=== PATIENT | female | born 1950 | race African-American/Black ===

== ENCOUNTER 2021-08-27 09:05 | Outpatient (REF) | payer MEDICARE, SELFPAY | END 2021-08-27 09:06 | disposition home or self-care (01) | LOC: HO.CT 09:05 | PROVIDERS: Visit Provider Psychiatry & Neurology Neurology | DX: Z13.89 Encounter for screening for other disorder (principal) ==

== ENCOUNTER 2024-12-20 09:58 | Outpatient (REF) | payer MEDICARE, SELFPAY ==
[2024-12-20 10:52] LABS: MANUAL DIFF FLAG NO
[2024-12-20 11:26] LABS: Hematocrit 33.1 % (37.0-47.0); Hemoglobin 10.2 g/dl (12.0-16.0); Imm Gran Abs Auto 0.01 X10*3/uL (0.00-0.03); Imm Gran Pct Auto 0.3 % (0.0-0.4); Lymphocytes Absolute Auto 0.8 X10*3/uL (1.2-4.9); Mean Corpuscular HGB Conc 30.8 g/dl (31.0-35.0); Mean Corpuscular Hemoglobin 29.1 pg (27.0-33.0); Mean Corpuscular Volume 94.6 fL (80.0-98.0); NRBC Abs Auto 0.000 X10*3/uL (0.0-0.012); NRBC Pct Auto 0.0 /100WBC (0.0-0.2); Platelet Count 153 X10*3/uL (160-400); Red Blood Count 3.50 X10*6/uL (4.20-5.50); White Blood Count 3.0 X10*3/uL (4.8-10.8)
[2024-12-20 12:07] LABS: Alanine Aminotransferase 27 U/L (0-31); Albumin Level 4.1 g/dL (3.5-5.0); Alkaline Phosphatase 103 U/L (39-117); Aspartate Amino Transferase 33 U/L (5-31); Total Protein 7.4 g/dL (6.5-8.0)
[2024-12-21 19:53] LABS: Antibody to SS-A Antigen <1.0 NEG AI (<1.0 NEG); Antibody to SS-B Antigen <1.0 NEG AI (<1.0 NEG)
[2024-12-25 20:59] LABS: Anti Nuclear Antibody Screen POSITIVE (NEGATIVE); Anti Nuclear Antibody Titer 1:40 titer
== END 2024-12-20 09:59 | disposition home or self-care (01) ==
LOC: HO.LAB 09:58
PROVIDERS: PCP Internal Medicine; Visit Provider Hospitalist
DX: Z01.84 Encounter for antibody response examination (principal); J90 Pleural effusion, not elsewhere classified; G47.33 Obstructive sleep apnea (adult) (pediatric); G47.34 Idiopathic sleep related nonobstructive alveolar hypoventilation; J98.4 Other disorders of lung; R06.00 Dyspnea, unspecified
CPT/HCPCS: 36415; 80076; 82164; 85025; 86038; 86039; 86235; 99212

== ENCOUNTER 2024-12-20 09:58 | Outpatient (AMB) | payer MEDICARE, SELFPAY ==
[2024-12-20 10:03] VITALS: BP 100/50; PULSE 64; O2SAT 98; BMI 28.8
--- NOTE | 2024-12-20 10:03 | A.OFFVIS_ITS ---
Vital Signs 12/20/24 10:03 Height 5 ft 8 in Weight 189 lb 9.561 oz BMI 28.8 BP 100/50 L Blood Pressure Location Lt brachial Position Sitting Pulse 64 Pulse Source Pulse Oximeter Pulse Oximetry (%) 98 Oxygen Delivery Method Room Air Intake Visit Reasons: Sleep apnea Photoengraving Photographer Required: No Allergies Codeine Allergy (Severe, Uncoded 08/10/24 13:07) Rash and Hives HPI Comments Details: The patient is a 74-year-old woman known COPD in addition to obstructive sleep apnea on CPAP. Apparently she was scheduled to undergo a total knee replacement at [facility] back in February 2019 which was found to have being age from fibrillation this was a new diagnosis for her. She was admitted to the hospital with AFib with rapid ventricular response with EKG changes. Her echo was done demonstrating an EF of 35-40%. She also underwent a diagnostic catheterization demonstrated some coronary artery disease. She was subsequently sent to [facility] for a intervention however, her her blockers was not significant enough for too small for stent so therefore they opted on medical therapy. At this point she does not require surgical intervention. She is recovering well she is on Eliquis now for blood thinners. She currently has a Holter monitor to further assess her arrhythmias. Her breathing still an issue. She is to having dyspnea on exertion. Moderate severity. She has been using Symbicort at times. The patient also has a history of sleep apnea. She has not been able to get back to using her machine after her recent hospitalization. She understands that we need to get her back on CPAP nor to treat her cardiac risk including her cardiac arrhythmia and coronary artery disease. Holter monitor was okay. There is still not sure how much of the cardiac issues contributing to her respiratory symptoms. She did have pulmonary function studies that with we personally reviewed no evidence of any obstruction although she has small airway disease more consistent with a diagnosis like asthma. She responds very well to the inhaler. However she also has a restrictive component. We have to further investigate this with imaging studies. Her CPAP she still getting used to her new mask. She has tried going to try her old mask. She understands she needs to do that because is going to treat her cardiovascular risk. She did undergo a CT scan of the chest that we personally reviewed. The patient did have some evidence of atelectasis at the bases. Partly due to enlarged heart question on the lungs. Does have significant cardiomegaly. She also has evidence of atherosclerosis and distended vessels. The patient also was taken for brief walking oximetry and she maintain a pulse ox of 96%. However the heart rate did increase above 100 and the patient quickly became very short of breath with that. She will be following up with the horse groomer soon. In the meantime she continues use her CPAP. The CPAP therapy continues to be effective beneficial. She uses the CPAP for more than 4 hours a night. 11/12/2022 the patient is here for a pulmonary follow-up visit. Since we last spoke the patient unfortunately had a bad fall fracturing her left like. She did have to be admitted to [facility] which she did undergo surgery. Now she is recovering at home. She still has a soft splint and she is going to be evaluated soon since the just happen. Since they have been she has been noticing increasing shortness of breath hard time taking a deep breath in. Denies any mucus production denies any fevers or chills and she denies any pleuritic discomfort which is reassuring for she has been using the Trelegy inhaler although is bothering her throat most likely the powder. Therefore will switch over to an HFA form with spacer to better provide the medication without irritating her vocal cords. In addition to that the patient does have some crackles on examination at the right base. Likely atelectasis postoperatively and she needs to start using the hand forearm her more. In the meantime if the patient worsens with increasing shortness of breath cough discomfort I did give her a course of doxycycline she can start but also to call me to let me know. We did talk about the importance of the incentive spirometer and she can use it 3 to 4 times a day to avoid developing a infectious process. Will follow-up in 2-3 months. If she has any new or worsening respiratory symptoms she is to call for further evaluation. 08/11/2023 the patient is here for pulmonary follow-up visit. currently having issues with the knee. 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 Now she is going to undergo surgery. For respiratory status she continues to use her respiratory medications with good effect. She does complaint of shortness of breath with activity. The patient does have good response to her respiratory medications. She does complaint of headaches in the morning. The patient does have underlying COPD so therefore I will request an overnight oximetry to see if she requires nocturnal oxygen. During the last visit we did switch over from Trelegy to breztri and she is tolerating it well. Her last chest x-ray was back from May 2023 demonstrating no acute disease. Will hold off on any additional imaging at this time. Will try to have an overnight oximetry done prior to her surgery. The patient will follow-up in 4-6 months. 02/11/2024 The patient is here for a pulmonary follow up visit. Has been Complaining of worsened daytime drowsiness. Her [place] score is elevated 05/01. She also complains of headaches. We did perform an overnight oximetry and she did desaturate significantly. She was placed on oxygen to use while sleeping. However, she did not tolerate the loud concentrator. Therefore she returned it. Although she is still symptomatic. She does carry a diagnosis of sleep apnea. Will go ahead and request an in-lab sleep study specially with nocturnal hypoxia. In the meantime she continues respiratory therapy with good effect. The patient follow-up after her in-lab sleep study. 06/15/2024 the patient is here for a pulmonary follow-up visit. Overall she is doing well. Still has some dyspnea on exertion [id number] severity. Also gets wheezing time specially she forgets to take her inhaler. She does take her inhalers regularly. She has not had any recent exacerbations. She is sleeping better. She is not using oxygen at nighttime. She did have a in-lab sleep s tudy which we did review. No evidence of any sleep apnea or hypoxia this time. Therefore is reassuring. She may have a component of periodic limb movement but does related to the fact that she has had some issues with her hips and knees. She is also having some issues with her eyes with her significantly red. She also has what appears to be some swelling around the eyes. They are we doing he r kitchen therefore may have other allergens in the area. Will go ahead and send her an allergy medication to see if this provides some relief. Overall she is doing well. The patient will continue with current respiratory therapy plan to follow-up sometime in the fall. If any issues arise she can always call for an earlier assessment. 12/20/2024 the patient is here for pulmonary follow-up visit. Overall she is doing well from a respiratory status. She continues use her inhalers as prescribed. The patient did have an event back in July where she had issues with vertigo and thought she was having a stroke. She was taken [facility] to [facility] but was too busy and then she went to [facility] then went back to [facility]. Was briefly admitted. There she had a chest x-ray without any acute disease that I did appreciate. After that hospitalization she started losing her hearing. She did follow-up with ENT. 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 She does have a hearing aid. She will continue to follow- up with ENT. In addition to that she was diagnosed with uveitis. She was sent to [place]. She has been getting some direct steroid injections to the eye. In addition. The patient did have a CT scan of the chest at [facility] at [facility]. Will try to get the report. She was told that she has a pleural effusion. She was placed on diuretics IV and her breathing did improve and she feels well. Her chest x-ray from [facility] did not demonstrate any effusions which is reassuring. Will go ahead and request a CAT scan to review. Question of sarcoidosis did come up in our discussion. Will have her get an Kuldeep level specially with the uveitis and hearing loss in case this was not a viral syndrome sarcoid could potentially explain the findings. Therefore she will have blood work including an Kuldeep level and we will review the CAT scan from [facility]. If additional imaging is warranted I will let her know. The patient be back in 3-4 months. [facility] Medical History (Updated 12/20/24 @ 10:28 by Mitchell Hernandez MD) Pleural effusion Ventricular tachycardia Nocturnal hypoxia ERIKA (obstructive sleep apnea) Chronic restrictive lung disease Dyspnea Cardiomyopathy ERIKA on CPAP COPD (chronic obstructive pulmonary disease) Social History Patient Tobacco Use Status: Former Tobacco user Tobacco use type: Cigarette Years Smoked: 16 years Review of Systems Const Reports daytime sleepiness, Reports difficulty sleeping, Reports headache(s), Reports poor appetite and Reports weight gain Eyes Reports as per HPI and Reports change in vision ENT Denies change in voice, Reports headache(s), Reports hearing loss, Denies lip swelling, Denies mouth pain, Reports nasal congestion, Reports nasal discharge and Denies tongue swelling Card Denies chest pain and Reports dyspnea on exertion Resp Reports cough and Reports dyspnea on exertion GI Denies abdominal pain Musc Reports as per HPI, Reports abnormal gait, Reports arthralgias and Reports joint swelling Neuro Denies Neuro-related abnormal movements, Reports abnormal gait and Reports headache(s) Psych Denies no additional complaints Ifeanyi/Lymph Denies easy bleeding and Denies lymphadenopathy Aller/Immun Denies lip swelling and Denies tongue swelling Physical Exam Vital Signs: Last Vital Signs Pulse 64 12/20/24 10:03 BP 100/50 L 12/20/24 10:03 Pulse Ox 98 12/20/24 10:03 Oxygen Delivery Method Room Air 12/20/24 10:03 BMI result Body Mass Index 28.8 Const General: alert Eyes Periorbital: periorbital findings abnormal bilateral periorbital swelling Neck Neck: Yes normal visual inspection, Yes full ROM and Yes no lymphadenopathy Chest Chest palpation & inspection: normal inspection of the chest Resp Auscultation: clear to auscultation bilaterally and no crackles Cardio Rate: regular rate Rhythm: regular rhythm Heart sounds: S1 normal heart sound present, S2 normal heart sound present and Murmur heart sound present GI Palpation (GI): Soft to palpation and nontender Auscultation: normal bowel sounds Skin General skin exam: rashes and/or lesions noted Assessment & Plan Assessment & Plan (1) Pleural effusion: Code(s): J90 - Pleural effusion, not elsewhere classified Category: Medical (2) ERIKA (obstructive sleep apnea): Code(s): G47.33 - Obstructive sleep apnea (adult) (pediatric) Category: Medical (3) Nocturnal hypoxia: Code(s): G47.34 - Idiopathic sleep related nonobstructive alveolar hypoventilation Category: Medical (4) Chronic restrictive lung disease: Code(s): J98.4 - Other disorders of lung Category: Medical (5) Dyspnea: Code(s): R06.00 - Dyspnea, unspecified Category: Medical Qualifiers: Dyspnea type: dyspnea on exertion Qualified Code(s): R06.09 - Other forms of dyspnea Plan continue Breztri with spacer short-acting beta agonist as needed claritin Bloodwork Need to review CT chest from [facility] F/U in 3-4 months Orders: Orders Angiotensin Converting Enzyme Today J90 - Pleural effusion, not elsewhere classified, J98.4 - Other disorders of lung Complete Blood Count Auto Diff Today J90 - Pleural effusion, not elsewhere classified, J98.4 - Other disorders of lung Sjogren's Antibodies Today J90 - Pleural effusion, not elsewhere classified, J98.4 - Other disorders of lung Liver Panel Today J90 - Pleural effusion, not elsewhere classified, J98.4 - Other disorders of lung ETHAN Reflex Titer and Pattern Today J90 - Pleural effusion, not elsewhere classified, J98.4 - Other disorders of lung Medications: Discontinued trazodone Discontinued Reason: Patient Completed Course 100 mg (2 x 50 mg) PO BEDTIME 30 days 60 tabs 6RF doxycycline hyclate Discontinued Reason: Patient Completed Course 100 mg PO BID 10 days 20 caps 0RF Coding Level of Care Code Est Pt Level 4 (28134) Complex EM visit Add On G2211 Diagnoses Pleural effusion J90 ERIKA (obstructive sleep apnea) G47.33 Nocturnal hypoxia G47.34 Chronic restrictive lung disease J98.4 Dyspnea on exertion R06.09 Dyspnea type: dyspnea on exertion Time Spent (min) 17
--- OUTSIDE RECORDS SUMMARY | 2024-12-20 10:49 | XMS_ITS | Patient Health Record ---
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 Name Role Phone Radha Henson Primary Care Provider Unavailabl e Black, Elsie Unavailable [phone] Allergies Allergen (clinical drug ingredient) Drug/Non Drug Allergy documented on EMR Reaction Allergy Type Onset Date Status general spinal (uncoded) Unknown Allergy Active codeine Codeine heart palpitations Drug Allergy Active corticosteroid and/or corticosteroid derivative (FN) Corticosteroids Unknown Drug Allergy Active Results Component Value Reference Range Notes X ray : Foot, right 2V Reviewed date:04/12/2024 11:55:29 AM Interpretation:See Examination above Performing Lab: Notes/Report: See Examination above X ray : Foot, left 3V Reviewed date:04/12/2024 11:55:45 AM Interpretation:See Examination above Performing Lab: Notes/Report: See Examination above Reason For Referral No Information Medications Medication SIG (Take, Route, Frequency, Duration) Notes Start Date End Date Status Pepcid 20 MG 1 tablet at bedtime as needed Orally Once a day Active Lexapro 20 MG 1 tablet Orally Once a day Active Pulmicort Not-Taking Melatonin 5 MG 1 tablet in the evening Orally Once a day Active Loteprednol Etabonate Active Pravastatin Sodium 80 MG Orally Not-Taking Keflex Active Ammonium Lactate 12 % 1 application Externally to affected areas of dry skin to feet except for between the toes Twice a day; Duration: 30 days Active Montelukast Sodium 10 MG 1 tablet Orally Once a day Active Fish Oil Not-Taking traZODone HCl 50 MG 1 tablet at bedtime as needed Orally Once a day Active Fosamax 70 MG Orally Not-Ta nona Folic Acid Active Atorvastatin Calcium 40 MG 1 tablet Oral ly Once a day Active ProAir HFA Not-Takin g Magnesium Oxide Acti ve Protonix 40 MG 1 tablet 1/2 to 1 ho ur before morning meal Orally Once a day Active Tramadol & Dietary Manage Prod Not-Taking Hfqxnzgtqewoz-LXPY-Bekihyw al Not-Taking Spironolactone - 1 tablet Orally daily 12.5 Active eliquis Active Vraylar 1.5 MG 1 capsule Orally Onc e a day Active Ferrous Sulfate Acti ve Entresto 24-26 MG 1 tablet Orally Twic e a day Active Gabapentin Active Aspirin Active Calcium + D3 Active Inhaler Decongestant Active Cephalexin 500 MG 1 capsule Orally twi ce a day; Duration: 10 days Active Metoprolol Succinate 25 MG 1 capsule Orally Once a day 12.5 Active Vitamin D3 Active Amlodipine & Diet Manage Prod Active Social History Tobacco Use: Social History Observation Description Date Details (start date - stop date) Never Smoker NA - NA Tobacco use other than smoking: Question Answer Notes Are you an other tobacco user? No Tobacco Control (Standard) Question Answer Notes Tobacco use: Nonsmoker Additional Findings: Tobacco non-user Current no nsmoker AUDIT-C (Standard) Question Answer Notes Did you have a drink containing alcohol in the p ast year? No Points 0 Interpretation Negative Problems Problem Type SNOMED Code ICD Code Onset Dates Problem Status W/U Status Risk Notes Problem Neuropathy (137777658) Neuropathy (G62.9) Active confirmed Problem Idiopathic peripheral neuropathy (20159280) Idiopathic peripheral neuropathy (G60.9) Active confirmed Problem Bilateral atherosclerosis of arteries of lower limbs (disorder) (62747159621641467 ) Atherosclerosis of [place] artery of both lower extremities, with unspecified presence of clinical manifestation (I70.203) Active confirmed Q7(A), Q8(2B), Q9(1B,2 C) Vital Signs Heart Rate 63 /min 08/30/2024 Blood pressure diastolic 76 mm Hg 11/09/2024 Height 5ft 8in in 11/09/2024 Blood pressure systolic 120 mm Hg 11/09/2024 Weight 189 lbs 11/09/2024 BMI 28.73 kg/m2 11/09/2024 Procedures Procedure Date Ordered Date Performed Result Body Sit e 60283-IJELFDX NAIL, 6 OR MORE 04/12/2024 N/A 16703- Debride <25 sq cm 04/19/2024 N/A 58845-Fyfkaody Plate 05/03/2024 N/A 93355-ENFJTXE NAIL, 6 OR MORE 08/30/2024 N/A 41083-HFBT SKIN LESIONS, OVER 4 08/30/2024 N/A 74776-ARBMOTJ NAIL, 6 OR MORE 11/09/2024 N/A 98358-EKAN SKIN LESIONS, OVER 4 11/09/2024 N/A Encounters Encounter Location Date Provider Diagnosis [address] [address] 04/12/2024 Elsie Black Pain in right toe(s) M79.674 ; Other hammer toe(s) (acquired), right foot M20.41 ; Arthritis of joint of lesser toe, right M19.071 ; Pain in left toe(s) M79.675 ; Other hammer toe(s) (acquired), left foot M20.42 ; Arthritis of joint of lesser toe, left M19.072 ; Subluxation of metatarsophalangeal joint of toe, initial encounter S93.149A ; Onychomycosis B35.1 ; Neuropathy G62.9 ; Idiopathic peripheral neuropathy G60.9 and Osteoporosis without current pathological fracture, unspecified osteoporosis type M81.[address] [address] 04/19/2024 Elsie Black Cellulitis of toe of left foot L03.032 ; Skin ulcer of toe of left foot, limited to breakdown of skin L97.521 ; Hammertoe of left foot M20.42 and Toe pain, left M79.[address] [address] 05/03/2024 Elsie Black Cellulitis of toe of left foot L03.032 ; Contusion of right foot, initial encounter S90.31XA ; Skin ulcer of toe of left foot, limited to breakdown of skin L97.521 ; Ingrown nail L60.0 and Pain in right foot M79.[address] [address] 05/25/2024 Elsie Black Pain in right toe(s) M79.674 ; Other hammer toe(s) (acquired), right foot M20.41 ; Flat foot [pes planus] (acquired), left foot M21.42 ; Flat foot [pes planus] (acquired), right foot M21.41 ; Pes planus of left foot M21.42 ; Other acquired deformities of right foot M21.6X1 and Other acquired deformities of left foot M21.6X2 [facility] [address] 08/30/2024 Elsie Black Pain in right toe(s) M79.674 ; Other hammer toe(s) (acquired), left foot M20.42 ; Pain in left toe(s) M79.675 ; Onychomycosis B35.1 ; Atherosclerosis of [place] artery of both lower extremities, with unspecified presence of clinical manifestation I70.203 ; Tinea unguium B35.1 and Xerosis of skin L85.[address] [facility] [address] 11/09/2024 Elsie Black Pain in right toe(s) M79.674 ; Atherosclerosis of [place] artery of both lower extremities, with unspecified presence of clinical manifestation I70.203 ; Pain in left toe(s) M79.675 and Tinea unguium B35.[address] [facility] [address] 12/22/2023 Elsie Black [facility] [address] [address] 01/08/2024 [facility] [address] [place] [address] 04/12/2024 [facility] [address] [place] [address] 04/19/2024 [facility] [address] [place] [address] 05/25/2024 [facility] [address] [place] [address] 06/28/2024 Elsie Black [facility] [place] [address] [place] [address] 06/28/2024 [facility] Lenny [facility] [address] [address] 07/26/2024 Elsiekranthi Galvez [facility] [address] [address] 08/24/2024 Elsie Galvez [facility] Encounter Date Diagnosis (ICD Code) Assessment Notes Treatment Notes Treatment Clinical Notes Section Notes 04/12/2024 Other hammer toe(s) (acquired), right foot (ICD-10 - M20.41) 04/12/2024 Pain in right toe(s) (ICD-10 - M79.674) 04/19/2024 Cellulitis of toe of left foot (ICD-10 - L03.032) 04/19/2024 Skin ulcer of toe of left foot, limited to breakdown of skin (ICD-10 - L97.521) 05/03/2024 Contusion of right foot, initial encounter (ICD-10 - S90.31XA) 05/03/2024 Cellulitis of toe of left foot (ICD-10 - L03.032) 05/25/2024 Pain in right toe(s) (ICD-10 - M79.674) 05/25/2024 Other hammer toe(s) (acquired), right foot (ICD-10 - M20.41) 08/30/2024 Other hammer toe(s) (acquired), left foot (ICD-10 - M20.42) 08/30/2024 Pain in right toe(s) (ICD-10 - M79.674) 11/09/2024 Pain in right toe(s) (ICD-10 - M79.674) 11/09/2024 Atherosclerosis of [place] artery of both lower extremities, with unspecified presence of clinical manifestation (ICD-10 - I70.203) Q7(A), Q8(2B), Q9(1B,2C) 08/30/2024 Pain in left toe(s) (ICD-10 - M79.675) 05/25/2024 Flat foot [pes planu s] (acquired), left foot (ICD-10 - M21.42) 11/09/2024 Pain in left toe(s) (ICD-10 - M79.675) 05/03/2024 Skin ulcer of toe of left foot, limited to breakdown of skin (ICD-10 - L97.521) 04/19/2024 Hammertoe of left fo ot (ICD-10 - M20.42) 04/12/2024 Arthritis of joint o f lesser toe, right (ICD-10 - M19.071) 04/19/2024 Toe pain, left (ICD- 10 - M79.675) 04/12/2024 Pain in left toe(s) (ICD-10 - M79.675) 05/25/2024 Flat foot [pes planu s] (acquired), right foot (ICD-10 - M21.41) 05/03/2024 Ingrown nail (ICD-10 - L60.0) 11/09/2024 Tinea unguium (ICD-1 0 - B35.1) 08/30/2024 Onychomycosis (ICD-1 0 - B35.1) 08/30/2024 Atherosclerosis of [place] artery of both lower extremities, with unspecified presence of clinical manifestation (ICD-10 - I70.203) Q7(A), Q8(2B), Q9(1B,2C) 05/25/2024 Pes planus of left f oot (ICD-10 - M21.42) 05/03/2024 Pain in right foot (ICD-10 - M79.671) 04/12/2024 Other hammer toe(s) (acquired), left foot (ICD-10 - M20.42) 05/25/2024 Other acquired deformities of right foot (ICD-10 - M21.6X1) 04/12/2024 Arthritis of joint o f lesser toe, left (ICD-10 - M19.072) 08/30/2024 Tinea unguium (ICD-1 0 - B35.1) 08/30/2024 Xerosis of skin (ICD -10 - L85.3) 05/25/2024 Other acquired deformities of left foot (ICD-10 - M21.6X2) 04/12/2024 Subluxation of metatarsophalangeal joint of toe, initial encounter (ICD-10 - S93.149A) 04/12/2024 Onychomycosis (ICD-1 0 - B35.1) 04/12/2024 Neuropathy (ICD-10 - G62.9) 04/12/2024 Idiopathic periphera l neuropathy (ICD-10 - G60.9) 04/12/2024 Osteoporosis without current pathological fracture, unspecified osteoporosis type (ICD-10 - M81.0) Plan Of Treatment Pending Test Test Name Order Date 73356-ETQPTVP NAIL, 6 OR MORE 04/12/2024 54199-JHYRWAA NAIL, 6 OR MORE 08/30/2024 60909-CWIFJVO NAIL, 6 OR MORE 11/09/2024 29647-Xrkb Destruction, 1-14 05/16/2014 48520-Dwvf Destruction, -14 06/27/2014 93302-Cjmd Destruction, 1-14 07/18/2014 05839-Zlbfskdk Plate 07/18/2014 56984-Blvpkqte Plate 05/03/2024 26717- Debride <25 sq cm 04/19/2024 43472-NASD SKIN LESIONS, OVER 4 08/31/19 76201-YJNJ SKIN LESIONS, OVER 4 11/10/19 Next Appt Details Provider Name:Elsie Galvez , 01/24/2025 11:15:00 AM, [address] [facility], [place], [address], Insurance Providers Payer Name Payer Address Payer Phone Subscriber Number Group Number Insured Name Patient Relationship to Insured Coverage Start Date Coverage End Date Medicare National [employer] [address] [facility] [place] [address] [id number] Miya Woodruff Self - patient is the insured [facility] [address] [place] [address] [phone] [id number] Miya Woodruff Self - patient is the insured Medical (General) History Medical History History ICD Code mumps measles chicken pox headaches/migraines broken bones back, hip, knee pain Arthritis Anxiety asthma Hyperlipidemia Depression Hypertension Osteoporosis Psoriasis/eczema Psychiatric disorder Sciatica Sinus conditions CAD (Cholesterol) Cataracts Heart disease High Blood Pressure Numbness Reflux ( GERD) Stomach ulcer Transfusions Bone implants/screws Neuritis of left foot G57.92 Other hammer toe(s) (acquired), right fo ot M20.41 Arthritis of joint of lesser toe, right M19.071 Arthritis of joint of lesser toe, left M 19.072 Hammertoe of left foot M20.42 Surgical History Surgery Date(Month/Year) appendectomy breast biopsy Hospitalization History Reason Date(Month/Year) iron infusion 11/07/24 eye disease trouble hearing, fluid in kristi ngs 08/02
--- OUTSIDE RECORDS SUMMARY | 2024-12-20 10:50 | XMS_ITS ---
Author Organization [facility] Name Relationship Address Phone Miya Woodruff Guarantor [address] [place], [place] [phone] Miya Woodruff Agent [address] [place], [place] [phone] Jerome Bella Next of Kin [address] [place], [place] [phone] Mental Status Section Date Assessment Total Score Description 10/18/2020 BIMS 15 cognitively int act CAM 0 No delirium ind icated 09/26/2020 BIMS 15 cognitively int act CAM 0 No delirium ind icated PHQ-9 17 moderately ramesh re depression Problems Problem # Description Date of onset Resolved Date Code CodeSystem Concern Status 1 ANXIETY DISORDER, UNSPECIFIED 10/02/[address] active 2 OTHER SPECIFIED DEPRESSIVE EPISODES 10/02/[address] active Reason for Referral No Reasons for Referral Entered Social History Social History Observation Description Start Date End Date Code Code System Current Smoking Status Tobacco smoking consumption unknown 648781141 SNOMED CT Sex Assigned At Female 1950 [address]-6 [facility] Gender Identity Vital Signs Code Code System Vitals Name Values and Units Timing Information 24770-9 LOINC Weight Jfsxl=385.0 Units=Lbs 03/2021
--- OUTSIDE RECORDS SUMMARY | 2024-12-20 10:50 | XMS_ITS ---
Author Organization [employer] Name Relationship Address Phone Miya Woodruff Guarantor [address] [place], [place] [phone] Miya Woodruff Agent [address] [place], [place] [phone] Jerome Bella Next of Kin [address] [place] [address] Mental Status Section Date Assessment Total Score Description 11/27/2020 BIMS 15 cognitively int act CAM 0 No delirium ind icated PHQ-9 0 11/02/2020 BIMS 15 cognitively int act CAM 0 No delirium ind icated PHQ-9 2 minimal depress ion Problems Problem # Description Date of onset Resolved Date Code CodeSystem Concern Status 1 AFTERCARE FOLLOWING JOINT REPLACEMENT SURGERY 10/27/[address] active 2 MECHANICAL LOOSENING OF OTHER INTERNAL PROSTHETIC JOINT, SUBSEQUENT ENCOUNTER 10/27/[address] active 3 ACUTE HEMATOGENOUS OSTEOMYELITIS, LEFT FEMUR 09/21/19945340468 SNOMED CT active 4 ACUTE HEMATOGENOUS OSTEOMYELITIS, LEFT TIBIA AND FIBULA 09/21/[address] active 5 CARDIOMYOPATHY, UNSPECIFIED 09/21/[address] active 6 CHRONIC OBSTRUCTIVE PULMONARY DISEASE, UNSPECIFIED 09/21/[address] active 7 CHRONIC SYSTOLIC (CONGESTIVE) HEART FAILURE 09/21/[address] active 8 DIFFICULTY IN WALKING, NOT ELSEWHERE CLASSIFIED 09/21/[address] active 9 DYSPHAGIA, UNSPECIFIED 09/21/[address] active 10 ENCOUNTER FOR ADJUSTMENT AND MANAGEMENT OF VASCULAR ACCESS DEVICE 09/21/[address] active 11 GASTRO-ESOPHAGEAL REFLUX DISEASE WITHOUT ESOPHAGITIS 09/21/[address] active 12 HEART FAILURE, UNSPECIFIED 09/21/[address] active 13 INFECTION AND INFLAMMATORY REACTION DUE TO OTHER INTERNAL JOINT PROSTHESIS, SUBSEQUENT ENCOUNTER 09/21/[address] active 14 INFECTION AND INFLAMMATORY REACTION DUE TO UNSPECIFIED INTERNAL JOINT PROSTHESIS, SUBSEQUENT ENCOUNTER 09/21/[address] active 15 IRON DEFICIENCY ANEMIA SECONDARY TO BLOOD LOSS (CHRONIC) 09/21/[address] active 16 LIMITATION OF ACTIVITIES DUE TO DISABILITY 09/21/[address] active 17 FPC (CURRENT) USE OF ANTIBIOTICS 09/21/[address] active 18 MUSCLE WEAKNESS (GENERALIZED) 09/21/[address] active 19 NEED FOR ASSISTANCE WITH PERSONAL CARE 09/21/[address] active 20 OBSTRUCTIVE SLEEP APNEA (ADULT) (PEDIATRIC) 09/21/[address] active 21 OTHER THROMBOPHILIA 09/21/[address] active 22 PAIN IN LEFT LEG 09/21/[address] active 23 PAROXYSMAL ATRIAL FIBRILLATION 09/21/[address] active 24 PRESENCE OF CARDIAC PACEMAKER 09/21/[address] active Reason for Referral No Reasons for Referral Entered Social History Social History Observation Description Start Date End Date Code Code System Current Smoking Status Tobacco smoking consumption unknown 442728358 SNOMED CT Sex Assigned At Female 1950 [address]-1 [facility] Gender Identity Vital Signs Code Code System Vitals Name Values and Units Timing Information 9279-1 [facility] Respiratory Rate Value=18.0 Units=/m in 11/21/2020 8462-4 [facility] Blood Pressure-Diastolic Value=78 Un its=mmHg 11/21/2020 8480-6 [facility] Blood Pressure-Systolic Eqhgs=619 Un its=mmHg 11/21/2020 8310-5 [facility] Body Temperature Value=98.3 Units= F 11/21/2020 8867-4 [facility] Heart rate Value=66.0 Units=/min 99767-8 [facility] Weight Ndrds=205.0 Units=Lbs 08/2020
--- OUTSIDE RECORDS SUMMARY | 2024-12-20 10:50 | XMS_ITS | Encounter Summary ---
Author Organization [employer] Address [address] [facility] 7 [place] [address] Care Team Providers Care Orthotic/Prosthetic Practitioner Name Role Phone Unavailable Primary Care Provider Unavailabl e Encounter Details Date Type Department Care Team (Latest Contact Info) Description 04/12/2021 Abstract [facility] CONVERSIONS Dental, Provider, DDS Social History Tobacco Use Types Packs/Day Years Used Date Smoking Tobacco: Never Assessed Comments Unknown Sex and Gender Information Value Date Recorded Sex Assigned at Female 04/07/2022 10:34 AM EDT Legal Sex Female 10:34 AM EDT Gender Identity Female 04/07/2022 10:34 AM EDT Sexual Orientation Straight 04/07/2022 10 :34 AM EDT documented as of this encounter Plan of Treatment Upcoming Encounters Date Type Department Care Team (Late st Contact Info) Description 04/18/2025 10:00 AM EST Office Visit [facility] [address] [place] [address] Farhat Stoner documented as of this encounter Visit Diagnoses Not on filedocumented in this encounter
--- OUTSIDE RECORDS SUMMARY | 2024-12-20 10:50 | XMS_ITS | Clinical Summary ---
Author Organization [facility] Address [address] [place] [address] Care Team Providers Care Associate Embalmer/Funeral Director Name Role Phone Radha Henson MD Primary Care Provider [phone] Allergies Active Allergy Reactions Criticality Noted Date Comments Codeine Shortness Of Breath High 05/22/2017 1974, Palpatations Other reaction(s): PALPITATIONS Medications Medication Sig Dispensed Refills Start Date End Date Status escitalopram (LEXAPRO) 20 MG tablet Take 1 tablet (20 mg total) by mouth every morning after breakfast. 0 01/03/2020 Active Melatonin 5 MG TABS Take 5 mg by mouth every night at bedtime as needed. 0 04/16/2020 Active Multiple Vitamin (MULTI-VITAMIN DAILY PO) Take by mouth every morning. 0 Active ferrous sulfate 325 (65 FE) MG tablet Take 1 tablet (325 mg total) by mouth every morning with breakfast. 0 Active pantoprazole (PROTONIX) 40 MG tablet Take 1 tablet (40 mg total) by mouth 2 (two) times a day. 30 tablet 0 09/19/2020 Active B-Complex, Folic Acid, TABS TAKE ONE TABLET BY MOUTH EVERY DAY 0 06/12/2021 Active thiamine (VITAMIN B-1) 100 MG tablet Take 1 tablet (100 mg total) by mouth. 0 04/03/2021 Active Budeson-Glycopyrrol -Formoterol (BREZTRI AEROSPHERE IN) INHALE TWO PUFFS BY MOUTH TWICE DAILY 0 Active Calcium Carb-Cholecalcifero l (CALCIUM CARBONATE-VITAMIN D3 PO) Take 1 tablet by mouth every morning. 0 Active acetaminophen (TYLENOL EXTRA STRENGTH) 500 MG tablet Three Times A Day 0 03/22/2018 Active ascorbic acid (VITAMIN C) 250 MG tablet Take 1 tablet (250 mg total) by mouth every morning. 0 Active aspirin EC 81 MG tablet Take 1 tablet (81 mg total) by mouth every morning. 0 06/05/2023 Active atorvastatin (LIPITOR) tablet 40 mg Take 1 tablet (40 mg total) by mouth every night at bedtime. 0 Active Cholecalciferol 25 MCG (1000 UT) tablet Take 1 tablet (1,000 Units total) by mouth daily. 0 Active famotidine (PEPCID) 20 MG tablet TAKE ONE TABLET IN THE MORNING AND EVENING NEEDED 0 Active gabapentin (NEURONTIN) 400 MG capsule Take 2 capsules (800 mg total) by mouth daily. Take with 100mg for a total of 900mg daily 0 07/23/2023 Active levalbuterol (Xopenex HFA) 45 MCG/ACT inhaler INHALE TWO PUFFS EVERY 6 HOURS NEEDED SHORTNESS OF BREATH OR FOR WHEEZING 0 05/26/2022 Active montelukast (SINGULAIR) 10 MG tablet Take 1 tablet (10 mg total) by mouth every night at bedtime. 0 Active traZODone (DESYREL) 50 MG tablet Take 1-2 tablets (50-100 mg total) by mouth every night at bedtime as needed. 0 10/29/2022 Active zinc sulfate (ZINCATE) 220 (50 Zn) MG capsule Take 1 capsule (220 mg total) by mouth daily. 0 05/21/2021 Active folic acid (FOLVITE) tablet 1 mg Take 1 tablet (1,000 mcg total) by mouth every morning. 0 Active metoprolol succinate (TOPROL-XL) 24 hr tablet 25 mg Take 1 tablet (25 mg total) by mouth every morning. 0 06/05/2023 Active Entresto 24-26 MG per tablet TAKE ONE TABLET TWICE DAILY IN THE MORNING AND AT BEDTIME 0 07/23/2023 Active Cyanocobalamin (VITAMIN B 12 PO) Take 1 tablet by mouth daily. 0 Active cariprazine HCl (Vraylar) 1.5 MG capsule Take 1 capsule (1.5 mg total) by mouth daily. 0 Active amiodarone (PACERONE) 200 MG tablet Take 1 tablet (200 mg total) by mouth daily. 30 tablet 0 08/27/2023 Active apixaban (Eliquis) 2.5 MG TABS tablet Take 2 tablets (5 mg total) by mouth every 12 (twelve) hours. 60 tablet 0 08/27/2023 Active spironolactone (ALDACTONE) tablet 25 mg Take 0.5 tablets (12.5 mg total) by mouth daily. 30 tablet 0 08/27/2023 Active Fluticasone-Umeclid in-Vilant (Trelegy Ellipta) 100-62.5-25 MCG/ACT AEPB Inhale 1 puff into the lungs daily. 1 each 0 08/27/2023 Active cephalexin (KEFLEX) 500 MG capsule TAKE ONE CAPSULE TWICE DAILY IN THE MORNING AND AT BEDTIME 60 capsule 6 12/15/2023 Active Active Problems Problem Noted Date Diagnosed Date Periprosthetic fracture arou nd internal prosthetic left knee joint, initial encounter 08/21/2023 Anemia due to stage 3 chronic kidney disease 07/2020 Anemia 12/28/2020 Thrombocytopenia 12/28/2020 S/P joint replacement 10/21/2020 Secondary hypercoagulable state 09/13/2020 Morbid obesity with alveolar hypoventilation 01/2021 Prosthetic joint infection, subsequent encounter 09/05/2020 LBBB (left bundle branch block) 08/27/2020 Non-ischemic cardiomyopathy 06/27/2020 Overview: Overview: LBBB Cath 03/2019 revealing 30% LM which was not hemodynamically significant and therefore managed medically Further drop in LVEF to 25-30% Biotronik BiV AICD 12/2019 Echo 03/2020 low normal LVEF 50-55% with resolution of her MR VT/VF in Jul and August 2020 in the setting of marked hypokalemia and hypomagnesemia from diuretics and Diarrhea from abx Last Assessment & Plan: The patient currently has no congestive symptoms on her current medication regimen. She was started on a diuretic by a rehab facility since her last office visit and that likely has contributed to her hypokalemia and hypomagnesemia as well. Given the fact that she is euvolemic and her thoracic impedance is stable on her device interrogation in office today but she continues with below goal potassium and magnesium levels, suggest that her Lasix is changed back to as needed for weight gain and or symptoms of shortness of breath. I have written a this to her rehab facility. She should continue with potassium replacement until her potassium is greater than 4.5, and continue with magnesium replacement until her magnesium is greater than 2. She needs close following of her electrolytes especially as she goes into surgery. She will otherwise continue her current treatment plan with max dose Entresto, and beta-alee. Paroxysmal A-fib 06/27/2020 Overview: Overview: Anticoagulated with apixaban Last Assessment & Plan: In NSR on BB alone. Follow burden through device. Acute adjustment disorder wi th mixed anxiety and depressed mood 10/13/2018 Chronic pain of right knee 03/09/2018 Primary osteoarthritis of left knee 03/09/2018 Primary osteoarthritis of right knee 03/09/2018 Asthma-COPD overlap syndrome 01/02/2017 Obstructive sleep apnea syndrome 01/02/2017 Overview: Overview: CPAP Essential hypertension 01/15/2016 Overview: Last Assessment & Plan: Blood pressure a little on the low side but asymptomatic. This should improve with cessation of her diuretic Resolved Problems Problem Noted Date Diagnosed Date Resolved Date Polymorphic ventricular tachycardia 09/13/2020 02/05/2021 ICD (implantable cardioverte r-defibrillator) discharge 09/13/2020 02/05/2021 Hypomagnesemia 09/13/2020 02/05/2021 Contusion of right upper extremity 09/13/2020 02/05/2021 Infection 07/10/2020 02/05/2021 Postoperative wound abscess 05/14/2018 06/29/2018 Postop check 04/02/2018 02/05/2021 Hypercholesterolemia 01/15/2016 021 Overview: Last Assessment & Plan: Well-controlled lipid profile without known coronary artery disease continue statin Immunizations Name Administration Dates Next Due Covid-19 (Pfizer) Dilution Required 11/16/2020,0 10/26/2020 Pneumococcal Polysaccharide PPSV23 11/28/2009 Tdap 08/21/2023 Family History Medical History Relation Name Comments Heart attack Brother Heart disease Father mi COPD Mother Heart disease Mother CHF Hypertension Mother Heart attack Sister Relation Name Status Comments Brother Father (Age 50) [place] Mother (Age 86) Kidney Ron lure Sister Social History Tobacco Use Types Packs/Day Years Used Date Smoking Tobacco: Former Cigarettes 1 24 Q uit: 1989 Smokeless Tobacco: Never Alcohol Use Standard Drinks/Week Comments No 0 (1 standard drink = 0.6 oz pur e alcohol) Sex and Gender Information Value Date Recorded Sex Assigned at Female 06/07/2020 4:18 PM EST Gender Identity Female 07/04/2020 3:24 PM EST Sexual Orientation Straight 07/10/2020 8: 48 AM EST Job Start Date Occupation Industry Not on file Not on file Not on file Last Filed Vital Signs Vital Sign Reading Time Taken Comments Blood Pressure 123/71 09/08/2023 11:16 AM EDT Pulse 97 09/08/2023 11:16 AM EDT Temperature 37 C (98.6 F) 09/08/2023 11:16 AM EDT Respiratory Rate 19 08/27/2023 7:26 AM EDT Oxygen Saturation 98% 09/08/2023 11:16 AM EDT Inhaled Oxygen Concentration - - Weight 92.5 kg (204 lb) 09/08/2023 11:16 AM EDT Height 172.7 cm (5' 8 ) 08/24/2023 11:24 AM EDT Body Mass Index 31.02 08/24/2023 11:24 AM EDT Plan of Treatment Health Maintenance Due Date Last Done Comments Hepatitis C Screening 1949 Depression Screening 1961 BMI Counseling 1967 Diabetes: Eye Exam (No Retinopathy) 1967 Diabetes: Foot Exam 1967 Diabetes: Microalbumin Test 1967 Hemoglobin A1C Due 1967 Preventative Health Evaluation 1967 Colon Cancer Screening (Colonoscopy) 1994 Fall Risk Assessment 2014 Osteoporosis Screening (DEXA Scan) 2014 COVID-19 Vaccine (3 - 2023-2 5 season) 2024 11/16/2020, 10/26/2020 RSV Adult > 60+ Yrs or (1 - 1-dose 75+ series) 2024 Influenza Vaccine (#1) 2025 , 03/08/2020 DTap / Tdap / Td (3 - Td or Tdap) 08/20/2033 08/21/2023, 03/19/2016 Pneumococcal Vaccine Completed 10/31/2021, 11/28/2009 Shingrix-Zoster Vaccine Completed 11/01/19, 08/29/2021 Hepatitis B Vaccines Aged Out No long er eligible based on patient's age to complete this topic RSV Ped < 20 months Aged Out No longe r eligible based on patient's age to complete this topic Medical Devices Implanted Type Area Transportation Maintenance Operator Device Identifier Shelf Expiration Date Model / Serial / Lot Oss Diaphyseal Segment With Screws 17cm Implanted:Qty: 1 on 08/24/2023 by Tremayne Adams MD at [facility] Total Joint Left: Knee [id number] 07/07/2024 / / [id number] Oss Segmental Femoral Component Left 8.5cm Rs Implanted:Qty: 1 on 08/24/2023 by Tremayne Adams MD at [facility] Total Joint Left: Knee [id number] 12/15/2032 / / [id number] Rs Axle Implanted:Qty: 1 on 08/24/2023 by Tremayne Adams MD at [facility] Total Joint Left: Knee [id number] 12/30/2032 / / [id number] Rs Femoral [place] Set Implanted:Qty: 1 on 08/24/2023 by Tremayne Adams MD at [facility] Total Joint Left: Knee [id number] 01/13/2028 / / [id number] Ls Tibial Bearing 12mm Implanted:Qty: 1 on 08/24/2023 by Tremayne Adams MD at [facility] Total Joint Left: Knee [id number] 01/22/2028 / / [id number] Device Angio-Seal Vip .035in 70cm 6fr Valuelink Guidewire - 081312 - [id number] Implanted:2020 at [facility] and [facility] (Quantity not on file) [employer] [id number] / / Cement Simplex P Radiopaque Full Dose Bone 10 Pack - 623969 - [id number] Implanted:Qty: 1 on 10/18/2020 by Tremayne Adams MD at [facility] Left: Knee [facility] 03/07/2022 6191-06-08 0 / / [id number] Cement Simplex P Radiopaque Full Dose Bone 10 Pack - 027446 - [id number] Implanted:Qty: 1 on 10/18/2020 by Tremayne Adams MD at [facility] Left: Knee [facility] 03/07/2022 6191 0 / / [id number] Plug Artisan Medium 25mm Plug Bone Cement - 182862 - [id number] Implanted:Qty: 1 on 10/18/2020 by Tremayne Adams MD at [facility] and Med Left: Knee [facility] [id number] 08/17/2025 6215-5-01 1 / / [id number] Augment Triathlon B Cone Symmetric Tritanium Tibial Latex - 273802 - [id number] Implanted:Qty: 1 on 10/18/2020 by Tremayne Adams MD at [facility] and Med Left: Knee [facility] [id number] 03/29/2025 5549-A-12 0 / / [id number] Block Oss [id number] Augmentation Tibia Left Medial Right - 952973 - [id number] Implanted:Qty: 1 on 10/18/2020 by Tremayne Adams MD at [facility] and Med Left: Knee [employer] 04/07/2030 105502 / / [id number] Block 20mm Augmentation Tibial Knee - 277009 - [id number] Implanted:Qty: 1 on 10/18/2020 by Tremayne Adams MD at [facility] and Med Left: Knee [employer] 04/12/2030 737600 / / [id number] Component Oss Long 63mm Nonmodular Tibial Plate Knee - 643760 - [id number] Implanted:Qty: 1 on 10/18/2020 by Tremayne Adams MD at [facility] and Med Left: Knee [employer] 07/20/2030 411406 / / [id number] Cement Bone Surg Simplex Radiopq Stry-How 0175-8-431-82204 2 - [id number] Implanted:Qty: 1 on 08/24/2023 by Tremayne Adams MD at [facility] and Med Left: Knee [facility] [id number] 10/05/2025 6190-06-08 0 / / [id number] Cement Bone Surg Simplex Radiopq Stry-How 4758-9-732-01616 2 - [id number] Implanted:Qty: 1 on 08/24/2023 by Tremayne Adams MD at [facility] and Med Left: Knee [facility] [id number] 10/05/2025 6190-06-08 0 / / [id number] Plug Bone Med Stry-How 7475-7-875-80583 2 - [id number] Implanted:Qty: 1 on 08/24/2023 by Tremayne Adams MD at [facility] and Med Left: Knee [facility] [id number] 04/27/2028 6215 1 / / [id number] Knee Stem Oss Nathan [place] 12.0x150 Zimm-Biom 276288-153085 - [id number] Implanted:Qty: 1 on 08/24/2023 by Tremayne Adams MD at [facility] and Med Left: Knee JENNIFER [employer] [id number] 08/14/2032 742913 / / [id number] Knee Oss Reinf Yoke [employer] 880410-667823 - [id number] Implanted:Qty: 1 on 08/24/2023 by Tremayne Adams MD at [facility] and Med Left: Knee [employer] [id number] 02/04/2033 726550 / / [id number] Knee Tib Pin Lock Oss Poly [employer] 013813-428895 - [id number] Implanted:Qty: 1 on 08/24/2023 by Tremayne Adams MD at [facility] and Med Left: Knee [employer]ENN[employer]ER [employer] [id number] 09/26/2027 626719 / / [id number] Knee Tib Bushing Comp Oss [employer] 905933-013849 - [id number] Implanted:Qty: 1 on 08/24/2023 by Tremayne Adams MD at [facility] and Med Left: Knee [employer]ENN[employer]ER [employer] [id number] 04/10/2027 300233 / / [id number] Explanted Type Area Transportation Maintenance Operator Device Identifier Shelf Expiration Date Model / Serial / Lot Femoral And Tibial Component, Articular Insert, And Patella Explanted:Qty: 1 on 07/10/2020 at [facility] and Med Left: Knee Cecilio Rods Implanted:Qty: 1 on 07/10/2020 by Tremayne Adams MD at [facility] and Med Explanted:Qty: 1 on 09/05/2020 at [facility] and Med Left: Knee Description:2 cecilio rods rem kareem Cement Simplex P Full Dose Radiopaque Tobramycin Bone - 058209 - [id number] Implanted:Qty: 1 on 07/10/2020 by Tremayne Adams MD at [facility] and Med Explanted:Qty: 1 on 09/05/2020 at [facility] and Med Left: Knee [facility] 10/05/2021 6197-9-01 0 / / [id number] Cement Simplex P Full Dose Radiopaque Tobramycin Bone - 324211 - [id number] Implanted:Qty: 1 on 07/10/2020 by Tremayne Adams MD at [facility] and Med Explanted:Qty: 1 on 09/05/2020 at [facility] and Med Left: Knee [facility] 10/05/2021 6197-9-01 0 / / [id number] Cement Simplex P Full Dose Radiopaque Tobramycin Bone - 788011 - [id number] Implanted:Qty: 1 on 07/10/2020 by Tremayne Adams MD at [facility] and Med Explanted:Qty: 1 on 09/05/2020 at [facility] and Med Left: Knee [facility] 10/05/2021 6197-9- 0 / / [id number] Cement Simplex P Full Dose Radiopaque Tobramycin Bone - 055570 - [id number] Implanted:Qty: 1 on 07/10/2020 by Tremayne Adams MD at [facility] and Med Explanted:Qty: 1 on 09/05/2020 at [facility] and Med Left: Knee [facility] 10/05/2021 6197-9- 0 / / [id number] Cement Simplex P Radiopaque Full Dose Bone 10 Pack - 190579 - [id number] Implanted:Qty: 1 on 09/05/2020 by Tremayne Adams MD at [facility] and Med Explanted:Qty: 1 on 10/18/2020 by Tremayne Adams MD at [facility] and Med Left: Knee [facility] [id number] 11/05/2021 6191- 0 / / [id number] Cement Simplex P Radiopaque Full Dose Bone 10 Pack - 450374 - [id number] Implanted:Qty: 1 on 09/05/2020 by Tremayne Adams MD at [facility] and Med Explanted:Qty: 1 on 10/18/2020 by Tremayne Adams MD at [facility] and Med Left: Knee [facility] [id number] 11/05/2021 6191- 0 / / [id number] Cement Simplex P Radiopaque Full Dose Bone 10 Pack - 505468 - [id number] Implanted:Qty: 1 on 09/05/2020 by Tremayne Adams MD at [facility] and Med Explanted:Qty: 1 on 10/18/2020 by Tremayne Adams MD at [facility] and Med Left: Knee [facility] [id number] 11/05/2021 6191-06-08 0 / / [id number] Cecilio Talib Implanted:Qty: 1 on 09/05/2020 by Tremayne Adams MD at [facility] and Med Explanted:Qty: 1 on 10/18/2020 at [facility] and Med Left: Knee Description:1 CECILIO TALIB IN P ATIENT(CUT IN HALF, 1 HALF IN TIBIA, 1 HALF IN FEMUR) Cement Simplex P Radiopaque Full Dose Bone 10 Pack - 863937 - [id number] Implanted:Qty: 1 on 09/05/2020 by Tremayne Adams MD at [facility] and Med Explanted:Qty: 1 on 10/18/2020 by Tremayne Adams MD at [facility] and Med Left: Knee [facility] [id number] 11/05/2021 6190-06-08 0 / / [id number] Cement Simplex P Radiopaque Full Dose Bone 10 Pack - 529678 - [id number] Implanted:Qty: 1 on 09/05/2020 by Tremayne Adams MD at [facility] Med Explanted:Qty: 1 on 10/18/2020 by Tremayne Adams MD at [facility] and Med Left: Knee [facility] [id number] 11/05/2021 6191 0 / / [id number] Cement Simplex P Radiopaque Full Dose Bone 10 Pack - 402336 - [id number] Implanted:Qty: 1 on 10/18/2020 by Tremayne Adams MD at [facility] Med Explanted:Qty: 1 on 08/24/2023 by Tremayne Adams MD at [facility] Med Left: Knee [facility] 03/07/2022 6191 0 / / [id number] Cement Simplex P Radiopaque Full Dose Bone 10 Pack - 660077 - [id number] Implanted:Qty: 1 on 10/18/2020 by Tremayne Adams MD at [facility] Med Explanted:Qty: 1 on 08/24/2023 by Tremayne Adams MD at [facility] Med Left: Knee [facility] 03/07/2022 6191-1-01 0 / / [id number] Plug Artisan Medium 25mm Plug Bone Cement - 412869 - [id number] Implanted:Qty: 1 on 10/18/2020 by Tremayne Adams MD at [facility] Explanted:Qty: 1 on 08/24/2023 by Tremayne Adams MD at [facility] Med Left: Knee [facility] [id number] 08/17/2025 6215-5-01 1 / / [id number] Stem Oss [place] 150mm 13mm Cemented Femoral Knee Intramedullary - 786197 - [id number] Implanted:Qty: 1 on 10/18/2020 by Tremayne Adams MD at [facility] Explanted:Qty: 1 on 08/24/2023 by Tremayne Adams MD at [facility] and Med Left: Knee [employer] [id number] 04/12/2030 806410 / / [id number] Pin Lock Oss Poly - 466614 - [id number] Implanted:Qty: 1 on 10/18/2020 by Tremayne Adams MD at [facility] Explanted:Qty: 1 on 08/24/2023 by Tremayne Adams MD at [facility] Med Left: Knee [employer] [id number] 07/04/2025 503877 / / [id number] Bushing Tibial Oss Poly - 280209 - [id number] Implanted:Qty: 1 on 10/18/2020 by Tremayne Adams MD at [facility] Explanted:Qty: 1 on 08/24/2023 by Tremayne Adams MD at [facility] Med Left: Knee [employer] [id number] 09/24/2025 993778 / / [id number] Axle Oss Femoral Knee - 524715 - [id number] Implanted:Qty: 1 on 10/18/2020 by Tremayne Adams MD at [facility] Med Explanted:Qty: 1 on 08/24/2023 by Tremayne Adams MD at [facility] Med Left: Knee [employer] [id number] 05/25/2030 562400 / / [id number] Bushing Oss Reduced Poly Femoral Hip - 593119 - [id number] Implanted:Qty: 1 on 10/18/2020 by Tremayne Adams MD at [facility] Med Explanted:Qty: 1 on 08/24/2023 by Tremayne Adams MD at [facility] and Med Left: Knee [employer] [id number] 07/11/2025 629642 / / [id number] Yoke Oss Reinforced - 567018 - [id number] Implanted:Qty: 1 on 10/18/2020 by Tremayne Adams MD at [facility] Med Explanted:Qty: 1 on 08/24/2023 by Tremayne Adams MD at [facility] Med Left: Knee [employer] [id number] 09/04/2030 844075 / / [id number] Bushing Oss Reduced Poly Femoral Hip - 625515 - [id number] Implanted:Qty: 1 on 10/18/2020 by Tremayne Adams MD at [facility] Med Explanted:Qty: 1 on 08/24/2023 by Tremayne Adams MD at [facility] and Med Left: Knee [employer] [id number] 06/20/2025 025283 / / [id number] Bearing Oss 16mm Reduced Lateral Stabilized Tibial - 876036 - [id number] Implanted:Qty: 1 on 10/18/2020 by Tremayne Adams MD at [facility] and Med Explanted:Qty: 1 on 08/24/2023 by Tremayne Adams MD at [facility] and Med Left: Knee [employer] 09/14/2023 097256 / / [id number] Component Oss Ellipse 7cm Segmental Reduce Femoral Knee - 843979 - [id number] Implanted:Qty: 1 on 10/18/2020 by Tremayne Adams MD at [facility] and Med Explanted:Qty: 1 on 08/24/2023 by Tremayne Adams MD at [facility] Med Left: Knee [employer] 07/24/2030 075377 / / [id number] Advance Directives For more information, please contact: [phone] Documents on File Type Date Recorded Patient Concrete Polisher Expl anation Advance Directive and Living Will 08/30/2023 11:56 AM Power of Electrode Cleaner 08/19/2023 HEALTH CAR E PROXY Latest Code Status on File Code Status Date Activated Date Inactivated Comments Full Code 08/21/2023 4:00 PM 08/28/2023 5:26 AM This code status was ascertained in the following way: discussion with patient . Code Status History Code Status Date Activated Date Inactivated Comments Full Code 10/18/2020 5:03 PM 10/26/2020 11:57 PM This code status was ascertained in the following way: discussion with patient . Full Code 10/18/2020 5:56 AM 10/18/2020 5:03 PM This code status was ascertained in the following way: discussion with patient . Full Code 09/14/2020 12:22 PM 09/20/2020 6:06 PM This code status was ascertained in the following way: discussion with patient . Full Code 09/14/2020 10:43 AM 09/14/2020 12:22 PM This code status was ascertained in the following way: discussion with patient . Care Teams Associate Embalmer/Funeral Director Relationship Specialty Start Date End Date Radha Henson MD [address] [address] PCP - General Internal Medicine 07/05/21
--- OUTSIDE RECORDS SUMMARY | 2024-12-20 10:50 | XMS_ITS | Data Portability ---
Author Organization [place] [facility] [place] [place] Address [address] [place] [address] Care Team Providers Care Jewelry Polisher Name Role Phone VON MIRANDA Referring Provider VON MIRANDA Primary Care Provider [phone] Assessment Encounter Date Assessment Date Assessment LastModified by Organization Details LastModified Time 06/03/2023 06/03/2023 Eveline has a cellulitis with likely deep infection in the left knee. She will be sent for an ESR and CRP. No fluid was obtained during attempted joint aspiration. Patient will proceed with antibiotics as prescribed by her primary care provider and follow-up next week with Dr. White. If she has any increased swelling fevers or chills, she will go to the ER. [email or web address] Not available 06/13/2023 09:27:55 06/12/2023 06/12/2023 HPI : Thank you for the pleasure of requesting a consultation on this patient. Patient comes in complaining of left knee pain. Patient has a complex history regarding her left knee. She underwent left total knee replacement with Dr. Fam in 2019. This was complicated by infection. She underwent revision total knee replacement with distal femur replacement [place] [address] Tremayne Adams. She has been on suppressive antibiotic therapy with Keflex 500 mg BID. she was seen in our office last week by Arie Cancino. She was noted to have an area of redness on the lateral aspect of her knee. She was having some pain associated with this. Arie Cancino attempted to aspirate the knee, but there was no fluid obtained. He did get her ESR and CRP, these were elevated she came for follow-up visit with me today. She notes improvements in her symptoms. She states the pain is improving. She states the area of redness is improving as well. Review of systems is negative for rapidly progressive neurological disorder, chest pain, shortness of breath, fevers, chills, or any signs of active or persistent local or systemic infection. Physical Exam : Patient is well nourished, well-developed, in no acute distress, with appropriate mood and affect. The patient is oriented to time, place, and person. Respirations are even and unlabored. Gait evaluation does reveal a limp. There is no inguinal adenopathy. Examination of the contralateral knee shows normal range of motion, strength, no tenderness, and intact skin. The affected limb is well-perfused, shows a grossly normal motor and sensor exam. There is an area of erythema in the anterior lateral aspect of the knee. There is some hardness associated with this. It is approximately 3 cm in diameter. No significant knee effusion noted. Left knee motion is is not significantly reduced and does not cause significant pain. The knee moves from 20-110 degrees. The knee is stable within that [id number] to AP and ML stress. The alignment of the knee is neutral. Muscle strength is normal. Pedal pulses are palpable. Hip examination, including flexion and internal rotation, was negative in that groin pain was not produced. Imaging : Radiographs of the left knee from May 2023 demonstrates a left distal femoral replacement with long-stem cemented components. No patella visible. No signs of hardware related complications. 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 She had an area of the erythema and pain that developed over the last couple weeks. She notes that it is now improving. She has minimal pain. She notes the erythema is improving. I have still concern for the possibility of recurrent infection. I once again tried to reaspirate the knee today. I was not able to obtain any fluid. Given her symptomatic improvement and no significant effusion, I think it is reasonable for us to watch her symptomatically closely. She will keep us updated if she has increasing pain, swelling, drainage or any other infectious symptoms. His preference is to follow-up with Dr. Ralph Adams. He should be starting his new practice within the next mo we will try to get her set up with Dr. Adams. If not she can follow-up with me in 1 month. [email or web address] Not available 06/12/2023 10:08:52 Plan of Treatment Reminders Order Date Submit Date Provider Last Modified By Organization Details Last Modified Time Details Appointments None recorded. Lab ESR (erythrocyt e sedimentati on rate), blood - Joint pain status post arthroplast y, evaluate for joint infection 2022 023 [email or web address] Not available 4 11:53:03 C-reactive protein, quantitativ e, serum or plasma - Joint pain status post arthroplast y, evaluate for joint infection 2022 023 KAE Not available 05:22:50 Referral None recorded. Procedures None recorded. Surgeries None recorded. Imaging XR, knee, 3 view 2022 023 [email or web address] [facility], [address], [place], [address], 3 10:42:17 Medication Orders None recorded. Patient TargetsNo targets recorded. Patient Instructions Encounter Date Encounter Id Patient Instructions Last Modified By Organization Details Last Modified Time 06/03/2023 [id number] Radiographs: AP, lateral, patellar views of the Left knee were obtained in the [place] which demonstrate a left distal femoral replacement with long-stem cemented components. No patella visible. No signs of hardware related complications. X-ray interpretation by: LETY [email or web address] Not available 06/13/2023 09:27:45 Reason for Referral None Reported. Results Created Date Observation Date Name Description Value Unit Range Abnormal Flag Note LastModifiedBy Organization Detail LastModifiedTime Result Notes None recorded. 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, [address] , [place] [facility], 4 10:02:08 Cellulitis of left lower limb 2242813856889 9109 Active 2023 NAIN CANCINO PA-C [address], [place], [address], [place] [facility], P 09:28:37 Problem Notes None recorded. Procedures Surgical History Date Name Laterality Status Provider Name and Address Organization Details Recorded Time 3 TONI Knee Inj/Asp completed NAIN CANCINO PA-C [address], [place], [address], [place] [facility], P 06/13/2023 09:24:46 tonsilectomy/ad enoids completed [facility], P 06/03/2023 10:09:43 breast procedure completed [facility], P 06/03/2023 10:09:56 total knee replacement completed [facility], P 06/03/2023 10:10:40 Imaging Results None recorded. Procedure Notes None recorded. Medical Equipment None Reported. Allergies No known drug allergies Medications Name Sig Start Date Stop Date Status Note LastModified by Organization Details LastModified Time cap-2 k-10 pain formulation versatile Apply 1-3 grams to the affected area 3-4 times daily (FEET) active Not Available Not Available No t Available medbox status USE DIRECTED active Not Available Not Available No t Available atorvastatin 40 mg tablet TAKE ONE TABLET BY MOUTH AT BEDTIME active Not Available Not Available No t Available doxycycline hyclate 100 mg capsule TAKE ONE CAPSULE BY MOUTH TWICE DAILY UNTIL FINISHED active Not Available Not Available No t Available trazodone 50 mg tablet TAKE TWO TABLETS EVERY DAY AT BEDTIME active Not Available Not Available N ot Available amiodarone 200 mg tablet TAKE ONE TABLET EVERY MORNING active Not Available Not Available No t Available sucralfate 1 gram tablet TAKE ONE TABLET EVERY NIGHT AT BEDTIME active Not Available Not Available N ot Available gabapentin 400 mg capsule TAKE TWO CAPSULES EVERY DAY AT BEDTIME active Not Available Not Available N ot Available thiamine HCl (vitamin B1) 100 mg tablet TAKE ONE TABLET EVERY MORNING active Not Available Not Available No t Available aspirin 81 mg tablet,delay ed release TAKE ONE TABLET EVERY MORNING active Not Available Not Available No t Available spironolacto ne 25 mg tablet TAKE ONE-HALF TABLET EVERY MORNING active Not Available Not Available No t Available calcium 600 mg (as calcium carbonate 1,500 mg) tablet TAKE ONE TABLET EVERY MORNING active Not Available Not Available No t Available alprazolam 0.25 mg tablet TAKE ONE TABLET THREE TIMES DAILY NEEDED active Not Available Not Available No t Available famotidine 20 mg tablet TAKE ONE TABLET IN THE MORNING AND EVENING NEEDED active Not Available Not Available No t Available magnesium oxide 400 mg (241.3 mg magnesium) tablet TAKE TWO TABLETS TWICE DAILY IN THE MORNING AND AT BEDTIME active Not Available Not Available N ot Available ascorbic acid (vitamin C) 250 mg tablet TAKE ONE TABLET EVERY MORNING active Not Available Not Available No t Available cephalexin 500 mg capsule TAKE ONE CAPSULE TWICE DAILY IN THE MORNING AND AT BEDTIME active Not Available Not Available N ot Available pantoprazole 40 mg tablet,delay ed release TAKE ONE TABLET TWICE DAILY IN THE MORNING AND AT BEDTIME NEEDED active Not Available Not Available No t Available ferrous sulfate 325 mg (65 mg iron) tablet TAKE ONE TABLET TWICE DAILY IN THE MORNING AND AT BEDTIME active Not Available Not Available N ot Available folic acid 1 mg tablet TAKE ONE TABLET EVERY MORNING active Not Available Not Available No t Available montelukast 10 mg tablet TAKE ONE TABLET EVERY NIGHT AT BEDTIME active Not Available Not Available N ot Available gabapentin 100 mg capsule TAKE 1 TO 2 CAPSULES BY MOUTH AT BEDTIME active Not Available Not Available No t Available metoprolol succinate ER 25 mg tablet,exten ded release 24 hr TAKE ONE TABLET EVERY MORNING active Not Available Not Available No t Available loteprednol etabonate 0.5 % eye drops,suspen mervin PLACE ONE DROP IN EACH EYE TWICE DAILY active Not Available Not Available Not Available estradiol 0.01% (0.1 mg/gram) vaginal cream APPLY ONE GRAM VAGINALLY EVERY NIGHTLY FOR 2 WEEKS AND THEN USE 1-2 NIGHTS PER WEEK THEREAFTER active Not Available Not Available N ot Available fluticasone propionate 50 mcg/actuatio n nasal spray,suspen mervin USE TWO SPRAYS IN EACH NOSTRIL ONCE DAILY active Not Available Not Available N ot Available oxycodone 5 mg tablet TAKE ONE TABLET BY MOUTH EVERY TWELVE HOURS NEEDED active Not Available Not Available No t Available neomycin 3.5 mg/g-polymyx in B 10,000 unit/g-dexam eth 0.1 % eye oint APPLY IN THE AFFECTED EYE(S) AT BEDTIME DIRECTED active Not Available Not Available No t Available escitalopram 10 mg tablet TAKE ONE TABLET BY MOUTH EVERY MORNING active Not Available Not Available No t Available escitalopram 20 mg tablet TAKE ONE TABLET EVERY MORNING active Not Available Not Available No t Available escitalopram 5 mg tablet TAKE ONE TABLET EVERY MORNING active Not Available Not Available No t Available vitamin B complex-foli c acid 0.4 mg tablet TAKE ONE TABLET EVERY MORNING active Not Available Not Available No t Available Xopenex HFA 45 mcg/actuatio n aerosol inhaler INHALE TWO PUFFS EVERY 6 HOURS NEEDED SHORTNESS OF BREATH OR FOR WHEEZING active Not Available Not Available No t Available cholecalcife rol (vitamin D3) 25 mcg (1,000 unit) tablet TAKE 1 TABLET BY MOUTH DAILY active Not Available Not Available Not Available Minerin Creme topical APPLY TO THE AFFECTED AREA(S) NEEDED DRY SKIN active Not Available Not Available No t Available Vitamin D3 50 mcg (2,000 unit) tablet TAKE ONE TABLET EVERY MORNING active Not Available Not Available No t Available Cerovite Senior 0.4 mg-300 mcg-250 mcg tablet TAKE ONE TABLET EVERY MORNING active Not Available Not Available No t Available Eliquis 2.5 mg tablet TAKE ONE TABLET TWICE DAILY IN THE MORNING AND AT BEDTIME active Not Available Not Available N ot Available Stimulant Laxative Plus 8.6 mg-50 mg tablet TAKE 2 TABLETS BY MOUTH DAILY AT BEDTIME FOR 14 DAYS NEEDED FOR CONSTIPATIO N active Not Available Not Available No t Available Entresto 24 mg-26 mg tablet TAKE ONE TABLET TWICE DAILY IN THE MORNING AND AT BEDTIME active Not Available Not Available N ot Available Xiidra 5 % eye drops in a dropperette PLACE ONE DROP IN EACH EYE TWICE DAILY active Not Available Not Available Not Available Trelegy Ellipta 100 mcg-62.5 mcg-25 mcg powder for inhalation INHALE 1 PUFF ONCE DAILY active Not Available Not Available No t Available Breztri Aerosphere 160 mcg-9mcg-4.8 mcg/actuatio n HFA aerosol inhaler INHALE TWO PUFFS BY MOUTH TWICE DAILY active Not Available Not Available No t Available Vitals Date Recorded Body height Body mass index (BMI) Body weight Provider Name and Address Organization Details Last Updated DateTime 06/03/2023 173.99 cm 30 kg/m2 [address]13.[address] [place] [facility], 06/03/2023 10:08:08 Social History None recorded. Functional Status Question Answer Note LastModified by Organizat ion Details LastModified Time Do you use any illicit or recreational drugs? No [email or web address] Information not available 06/03/2023 Do you or have you ever used any other forms of tobacco or nicotine? No Information not available 06/03/2023 What is your level of alcohol consumption? None Information not available 06/03/2023 Mental Status None recorded. Family History Relationship Description Onset Age of this Age Resolved Age Notes LastModified by Organization Details LastModified Time Mother Heart disease Not available 2022 10:09:22 Mother Hypercholest erolemia Not available 2022 10:09:34 Father Heart disease Not available 2022 10:09:22 Father Hypercholest erolemia Not available 2022 10:09:34 Sister Heart disease Not available 2022 10:09:22 Sister Hypercholest erolemia Not available 2022 10:09:34 Brother Heart disease Not available 2022 10:09:22 Brother Hypercholest erolemia Not available 2022 10:09:34 Medical History Condition Response Blood Transfusion Y COPD Y Asthma Y Heart Disease Y Osteopenia Y Hypertension Y Gynecological HistoryNo gynecological history recorded. 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 [id number] 6233061 T84.54XS Health Concerns Section Related Observation LastModified by Organization Detai ls LastModified Time None Recorded Concern Status LastModified by Organization Details LastModified Time None Recorded Advance Directives Directive None Recorded Payers Insurance Date Sequence Insurance Name Policy Number Policy Galdamez Covered Member ID Galdamez Member ID Guarantor Name 06/15/2023 2 [place] [id number] [id number] 06/03/2023 1 MEDICARE [place]: NGS [facility] [id number] [facility] Notes Date Note Type Note Provider Name and Address Organization Details Recorded Time 06/03/2023 text/html Patient is a 73-year-old female who presents with left knee pain and redness. Patient has a complex history regarding her left knee. She underwent left total knee replacement with Dr. Fam in 2019. This was complicated by infection. She underwent revision total knee replacement with distal femur [place] [address] Tremayne Adams. She has been on suppressive antibiotic therapy with Keflex 500 mg BID. She denies fever or chills. NAIN CANCINO PA-C [address], [place], [address], [place] [facility], [facility] 06/13/2023 09:29:23 OBGyn Episode No OBEpisode recorded.
--- OUTSIDE RECORDS SUMMARY | 2024-12-20 10:50 | XMS_ITS | Clinical Summary ---
Author Organization [address] [place] [address] Address [address] [place] [address] Phone Care Team Providers Care Teller Coordinator Name Role Phone Radha Henson MD Primary Care Provider [phone] Allergies Active Allergy Reactions Criticality Noted Date Comments Codeine Shortness of breath High 10/14/2016 1974, Palpatations Other reaction(s): PALPITATIONS Corticosteroids (Glucocorticoids) Unknown 09/14/2024 Other Unknown 10/19/2024 Medications acetaminophen (TYLENOL) 500 mg tablet Take 1 tablet (500 mg total) by mouth. 03/22/20 18 Active ascorbic acid (VITAMIN C) 250 mg tablet Take 1 tablet (250 mg total) by mouth 1 (one) time each day. 04/03/20 21 Active aspirin 81 mg EC tablet Take 1 tablet (81 mg total) by mouth 1 (one) time each day. 06/05/20 23 Active atorvastatin (LIPITOR) 40 mg tablet Take 1 tablet (40 mg total) by mouth at bedtime. 01/09/20 20 Active calcium carbonate 1,500 mg (600 mg elemental calcium) tablet Take 600 mg by mouth 1 (one) time each day. Active cholecalciferol (VITAMIN D-3) 50 mcg (2,000 unit) tablet Take 1 tablet (2,000 Units total) by mouth 1 (one) time each day. 03/28/20 21 Active escitalopram (LEXAPRO) 20 mg tablet Take 1 tablet (20 mg total) by mouth 1 (one) time each day. 01/03/20 20 Active ferrous sulfate 325 mg (65 mg elemental iron) tablet Take 1 tablet (325 mg total) by mouth 1 (one) time each day. 02/26/20 23 Active fluticasone propionate (FLONASE) 50 mcg/actuation nasal spray Administer 2 sprays into each nostril 1 (one) time each day. 04/16/20 20 Active folic acid (FOLVITE) 1 mg tablet Take 1 tablet (1,000 mcg total) by mouth 1 (one) time each day. 02/13/20 21 Active gabapentin (NEURONTIN) 400 mg capsule Take 2 capsules (800 mg total) by mouth 1 (one) time each day. 07/23/19 24 Active levalbuterol (XOPENEX HFA) 45 mcg/actuation inhaler Inhale 2 puffs by mouth every 6 (six) hours if needed for wheezing or shortness of breath. 05/26/20 22 Active montelukast (SINGULAIR) 10 mg tablet Take 1 tablet (10 mg total) by mouth at bedtime. 02/01/20 19 Active pantoprazole (PROTONIX) 40 mg EC tablet Take 1 tablet (40 mg total) by mouth 1 (one) time each day before breakfast. 09/20/19 21 Active traZODone (DESYREL) 50 mg tablet Take 1-2 tablets (50-100 mg total) by mouth at bedtime as needed for sleep. 10/30/19 23 Active zinc sulfate (ZINCATE) 220 mg (50 mg elemental zinc) capsule Take 1 capsule (220 mg total) by mouth 1 (one) time each day. 05/21/20 21 Active vitamin B complex (B-COMPLEX ORAL) TAKE ONE TABLET BY MOUTH EVERY DAY 06/12/19 22 Active budesonide/glycopyr/ formoterol (BREZTRI AEROSPHERE INHL) INHALE TWO PUFFS BY MOUTH TWICE DAILY Active CYANOCOBALAMIN, VITAMIN B-12, ORAL Take 1 tablet by mouth daily. Active multivitamin (MULTIPLE VITAMINS ORAL) Take by mouth every morning. Active thiamine 100 mg tablet Take 1 tablet (100 mg total) by mouth. 04/03/20 21 Active amiodarone (PACERONE) 200 mg tablet 08/27/19 24 Active calcium carbonate/vitamin D3 (CALCIUM + D ORAL) Sig: None Entered Class: Historic 05/07/20 07 Active magnesium oxide (MAG-OX) 400 mg (241.3 elemental magnesium) tablet Take 1 tablet by mouth 4 times daily. 04/29/20 21 Active sacubitriL-valsartan (Entresto) 24-26 mg per tablet Take 1 tablet by mouth 2 (two) times a day. 180 tablet 2 07/07/19 25 Active tobramycin-dexAMETHa sone (TOBRADEX) ophthalmic suspension instill one drop in each eye four times daily 06/28/19 25 Active estradioL (ESTRACE) 0.01 % (0.1 mg/gram) vaginal cream Insert 2 g into the vagina at bedtime. 34 g 3 07/15/19 25 026 Active neomycin (MYCIFRADIN) 500 mg tablet Take 2 tablets (1,000 mg total) by mouth every 6 (six) hours. Active furosemide (LASIX) 20 mg tablet Take 1 tablet (20 mg total) by mouth 1 (one) time each day if needed (if you notice leg edema or gain 2-3lb in 2 days). 30 each 07/29/19 25 Active cephalexin (KEFLEX) 500 mg capsule Take 1 capsule (500 mg total) by mouth 2 (two) times a day. 60 capsule 11 08/18/19 25 Active metoprolol succinate (TOPROL-XL) 25 mg 24 hr tablet Take 0.5 tablets (12.5 mg total) by mouth 1 (one) time each day. Do not crush or chew. 45 tablet 3 08/25/19 25 Active spironolactone (ALDACTONE) 25 mg tabletIndications:Ot her cardiomyopathies (CMS/HCC V24, CMS/HCC V28) TAKE ONE-HALF TABLET EVERY MORNING 45 tablet 3 09/03/19 25 Active Eliquis 5 mg tablet TAKE ONE TABLET TWICE DAILY IN THE MORNING AND AT BEDTIME 180 tablet 3 10/08/19 25 Active B Complex 1, with folic acid, 0.4 mg tablet Take 1 tablet by mouth 1 (one) time each day in the morning. 08/19/19 25 Active white petrolatum 42 % ointment Apply topically. 09/16/19 25 Active melatonin 3 mg tablet Take 1 tablet (3 mg total) by mouth at bedtime. 09/15/19 25 Active LORazepam (ATIVAN) 0.5 mg tablet TAKE ONE-HALF TABLET BY MOUTH ONE HOUR prior TO PROCEDURE NEEDED 09/15/19 25 Active flurbiprofen (ANSAID) 100 mg tablet Take 1 tablet (100 mg total) by mouth 2 (two) times a day. Active Active Problems Problem Noted Date Diagnosed Date Acute on chronic diastolic C HF (congestive heart failure) ([facility] V24, [facility] V28) 07/28/2024 Assessment & Plan (08/22/2024 2:35 PM EDT): Patient with a history of heart failure with recovered EF, recently requiring IV diuretics during hospitalization. Currently she is euvolemic on exam, she utilizes 20 mg of Lasix as needed. She continues on Entresto 24-26 twice daily, spironolactone 12.5 mg daily metoprolol which was decreased today to 12.5 mg daily due to soft blood pressure. Will update echocardiogram to reassess EF. I've asked the patient to call if they develop worsening symptoms of heart failure such as increased shortness of breath, new or worsening cough, increased swelling in the legs or ankles, or weight gain of more than 2 pounds in one day or 4 pounds in one week. Orders: Transthoracic echocardiogram (TTE) complete with PRN contrast, bubble, strain, and 3D order panel; Future perflutren lipid microsphere (DEFINITY) 1.3 mL in sodium chloride 0.9% 8.7 mL injection Periprosthetic fracture arou nd internal prosthetic left knee joint 08/21/2023 VT (ventricular tachycardia) ([facility] V24, [facility] V28) 01/15/2022 Assessment & Plan (11/20/2024 5:41 PM EDT): No recent alerts on device monitoring. Continues on amiodarone. Will continue with remote device monitoring. Of note, patient reports discomfort with her device as she is lost weight since it was placed. Will arrange for her to follow-up with JUAN ANTONIO SINGH, notified Dr. Colin as well as he placed device and typically follows with the patient. Assessment & Plan (08/22/2024 2:35 PM EDT): No recent alerts on device monitoring. Continues on amiodarone. Will continue with remote device monitoring. Angina, class II ([facility] V24) 07/04/2021 Overview (01/21/2024): Angina, class II Coronary artery disease invo lving gila river coronary artery of [place] heart without angina pectoris 05/08/2021 Assessment & Plan (11/20/2024 5:41 PM EDT): With history of nonobstructive CAD, continues on aspirin, metoprolol and atorvastatin. She denies chest discomfort. Recent negative nuclear stress test. Patient advised to seek emergency medical attention by calling 911 if they were to develop severe dyspnea, chest pain that did not resolve with rest or nitroglycerin, or if they were to faint. Assessment & Plan (08/22/2024 2:35 PM EDT): With history of nonobstructive CAD, continues on aspirin, metoprolol and atorvastatin. She denies chest discomfort but reports some dyspnea on exertion. Will complete nuclear stress test. VF (ventricular fibrillation) ([facility] V24, [facility] V28) 04/07/2021 Overview (01/21/2024): Last Assessment & Plan: She has not had any recurrent VT or VF through device interrogation. There is imperative to keep her potassium greater than 4 and magnesium greater than 2. Being off of her diuretic on a regular basis should also help this. Anemia due to stage 3 chroni c kidney disease ([facility] V24, [facility] V28) 02/07/2021 Anemia 12/28/2020 Thrombocytopenia ([facility] V24) 12/28/2020 S/P joint replacement 10/21/2020 Morbid obesity with alveolar hypoventilation ([facility] V24, [facility] V28) 09/13/2020 Secondary hypercoagulable state ([facility] V24) Prosthetic joint infection, subsequent encounter 09/05/2020 LBBB (left bundle branch block) 08/27/2020 Non-ischemic cardiomyopathy ([facility] V24, [facility] V28) 06/27/2020 Overview (01/21/2024): LBBB Cath 03/2019 revealing 30% LM which was not hemodynamically significant and therefore managed medically Further drop in LVEF to 25-30% Biotronik BiV AICD 12/2019 Echo 03/2020 low normal LVEF 50-55% with resolution of her MR VT/VF in Jul and August 2020 in the setting of marked hypokalemia and hypomagnesemia from diuretics and Diarrhea from abx Repeat cath September 2020 after recurrent VF without obstructive coronary disease Drop in LVEF again to 25-30% Recovery of her LVEF to 55-60% April 2021 Last Assessment & Plan: She is overall doing well from a cardiovascular standpoint. Her thoracic impedance has been unremarkable arguing against significant fluid restriction. She has been able to cut her Lasix back to just as needed and utilizes elevation to manage her lower extremity edema. She is back on her Entresto which has helped improve her breathing. Continue otherwise myopathy therapy with her current dose beta- alee. She does tell me that she has some general fatigue. We will check with her PCP for some blood work that she had done last week which unfortunately is not available to me at this time. Following her electrolytes is paramount given her prior arrhythmias due to hypokalemia and hypomagnesemia Paroxysmal A-fib ([facility] V24, [facility] V28) 06/09 Overview (01/21/2024): Paroxysmal atrial fibrillation Anticoagulated with apixaban Last Assessment & Plan: In NSR on BB alone. Follow burden through device. Assessment & Plan (11/20/2024 5:41 PM EDT): Patient with history of paroxysmal atrial fibrillation. She continues on Eliquis 5 mg twice daily for stroke risk reduction, she is tolerating this well with no abnormal bleeding. She continues on amiodarone as well as metoprolol. Assessment & Plan (08/22/2024 2:35 PM EDT): Patient with history of paroxysmal atrial fibrillation. She continues on Eliquis 5 mg twice daily for stroke risk reduction, she is tolerating this well with no abnormal bleeding. She continues on amiodarone as well as metoprolol. Acute adjustment disorder wi th mixed anxiety and depressed mood 10/13/2018 Chronic pain of right knee 03/09/2018 Primary osteoarthritis of left knee 03/09/2018 Primary osteoarthritis of right knee 03/09/2018 Asthma-COPD overlap syndrome (CMS/HCC V24, CMS/H CC V28) 01/02/2017 Obstructive sleep apnea syndrome 01/02/2017 Overview (01/21/2024): CPAP Essential hypertension 01/15/2016 Overview (01/21/2024): Last Assessment & Plan: Blood pressure a little on the low side but asymptomatic. This should improve with cessation of her diuretic Assessment & Plan (08/22/2024 2:35 PM EDT): Blood pressure today initially 90s over 40s, on recheck was 108/50. Will reduce metoprolol succinate to 12.5 mg daily. Patient to continue monitoring her blood pressure at home on her own machine as well as through the visiting nurses. She will notify the office if systolic less than 100. Hypercholesterolemia 01/15/2016 Overview (01/21/2024): Last Assessment & Plan: I do not have a recent lipid profile I wonder if 1 was possibly checked with her most recent labs from her PCPs office. We will look for these labs. For now though, continue her moderate intensity statin Assessment & Plan (11/20/2024 5:41 PM EDT): Continue on atorvastatin 40 mg daily I have reviewed with the patient the importance of a heart healthy lifestyle which includes eating a low-fat low-salt diet, getting regular exercise, maintaining a healthy weight, not smoking, and following up with routine medical care. Orders: Lipid panel; Future Assessment & Plan (08/22/2024 2:35 PM EDT): Continue on atorvastatin 40 mg daily I have reviewed with the patient the importance of a heart healthy lifestyle which includes eating a low-fat low-salt diet, getting regular exercise, maintaining a healthy weight, not smoking, and following up with routine medical care. Encounters Date Type Department Care Team Description 12/05/2024 8:25 AM EDT Ancillary Procedure [facility] [address] [place] [address] 11/18/2024 1:40 PM EDT Office Visit [facility] [address] [place] [address] Fatou Aquino NP HFrEF (heart failure with reduced ejection fraction) (CMS/HCC V24, CMS/HCC V28) (Primary Dx); Coronary artery disease involving gila river coronary artery of gila river heart without angina pectoris; VT (ventricular tachycardia) (CMS/HCC V24, CMS/HCC V28); Hypercholesterolemia ; Paroxysmal A-fib (CMS/HCC V24, CMS/HCC V28); manager terminal current use of 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 11/01/2024 Telephone [facility] [address] [place] [address] Fatou Aquino NP 10/21/2024 4:25 PM EDT Ancillary Procedure [facility] - [address] [place] [address] 10/19/2024 11:20 AM EDT Office Visit Gastroenterology - [address] [place] [address] Fareed Hatch PA Retained food in stomach (Primary Dx); Halitosis; Gastroesophageal reflux disease without esophagitis 09/28/2024 9:30 AM EDT Ancillary Procedure [facility] - [address] [place] [address] Dyspnea on exertion 09/20/2024 2:30 PM EDT Ancillary Procedure [facility] - [address] [place] [address] from Last 3 Months Immunizations Name Administration Dates Next Due Pfizer SARS-CoV-2 COVID-19, mRNA, LNP-S, preservative free 11/16/2020,10/26/2020 Pneumococcal polysaccharide 23 valent (Pneumovax 23) 2yo and older 11/28/2009 Tdap Tetanus diptheria acell ular pertussis (Boostrix; Adacel) 7yo and older 08/21/2023 Surgical History Surgery Date Site/Laterality Comments ADENOIDECTOMY PROCEDURE:ADENOIDECTOMY JOINT REPLACEMENT 2017 Right PROCEDURE:JOINT REPLACEMENT TOTAL KNEE ARTHROPLASTY 03/2020 Left PROCEDURE:TOTAL KNEE ARTHROPLASTY BREAST SURGERY 1984 Left PROCEDURE:BREAST SURGERY;COMMENT:Lump removed COLONOSCOPY PROCEDURE:COLONOSCOPY UPPER GASTROINTESTINAL ENDOSCOPY PROCEDURE:UPPER GASTROINTESTINAL ENDOSCOPY CARDIAC SURGERY 12/23/2019 Left PROCEDURE:CARDIAC SURGERY;COMMENT:Pacemaker/Def ib OTHER SURGICAL HISTORY PROCEDURE:Antibiotics prior to Dental Work ABDOMINAL ADHESION SURGERY 1974 PROCEDURE:ABDOMINAL ADHESION SURGERY;COMMENT:Scar Tissue removed CARDIAC PACEMAKER PLACEMENT 2019 PROCEDURE:CARDIAC PACEMAKER PLACEMENT TONSILLECTOMY PROCEDURE:TONSILLECTOMY REMOVAL PROSTHESIS TOTAL KNE E W/ OR W/O INSERTION SPACER 07/10/2020 Left PROCEDURE:REMOVAL PROSTHESIS TOTAL KNEE W/ OR W/O INSERTION SPACER;COMMENT:Procedure: REMOVE TOTAL KNEE PROSTHESIS, INSERT ANTIBIOTIC SPACERS; Surgeon: Tremayne Adams MD; Location: [facility] ([facility]); Service: Orthopedic Trauma; Laterality: Left; KNEE ARTHROPLASTY 09/05/2020 Left PROCEDURE:REVISION TOTAL KNEE ARTHROPLASTY;COMMENT:Procedur e: REVISION TOTAL KNEE - REIMPLANTATION; Surgeon: Tremayne Adams MD; Location: [facility] ([facility]); Service: Orthopedics; Laterality: Left; HARDWARE REMOVAL 09/05/2020 Left PROCEDURE:HARDWARE REMOVAL;COMMENT:Procedure: REMOVE HARDWARE LOWER EXTREMITY - ANTIBIOTIC SPACERS; Surgeon: Tremayne Adams MD; Location: [facility] ([facility]); Service: Orthopedics; Laterality: Left; CARDIAC CATHETERIZATION 09/14/2020 Right PROCEDURE:CARDIAC CATHETERIZATION;COMMENT:Proce dure: LEFT HEART CATHETERIZATION; Surgeon: David Salgado MD; Location: [facility]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; Service: Cardiology; Laterality: Right; KNEE ARTHROPLASTY 10/18/2020 Left PROCEDURE:REVISION TOTAL KNEE ARTHROPLASTY;COMMENT:Procedur e: REVISION TOTAL KNEE; Surgeon: Tremayne Adams MD; Location: [facility] [place] ([facility]); Service: Orthopedics; Laterality: Left; MUSCLE FLAP 10/18/2020 Left PROCEDURE:MUSCLE FLAP;COMMENT:Procedure: MUSCLE FLAP LOWER EXTREMITY; Surgeon: Tremayne Adams MD; Location: [facility]); Service: Orthopedics; Laterality: Left; TOTAL KNEE ARTHROPLASTY 2017 Right PROCEDURE:TOTAL KNEE ARTHROPLASTY KNEE ARTHROPLASTY 08/24/2023 Left PROCEDURE:REVISION TOTAL KNEE ARTHROPLASTY;COMMENT:Procedur e: REVISION TOTAL KNEE; Surgeon: Tremayne Adams MD; Location: [facility] [place] ([facility]); Service: Orthopedics; Laterality: Left; PATELLA FRACTURE SURGERY 08/24/2023 Left PROCEDURE:PATELLA FRACTURE SURGERY;COMMENT:Procedure: ORIF PATELLA FRACTURE; Surgeon: Tremayne Adams MD; Location: [facility]); Service: Orthopedics; Laterality: Left; APPENDECTOMY 2009 PROCEDURE: HISTORICAL APPENDECTOMY TONSILLECTOMY PROCEDURE: HISTORICAL TONSILLECTOMY BREAST LUMPECTOMY 1984 Left PROCEDURE: ---- BREAST LUMP BIOPSY ----; COMMENT: benign BREAST SURGERY PROCEDURE: PA UNLISTED PROCEDURE BREAST; COMMENT: 1986 removed a lump left breast benign TOTAL KNEE ARTHROPLASTY Bilateral PROCEDURE: PA ARTHRP KNE CONDYLE&PLATU MEDIAL&LAT COMPARTMENTS; COMMENT: Right 2017, Left 2019 OTHER SURGICAL HISTORY PROCEDURE: HISTORICAL ICD Medical History Medical History Date Comments Hypertension DX:Hypertension Heart disease DX:Heart disease Arthritis DX:Arthritis Presence of combination inte rnal cardiac defibrillator (ICD) and pacemaker 12/23/2019 DX:Presence of combi nation internal cardiac defibrillator (ICD) and pacemaker;COMMENT:BioTronik, Left chest Hyperlipidemia DX:Hyperlipidemi a Anxiety DX:Anxiety Depression DX:Depression Eczema DX:Eczema;COMMEN T:Head & Legs Urinary urgency DX:Urinary urgen cy Urinary incontinence DX:Urinary incontinence Migraines DX:Migraines;COM MENT:Migraine Hx/ Stress H/ A-fib ([facility] V24, [facility] V28) DX:A-fib ([facility]) Heart murmur DX:Heart murmur Shortness of breath DX:Shortness of breath;COMMENT:Laying Flat Chest pressure DX:Chest pressur e Asthma DX:Asthma COPD (chronic obstructive pu lmonary disease) ([facility] V24, [facility] V28) DX:COPD (chronic o bstructive pulmonary disease) ([facility]) At high risk for falls DX:At hig h risk for falls;COMMENT:Fall April 2020 Fistula of wrist, right DX:Fistu la of wrist, right;COMMENT:No Arterial Lines Diverticulitis of colon DX:Diver ticulitis of colon Cardiomyopathy ([facility] V24, [facility] V28) DX:Cardiomyopathy ([facility]);COMMENT:PER Cardi note - EF 50-55% by Echo 03/2020 CHF (congestive heart failur e) ([facility] V24, [facility] V28) DX:CHF (congestive heart ra lure) ([facility]);COMMENT:TAKES ENTRESTO Leukopenia DX:Leukopenia;CO MMENT:PER PCP NOTE Thrombocytopenia ([facility] V24) D X:Thrombocytopenia ([facility]);COMMENT:PER PCP NOTE Osteoporosis DX:Osteoporosis; COMMENT:NO MEDS Coronary artery disease DX:Coron bonny artery disease Renal cysts and diabetes syn drome ([facility] V24, [facility] V28) DX:Renal cysts and diabetes syndrome ([facility]) History of transfusion DX:Histor y of transfusion;COMMENT:Hx Arrhythmia DX:Arrhythmia;CO MMENT:LBBB - Hx PAF - Hx VT/VF-08/2019-hypokalemia GI (gastrointestinal bleed) DX:G I (gastrointestinal bleed);COMMENT:Ulcer x 2 [id number] Peripheral neuropathy DX:Periphe ral neuropathy Vertigo DX:Vertigo Leg wound, left 2019 DX:Leg wound, le ft;COMMENT:s/p surgery Anemia DX:Anemia Anxiety and depression DX:Anxiet y and depression Hypercholesterolemia 01/15/2016 DX:Hypercho lesterolemia Obstructive sleep apnea syndrome 01/02/2017 DX:Obstructive sleep apnea syndrome Asthma-COPD overlap syndrome ([facility] V24, [facility] V28) 01/02/2017 DX:Asthma-COPD overlap syndr ome ([facility]) Hx of cardiac cath DX:Hx of card iac cath; COMMENT: showed 30% lesion but no other coronary disease Osteoarthritis DX:Osteoarthriti s; COMMENT: status post left total knee replacement with infection Non-ischemic cardiomyopathy ([facility] V24, [facility] V28) 06/27/2020 DX:Non-ischemic cardiomyopat hy ([facility]); COMMENT: LBBB Cath 03/2019 revealing 30% LM which was not hemodynamically significant and therefore managed medically Further drop in LVEF to 25-30% Biotronik BiV AICD 12/2019 Echo 03/2020 low normal LVEF 50-55% with resolution of her MR VT/VF in Jul and August 2020 in the setting of marked hypokalemia and hypomagnesemia from diuretics and Diarrhea from* Essential hypertension 01/15/2016 DX:Essent ial hypertension Coronary artery disease invo lving [place] coronary artery of [place] heart without angina pectoris 05/08/2021 DX:Coronary artery disease involving [place] coronary artery of [place] heart without angina pectoris Anemia due to stage 3 chroni c kidney disease (CMS/HCC V24, CMS/HCC V28) DX:Anemia due to st age 2 chronic kidney disease (HCC) GERD (gastroesophageal reflux disease) DX:GERD (gastroesophageal reflux disease) Neuropathy DX:Neuropathy Family History Medical History Relation Name Comments Heart attack Brother Coronary artery disease Father Heart disease Father mi COPD Mother Coronary artery disease Mother Heart disease Mother CHF Heart failure Mother Hypertension Mother Heart attack Sister 1 Diabetes Sister 2 Other: Heart Disease Sister 2 Relation Name Status Comments Brother Father Mother Sister 1 Sister 2 Social History Tobacco Use Types Packs/Day Years Used Date Smoking Tobacco: Former Cigarettes Q uit: 06/08/1989 Smokeless Tobacco: Never Alcohol Use Standard Drinks/Week Comments No 0 (1 standard drink = 0.6 oz pur e alcohol) Interpersonal Safety Answer Date Record ed Physical Abuse 07/29/2024 Verbal Abuse 07/29/2024 Comments No Sex and Gender Information Value Date Recorded Sex Assigned at Female 04/25/2024 3:17 PM EST Legal Sex Female 2:18 AM EST Gender Identity Female 04/25/2024 3:17 PM EST Sexual Orientation Straight 04/25/2024 3: 17 PM EST Obstetrics History Para Term AB IAB SAB Ectopic Multiple Livin g Live Births 4 4 Date Outcome GA Total Labor Labor/2nd/3rd Weight Sex Type Anes PTL Mery A1 A5 Name Clin Last Filed Vital Signs Vital Sign Reading Time Taken Comments Blood Pressure 104/56 11/18/2024 1:16 PM EDT Pulse 57 11/18/2024 1:16 PM EDT Temperature 37.1 C (98.8 F) 07/29/2024 2:56 PM EST Respiratory Rate 18 07/29/2024 2:56 PM EST Oxygen Saturation 98% 11/18/2024 1:16 PM EDT Inhaled Oxygen Concentration - - Weight 84.8 kg (187 lb) 11/18/2024 1:16 PM EDT Height 167.6 cm (5' 6 ) 11/18/2024 1:16 PM EDT Body Mass Index 30.18 11/18/2024 1:16 PM EDT Plan of Treatment Upcoming Encounters Date Type Department Care Team (Late st Contact Info) Description 12/26/2024 8:00 AM EDT Ancillary Procedure [facility] Cardiology [facility] - [address] [place] [address] 02/22/2025 9:30 AM EDT Telemedicine Infectious Disease - [place] [address] [place] [address] Johana Freire MD [address] [place] [address] 04/17/2025 11:00 AM EST Ancillary Procedure [facility] Cardiology [facility] - [address] [place] [address] 04/18/2025 10:35 AM EST Office Visit [facility] Cardiology [facility] - [address] [place] [address] Jimi Montenegro MD [address] [place] [address] Health Maintenance Due Date Last Done Comments Cholesterol Screening (Lipid Panel) 05/14/2022 Colorectal Cancer Screening: Colonoscopy 05/14/2022 Depression Screening 05/14/2022 Hepatitis C Screening 05/14/2022 Osteoporosis Screening (Bone Density Screening) 05/14/2022 Social Influencers of Health Screening 05/14/2022 Medicare Annual Wellness Visit 10/15/2023 10/14/2022 COVID-19 Vaccine ( season) 2024 06/11/2023, 03/19/2022, 05/24/2021, Additional history exists RSV Immunization Adult Patients (1 - 1-dose 75+ series) 2024 Influenza Vaccine (#1) 2025 , 03/18/2023, 03/21/2022, Additional history exists Falls Risk Assessment 07/29/2025 07/29/2024 Hypertension/CHF/CAD Annual BMP Blood Test 07/29/2025 07/29/2024, 07/28/2024, 06/02/2024, Additional history exists DTaP,Tdap,and Td Vaccines (3 - Td or Tdap) 08/20/2033 08/21/2023, 03/19/2016 Pneumococcal Vaccine: 50+ Years Completed 10/31/2021, 11/28/2009 Zoster Vaccines Completed 10/31/2021, 08/29/2021 Breast Cancer Screening Discontinued 05/19/20, 10/30/2021, 01/30/2020, Additional history exists HIB Vaccines Aged Out No longer eligi ble based on patient's age to complete this topic HPV Vaccines Aged Out No longer eligi ble based on patient's age to complete this topic Hepatitis A Vaccines Aged Out No long er eligible based on patient's age to complete this topic Hepatitis B Vaccines Aged Out No long er eligible based on patient's age to complete this topic IPV Vaccines Aged Out No longer eligi ble based on patient's age to complete this topic MMR Vaccines Aged Out No longer eligi ble based on patient's age to complete this topic Meningococcal ACWY Vaccine Aged Out N o longer eligible based on patient's age to complete this topic Meningococcal B Vaccine Aged Out No l onger eligible based on patient's age to complete this topic RSV Immunization Patients Under 20 months Aged Out No longer eligible based on patient's age to complete this topic Varicella Vaccines Aged Out No longer eligible based on patient's age to complete this topic Medical Devices Implanted Type Area Blower And Compressor Assembler Device Identifier Shelf Expiration Date Model / Serial / Lot Cardiac Piggery Worker-D Icd-12/23/2019 Implanted:12/22 by Sidney Colin MD (Quantity not on file) Cardiac METAL REED TUNER-D ICD Left: Chest [employer] ACTICOR 7 HF-T QP / [id number] / Oss Diaphyseal Segment With Screws 17cm Implanted:Qty: 1 on 08/24/2023 by Tremayne Adams MD Joints Left: Knee [id number] 07/07/2024 / / [id number] Oss Segmental Femoral Component Left 8.5cm Rs Implanted:Qty: 1 on 08/24/2023 by Tremayne Adams MD Joints Left: Knee [id number] 12/15/2032 / / [id number] Rs Axle Implanted:Qty: 1 on 08/24/2023 by Tremayne Adams MD Joints Left: Knee [id number] 12/30/2032 / / [id number] Rs Femoral [place] Set Implanted:Qty: 1 on 08/24/2023 by Tremayne Adams MD Joints Left: Knee [id number] 01/13/2028 / / [id number] Ls Tibial Bearing 12mm Implanted:Qty: 1 on 08/24/2023 by Tremayne Adams MD Joints Left: Knee [id number] 01/22/2028 / / [id number] Device Angio-Seal Vip .035in 70cm 6fr Valuelink Guidewire - [id number] Implanted:09/14 (Quantity not on file) [facility] [id number] / / Cement Simplex P Radiopaque Full Dose Bone 10 Pack - [id number] Implanted:Qty: 1 on 10/18/2020 by Tremayne Adams MD Left: Knee [employer] 03/07/2022 6191 0 / / [id number] Cement Simplex P Radiopaque Full Dose Bone 10 Pack - [id number] Implanted:Qty: 1 on 10/18/2020 by Tremayne Adams MD Left: Knee [employer] 03/07/2022 6191 0 / / [id number] Plug Artisan Medium 25mm Plug Bone Cement - [id number] Implanted:Qty: 1 on 10/18/2020 by Tremayne Adams MD Left: Knee [employer] [id number] 08/17/2025 6215 1 / / [id number] Augment Triathlon B Cone Symmetric Tritanium Tibial Latex - [id number] Implanted:Qty: 1 on 10/18/2020 by Tremayne Adams MD Left: Knee [employer] [id number] 03/29/2025 5549-A-12 0 / / [id number] Block Oss 63\49umd93wk Augmentation Tibia Left Medial Right - [id number] Implanted:Qty: 1 on 10/18/2020 by Tremayne Adams MD Left: Knee BIOMET++DNU+CHO OSE DIVISION 04/07/2030 928247 / / [id number] Block 20mm Augmentation Tibial Knee - [id number] Implanted:Qty: 1 on 10/18/2020 by Tremayne Adams MD Left: Knee BIOMET++DNU+CHO OSE DIVISION 04/12/2030 [id number] / / [id number] Component Oss Long 63mm Nonmodular Tibial Plate Knee - [id number] Implanted:Qty: 1 on 10/18/2020 by Tremayne Adams MD Left: Knee BIOMET++DNU+CHO OSE DIVISION 07/20/2030 982132 / / [id number] Cement Bone Surg Simplex Radiopq [facility]-How [id number] Implanted:Qty: 1 on 08/24/2023 by Tremayne Adams MD Left: Knee [employer] [id number] 10/05/2025 6191-1-01 0 / / [id number] Plug Bone Med [facility] [id number] 72 Implanted:Qty: 1 on 08/24/2023 by Tremayne Adams MD Left: Knee [employer] [id number] 04/27/2028 6215- 1 / / [id number] H Knee Stem Oss [place] 12.0x150 [employer] [id number] Implanted:Qty: 1 on 08/24/2023 by Tremayne Adams MD Left: Knee JENNIFER BI[employer] [id number] 08/14/2032 176789 / / [id number] Knee Oss Reinf Yoke [employer] [id number] Implanted:Qty: 1 on 08/24/2023 by Tremayne Adams MD Left: Knee JENNIFER BIOMET [id number] 02/04/2033 207902 / / [id number] Knee Tib Pin Lock Oss Poly [employer] [id number] Implanted:Qty: 1 on 08/24/2023 by Tremayne Adams MD Left: Knee JENNIFER [employer] [id number] 09/26/2027 713600 / / [id number] Knee Tib Bushing Comp Oss [employer] [id number] Implanted:Qty: 1 on 08/24/2023 by Tremayne Adams MD Left: Knee JENNIFER [employer] [id number] 04/10/2027 637870 / / [id number] Cement Bone Surg Simplex Radiopq [facility] [id number] Implanted:Qty: 1 on 08/24/2023 by Tremayne Adams MD Left: Knee [employer] [id number] 10/05/2025 6191-1-01 0 / / [id number] Procedures Procedure Name Priority Date/Time Associated Diagnosis Comments CARDIAC DEVICE CHECK- REMOTE- MURJ Routine 12/05/2024 8:20 AM EDT CARDIAC DEVICE CHECK- REMOTE- MURJ Routine 10/21/2024 4:23 PM EDT NM LEXISCAN STRESS TEST W/ MYOCARDIAL PERFUSION Routine 09/28/2024 11:44 AM EDT Dyspnea on exertion CARDIAC DEVICE CHECK- REMOTE- MURJ Routine 09/20/2024 2:25 PM EDT BASIC METABOLIC PANEL Routine 07/29/2024 4:50 AM EST MG MAMMO DIGITAL SCREENING W RICKEY BILAT Routine 05/19/2024 11:26 AM EST Encounter for screening mammogram for breast cancer from Last 3 Months or Most Recently Relevant to Health Maintenance Results * Cardiac device check - Remote- MURJ (12/05/2024 8:20 AM EDT) Only the most recent of3 resultswithin the time period is included. Date Time Interrogation Session [id number] CV DEVICE CHECK Type Interrogation Session RemoteScheduled CV DEVICE CHECK Implantable Pulse Generator Blower And Compressor Assembler BIO CV DEVICE CHECK Implantable Pulse Generator Type METAL REED TUNER-D CV DEVICE CHECK Implantable Pulse Generator Model Acticor 7 HF-T QP CV DEVICE CHECK Implantable Pulse Generator Serial Number [id number] CV DEVICE CHECK Implantable Pulse Generator Implant Date 20191223 CV DEVICE CHECK Battery Remaining Percentage 57.00 CV DEVICE CHECK Battery Voltage 3.100 CV D EVICE CHECK Battery CERTIFIED HEARING INSTRUMENT DISPENSER Trigger 2.850 CV DEVICE CHECK Battery Status Middle of Service CV DEVICE CHECK Capacitor Charge Time 9.400 CV DEVICE CHECK Gaurav Statistic RA Percent Paced 0.00 CV DEVICE CHECK Gaurav Statistic RV Percent Paced 100.00 CV DEVICE CHECK METAL REED TUNER Statistic LV Percent Paced 0.00 CV DEVICE CHECK METAL REED TUNER Statistic METAL REED TUNER Percent Paced 100.00 CV DEVICE CHECK Atrial Tachy Statistic AT/AF [place] Percent 0.00 CV DEVICE CHECK Lead Channel Sensing Intrinsic Amplitude 1.000 CV DEVICE CHECK Lead Channel Setting Sensing Sensitivity 0.20 CV DEVICE CHECK Lead Channel Impedance Value 403 CV DEVICE CHECK Lead Channel RA Pacing Threshold Date 2024-11-20 CV DEVICE CHECK Lead Channel Setting Pacing Amplitude 2.500 CV DEVICE CHECK Lead Channel Setting Pacing Pulse Width 0.4 CV DEVICE CHECK Lead Channel Sensing Intrinsic Amplitude 4.300 CV DEVICE CHECK Lead Channel Setting Sensing Sensitivity 0.60 CV DEVICE CHECK Lead Channel Impedance Value 364 CV DEVICE CHECK Lead Channel Pacing Threshold Amplitude 0.800 CV DEVICE CHECK Lead Channel Pacing Threshold Pulse Width 0.4 CV DEVICE CHECK Lead Channel RV Pacing Threshold Date 2024-11-20 CV DEVICE CHECK Lead Channel Setting Pacing Amplitude 1.800 CV DEVICE CHECK Lead Channel Setting Pacing Pulse Width 0.4 CV DEVICE CHECK Lead Channel Sensing Intrinsic Amplitude 7.900 CV DEVICE CHECK Lead Channel Impedance Value 442 CV DEVICE CHECK Lead Channel Pacing Threshold Amplitude 1.300 CV DEVICE CHECK Lead Channel Pacing Threshold Pulse Width 0.4 CV DEVICE CHECK Lead Channel Pacing Threshold Date 2024-11-20 CV DEVICE CHECK Lead Channel Setting Pacing Amplitude 2.300 CV DEVICE CHECK Lead Channel Setting Pacing Pulse Width 0.4 CV DEVICE CHECK Gaurav Setting Mode (NBG Code) DDD CV DEVICE CHECK Ventricular chambers paced during METAL REED TUNER pacing. BiV CV DEVICE CHECK Gaurav Setting Lower Rate Limit 50 CV DEVICE CHECK Gaurav Setting AT Mode Switch Rate 160 CV DEVICE CHECK Gaurav Setting Maximum Tracking Rate 130 CV DEVICE CHECK Gaurav Setting Maximum Sensor Rate 110 CV DEVICE CHECK Gaurav Setting PAV Delay 110 CV DEVICE CHECK Gaurav Setting JASMEET Delay 110 CV DEVICE CHECK METAL REED TUNER LV-RV Delay 20 CV D EVICE CHECK Therapy Statistic Recent Shocks Delivered 0 CV DEVICE CHECK Therapy Statistic Recent Shocks Aborted 0 CV DEVICE CHECK Therapy Statistic Recent ATP Delivered 0 CV DEVICE CHECK Shock Measured Impedance 33 CV DEVICE CHECK Zone Setting Type Category Zone_ATAF CV DEVICE CHECK Rate 200 CV DEVICE CHECK Zone Setting Status Monitor CV DEVICE CHECK Zone ID 9 CV DEVICE CHECK Zone Setting Type Category VF CV DEVICE CHECK Rate 200 CV DEVICE CHECK Therapies Burst,30.0J,40.0J, 40.0J x 6 CV DEVICE CHECK Zone Setting Status On CV DEVICE CHECK Zone ID 10 CV DEVICE CHECK Zone Setting Type Category VT CV DEVICE CHECK Rate 120 CV DEVICE CHECK Therapies 3 x Burst CV DEVICE CHECK Zone Setting Status On CV DEVICE CHECK Zone ID 11 CV DEVICE CHECK Zone Setting Type Category VT CV DEVICE CHECK Rate 162 CV DEVICE CHECK Therapies 3 x Burst,40.0J,40.0J, 40.0J x 6 CV DEVICE CHECK Zone Setting Status On CV DEVICE CHECK Zone ID 12 CV DEVICE CHECK Date of Service 2024-11-24 CV DEVICE CHECK Anatomical Region Laterality Modality Device Interroga tion 11/20/2024 2:05 AM EDT Impressions 12/05/2024 7:37 AM EDT Normal Remote: No Events * Normal Device Function * Alerts or events: None * Battery: Battery is at 57%, * Sensing, impedance and thresholds reviewed * Programmed parameters reviewed * Presenting rhythm reviewed * Heart Rate Histograms reviewed * No significant changes noted Heart Failure Diagnostic: Stable * Heart failure diagnostics assessed through the device * Status: Stable * No overt HF present Narrative Procedure Note Sidney Colin MD - 12/05/2024 IMPRESSION: Normal Remote: No Events * Normal Device Function * Alerts or events: None * Battery: Battery is at 57%, * Sensing, impedance and thresholds reviewed * Programmed parameters reviewed * Presenting rhythm reviewed * Heart Rate Histograms reviewed * No significant changes noted Heart Failure Diagnostic: Stable * Heart failure diagnostics assessed through the device * Status: Stable * No overt HF present us Sidney Cloin MD CV IMPLANTABLE CARDIAC DEVICE PROCEDURES Final Result * NM LEXISCAN STRESS TEST W/ MYOCARDIAL PERFUSION (09/28/2024 11:44 AM EDT) Exercise/injec tion duration (min) 0 CV PACS STRESS Exercise/injec tion duration (sec) 49 CV PACS STRESS Peak SBP 106 mmHg CV PACS STRESS Peak DBP 60 mmHg CV PACS STRESS Peak HR 90 bpm CV PACS STRESS Baseline HR 60 bpm CV PACS STRESS Baseline SBP 96 mmHg CV PACS STRESS Baseline DBP 44 mmHg CV PACS STRESS Estimated workload 1.0 METS CV PACS STRESS Percent HR 62 % CV PACS STRESS Rate Pressure Product 9,540.0 mmHg*bpm CV PACS STRESS Target HR 123 bpm CV PACS STRESS TID 1.13 CV PACS STRESS Nuc Stress EF 70 % CV PACS STRESS Nuc Rest EF 67 % CV PACS STRESS BSA 2.01 m2 CV PACS STRESS Anatomical Region Laterality Modality Nuclear Medicine 09/28/2024 10:2 3 AM EDT 09/28/2024 11:10 AM EDT Impressions 10/04/2024 11:25 AM EDT Normal Regadenoson stress test with nuclear imaging. No chest pain or EKG changes consistent with ischemia. Nuclear imaging revealed no significant perfusion defects after attenuation correction was applied. There is a normal TID ratio. Gated SPECT imaging was performed and revealed an LVEF of 67 %. Narrative 10/04/2024 11:25 AM EDT Nuclear imaging of the left ventricle shows a normal LV cavity size. Myocardial perfusion imaging of the left ventricle reveals no significant perfusion defects after CT attenuation correction was applied to the study. Gated SPECT imaging was performed which demonstrated normal left ventricular systolic function. The calculated LVEF is 67 %. TID ratio is normal. Stress Findings A pharmacological stress test was performed using regadenoson, 0.4 mg IV over 10-15 seconds, followed by radiopharmacological injection 10 seconds post infusion. Total stress time was 0 min and 49 sec. The patient reached the end of the protocol. Blood pressure demonstrated a normal response. Heart rate demonstrated a normal response. The patient reported no symptoms during the stress test. ECG 74 year old female with reports of dyspnea on exertion and fatigue. PMH includes HTN, HLD, HFrEF, fomer smoking and family history of CAD. The ECG shows a ventricular paced rhythm. Non-specific ST abnormalities noted at baseline. There were no arrhythmias during stress. There is no significant ST abnormalities during stress in the setting of baseline abnormal ECG. There were no arrhythmias during recovery. Nuclear Study Quality Study technique: MPI, SPECT, multi, rest and stress, 1 day. Overall image quality is good. CT attenuation correction was utilized. No radiopharmaceutical dose was extravasated. The time from injection to rest imaging is 40 mins. The time from injection to stress imaging is 35 mins. Stress Function Comments Stress ejection fraction is 70%. Rest Function Comments Resting ejection fraction was 67%. us Fatou Aquino NP CV STRESS PROCEDURES Final Res ult * (ABNORMAL) Basic metabolic panel (07/29/2024 4:50 AM EST) Sodium 140 133 - 145 mmol/L LAB CHEMISTRY METHOD 07/29/2024 5:58 AM [facility] Potassium 4.0 3.5 - 5.5 mmol/L LAB CHEMISTRY METHOD 07/29/2024 5:58 AM [facility] Chloride 105 96 - 110 mmol/L LAB CHEMISTRY METHOD 07/29/2024 5:58 AM [facility] CO2 24 21 - 32 mmol/L LAB CHEMISTRY METHOD 07/29/2024 5:58 AM [facility] Anion Gap 11 3 - 11 LAB CHEMISTRY METHOD 07/29/2024 5:58 AM [facility] Glucose 121(H) 70 - 100 mg/dL LAB CHEMISTRY METHOD 07/29/2024 5:58 AM [facility] BUN 22 5 - 25 mg/dL LAB CHEMISTRY METHOD 07/29/2024 5:58 AM EST [facility] Creatinine 1.43(H) 0.50 - 1.10 mg/dL LAB CHEMISTRY METHOD 07/29/2024 5:58 AM EST [facility] eGFR 38(L) >=60 mL/min/1. 73m2 LAB CHEMISTRY METHOD 07/29/2024 5:58 AM EST [facility] Comment:Calculation based on the Chronic Kidney Disease Epidemiology Collaboration (CKD-EPI) equation refit without adjustment for race. BUN/Creatinine Ratio 15.4 LAB CHEMISTRY METHOD 07/29/2024 5:58 AM EST [facility] Calcium 9.4 8.5 - 10.5 mg/dL LAB CHEMISTRY METHOD 07/29/2024 5:58 AM EST [facility] Blood Venous blood specimen / Unknown Venipuncture / Unknown 07/29/2024 4:50 AM EST 07/29/2024 5:12 AM EST us Inder Mishra MD LAB BLOOD ORDERABLES Final Re sult [facility] [address] [place] [address], * MG Mammo Digital Screening w Rickey bilat (05/19/2024 11:26 AM EST) Anatomical Region Laterality Modality Breast Bilateral Mammography 05/19/2024 4:08 PM EST Impressions 05/19/2024 4:13 PM EST No mammographic evidence of malignancy. No suspicious interval change. A negative mammogram in the presence of a clinically suspicious palpable abnormality does not preclude the possibility of malignancy or alter the indications for biopsy. ASSESSMENT: BI-RADS 1: NEGATIVE RECOMMENDATION(S): 1: Routine screening mammogram BILATERAL in 1 year. -------- FINAL REPORT -------- Dictated By: Blake Hankins Dictated Date: 05/19/2024 16:08 ET Assigned Physician: Blake Hankins Reviewed and Electronically Signed By: Blake Hankins Signed Date: 05/19/2024 16:13 ET Workstation ID: [id number] Transcribed By: Self Edit Transcribed Date: 05/19/2024 16:08 ET Narrative 05/19/2024 4:13 PM EST EXAM: SCREENING MAMMOGRAPHY, BILATERAL HISTORY: SCREENING. History of left breast surgery for reportedly benign process. Recent injury left breast COMPARISON: 10/30/2021, 01/30/2020 TECHNIQUE: Synthesized CC and MLO projections of each breast. Tomosynthesis of each breast in the CC and MLO projections. ADDITIONAL IMAGING: None Computer-aided detection was employed with the [employer] AI 3-D. TISSUE DENSITY: There are scattered areas of fibroglandular density. (BI-RADS category B) FINDINGS: RIGHT BREAST: No suspicious mass. No suspicious calcification. No distortion. No additional suspicious right breast findings LEFT BREAST: No suspicious mass. No suspicious calcification. No distortion. No additional suspicious left breast findings A metallic power generator obscures some of the anatomy Procedure Note Blake Hankins MD - 05/19/2024 EXAM: SCREENING MAMMOGRAPHY, BILATERAL HISTORY: SCREENING. History of left breast surgery for reportedly benignprocess. Recent injury left breast COMPARISON: 10/30/2021, 01/30/2020 TECHNIQUE: Synthesized CC and MLO projections of each breast.Tomosynthesis of each breast in the CC and MLO projections. ADDITIONAL IMAGING: None Computer-aided detection was employed with the [employer] profound AI 3-D. TISSUE DENSITY: There are scattered areas of fibroglandular density.(BI-RADS category B) FINDINGS: RIGHT BREAST: No suspicious mass. No suspicious calcification. No distortion. Noadditional suspicious right breast findings LEFT BREAST: No suspicious mass. No suspicious calcification. No distortion. Noadditional suspicious left breast findings A metallic power generator obscures some of the anatomy IMPRESSION: No mammographic evidence of malignancy. No suspicious interval change. A negative mammogram in the presence of a clinically suspicious palpableabnormality does not preclude the possibility of malignancy or alter theindications for biopsy. ASSESSMENT: BI-RADS 1: NEGATIVE RECOMMENDATION(S): 1: Routine screening mammogram BILATERAL in 1 year. -------- FINAL REPORT -------- Dictated By: Blake Hankins Dictated Date: 05/19/2024 16:08 ET Assigned Physician: Blake Hankins Reviewed and Electronically Signed By: Blake Hankins Signed Date: 05/19/2024 16:13 ET Workstation ID: [id number] Transcribed By: Self Edit Transcribed Date: 05/19/2024 16:08 ET us Self Referral Sppl IMG BI PROCEDURES Final Resul t from Last 3 Months or Most Recently Relevant to Health Maintenance Insurance MEDICARE [facility] Advance Directives Documents on File Type Date Recorded Patient [place] Expl anation Health Care Decision (hx) 08/30/2023 AD BLANCHARD DIRECTIVE Health Care Decision (hx) 08/19/2023 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 Health Care Decision (hx) 08/16/2020 AD BLANCHARD DIRECTIVE Health Care Decision (hx) 08/16/2020 AD BLANCHARD DIRECTIVE Health Care Decision (hx) 08/16/2020 AD BLANCHARD DIRECTIVE Health Care Decision (hx) 08/16/2020 AD BLANCHARD DIRECTIVE Health Care Decision (hx) 08/16/2020 AD BLANCHARD DIRECTIVE Health Care Decision (hx) 08/16/2020 AD BLANCHARD DIRECTIVE Health Care Decision (hx) 08/16/2020 AD BLANCHARD DIRECTIVE Health Care Decision (hx) 08/16/2020 AD BLANCHARD DIRECTIVE Health Care Decision (hx) 08/16/2020 AD BLANCHARD DIRECTIVE Health Care Decision (hx) 08/16/2020 AD BLANCHARD DIRECTIVE Health Care Decision (hx) 08/16/2020 AD BLANCHARD DIRECTIVE Health Care Decision (hx) 08/16/2020 AD BLANCHARD DIRECTIVE Health Care Decision (hx) 08/16/2020 AD BLANCHARD DIRECTIVE Health Care Decision (hx) 08/16/2020 AD BLANCHARD DIRECTIVE Health Care Decision (hx) 08/16/2020 AD BLANCHARD DIRECTIVE Health Care Decision (hx) 08/16/2020 AD BLANCHARD DIRECTIVE Health Care Decision (hx) 08/16/2020 AD BLANCHARD DIRECTIVE Health Care Decision (hx) 08/16/2020 AD BLANCHARD DIRECTIVE Health Care Decision (hx) 08/16/2020 AD BLANCHARD DIRECTIVE Health Care Decision (hx) 08/16/2020 AD BLANCHARD DIRECTIVE Health Care Decision (hx) 08/16/2020 AD BLANCHARD DIRECTIVE Health Care Decision (hx) 08/16/2020 AD BLANCHARD DIRECTIVE Health Care Decision (hx) 08/16/2020 AD BLANCHARD DIRECTIVE Health Care Decision (hx) 08/16/2020 AD BLANCHARD DIRECTIVE Health Care Decision (hx) 08/16/2020 AD BLANCHARD DIRECTIVE Health Care Decision (hx) 08/16/2020 AD BLANCHARD DIRECTIVE Health Care Decision (hx) 08/16/2020 AD BLANCHARD DIRECTIVE Health Care Decision (hx) 08/16/2020 AD BLANCHARD DIRECTIVE Health Care Decision (hx) 08/16/2020 AD BLANCHARD DIRECTIVE Health Care Decision (hx) 08/16/2020 AD BLANCHARD DIRECTIVE Health Care Decision (hx) 08/16/2020 AD BLANCHARD DIRECTIVE Health Care Decision (hx) 03/24/2018 AD BLANCHARD DIRECTIVE Health Care Decision (hx) 03/24/2018 AD BLANCHARD DIRECTIVE Health Care Decision (hx) 03/24/2018 AD BLANCHARD DIRECTIVE Health Care Decision (hx) 03/24/2018 AD BLANCHARD DIRECTIVE Health Care Decision (hx) 03/24/2018 AD BLANCHARD DIRECTIVE Health Care Decision (hx) 03/24/2018 AD BLANCHARD DIRECTIVE Health Care Decision (hx) 03/24/2018 AD BLANCHARD DIRECTIVE Health Care Decision (hx) 03/24/2018 AD BLANCHARD DIRECTIVE Health Care Decision (hx) 03/24/2018 AD BLANCHARD DIRECTIVE Health Care Decision (hx) 03/24/2018 AD BLANCHARD DIRECTIVE Health Care Decision (hx) 03/24/2018 AD BLANCHARD DIRECTIVE Health Care Decision (hx) 03/24/2018 AD BLANCHARD DIRECTIVE Health Care Decision (hx) 03/24/2018 AD BLANCHARD DIRECTIVE Health Care Decision (hx) 03/24/2018 AD BLANCHARD DIRECTIVE Health Care Decision (hx) 03/24/2018 AD BLANCHARD DIRECTIVE Health Care Decision (hx) 03/24/2018 AD BLANCHARD DIRECTIVE Health Care Decision (hx) 03/24/2018 AD BLANCHARD DIRECTIVE Health Care Decision (hx) 03/24/2018 AD BLANCHARD DIRECTIVE Health Care Decision (hx) 03/24/2018 AD BLANCHARD DIRECTIVE Health Care Decision (hx) 03/24/2018 AD BLANCHARD DIRECTIVE Health Care Decision (hx) 03/24/2018 AD BLANCHARD DIRECTIVE Health Care Decision (hx) 03/24/2018 AD BLANCHARD DIRECTIVE Health Care Decision (hx) 03/24/2018 AD BLANCHARD DIRECTIVE Health Care Decision (hx) 03/24/2018 AD BLANCHARD DIRECTIVE Health Care Decision (hx) 03/24/2018 AD BLANCHARD DIRECTIVE Health Care Decision (hx) 03/24/2018 AD BLANCHARD DIRECTIVE Health Care Decision (hx) 03/24/2018 AD BLANCHARD DIRECTIVE Health Care Decision (hx) 03/24/2018 AD BLANCHARD DIRECTIVE Health Care Decision (hx) 03/24/2018 AD BLANCHARD DIRECTIVE Health Care Decision (hx) 03/24/2018 AD BLANCHARD DIRECTIVE Health Care Decision (hx) 03/24/2018 AD BLANCHARD DIRECTIVE Health Care Decision (hx) 03/24/2018 AD BLANCHARD DIRECTIVE Health Care Decision (hx) 03/24/2018 AD BLANCHARD DIRECTIVE Health Care Decision (hx) 03/24/2018 AD BLANCHARD DIRECTIVE Health Care Decision (hx) 03/24/2018 AD BLANCHARD DIRECTIVE Health Care Decision (hx) 03/24/2018 AD BLANCHARD DIRECTIVE Health Care Decision (hx) 03/24/2018 AD BLANCHARD DIRECTIVE Health Care Decision (hx) 03/24/2018 AD BLANCHARD DIRECTIVE Health Care Decision (hx) 03/24/2018 AD BLANCHARD DIRECTIVE Health Care Decision (hx) 03/24/2018 AD BLANCHARD DIRECTIVE Health Care Decision (hx) 03/24/2018 AD BLANCHARD DIRECTIVE Health Care Decision (hx) 03/24/2018 AD BLANCHARD DIRECTIVE Health Care Decision (hx) 03/24/2018 AD BLANCHARD DIRECTIVE Health Care Decision (hx) 03/24/2018 AD BLANCHARD DIRECTIVE Health Care Decision (hx) 03/24/2018 AD BLANCHARD DIRECTIVE Health Care Decision (hx) 03/24/2018 AD BLANCHARD DIRECTIVE Health Care Decision (hx) 03/23/2018 AD BLANCHARD DIRECTIVE Health Care Decision (hx) 03/23/2018 AD BLANCHARD DIRECTIVE Health Care Decision (hx) 03/23/2018 AD BLANCHARD DIRECTIVE Health Care Decision (hx) 03/23/2018 AD BLANCHARD DIRECTIVE Health Care Decision (hx) 03/23/2018 AD BLANCHARD DIRECTIVE Health Care Decision (hx) 03/23/2018 AD BLANCHARD DIRECTIVE Health Care Decision (hx) 03/23/2018 AD BLANCHARD DIRECTIVE Health Care Decision (hx) 03/23/2018 AD BLANCHARD DIRECTIVE Health Care Decision (hx) 03/23/2018 AD BLANCHARD DIRECTIVE Health Care Decision (hx) 03/23/2018 AD BLANCHARD DIRECTIVE Health Care Decision (hx) 03/23/2018 AD BLANCHARD DIRECTIVE Health Care Decision (hx) 03/23/2018 AD BLANCHARD DIRECTIVE Health Care Decision (hx) 03/23/2018 AD BLANCHARD DIRECTIVE Health Care Decision (hx) 03/23/2018 AD BLANCHARD DIRECTIVE Health Care Decision (hx) 03/23/2018 AD BLANCHARD DIRECTIVE Health Care Decision (hx) 03/23/2018 AD BLANCHARD DIRECTIVE Health Care Decision (hx) 03/23/2018 AD BLANCHARD DIRECTIVE Health Care Decision (hx) 03/23/2018 AD BLANCHARD DIRECTIVE Health Care Decision (hx) 03/23/2018 AD BLANCHARD DIRECTIVE Health Care Decision (hx) 03/23/2018 AD BLANCHARD DIRECTIVE Health Care Decision (hx) 03/23/2018 AD BLANCHARD DIRECTIVE Health Care Decision (hx) 03/23/2018 AD BLANCHARD DIRECTIVE Health Care Decision (hx) 03/23/2018 AD BLANCHARD DIRECTIVE Health Care Decision (hx) 03/23/2018 AD BLANCHARD DIRECTIVE Health Care Decision (hx) 03/23/2018 AD BLANCHARD DIRECTIVE Health Care Decision (hx) 03/23/2018 AD BLANCHARD DIRECTIVE Health Care Decision (hx) 03/23/2018 AD BLANCHARD DIRECTIVE Health Care Decision (hx) 03/23/2018 AD BLANCHARD DIRECTIVE Health Care Decision (hx) 03/23/2018 AD BLANCHARD DIRECTIVE Health Care Decision (hx) 03/23/2018 AD BLANCHARD DIRECTIVE Health Care Decision (hx) 03/23/2018 AD BLANCHARD DIRECTIVE Health Care Decision (hx) 03/23/2018 AD BLANCHARD DIRECTIVE Health Care Decision (hx) 03/23/2018 AD BLANCHARD DIRECTIVE Health Care Decision (hx) 03/23/2018 AD BLANCHARD DIRECTIVE Health Care Decision (hx) 03/23/2018 AD BLANCHARD DIRECTIVE Health Care Decision (hx) 03/23/2018 AD BLANCHARD DIRECTIVE Health Care Decision (hx) 03/23/2018 AD BLANCHARD DIRECTIVE Health Care Decision (hx) 03/23/2018 AD BLANCHARD DIRECTIVE Health Care Decision (hx) 03/23/2018 AD BLANCHARD DIRECTIVE Health Care Decision (hx) 03/23/2018 AD BLANCHARD DIRECTIVE Health Care Decision (hx) 03/23/2018 AD BLANCHARD DIRECTIVE Health Care Decision (hx) 03/23/2018 AD BLANCHARD DIRECTIVE Health Care Decision (hx) 03/23/2018 AD BLANCHARD DIRECTIVE Health Care Decision (hx) 03/23/2018 AD BLANCHARD DIRECTIVE Health Care Decision (hx) 03/23/2018 AD BLANCHARD DIRECTIVE Health Care Decision (hx) 03/23/2018 AD BLANCHARD DIRECTIVE * Full Code - Confirmed (Latest Code Status on File) Date Activated Date Inactivated Comments 07/28/2024 4:08 PM 07/29/2024 6:[address] atus was ascertained in the following way: Code status discussion: discussion with patient To update the patient's code status, place a code status order. Do not modify or discontinue any currently active code status orders. * Full Code - Default Date Activated Date Inactivated Comments 07/28/2024 2:03 PM 07/28/2024 4:08 PM This is orde r is used when code status has not been discussed with the patient, or code status is otherwise unknown/unconfirmed To update the patient's code status, place a code status order. Do not modify or discontinue any currently active code status orders. Care Teams Teller Coordinator Relationship Specialty Start Date End Date Radha Henson MD [address] [facility] [address] PCP - General Internal Medicine 07/01/21
--- OUTSIDE RECORDS SUMMARY | 2024-12-20 10:50 | XMS_ITS | Encounter Summary ---
Author Organization Formerly [facility] Address [address] [place] [address] Care Team Providers Care Lead Mechanic Name Role Phone Concepcion Jones DNP Unavailable [phone] Stephanie Cortez MD Unavailable [phone] Sidney Colin MD Unavailable [phone] Radha Henson MD Primary Care Provider Unail Fatou Murray NP Unavailable [phone] Encounter Details Date Type Department Care Team Description 01/03/2021 Telephone Cardio PVC [address] [facility] [address] [place] [address] Concepcion Jones, RUI [address] [place] [address] Social History Tobacco Use Types Packs/Day Years Used Date Smoking Tobacco: Former Smokeless Tobacco: Never Alcohol Use Standard Drinks/Week Comments No 0 (1 standard drink = 0.6 oz pur e alcohol) Physical Activity Answer Date Recorded On average, how many days pe r week do you engage in moderate to strenuous exercise (like walking fast, running, jogging, dancing, swimming, biking, or other activities that cause a light or heavy sweat)? 0 days 06/27/2020 On average, how many minutes do you engage in exercise at this level? 0 min 08/29/2020 Sex Assigned at Date Recorded Not on file Job Start Date Occupation Industry Not on file Not on file Not on file documented as of this encounter Miscellaneous Notes * Telephone Encounter - Mara Rousseau M.A. - 01/03/2021 9:09 AM EDT Spoke with pt she is aware * Telephone Encounter - Concepcion Jones DNP, FNP - 01/03/2021 7:54 AM EDT Can you pls ask the pt to reduce her amiodarone to 200mg just once a day. This will hopefully help with her appetite. We will follow her VT through her device. Her potassium is lower than Dr. Colin would like. I would like to start potassium supplements again, 20mEq once a day. I have sent a script to her pharmacy for both the potassium and the reduced dose of amiodarone. documented in this encounter Plan of Treatment Not on file documented as of this encounter Visit Diagnoses Not on filedocumented in this encounter Care Teams Lead Mechanic Relationship Specialty Start Date End Date Radha Henson MD PCP - General Internal Medicine 07/01/21 Concepcion Jones DNP Specialist Cardiology 08/14/20 07/21/22 Stephanie Cortez MD Specialist Cardiology 03/27/21 Sidney Colin MD Specialist Cardiology 04/25/21 Fatou Aquino NP [address] [place] [address] [place] [address] Cardiology 03/23/24 documented as of this encounter
--- OUTSIDE RECORDS SUMMARY | 2024-12-20 10:50 | XMS_ITS | Encounter Summary ---
Author Organization [facility] Address [address] [place] [address] Care Team Providers Care Tint Layer Name Role Phone Unavailable Primary Care Provider Unavailabl e Encounter Details Date Type Department Care Team (Late st Contact Info) Description 07/28/2023 Lab Requisition [facility] [address] [place] [address] Tremayne Adams MD [address] [place] [address] Social History Tobacco Use Types Packs/Day Years Used Date Smoking Tobacco: Never Assessed Comments Unknown Sex and Gender Information Value Date Recorded Sex Assigned at Not on file Legal Sex Female 1:33 PM EST Gender Identity Not on file Sexual Orientation Not on file documented as of this encounter Plan of Treatment Not on file documented as of this encounter Procedures Procedure Name Priority Date/Time Associated Diagnosis Comments BODY FLUID CULTURE, WITH GRAM STAIN Routine 07/28/2023 1:40 PM EST SYNOVIAL FLUID, ANALYSIS Routine 07/28/2023 1:40 PM EST BODY FLUID DIFFERENTIAL Routine 07/28/2023 1:40 PM EST BODY FLUID CELL COUNT WITH DIFFERENTIAL Routine 07/28/2023 1:40 PM EST documented in this encounter Results * Body fluid differential (07/28/2023 1:40 PM EST) Granulocytes Fluid 11 % LAB HEMATOLOGY METHOD 07/28/2023 2:34 PM EST LAB[facility] Lymphocytes Fluid 27 % LAB HEMATOLOGY METHOD 07/28/2023 2:34 PM EST [facility] Monocyte/Macroph age Fluid 62 % LAB HEMATOLOGY METHOD 07/28/2023 2:34 PM EST LAB[facility] Synovial Fluid Structure of left knee region / Unknown 07/28/2023 1:40 PM EST 07/28/2023 1:40 PM EST Tremayne Adams MD LAB BODY FLUIDS AND STOOLS ORDERABLES Final Result Performing Organization Address City/[facility]/ZIP Co de Phone Number LABORATORY SERVICES [id number] [place] [id number], [place] * Body Fluid Culture, With Gram Stain (07/28/2023 1:40 PM EST) Body Fluid Culture No Growth 14 days ( Aerobic and Anaerobic) 08/11/2023 10:43 AM EST LAB[facility] Gram Stain No organisms observed 08/11/2023 10:43 AM EST LAB[facility] Synovial Fluid Structure of left knee region / Unknown 07/28/2023 1:40 PM EST 07/28/2023 1:49 PM EST Tremayne Adams MD LAB MICROBIOLOGY - GENERAL ORDERABLES Final Result Performing Organization Address City/[facility] Co de Phone Number LABORATORY SERVICES [id number] [place] [id number], [place] * Body fluid cell count w/reflex differential (07/28/2023 1:40 PM EST) Fluid Type Synovial Fluid LAB HEMATOLOGY METHOD 07/28/2023 2:34 PM EST [facility] Color Body Fluid Tatum LAB HEMATOLOGY METHOD 07/28/2023 2:34 PM EST LAB[facility] Fluid Appearance Hazy LAB HEMATOLOGY METHOD 07/28/2023 2:34 PM EST LAB[facility] RBC Fluid 0.014 cells X 10*6/uL LAB HEMATOLOGY METHOD 07/28/2023 2:34 PM EST LAB[facility] Total NC Fluid 0.458 cells X 10*3/uL LAB HEMATOLOGY METHOD 07/28/2023 2:34 PM EST LAB[facility] Comment: Please Note: Total Nucleated Cell Count includes WBC's, macrophages, lining cells, and all other non-hematopoietic nucleated cells. Normal Range for Synovial Fluid Cell Count Normal WBC 0.000-0.150 x10 3/uL Grans <25% GRP I WBC <3.000 x10 3/uL (Non-Inflammatory) Grans <30% GRP II WBC 3.000-75.000 x10 3/uL (Inflammatory) Grans >50% GRP III WBC 50.000-200.000 x10 3/uL (Septic) Grans >90% GRP IV WBC 0.500-200.000 x10 3/uL (Crystal Induced) Grans <90% GRP V WBC 0.050-10.000 x10 3/uL (Hemorrhagic) Grans <50% Synovial Fluid Structure of left knee region / Unknown 07/28/2023 1:40 PM EST 07/28/2023 1:40 PM EST Tremayne Adams MD LAB BODY FLUIDS AND STOOLS ORDERABLES Final Result Performing Organization Address [facility] Co de Phone Number LABORATORY SERVICES [id number] [address] [place] [address], * Synovial fluid, Analysis (07/28/2023 1:40 PM EST) Color Body Fluid Tatum LAB HEMATOLOGY METHOD 07/28/2023 2:33 PM EST LAB[facility] Fluid Appearance Hazy LAB HEMATOLOGY METHOD 07/28/2023 2:33 PM EST LAB[facility] Crystals None Seen LAB HEMATOLOGY METHOD 07/28/2023 2:33 PM EST LAB[facility] Synovial Fluid Structure of left knee region / Unknown 07/28/2023 1:40 PM EST 07/28/2023 1:40 PM EST Tremayne Adams MD LAB BODY FLUIDS AND STOOLS ORDERABLES Final Result Performing Organization Address City/[facility] Co de Phone Number LABORATORY SERVICES [id number] [address] [place] [address], documented in this encounter Visit Diagnoses Not on filedocumented in this encounter
== END 2024-12-20 10:37 | disposition home or self-care (01) ==
LOC: HO.HPS 09:58
PROVIDERS: PCP Internal Medicine; Visit Provider Hospitalist
DX: J90 Pleural effusion, not elsewhere classified (principal); G47.33 Obstructive sleep apnea (adult) (pediatric); G47.34 Idiopathic sleep related nonobstructive alveolar hypoventilation; J98.4 Other disorders of lung; R06.09 Other forms of dyspnea
CPT/HCPCS: 99214; G2211

== ENCOUNTER 2025-04-12 14:35 | Outpatient (AMB) | payer MEDICARE, SELFPAY ==
--- OUTSIDE RECORDS SUMMARY | 2024-06-28 05:15 | XMS_ITS ---
[facility] Address [address] [place] [address] Care Team Providers Care Electromyographic Technician Name Role Phone Radha Henson Primary Care Provider Elsie Barnes [phone] Encounters Encounter Location Date Provider Diagnosis [address] [address] 06/28/2024 Elsie Galvez Plan Of Treatment Next Appt Details Provider Name:Elsie Galvez , 04/19/2025 09:00:00 AM, [address] [place] [address], [phone], Progress Notes * Miya WOODRUFF MDOB:[birth year] (74 yo F)Acc No.[id number]:06/28/2024 Progress Note Patient: Miya SIDDIQUI Provider: Florinda Galvez DPM :1950 A ge:74 Y S ex:Female Date:06/28/2024 Address:[address] [place], [place] [id number] Pcp:Radha Henson Subjective: * Chief Complaints: * * Medical History: Objective: * Vitals: Assessment: Plan: * Treatment: * Images: * The named appointment provid er may or may not be the originator of this progress note, and it is not deemed complete until electronically signed by the appointment provider. Sign off status: Pending * Provider: Florinda Galvez DPM Date: 0 06/28/2024 Generated for Iggy juan/Chema/May on: 1 06/12/2024 05:44 PM EST
--- OUTSIDE RECORDS SUMMARY | 2024-07-26 06:00 | XMS_ITS ---
Author Organization [facility] Address [address] [place] [address] Care Team Providers Care Marketing Project Lead Name Role Phone Radha Henson Primary Care Provider Elsie Barnes [phone] Encounters Encounter Location Date Provider Diagnosis [address] [address] 07/26/2024 Elsie Galvez Plan Of Treatment Next Appt Details Provider Name:Elsie Galvez , 04/19/2025 09:00:00 AM, [address] [place] [address], [phone], Progress Notes * Miya WOODRUFF MDOB:[birth year] (74 yo F)Acc No.[id number]:07/26/2024 Progress Note Patient: Miya SIDDIQUI Provider: Florinda Galvez DPM :1950 A ge:74 Y S ex:Female Date:07/26/2024 Address:[address] [place], [place] [phone] Pcp:Radha Henson Subjective: * Chief Complaints: * * Medical History: Objective: * Vitals: Assessment: Plan: * Treatment: * Images: * The named appointment provid er may or may not be the originator of this progress note, and it is not deemed complete until electronically signed by the appointment provider. Sign off status: Pending * Provider: Florinda Galvez DPM Date: 0 07/26/2024 Generated for Iggy juan/Chema/May on: 1 06/12/2024 05:45 PM EST
--- OUTSIDE RECORDS SUMMARY | 2025-04-12 05:15 | XMS_ITS ---
Author Organization [facility] Address [address] [place] [address] Care Team Providers Care Machine Former Name Role Phone Radha Henson Primary Care Provider Unavailabl e Black, Elsie Unavailable [phone] Allergies Allergen (clinical drug ingredient) Drug/Non Drug [...] Active ProAir HFA Not-Takin g Pulmicort Not-Taking Nowczoksryhzl-XCNX-Pqviiob al Not-Taking Methotrexate Sodium 2.5 MG Oral; [...] Problem Acquired hammer toe of right foot ([id number] 105) Hammer toe of right foot (M20.41) Active confirmed Vital Signs Height 5ft 8in in 04/12/2025 Weight 190 lbs 04/12/2025 BMI 28.89 kg/m2 04/12/2025 Blood pressure systolic 120 mm Hg 04/12/20 25 Blood pressure diastolic 75 mm Hg 025 Procedures Procedure Date Ordered Date Performed Result Body Sit e - Tenotomy, open flexor 04/12/2025 N/A Encounters Encounter Location Date Provider Diagnosis [facility] [address] [address] 04/12/2025 Elsie Black Hammer toe of right [...] Vences Lenny , 04/19/2025 09:00:00 AM, [address] [facility], [place], [address], Procedure Notes * Category Sub-Category Detail Notes Podiatry Procedure Tenotomy - Flexor (83714) LOC ATION : T6 INDICATIONS : a [...] * Miya WOODRUFF MDOB:[birth year] (74 yo F)Acc No.[id number]:04/12/2025 Patient: Miya SIDDIQUI Provider: Florinda Galvez DPM :1950 A ge:74 Y S ex:Female Date:04/12/2025 Address:[address] [place], [place] [id number] Pcp:Radha Henson Subjective: * Chief Complaints: * [...] dmits. C ardiovascular: Pacemaker d enies. M ACCOUNTING PRACTICE MANAGER d enies. W PW d enies. [...] 70 MG Tablet Orally Fish Oil Pulmicort Vrqbddcztsewz-YIHM-Urjfrlxju Tramadol & Dietary Manage Prod ProAir HFA [...] Orally Not-Taking/PRN Fish Oil Not-Taking/PRN Pulmicort Not-Taking/PRN Memtweqnwwktv-EHMN-Znavhvugz Not-Taking/PRN Tramadol & Dietary Manage Prod Not-Taking/PRN [...] Procedures: P odiatry Procedure: Tenotomy - Flexor (57492) L OCATION : T6 INDICATIONS : a [...] Date: 06/12/2024 Generated for Iggy juan/Chema/May on: 06/12/2024 05:44 PM EST History and Physical Notes * Examination Category Sub-Category Detail Notes Category Not es Orthopedic DIGITAL DEFORMITIES: , Digital c ontracture, PIPJ,2nd right, incompl-reducible with WB, or to push-up test, no over, nor underlapping
--- NOTE | 2025-04-12 14:48 | A.OFFVIS_ITS ---
Intake Visit Reasons: follow up Allergies Codeine Allergy (Severe, Uncoded 08/10/24 13:07) Rash and Hives Medication List - Last Reconciled 04/12/25 by Shivam Castle MD amiodarone 200 mg PO DAILY apixaban (Eliquis) 5 mg PO BID ascorbic acid (vitamin C) 250 mg PO DAILY aspirin 81 mg PO DAILY atorvastatin 40 mg PO BEDTIME jancoynirf-tzmwjhni-vgmlpqbfhr 160-9-4.8 mcg/actuation (Breztri Aerosphere) 2 inhalations inhalation BID 30 days calcium carbonate (Calcium 600) 600 mg PO DAILY cholecalciferol (vitamin D3) 25 mcg PO DAILY escitalopram oxalate 20 mg PO QAM estradiol (Yuvafem) 10 mcg vaginal 2XW ferrous sulfate (FeroSul) 325 mg PO fluticasone propionate 50 mcg/actuation 2 sprays intranasal DAILY 30 days folic acid 1 mg PO DAILY furosemide 20 mg PO DAILY gabapentin 800 mg (2 x 400 mg) PO BEDTIME 30 days loratadine (Claritin) 10 mg PO DAILY 30 days magnesium oxide 400 mg PO DAILY methotrexate sodium 12.5 mg PO QWEEK metoprolol tartrate 25 mg PO DAILY montelukast 10 mg PO DAILY qsijxviz-sjt-TW-lycopen-lutein 0.4 mg-300 mcg- 250 mcg (CertaVite Senior) 1 tab PO QAM pantoprazole 40 mg PO QAM polyvinyl alcohol 1.4% 1 drp ophthalmic (eye) QID sacubitril-valsartan 24-26 mg (Entresto) 1 tab PO spironolactone 12.5 mg PO DAILY thiamine HCl (vitamin B1) 100 mg PO DAILY vitamin B complex 1 tab PO DAILY 30 days Xopenex HFA 45 mcg/actuation (levalbuterol tartrate) 2 puffs PO Q6H PRN 30 days NS HPI Comments Details: Did not reduce dose of gabapentin, but is still interested in trying to reduce dose if possible. Legs are very numb and tingly, but no pain. Also has some numbness in finger tips. Lost balance while doing hair and fell backward a few days ago. Off balance a lot of time and is very bothered by it. Using cane. Has been working with PT following LLE surgery. Planning to start exercise program at [facility]. Memory stable, forgetful at times. Has some trouble maintaining sleep. ?Fell in 08/2023 a few days before scheduled L knee surgery and fx L femur. Had knee surgery and surgical repair of femur fx. Had follow up neuropsych testing 06/2023. Fx 3 bones in L ankle 10/2022 and had surgical repair. Has afib and had defibrillator implanted. Has numbness in both hands and from mid-legs down with tingling, previously had some pain in her feet. Was told in 2008 she had vascular dementia, but went on to get bachelor's degree from [employer] in 2014. Gives very detailed hx with no signs of dementia. Had first neurotesting in [address] Llanes. Tests were inconclusive but she was evaluated for MCI. Subsequent study in 2011 and in 2013 showed improvement without any medications. He suggested anticholinesterase drugs, but they were never used. 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 Depressed and anxious at times. Has ERIKA but does not use CPAP more than about 3 hours 3x/week. For 30+ years, she has had problems with an explosive pressure in her head if she laughs out loud, strains, or cries. [facility] Medical History (Updated 04/12/25 @ 15:01 by Shivam Castle MD) Atrial fibrillation Meningioma Peripheral neuropathy Pleural effusion Ventricular tachycardia Nocturnal hypoxia ERIKA (obstructive sleep apnea) Chronic restrictive lung disease Dyspnea Cardiomyopathy ERIKA on CPAP COPD (chronic obstructive pulmonary disease) Social History Patient Tobacco Use Status: Former Tobacco user Tobacco use type: Cigarette Years Smoked: 16 years Review of Systems Const Details: leep:? Difficulty getting to sleep?denies.? Difficulty maintaining sleep?admits .? Urge to move legs?denies.? Teeth grinding?denies.? Shouting or Kicking during sleep?denies.? Abnormal behavior during sleep?denies.? Excessive sleep?denies.? Snoring?denies.? Daytime sleepiness?denies.? ?? General/Constitutional:? Change in appetite?denies.? Chills?denies.? Fatigue?admits.? Fever?denies .? Weight gain?denies.? Weight loss?denies.? ?? Respiratory:? Shortness of breath?admits.? Chest pain?denies.? Cough?denies.? ?? Cardiovascular:? Chest pain at rest?denies.? Chest pain with exertion?denies.? Claudication?denies.? Dizziness?denies.? Fluid accumulation in the legs?denies.? Irregular heartbeat?denies.? Palpitations?denies.? ?? Gastrointestinal:? Abdominal pain?denies.? Constipation?denies.? Diarrhea?denies.? Difficulty swallowing?denies.? Heartburn?denies.? Nausea?denies.? Rectal bleeding?denies.? ?? Genitourinary:? Frequent urination?denies.? Urgency?denies.? Incontinence?denies.? Erectile Dysfunction?denies.? ?? Musculoskeletal:? Neck pain?denies.? Back pain?admits.? Muscle aches?admits.? Painful joints?denies.? Sciatica?denies.? Weakness?denies.? ?? Neurologic:? Difficulty swallowing?denies.? Balance difficulty?admits.? Coordination? normal.? Difficulty speaking?denies.? Dizziness?admits.? Fainting?denies.? Gait abnormality?denies.? Headache?admits.? Loss of strength?denies.? Loss of use of extremity?denies.? Low back pain?denies.? Memory loss?admits.? Seizures?denies.? Tics?denies.? Tingling/Numbness?Both hands and feet.? Transient loss of vision? denies.? Tremor?denies.? ?? Psychiatric:? Anxiety?admits.? Auditory/visual hallucinations?denies.? Delusions?denies .? Depressed mood?admits.? Stressors?admits.? Substance abuse?denies.? Suicidal thoughts?denies.? ?? Physical Exam Neuro Other: Neurological: ? Abnormal neurological findings:?absent ankle reflexes. Weakness in left foot dorsiflexor 4+/5. Walking with cane.? Mental Status:?alert and oriented X 3,?Normal attention, orientation, memory and affect.? Cranial Nerves:?Pupils are equal, round and reactive to light. Fundoscopy shows normal disc bilaterally. External occular muscles are intact. Visual navarro are full, no ptosis. Face is symmetrical, no facial weakness or droop. Facial sensations are normal. Tongue protrudes in midline. Palate elevates symmetrically. Shoulder shrugging is normal..? Motor Examination:?As above, otherwise normal muscle tone, bulk and strength,?No atrophy or fasciculations,?No drift of the extended upper extremities,?Deep tendon reflexes are 2+?.? Straight Leg Raising:?90 degrees.? Sensory Exam:?Distal sensory loss in feet. Normal light touch, temperature, pinprick, vibration and joint-position sensations?,?Rhomberg sign is absent.? Coordination:?no ataxia,?no titubation,?wafcuq-pm-qgrh, anfv-ooug-xdfe test and rapid alternating movements were normal.? Gait Exam:?Walks with a cane.? Cerebellar Signs:?Lavded-mu-medf and qkfl-mn-xznt is normal,?no dysdiadochokinesia?.? Extrapyramidal System:?No tremor, rigidity with normal facial expressions,?No bradykinesia, no bradyphrenia. Normal arm swing and posture. No propulsion or retropulsion.? Speech:?Normal,?no dysphasia or dysarthria..? Mini Mental Status Exam: ? Level of Consciousness:?Alert.? Orientation:?Knows correct year, month, date, day and season,?Knows correct city, county and state. Knows correct location and floor.? Registration:?Able to register 3 objects.? Attention:?Serial 7's performed accurately.? Recall:?Able to recall 3 out of 3 objects.? Language:?Normal spontaneous speech, fluency, repetition,naming, comprehension, reading and writing.? Total Score:?30/30.? General Examination: ? GENERAL APPEARANCE:??normal,?in no acute distress.? HEART:??S1, S2 normal,?no murmurs.? LUNGS:??clear anteriorly and posteriorly.? MUSCULOSKELETAL:??normal.? EXTREMITIES:??no edema.? PSYCH:??alert, oriented,?cognitive function intact,?cooperative with exam.? Assessment & Plan Assessment & Plan (1) Peripheral neuropathy: Comment: 05/01/21 NCV/EMG: Predominately sensory axonal neuropathy in the upper extremities. Normal EMG in the right C5-T1 innervated muscles. Severe axonal sensory and motor peripheral neuropathy in the lower extremities. EMG of the right L4-S1 innervated muscles is consistent with chronic neuropathic changes. Code(s): G62.9 - Polyneuropathy, unspecified Category: Medical (2) Meningioma: Code(s): D32.9 - Benign neoplasm of meninges, unspecified Category: Medical Plan Reduce Gabapentin 400mg hs Coding Level of Care Code Est Pt Level 4 (66517) Diagnoses Peripheral neuropathy G62.9 Meningioma D32.9
--- OUTSIDE RECORDS SUMMARY | 2025-04-12 17:44 | XMS_ITS | Encounter Summary ---
Author Organization [employer] Address [address] [facility] 7 [place] [address] Care Team Providers Care Insulation Cupola Operator Name Role Phone Unavailable Primary Care Provider Unavailabl e Encounter Details Date Type Department Care Team (Latest Contact Info) Description 04/12/2021 Abstract [facility] CONVERSIONS Dental, Provider, DDS Social History Tobacco [...] Team (Late st Contact Info) Description 04/18/2025 10:15 AM EST Office Visit [facility] [address] [place] [address] Farhat Stoner documented as of this encounter Visit Diagnoses Not on filedocumented in this encounter
--- OUTSIDE RECORDS SUMMARY | 2025-04-12 17:44 | XMS_ITS | Patient Health Record ---
[facility] Address [address] [facility] [place] [address] Care Team Providers Care Street Light Repairer Name Role Phone Radha Henson Primary Care Provider Unavailabl e Black, Elsie Unavailable [phone] Allergies Allergen (clinical drug ingredient) Drug/Non Drug [...] See Examination above X ray : Foot, right 3V Reviewed date:01/24/2025 04:55:14 PM Interpretation:See Examination above Performing Lab: Notes/Report: See Examination above X ray : Foot, right 3V Reviewed date:02/08/2025 07:52:05 PM Interpretation:See Examination above Performing Lab: Notes/Report: See Examination above X ray : Foot, right 3V Reviewed date:02/17/2025 01:59:16 PM Interpretation:See Examination above Performing Lab: Notes/Report: See Examination above X ray : Foot, right 3V Reviewed date:03/10/2025 10:13:56 AM Interpretation:See Examination above Performing Lab: Notes/Report: See Examination above Reason For Referral No Information Medications Medication SIG (Take, Route, Frequency, Duration) Notes Start Date End Date Status Lexapro 20 MG 1 tablet Orally Once a day Active Pepcid 20 MG 1 tablet at bedtime as needed Orally Once a day Active Keflex Active Methotrexate Sodium 2.5 MG Oral; Duratio n: 42 Days Active Loteprednol Etabonate Not-Taking Vraylar 1.5 MG 1 capsule Orally Onc e a day Not-Taking traZODone HCl 50 MG 1 tablet at bedtime as needed Orally Once a day Not-Taking Pravastatin Sodium 80 MG Orally Not-Taking Montelukast Sodium 10 MG 1 tablet Orally Once a day Active Fosamax 70 MG Orally Not-Ta nona Aspirin Active Leucovorin Calcium 5 MG 1 tablet Orally Active Vitamin D3 Active Metoprolol Succinate 25 MG 1 capsule Orally Once a day 12.5 Active Cephalexin 500 MG 1 capsule Orally twi ce a day; Duration: 10 days Not-Taking Inhaler Decongestant Active Ammonium Lactate 12 % 1 application Externally to affected areas of dry skin to feet except for between the toes Twice a day; Duration: 30 days Active Amlodipine & Diet Manage Prod Active Calcium + D3 Active Spironolactone - 1 tablet Orally daily 12.5 Active Ferrous Sulfate Acti ve Gabapentin Active Entresto 24-26 MG 1 tablet Orally Twic e a day Active eliquis Active Atorvastatin Calcium 40 MG 1 tablet Oral ly Once a day Active Tramadol & Dietary Manage Prod Not-Taking Folic Acid Active ProAir HFA Not-Takin g Protonix 40 MG 1 tablet 1/2 to 1 ho ur before morning meal Orally Once a day Active Magnesium Oxide Acti ve Fish Oil Not-Taking Pulmicort Not-Taking Melatonin 5 MG 1 tablet in the evening Orally Once a day Active Hgyngyntvazgz-QVAB-Ekkqxxg al Not-Taking Immunizations Vaccine Route Administration Date Status Comme nts Influenza Unknown 04/07/2024 Administered Social History Tobacco Use: Social History Observation [...] Problem Acquired hammer toe of right foot ([id number]) Hammer toe of right foot (M20.41) Active confirmed Vital Signs Heart Rate 63 /min 08/30/2024 Blood pressure diastolic 75 mm Hg 04/12/2025 Height 5ft 8in in 04/12/2025 Blood pressure systolic 120 mm Hg 04/12/2025 Weight 190 lbs 04/12/2025 BMI 28.89 kg/m2 04/12/2025 Procedures Procedure Date Ordered Date Performed Result Body Sit e 07449-EVLREFM NAIL, 6 OR MORE 04/12/2024 N/A 46067- Debride <25 sq cm 04/19/2024 N/A 64502-Smvqcnfb Plate 05/03/2024 N/A 13194-HLNSIAO NAIL, 6 OR MORE 08/30/2024 N/A 72250-OEYX SKIN LESIONS, OVER 4 08/30/2024 N/A 63893-IQUSKZV NAIL, 6 OR MORE 11/09/2024 N/A 39895-BDTZ SKIN LESIONS, OVER 4 11/09/2024 N/A 93467-YQQJOIL NAIL, 6 OR MORE 01/24/2025 N/A 57193-YGCL SKIN LESIONS, OVER 4 01/24/2025 N/A 77085-Vbosvawp Plate 03/10/2025 N/A 22950 - Tenotomy, open flexor 04/12/2025 N/A Encounters Encounter Location Date Provider Diagnosis [facility] [address] [address] 04/12/2024 Elsie Black Pain in right toe(s) [...] current pathological fracture, unspecified osteoporosis type M81.[address] [address] 04/19/2024 Elsie Black Cellulitis of toe of left foot L03.032 ; Skin ulcer of toe of left foot, limited to breakdown of skin L97.521 ; Hammertoe of left foot M20.42 and Toe pain, left M79.[address] [address] 05/03/2024 Elsie Black Cellulitis of toe of left foot L03.032 ; Contusion of right foot, initial encounter S90.31XA ; Skin ulcer of toe of left foot, limited to breakdown of skin L97.521 ; Ingrown nail L60.0 and Pain in right foot M79.[address] [address] 05/25/2024 Elsie Black Pain in right toe(s) M79.674 ; Other hammer toe(s) (acquired), right foot M20.41 ; Flat foot [pes planus] (acquired), left foot M21.42 ; Flat foot [pes planus] (acquired), right foot M21.41 ; Pes planus of left foot M21.42 ; Other acquired deformities of right foot M21.6X1 and Other acquired deformities of left foot M21.6X2 [address] [address] 08/30/2024 Elsie Black Pain in right toe(s) M79.674 ; Other hammer toe(s) (acquired), left foot M20.42 ; Pain in left toe(s) M79.675 ; Onychomycosis B35.1 ; Atherosclerosis of [place] artery of both lower extremities, with unspecified presence of clinical manifestation I70.203 ; Tinea unguium B35.1 and Xerosis of skin L85.[address] [address] 11/09/2024 Elsie Black Pain in right toe(s) M79.674 ; Atherosclerosis of [place] artery of both lower extremities, with unspecified presence of clinical manifestation I70.203 ; Pain in left toe(s) M79.675 and Tinea unguium B35.1 [facility] [address] [facility] [place] [address] 01/24/2025 Elsie Black Atherosclerosis of n ative artery of both lower extremities, with unspecified presence of clinical manifestation I70.203 ; Contusion of right foot, initial encounter S90.31XA ; Pain in right toe(s) M79.674 ; Pain in left toe(s) M79.675 ; Tinea unguium B35.1 and Pain in right foot M79.[address] [place] [address] 02/08/2025 Elsie Black Closed nondisplaced fracture of fourth metatarsal bone of right foot, initial encounter S92.344A ; Contusion of right foot, subsequent encounter S90.31XD ; Pain in right foot M79.671 ; Pain in joint involving right ankle and foot M25.571 and Localized edema R60.[address] [address] 02/17/2025 Elsie Black Contusion of right f oot, subsequent encounter S90.31XD ; Closed nondisplaced fracture of fourth metatarsal bone of right foot, sequela S92.344S ; Pain in right foot M79.671 ; Pain in joint involving right ankle and foot M25.571 and Localized edema R60.0 [facility] [address] [place] [address] 03/10/2025 Elsie Black Closed nondisplaced fracture of fourth metatarsal bone of right foot, sequela S92.344S ; Pain in right foot M79.671 ; Pain in joint involving right ankle and foot M25.571 ; Localized edema R60.0 and Ingrown nail L60.0 [facility] [address] [place] [address] 04/12/2025 Elsie Black Hammer toe of right foot M20.41 [facility] [address] [place] [address] 04/12/2024 Elsie Black [facility] [address] [facility] [place] [address] 04/19/2024 Elsie Black [facility] [address] [facility] [place] [address] 05/25/2024 Elsie Black [facility] [address] [facility] [place] [address] 06/28/2024 Elsie Black [facility] [address] [address] 06/28/2024 Elsie Black [facility] [address] [address] 07/26/2024 Elsie Black [facility] [address] [address] 08/24/2024 Elsie Black [facility] [address] [place] [address] 01/17/2025 Elsie Black [facility] [address] [place] [address] 02/02/2025 Elsie Black [facility] [address] [facility] [place] [address] 02/08/2025 Elsie Black [facility] [address] [place] [address] 02/08/2025 Elsie Black [facility] [address] [address] 02/15/2025 Elsie Black [facility] [address] [address] 04/11/2025 Elsie Black Assessments Encounter Date Diagnosis (ICD Code) Assessment [...] toe(s) (ICD-10 - M79.674) 11/09/2024 Atherosclerosis of cher[place] artery of both lower extremities, with unspecified presence of clinical manifestation (ICD-10 - I70.203) Q7(A), Q8(2B), Q9(1B,2C) 01/24/2025 Contusion of right foot, initial encounter (ICD-10 - S90.31XA) 01/24/2025 Atherosclerosis of cher[place] artery of both lower extremities, with unspecified presence of clinical manifestation (ICD-10 - I70.203) Q7(A), Q8(2B), Q9(1B,2C) 02/08/2025 Contusion of right foot, subsequent encounter (ICD-10 - S90.31XD) 02/08/2025 Closed nondisplaced fracture of fourth metatarsal bone of right foot, initial encounter (ICD-10 - S92.344A) 02/17/2025 Contusion of right foot, subsequent encounter (ICD-10 - S90.31XD) 02/17/2025 Closed nondisplaced fracture of fourth metatarsal bone of right foot, sequela (ICD-10 - S92.344S) 03/10/2025 Pain in right foot (ICD-10 - M79.671) 03/10/2025 Closed nondisplaced fracture of fourth metatarsal bone of right foot, sequela (ICD-10 - S92.344S) 04/12/2025 Hammer toe of right foot (ICD-10 - M20.41) 03/10/2025 Pain in joint involv ing right ankle and foot (ICD-10 - M25.571) 02/17/2025 Pain in right foot (ICD-10 - M79.671) 02/08/2025 Pain in right foot (ICD-10 - M79.671) 11/09/2024 Pain in left toe(s) (ICD-10 - M79.675) 01/24/2025 Pain in right toe(s) (ICD-10 - M79.674) 08/30/2024 Pain in left toe(s) (ICD-10 - M79.675) 05/25/2024 Flat foot [pes planu s] (acquired), left foot (ICD-10 - M21.42) 05/03/2024 Skin ulcer of toe of left [...] B35.1) 08/30/2024 Onychomycosis (ICD-1 0 - B35.1) 01/24/2025 Pain in left toe(s) (ICD-10 - M79.675) 02/08/2025 Pain in joint involv ing right ankle and foot (ICD-10 - M25.571) 02/17/2025 Pain in joint involv ing right ankle and foot (ICD-10 - M25.571) 03/10/2025 Localized edema (ICD -10 - R60.0) 03/10/2025 Ingrown nail (ICD-10 - L60.0) 02/17/2025 Localized edema (ICD -10 - R60.0) 02/08/2025 Localized edema (ICD -10 - R60.0) 08/30/2024 Atherosclerosis of [place] artery of both lower extremities, with unspecified presence of clinical manifestation (ICD-10 - I70.203) Q7(A), Q8(2B), Q9(1B,2C) 01/24/2025 Tinea unguium (ICD-1 0 - B35.1) 05/25/2024 Pes planus of left f oot (ICD-10 - M21.42) 05/03/2024 Pain in right foot (ICD-10 - M79.671) 04/12/2024 Other hammer toe(s) (acquired), left foot (ICD-10 - M20.42) 05/25/2024 Other acquired deformities of right foot (ICD-10 - M21.6X1) 04/12/2024 Arthritis of joint o f lesser toe, left (ICD-10 - M19.072) 08/30/2024 Tinea unguium (ICD-1 0 - B35.1) 01/24/2025 Pain in right foot (ICD-10 - M79.671) 08/30/2024 Xerosis of skin (ICD -10 - [...] Treatment Pending Test Test Name Order Date 61908-VMXBAKH NAIL, 6 OR MORE 04/12/2024 37001-JICTMXG NAIL, 6 OR MORE 08/30/2024 83237-MVXTXAZ NAIL, 6 OR MORE 11/09/2024 31659-POPEJTF NAIL, 6 OR MORE 01/24/2025 01145-Nkrx Destruction, 1-14 05/16/2014 07176-Nrjz Destruction, 1-14 06/27/2014 22808-Cmpx Destruction, 1-14 07/18/2014 24470-Ypkekugr Plate 07/18/2014 22940-Mjflzvzy Plate 05/03/2024 93321-Efnooslm Plate 03/10/2025 97537- Debride <25 sq cm 04/19/2024 89237-XAHJ SKIN LESIONS, OVER 4 08/31/19 09299-MFOL SKIN LESIONS, OVER 4 01/25/20 69815-MTXQ SKIN LESIONS, OVER 4 11/10/19 44465 - Tenotomy, open flexor 04/12/2025 Next Appt Details Provider Name:Elsie Galvez , 04/19/2025 09:00:00 AM, [address] [facility], [place], [address], Insurance Providers Payer Name Payer Address Payer Phone Subscriber Number Group Number Insured Name Patient Relationship to Insured Coverage Start Date Coverage End Date Medicare National [employer] [address] [place] [address] [id number] [facility] Self - patient is the insured [employer] [address] [place] [address] [id number] [facility] Self - patient is the insured Medical [...] M 19.072 Hammertoe of left foot M20.42 Neuropathy G62.9 Idiopathic peripheral neuropathy G60.9 Atherosclerosis of [place] ar jennifer of both lower extremities, with unspecified presence of clinical manifestation I70.203 Hammer toe of left foot M20.42 Surgical History Surgery Date(Month/Year) appendectomy breast biopsy Hospitalization History Reason Date(Month/Year) iron infusion 11/07/24 eye disease trouble hearing, fluid in kristi ngs 08/02
--- OUTSIDE RECORDS SUMMARY | 2025-04-12 17:44 | XMS_ITS | Data Portability ---
Author Organization [place] - [facility], Allergy Address [address] [place] [address] Care Team Providers Care Video Game Developer Name Role Phone VON MIRANDA Primary Care Provider [phone] Assessment Encounter Date Assessment Date Assessment LastModified by Organization Details LastModified Time 11/10/2024 11/10/2024 Hearing better but not alaways clear. Increased to #3 adaptation for best clarity. Added retention wires. F/U 2 weeks. [email or web address] Not available 11/10/2024 13:32:56 11/24/2024 11/24/2024 Not hearing - wax guards plugged - reviewed changing at least once month. Doing better notices a big difference. 6mo appt made prior to my nursing home [email or web address] Not available 11/24/2024 15:04:37 02/02/2025 02/02/2025 still having issues with migrating out - discussed custom molds - impressions made - $200 due appt mar 02 - call sooner if ealier appt possible. [email or web address] Not available 02/02/2025 15:49:17 03/02/2025 03/02/2025 PU earmolds, reveiwed proper insertion, F/U PRN [email or web address] Not available 03/06/2025 10:07:25 03/02/2025 03/02/2025 PU new molds - reviewed insertion/castillo ging wax guards. F/u appt in May before my nursing home. [email or web address] Not available 03/02/2025 12:07:03 Plan of Treatment Reminders Order Date Submit Date Provider Last Modified By Organization Details Last Modified Time Details Appointments Dizzy Follow Up 10 2024 10:40A M CELINE MCDONALD MD Not available Not available Not available Hearing Test 2024 11:00A M Hearing Test Not available Not available Not available THAKKAR Fitting Follow Up (60) 2024 02:00P M MAEGAN CAMPBELL Not available Not available Not available THAKKAR Fitting Follow Up (30) 2024 11:30A M MAEGAN CAMPBELL Not available Not available Not available Establish ed 10 2025 09:50A M CELINE MCDONALD MD Not available Not available Not available Lab None recorded. Referral None recorded. Procedures None recorded. Surgeries None recorded. Imaging None recorded. Medication Orders None recorded. Patient TargetsNo targets recorded. Patient InstructionsNo instructions recorded. Reason for Referral None Reported. Problems Name Problem SNOMED Code Status Onset Date Resolution Date Notes Provider Name and Address Organization Details Recorded Time Dizziness and giddiness 875230483 Active 2015 Dizziness and giddiness ; Note: Date Diagnosed : 07/09/2015 11:57 AM (R42) Vertigo NOS; Note: Date Diagnosed : 07/09/2015 12:22 PM (R42) Not Available [facility] 4 02:51:42 Bleeding from nose 627789611 Active 2019 Epistaxis ; Note: Date Diagnosed : 05/14/2020 3:01 PM (R04.0) Not Available [facility] 4 02:51:44 Dysphagia 47069685 Active 2020 Dysphagia , unspecifi ed; Note: Date Diagnosed : 01/10/2021 2:06 PM (R13.10) Not Available [facility] 4 02:51:43 Disorder of nasal sinus 1547639 Active 2020 Perforati on of nasal septum NOS; Note: Date Diagnosed : 02/07/2021 3:08 PM (J34.89) Not Available [facility] 4 02:51:45 Disorder of the nose 38867508 Active 2020 Perforati on of nasal septum NOS; Note: Date Diagnosed : 02/07/2021 3:08 PM (J34.89) Not Available [facility] 4 02:51:45 Impacted cerumen of bilateral ears [id number] 53953 Active 2024 CELINE MCDONALD MD [address] [facility] [address],[place] [address], [place], [address] , [facility] - [facility] 5 15:32:13 Sensorine ural hearing loss of bilateral ears 924090758 Active 2024 ERMIAS ROBLES, AUD [address] [facility],[place] [address], [place], [address] , [facility] - [facility] 5 16:02:24 Sudden idiopathi c hearing loss 572486143 Active 2024 CELINE MCDONALD MD [address] [facility],[place] [address], [place], [address] , [facility] - [facility] 5 16:41:31 Intracran ial meningiom a 119202216 Active 2024 CELINE MCDONALD MD [address] [facility],[place] [address], [place], [address] , [facility] - [facility] 5 09:17:51 Sensorine ural hearing loss of bilateral ears 679857767 Active 2024 DREA REHMAN, AUD [address] [facility] [place] [address], [place], [address] , [facility] - [facility] 5 15:26:24 Problem Notes None recorded. Procedures Surgical History Date Name Laterality Status Provider Name and Address Organization Details Recorded Time 09/30/19 25 Air & SRT/SAT Audio with Tymps - 84609, 21868 & 33808 completed DAVID BRAGA MA, CCC-A [address] [facility],[place] [address], [place], [address], [facility] - [facility] 09/29/2024 08:47:22 08/26/19 25 Intratympanic injection subsequent completed CELINE MCDONALD MD [address] [facility],[place] [address], [place], [address], [facility] - [facility] 08/24/2024 20:05:07 08/20/19 25 Intratympanic injection subsequent completed LUIS ALBERTO POOL MD [address] [facility],[address], [address], [facility] - [facility] 08/19/2024 14:48:41 08/12/19 25 Cerumen removal with microscope bilateral completed CELINE MCDONALD MD [address] [facility],[address], [address], [place] - [facility] 08/11/2024 15:33:17 08/12/19 25 Intratympanic injection initial completed CELINE MCDONALD MD [address] [facility],[address], [address], [place] - [facility] 08/11/2024 16:51:22 08/12/19 25 Comp Audio with Tymps - 01018 & 75114 completed MAEGAN LEONE [address] [facility],[address], [address], [facility] - [facility] 08/11/2024 16:02:20 Appendectomy completed Radha Otoole [place] - [facility] 08/11/2024 15:01:50 Tonsillectomy completed Radha Otoole [facility] 08/11/2024 15:02:51 Imaging Results None recorded. Procedure Notes None recorded. Medical Equipment None Reported. Allergies Allergen ID Allergen Name Allergen Category Reaction Reaction Severity Criticality Documentation Date Start Date Code Code System Note Provider Name and Address Organization Details Recorded Time 11423 codeine sulfate medicatio n other Not available Not available 10/20/2023 36335 RxNorm React ion: unkno wn, unspe cifie d;; Not Available [facility] 01:00:02 Medications Name Sig Start Date Stop Date Status Note LastModified by Organization Details LastModified Time compound drug 08/11 completed Not Available Not Available Not Available medbox status USE DIRECTED 09/29 completed Not Available Not Available Not Available atorvasta tin 40 mg tablet TAKE 1 TABLET EVERY NIGHT AT BEDTIME active Not Available Not Available No t Available bupropion HCl SR 150 mg tablet,12 hr sustained -release 05/14 completed Medicati on ID: [id number] D uration Value: 30 Brand Name: bupropio n HCl Send Method: E-Prescr ibed Sub s Allowed: subs OK Medic ationGen ericName : bupropio n HCl Not Available Not Available Not Available naproxen 375 mg tablet TAKE ONE TABLET 1 TO 2 TIMES DAILY WITH FOOD NEEDED FOR PAIN active Not Available Not Available No t Available albuterol sulfate 2.5 mg/3 mL (0.083 %) solution for nebulizat ion INHALE ONE AMPULE USING A NEBULIZE R EVERY 8 HOURS NEEDED active Not Available Not Available No t Available trazodone 50 mg tablet TAKE ONE TABLET EVERY NIGHT AT BEDTIME active Not Available Not Available No t Available tizanidin e 4 mg tablet 08/11 completed Medicati on ID: [id number] B rand Name: tizanidi ne Send Method: E-Prescr ibed Sub s Allowed: subs OK Speci al Instruct ion: TAKE 1/2 TABLET BY MOUTH EVERY 8 HOURS NEEDED SPASM Me dication GenericN jane: tizanidi ne Not Available Not Available Not Available amiodaron e 200 mg tablet TAKE ONE TABLET EVERY MORNING active Not Available Not Available No t Available sucralfat e 1 gram tablet 08/11 completed Medicati on ID: [id number] B rand Name: sucralfa te Send Method: E-Prescr ibed Sub s Allowed: subs OK Speci al Instruct ion: TAKE ONE TABLET BY MOUTH THREE TIMES DAILY. M edicatio nGeneric Name: sucralfa te Not Available Not Available Not Available clonazepa m 0.5 mg tablet 08/11 completed Medicati on ID: [id number] B rand Name: clonazep am Send Method: E-Prescr ibed Sub s Allowed: subs OK Speci al Instruct ion: TAKE ONE-HALF TO ONE TABLET TWICE DAILY NEEDED FOR ANXIETY OR insomnia Medicat ionGener icName: clonazep am Not Available Not Available Not Available gabapenti n 400 mg capsule TAKE TWO CAPSULES EVERY DAY AT BEDTIME active Not Available Not Available No t Available thiamine HCl (vitamin B1) 100 mg tablet TAKE 1 TABLET EVERY MORNING active Not Available Not Available No t Available meclizine 12.5 mg tablet TAKE ONE TABLET DAILY 08/11 completed Not Available Not Available Not Available melatonin 3 mg tablet TAKE ONE TABLET EVERY NIGHT AT BEDTIME 09/28 completed Not Available Not Available Not Available amlodipin e 5 mg tablet 05/14 completed Medicati on ID: [id number] D uration Value: 90 Brand Name: amlodipi ne Send Method: E-Prescr ibed Sub s Allowed: subs OK Medic ationGen ericName : amlodipi ne Not Available Not Available Not Available omeprazol e 40 mg capsule,d elayed release 08/11 completed Medicati on ID: [id number] B rand Name: omeprazo le Send Method: E-Prescr ibed Sub s Allowed: subs OK Speci al Instruct ion: TAKE ONE CAPSULE BY MOUTH EVERY DAY Medi cationGe nericNam e: omeprazo le Not Available Not Available Not Available aspirin 81 mg tablet,de layed release TAKE ONE TABLET EVERY MORNING active Not Available Not Available No t Available tramadol 50 mg tablet 08/11 completed Medicati on ID: [id number] B rand Name: tramadol Send Method: E-Prescr ibed Sub s Allowed: subs OK Medic ationGen ericName : tramadol Not Available Not Available Not Available spironola ctone 25 mg tablet TAKE ONE-HALF TABLET EVERY MORNING active Not Available Not Available No t Available calcium 600 mg (as calcium carbonate 1,500 mg) tablet TAKE ONE TABLET EVERY MORNING active Not Available Not Available No t Available pravastat in 80 mg tablet 05/14 completed Medicati on ID: [id number] D uration Value: 90 Brand Name: pravasta tin Send Method: E-Prescr ibed Sub s Allowed: subs OK Medic ationGen ericName : pravasta tin Not Available Not Available Not Available prednisol one acetate 1 % eye drops,armani pension PLACE ONE DROP IN THE LEFT EYE FOUR TIMES DAILY AND TAPER BY ONE DROP EVERY WEEK active Not Available Not Available No t Available magnesium oxide 400 mg (241.3 mg magnesium ) tablet TAKE TWO TABLETS TWICE DAILY IN THE MORNING AND AT BEDTIME active Not Available Not Available No t Available lorazepam 0.5 mg tablet TAKE ONE-HALF TABLET BY MOUTH ONE HOUR prior TO PROCEDUR E NEEDED active Not Available Not Available No t Available methotrex ate sodium 2.5 mg tablet TAKE 4 TABLETS BY MOUTH ONCE EVERY WEEK active Not Available Not Available No t Available meclizine 25 mg tablet TAKE 1 TABLET BY MOUTH THREE TIMES DAILY FOR 14 DAYS. MAY STOP THIS MEDICATI ON ONCE VERTIGO SYMPTOMS RESOLVED 08/11 completed Not Available Not Available Not Available ascorbic acid (vitamin C) 250 mg tablet TAKE ONE TABLET EVERY MORNING active Not Available Not Available No t Available cephalexi n 500 mg capsule TAKE ONE CAPSULE TWICE DAILY IN THE MORNING AND AT BEDTIME active Not Available Not Available No t Available pantopraz ole 40 mg tablet,de layed release TAKE ONE TABLET TWICE DAILY IN THE MORNING AND AT BEDTIME NEEDED active Not Available Not Available No t Available ferrous sulfate 325 mg (65 mg iron) tablet TAKE ONE TABLET TWICE DAILY IN THE MORNING AND AT BEDTIME active Not Available Not Available No t Available brimonidi ne 0.2 % eye drops INSTILL 1 DROP IN BOTH EYES THREE TIMES DAILY active Not Available Not Available No t Available bupropion HCl 75 mg tablet 05/14 completed Medicati on ID: [id number] D uration Value: 30 Brand Name: bupropio n HCl Send Method: E-Prescr ibed Sub s Allowed: subs OK Medic ationGen ericName : bupropio n HCl Not Available Not Available Not Available metoprolo l tartrate 50 mg tablet Take 12.5 mg every day by oral route. 09/29 completed Not Available Not Available Not Available leucovori n calcium 5 mg tablet TAKE 1 TABLET BY MOUTH ONCE A WEEK 12 HOURS AFTER TAKING METHOTRE XATE active Not Available Not Available No t Available flurbipro fen 100 mg tablet TAKE ONE TABLET TWICE DAILY active Not Available Not Available No t Available folic acid 1 mg tablet TAKE ONE TABLET EVERY MORNING active Not Available Not Available No t Available monteluka st 10 mg tablet TAKE ONE TABLET EVERY NIGHT AT BEDTIME active Not Available Not Available No t Available ammonium lactate 12 % topical cream APPLY TO DRY SKIN ON FEET TWICE DAILY. DO NOT USE between TOES active Not Available Not Available No t Available furosemid e 20 mg tablet TAKE ONE TABLET ONCE DAILY NEEDED for leg edema or weight gain of 2-3 lbs in 2 days active Not Available Not Available No t Available gabapenti n 100 mg capsule TAKE 1 TO 2 CAPSULES BY MOUTH AT BEDTIME 09/28 completed Not Available Not Available Not Available metoprolo l succinate ER 25 mg tablet,ex tended release 24 hr 12.5 mg every day by oral route. 2024 active Not Available Not Available Not Avai lable lotepredn ol etabonate 0.5 % eye drops,armani pension PLACE ONE DROP IN EACH EYE FOUR TIMES DAILY 09/29 completed Not Available Not Available Not Available estradiol 0.01% (0.1 mg/gram) vaginal cream INSERT TWO GRM'S VAGINALL Y AT BEDTIME active Not Available Not Available No t Available loratadin e 10 mg tablet TAKE ONE TABLET EVERY MORNING active Not Available Not Available No t Available ceftriaxo ne 2 gram solution for injection 08/11 completed Not Available Not Available Not Available tobramyci n 0.3 %-dexamet hasone 0.1 % eye drops,armani pension PLACE ONE DROP IN EACH EYE FOUR TIMES DAILY 08/11 completed Not Available Not Available Not Available neomycin 3.5 mg/g-poly myxin B 10,000 unit/g-de xameth 0.1 % eye oint APPLY TO BOTH eyelids AT BEDTIME active Not Available Not Available No t Available Calcium-5 00 500 mg (as calcium carbonate 1,250 mg) tablet 05/14 completed Medicati on ID: [id number] B rand Name: Calcium 500 Send Method: E-Prescr ibed Sub s Allowed: subs OK Medic ationGen ericName : Calcium 500 Not Available Not Available Not Available escitalop radha 20 mg tablet TAKE ONE TABLET EVERY MORNING active Not Available Not Available No t Available Vitamin D3 25 mcg (1,000 unit) capsule 05/14 completed Medicati on ID: [id number] B rand Name: Vitamin D3 Send Method: E-Prescr ibed Sub s Allowed: subs OK Medic ationGen ericName : Vitamin D3 Not Available Not Available Not Available Fish Oil 120 mg-180 mg capsule 05/14 completed Medicati on ID: [id number] B rand Name: Fish Oil Send Method: E-Prescr ibed Sub s Allowed: subs OK Medic ationGen ericName : Fish Oil Not Available Not Available Not Available Lexapro 5 mg tablet 05/14 completed Medicati on ID: [id number] B rand Name: Lexapro Send Method: E-Prescr ibed Sub s Allowed: subs OK Medic ationGen ericName : Lexapro Not Available Not Available Not Available chlorhexi dine gluconate 0.12 % mouthwash SWISH WITH 15 ML'S IN THE MORNING AND EVENING FOR 1 MINUTE, SPIT OUT DO NOT SWALLOW. DO NOT EAT OR DRINK FOR 30 MINUTES AFTER active Not Available Not Available No t Available ProAir HFA 90 mcg/actua tion aerosol inhaler 08/11 completed Medicati on ID: [id number] B rand Name: ProAir HFA Send Method: E-Prescr ibed Sub s Allowed: subs OK Speci al Instruct ion: INHALE ONE PUFF EVERY 4 HOURS NEEDED FOR WHEEZING Medicat ionGener icName: ProAir HFA Not Available Not Available Not Available Xopenex HFA 45 mcg/actua tion aerosol inhaler INHALE TWO PUFFS EVERY 6 HOURS NEEDED FOR WHEEZING active Not Available Not Available No t Available melatonin 5 mg tablet TAKE ONE TABLET EVERY NIGHT AT BEDTIME NEEDED active Not Available Not Available No t Available cholecalc iferol (vitamin D3) 50 mcg (2,000 unit) tablet TAKE ONE TABLET EVERY MORNING active Not Available Not Available No t Available Cerovite Senior 0.4 mg-300 mcg-250 mcg tablet TAKE ONE TABLET EVERY MORNING active Not Available Not Available No t Available Eliquis 5 mg tablet TAKE ONE TABLET TWICE DAILY IN THE MORNING AND AT BEDTIME active Not Available Not Available No t Available Eliquis 2.5 mg tablet TAKE ONE TABLET TWICE DAILY IN THE MORNING AND AT BEDTIME 08/11 completed Not Available Not Available Not Available Breo Ellipta 100 mcg-25 mcg/dose powder for inhalatio n 09/29 completed Medicati on ID: [id number] B rand Name: Breo Ellipta Send Method: E-Prescr ibed Sub s Allowed: subs OK Speci al Instruct ion: USE ONE INHALATI ON EVERY DAY Medi cationGe nericNam e: Breo Ellipta Not Available Not Available Not Available white petrolatu m 42 % topical ointment APPLY TO THE AFFECTED AREA(S) ONCE DAILY active Not Available Not Available No t Available Incruse Ellipta 62.5 mcg/actua tion powder for inhalatio n 08/11 completed Medicati on ID: [id number] B rand Name: Incruse Ellipta Send Method: E-Prescr ibed Sub s Allowed: subs OK Speci al Instruct ion: USE ONE INHALATI ON EVERY DAY Medi cationGe nericNam e: Incruse Ellipta Not Available Not Available Not Available Entresto 97 mg-103 mg tablet 08/11 completed Medicati on ID: [id number] B rand Name: Entresto Send Method: E-Prescr ibed Sub s Allowed: subs OK Speci al Instruct ion: TAKE ONE TABLET BY MOUTH TWICE DAILY Me dication GenericN jane: Entresto Not Available Not Available Not Available Entresto 24 mg-26 mg tablet TAKE ONE TABLET TWICE DAILY IN THE MORNING AND AT BEDTIME active Not Available Not Available No t Available Vraylar 1.5 mg capsule TAKE ONE CAPSULE EVERY MORNING 08/11 completed Not Available Not Available Not Available Xiidra 5 % eye drops in a dropperet te instill one drop onto both eyes twice a day 08/11 completed Not Available Not Available Not Available B Complex 1 (with folic acid) 0.4 mg tablet TAKE ONE TABLET EVERY MORNING active Not Available Not Available No t Available Breztri Aerospher e 160 mcg-9mcg- 4.8mcg/ac tuation HFA aerosol inhaler INHALE TWO PUFFS TWICE DAILY, RINSE MOUTH AFTER USE active Not Available Not Available No t Available aspirin 81 mg capsule 05/14 completed Medicati on ID: [id number] B [place] Name: Aspir-81 Send Method: E-Prescr ibed Sub s Allowed: subs OK Medic ationGen ericName : Not Available Not Available Not Available Vitals None Recorded Social History None recorded. Functional Status None recorded. Mental Status None recorded. Family History Relationship Description Onset Age of this Age Resolved Age Notes LastModified by Organization Details LastModified Time Sister Allergy 61 61 [email or web address] Not availa ble 09/29/2024 09:00:29 Medical History Condition Response Allergies/Hayfever Y Heart Problems Y Anxiety Y Tonsil Infections N Emphysema N Migraines Y Thyroid Problems N Glaucoma N Depression Y COPD Y Developmental Delay N Nasal or Sinus Problems N Anemia Y Immune System Disorder N Anesthesia Complications N Heart Attack (NC) N Other Skin Condition Y Diabetes N Rhinitis N Bleeding Disorder N Food Allergy N Arthritis Y Hearing Loss Y Hyperlipidemia N Cancer N Stroke N Dementia N Nasal polyps N Asthma Y High Cholesterol Y Sleep Disorder N GERD/Reflux Y Liver Disease N Headaches N Fibromyalgia N Hypertension Y Speech Delay N Kidney Disease N Gynecological HistoryNo gynecological history recorded. Obstetrics History GPAL:G 0 P 0 0 0 0 Past Encounters Encounter ID Performer Location Encounter Start Date Encounter Closed Date Diagnosis/Indication Diagnosis SNOMED-CT Code Diagnosis ICD10 Code Diagnosis IMO Codes Diagnosis Note [id number] CELINE MCDONALD MD [facility] [address] [address] 08/11/2024 14:15:16 08/11/2024 17:20:44 Impacted cerumen of bilateral ears [id number] 809073 H61.23 Excess cerumen disimpacte d bilaterall y. The external auditory canals, tympanic membranes and middle ear spaces otherwise appear normal. Sudden idi opathic hearing loss 459544739 H91.22 Sensorineu ral hearing loss of bilateral ears 996195141 H90.3 Patient does have baseline sensorineu ral hearing loss in the right ear as well. Patient would be a good candidate to consider amplificat ion which we can revisit following treatment for the sudden hearing loss. [id number] MAEGAN LEONE [facility] [address] [address] 08/11/2024 14:15:16 08/11/2024 17:20:44 Sensorineural hearing loss of bilateral ears 836671189 H90.3 Audiologic al evaluation results: Right ear: Borderline normal sloping to severe sensorineu ral hearing loss with very good word recognitio n. Left ear: Severe sloping to profound sensorineu ral hearing loss with no measurable word recognitio n. Tympanomet ry: Right Ear:Type A Left Ear:Type A [id number] LUIS ALBERTO POOL MD [facility] [address] [address] 08/19/2024 14:26:15 08/19/2024 15:12:50 Sudden idiopathic hearing loss 473731829 H91.22 Patient has tolerated second of 3 planned left intratympa oh injections today. Patient will maintain dry ear precaution s. Patient will follow-up in 1 week for third and final planned injection. We will review MRI results as they come available. [id number] CELINE MCDONALD MD [facility] [address] [address] 08/25/2024 07:57:04 08/25/2024 08:55:48 Sudden idiopathic hearing loss 495758783 H91.22 Sensorineu ral hearing loss of bilateral ears 029612319 H90.3 [id number] CELINE MCDONALD MD [facility] [address] [address] 09/29/2024 08:12:28 09/29/2024 09:16:29 Sudden idiopathic hearing loss 264509737 H91.22 Sensorineu ral hearing loss of bilateral ears 964349418 H90.3 Intracrani al meningioma 793774387 D32.0 1 cm cranial vertex meningioma noted without mass effect. Patient reports that she already knew about this, and it does not appear to be causing her any problems. [id number] MAEGNA CAMPBELL [facility] [place] [address] [place] [address] 09/29/2024 08:14:23 09/30/2024 09:02:54 Sensorineural hearing loss of bilateral ears 078874641 H90.3 [id number] DAVID BRAGA MA, CCC-A [facility] [address] [address] 09/29/2024 08:45:44 09/30/2024 08:24:38 Sensorineural hearing loss of bilateral ears 941167836 H90.3 Audiologic al evaluation results: Left ear: Profound SNHL Tympanomet ry: Left Ear:Type A [id number] MAEGAN CAMPBELL [place] [address] [place] [address],[address] [address] 10/20/2024 15:32:42 10/21/2024 09:53:37 Sensorineural hearing loss of bilateral ears 566550099 H90.3 [id number] MAEGAN CAMPBELL [place] [place] [address] [place] [address] 11/10/2024 12:46:25 11/10/2024 14:39:02 Sensorineural hearing loss of bilateral ears 933642546 H90.3 [id number] DREA REHMAN, AUD [place] [facility] [address] [place] [address] 11/24/2024 14:22:22 11/25/2024 08:58:13 Sensorineural hearing loss of bilateral ears 920324909 H90.3 [id number] DREA REHMAN, AUD [place] [address] [facility],[address] [place] [address] 02/02/2025 15:05:14 02/03/2025 14:50:54 Sensorineural hearing loss of bilateral ears 910073779 H90.3 [id number] DREA REHMAN, AUD [place] [address] [facility],[address] [place] [address] 03/02/2025 11:07:51 03/06/2025 10:07:41 Sensorineural hearing loss of bilateral ears 380456767 H90.3 [id number] DREA REHMAN, AUD [place] [address] [facility],[address] [place] [address] 03/02/2025 11:34:50 03/03/2025 14:36:06 Sensorineural hearing loss of bilateral ears 296190794 H90.3 [id number] Health Concerns Section Related Observation LastModified by Organization Detai ls LastModified Time None Recorded Concern Status LastModified by Organization Details LastModified Time None Recorded Advance Directives Directive None Recorded Payers Insurance Date Sequence Insurance Name Policy Number Policy Galdamez Covered Member ID Galdamez Member ID Guarantor Name 09/29/2024 3 [place] Miya Neida [facility] [id number] Miya Neida [facility] 09/29/2024 1 [facility] Miya M [facility] [id number] Miya M [facility] 02/27/2025 2 [place] [id number] Miya Carrasquillo [facility] [id number] Miya Woodruff 02/28/2025 1 MEDIC[place] B[place]: [facility] Miya Woodruff [id number] Miya Woodruff Notes Date Note Type Note Provider Name and Address Organization Details Recorded Time 11/10/2024 text/html Patient has a history of sudden hearing loss >>AD. She is a BiCros candidate. She was recently cleared for amplification by Dr Mcdonald. She has a [employer] benefit through her BCBS. We are not in network for [employer]. She prefers coming to us for services.Discussed various types, models and levels of technology. Patient is interested in a rechargeable option. Recommended Oticon Real 1 miniRITE R in titanium carson color #3 R/L receivers - open mayo #6 domes. Patient paid in full by check #104. Excellent fit to NAL2 real ear target. Reset to #2 adaptation for comfort. Reviewed daily care and maintenance. Unsure about using emily - has dexterity issues so using emily may be easier than using controls. F/u 2 weeks. 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 She is a BiCros candidate. She was recently cleared for amplification by Dr Mcdonald. She has a [employer] benefit through her BCBS. We are not in network for [employer]. She prefers coming to us for services.Discussed various types, models and levels of technology. Patient is interested in a rechargeable option. Recommended Oticon Real 1 miniRITE R in titanium carson color #3 R/L receivers - open mayo #6 domes. Patient paid in full by check #104. Excellent fit to NAL2 real ear target. Reviewed daily care and maintenance. Unsure about using emily - has dexterity issues so using emily may be easier than using controls. Hearing better but not always clear. Increased to #3 adaptation for best clarity. Added retention wires. F/U 2 weeks. 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 She is a BiCros candidate. She was recently cleared for amplification by Dr Mcdonald. She has a [employer] benefit through her BCBS. We are not in network for [employer]. She prefers coming to us for services.Discussed various types, models and levels of technology. Patient is interested in a rechargeable option. Recommended Oticon Real 1 miniRITE R in titanium carson color #3 R/L receivers - open mayo #6 domes. Patient paid in full by check #104. Excellent fit to NAL2 real ear target. Reviewed daily care and maintenance. Unsure about using emily - has dexterity issues so using emily may be easier than using controls.Hearing better but not always clear. Increased to #3 adaptation for best clarity. Added retention wires. F/U 2 weeks.Not hearing - wax guards plugged - reviewed changing at least once month. Doing better notices a big difference. 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 She is a BiCros candidate. She was recently cleared for amplification by Dr Mcdonald. She has a [employer] benefit through her BCBS. We are not in network for [employer]. She prefers coming to us for services.Discussed various types, models and levels of technology. Patient is interested in a rechargeable option. Recommended Oticon Real 1 miniRITE R in titanium carson color #3 R/L receivers - open mayo #6 domes. Patient paid in full by check #104.Excellent fit to NAL2 real ear target. Reviewed daily care and maintenance. Unsure about using emily - has dexterity issues so using emily may be easier than using controls.Hearing better but not always clear. Increased to #3 adaptation for best clarity. Added retention wires. F/U 2 weeks.Not hearing - wax guards plugged - reviewed changing at least once month. Doing better notices a big difference. 6mo appt made prior to my nursing home still having issues with migrating out - discussed custom molds - impressions made - $200 due appt mar 02 - call sooner if earlier appt possible. 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 She is a BiCros candidate. She was recently cleared for amplification by Dr Mcdonald. She has a [employer] benefit through her BCBS. We are not in network for [employer]. She prefers coming to us for services.Discussed various types, models and levels of technology. Patient is interested in a rechargeable option. Recommended Oticon Real 1 miniRITE R in titanium carson color #3 R/L receivers - open mayo #6 domes. Patient paid in full by check #104. Excellent fit to NAL2 real ear target. Reviewed daily care and maintenance. Unsure about using emily - has dexterity issues so using emily may be easier than using controls.Increased to #3 adaptation for best clarity. Added retention wires.Doing better notices a big difference. 6mo appt made prior to my nursing home still having issues with migrating out - discussed custom molds - impressions made - $200 due appt mar 02 - call sooner if earlier appt possible. DREA REHMAN, AUD 100 [facility],[place] [address], [place], [address], [facility] - [facility] 03/02/2025 12:08:35 OBGyn Episode No OBEpisode recorded.
--- OUTSIDE RECORDS SUMMARY | 2025-04-12 17:44 | XMS_ITS | Clinical Summary ---
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 1 Active Eliquis 2.5 MG tablet TAKE ONE TABLET TWICE DAILY IN THE MORNING AND AT BEDTIME 3 Active acetaminophen (Tylenol) 500 MG tablet Take 500 mg by mouth. 8 Active albuterol 108 (90 Base) MCG/ACT inhaler Inhale 2 Puffs into the lungs every 4 hours as needed for Cough or Wheezing for up to 30 days. 9 Active ALPRAZolam (Xanax) 0.25 MG tablet TAKE ONE TABLET THREE TIMES DAILY NEEDED Active ascorbic acid (Vitamin C) 250 MG tablet Take 1 tablet by mouth in the morning. Active aspirin 81 MG EC tablet Take 81 mg by mouth Once per day. 3 Active atorvastatin (Lipitor) 40 MG tablet Take 40 mg by mouth at bedtime. 0 Active B Erlkehj-B-Kdozu Acid (B-Complex-C, w/Folic Acid,) tablet Take 1 tablet by mouth Once per day. 2 Active calcium carbonate 1500 (600 Ca) MG tablet Take 600 mg by mouth Once per day. Active cephalexin (Keflex) 500 MG capsule TAKE ONE CAPSULE TWICE DAILY IN THE MORNING AND AT BEDTIME Active cholecalciferol (Vitamin D-[address]) 25 MCG (1000 UT) tablet Take 1,000 Units by mouth Once per day. 3 Active escitalopram (Lexapro) 20 MG tablet Take 20 mg by mouth Once per day. 0 Active ferrous sulfate 325 (65 Fe) MG tablet Take 325 mg by mouth Once per day. 1 Active fluticasone (Flonase) 50 MCG/ACT nasal spray 2 sprays Once per day. 0 Active Fluticasone-Umeclid in-Vilant (Trelegy Ellipta) 100-62.5-25 MCG/ACT aerosol powder Inhale 1 puff Once per day. 4 Active folic acid (Folvite) 1 MG tablet Take 1,000 mcg by mouth Once per day. 1 Active furosemide (Lasix) 20 MG tablet Take 1 tablet as needed for swelling 2 Active gabapentin (Neurontin) 400 MG capsule TAKE TWO CAPSULES EVERY DAY AT BEDTIME Active levalbuterol (Xopenex) 45 MCG/ACT inhaler INHALE TWO PUFFS EVERY 6 HOURS NEEDED SHORTNESS OF BREATH OR FOR WHEEZING 2 Active loteprednol (Lotemax) 0.5 % ophthalmic suspension PLACE ONE DROP IN EACH EYE TWICE DAILY 4 Active magnesium oxide (Mag-Ox) 400 MG tablet Take 400 mg by mouth 3 times daily. 1 Active meclizine (Antivert) 12.5 MG tablet Take 1 tablet by mouth Once per day. 4 Active melatonin 3 MG tablet TAKE ONE TABLET EVERY NIGHT AT BEDTIME Active metoprolol succinate XL (Toprol-XL) 25 MG 24 hr tablet Take 25 mg by mouth in the morning. 1 Active montelukast (Singulair) 10 MG tablet TAKE ONE TABLET EVERY NIGHT AT BEDTIME Active Multiple Vitamins-Minerals (Cerovite Senior) tablet Take 1 tablet by mouth in the morning. 4 Active pantoprazole (ProtoNix) 40 MG EC tablet Take 40 mg by mouth before breakfast. 1 Active iron polysaccharides (Nu-Iron,Niferex) 150 MG capsule Take 1 capsule by mouth 2 times daily. 1 Active Entresto 24-26 MG tablet TAKE ONE TABLET TWICE DAILY IN THE MORNING AND AT BEDTIME Active spironolactone (Aldactone) 25 MG tablet Take 12.5 mg by mouth Once per day. 1 Active thiamine (Vitamin B-1) 100 MG tablet Take 1 tablet (100 mg total) by mouth. 1 Active traZODone (Desyrel) 50 MG tablet Take 50-100 mg by mouth if needed at bedtime. 3 Active Vitamins-Lipotropic s (B Complex Formula 1, Lipotrop,) tablet Take 1 tablet by mouth in the morning. 4 Active zinc sulfate (Zincate) 220 (50 Zn) MG capsule Take 220 mg by mouth Once per day. 1 Active famotidine (Pepcid) 20 MG tablet TAKE ONE TABLET IN THE MORNING AND EVENING NEEDED Active chlorhexidine (Peridex) 0.12 % solution Swish 15 mL morning and night for 1 minute. Spit, do not swallow. Do not eat or drink for 30 minutes following use. 473 mL 5 Active Active Problems Problem Noted Date Diagnosed Date Unspecified atherosclerosis of [place] arteries of extremities, bilateral legs 09/14/2024 Class 1 obesity 09/14/2024 Obesity 09/14/2024 Overview (09/14/2024): Initial Weight 02/01/16 - 238.2 lbs. Acquired hammer toe of left foot 09/14/2024 Acute on chronic diastolic CHF (congestive heart failure) 07/28/2024 Pain of left lower extremity 04/07/2024 History of artificial joint 09/08/2023 Periprosthetic fracture arou nd internal prosthetic left knee joint 08/21/2023 Arthralgia 08/20/2023 Heart disease 07/28/2023 Scoliosis 07/28/2023 Osteoporosis 07/28/2023 Hearing loss 07/28/2023 Fracture of ankle 07/28/2023 Fracture of bone 07/28/2023 Gastroesophageal reflux disease 07/28/2023 Chronic low back pain 07/28/2023 Arthritis 07/28/2023 Asthma 07/28/2023 Chronic obstructive pulmonary disease 07/28/2023 Cellulitis of left lower limb 06/13/2023 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 There is imperative to keep her potassium greater than 4 and magnesium greater than 2. Being off of her diuretic on a regular basis should also help this. 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 Follow burden through device. Non-ischemic cardiomyopathy (CMS/HCC) 06/27/2020 Overview (09/14/2024): LBBB Cath 03/2019 revealing 30% LM which [...] prior arrhythmias due to hypokalemia and hypomagnesemia Acute adjustment disorder wi th mixed anxiety and depressed mood 10/13/2018 Primary osteoarthritis of right knee 03/09/2018 Primary osteoarthritis of left knee 03/09/2018 Chronic pain of right knee 03/09/2018 Obstructive sleep apnea syndrome 01/02/2017 Overview (09/14/2024): CPAP Asthma-COPD overlap syndrome (CMS/HCC) 7 Hypercholesterolemia 01/15/2016 Overview (09/14/2024): Last Assessment & Plan: I do not have a recent lipid profile I wonder if 1 was possibly checked with her most recent labs from her PCPs office. We will look for these labs. For now though, continue her moderate intensity statin Essential hypertension 01/15/2016 Overview (09/14/2024): Last Assessment & Plan: Blood pressure a little on the low side but asymptomatic. This should improve with cessation of her diuretic Encounters Date Type Department Care Team Description 03/27/2025 Telephone [facility] [address] [place] [address] Charlie Echevarria DDS 03/17/2025 2:00 PM EDT Office Visit [facility] [address] [place] [address] Charile Echevarria DDS 03/07/2025 8:30 AM EDT Office Visit [facility] [address] [place] [address] Charlie Echevarria, DDS 03/02/2025 Orders Only [facility] [address] [place] [address] Tano Teague, DMD 02/28/2025 Travel from Last 3 Months Immunizations Immunization Administration Dates Next Due INFLUENZA VACCINE QUADRIVALE NT RECOMBINANT PRESERVATIVE FREE RIV4 03/08/2020 Influenza High-dose Quadrivalent Preservative Fr ee 03/18/2023 Influenza, High Dose Seasonal, Preservative Free 02/29/2024 Pneumococcal Conjugate PCV 20 10/31/2021 Pneumococcal Polysaccharide PPSV23 11/28/2009 Tdap 03/19/2016 Zoster, Recombinant 10/31/2021,08/29/2021 Social History Tobacco Use Types Packs/Day Years Used Date Smoking Tobacco: Never Passive Smoke Exposure: Never Smokeless Tobacco: Never Tobacco Cessation:Counseling Given: Not Answered Comments Unknown Sex and Gender Information Value Date Recorded Sex Assigned at Female 04/07/2022 10:34 AM EDT Legal Sex Female 10:34 AM EDT Gender Identity Female 04/07/2022 10:34 AM EDT Sexual Orientation Straight 04/07/2022 10 :34 AM EDT Last Filed Vital Signs Vital Sign Reading Time Taken Comments Blood Pressure 126/66 10/11/2024 10:47 AM EDT Pulse 65 10/11/2024 10:47 AM EDT Temperature - - Respiratory Rate - - Oxygen Saturation - - Inhaled Oxygen Concentration - - Weight - - Height - - Body Mass Index - - Plan of Treatment Upcoming Encounters Date Type Department Care Team (Late st Contact Info) Description 04/18/2025 10:15 AM EST Office Visit [facility] [address] [place] [address] Farhat Stoner Health Maintenance Due Date Last Done Comments CT Colonography 1949 Colonoscopy 1949 Colorectal Cancer Screening 1949 Dental X-Ray: Bitewings 1949 Depression Screening 1949 FIT DNA/Cologuard 1949 FIT 1949 FOBT 1949 Lipid Panel 1949 SDOH Screening 1949 Sigmoidoscopy 1949 Alcohol/Substance Use Screening 1961 Hepatitis C Screening 1967 Hepatitis A Vaccines (1 of 2 - Risk 2-dose series) 1968 Hepatitis B Vaccines (1 of 3 - Risk 3-dose series) 2009 Dental X-Ray: Full Mouth 01/20/2021 01/19/2018 COVID-19 Vaccine ( season) 2025 06/11/2023, 03/19/2022, 05/24/2021, Additional history exists Dental Oral Exam 04/14/2025 10/11/2024, 10/2020, 01/19/2018 Dental Prophylaxis 04/14/2025 10/11/2024, 1 , 12/16/2021 Tobacco Screening 03/07/2026 03/07/2025 DTaP/Tdap/Td Vaccines (3 - Td or Tdap) 08/20/2033 08/21/2023, 03/19/2016 Pneumococcal Vaccine: 50+ Years Completed 10/31/2021, 11/28/2009 Zoster Vaccines Completed 10/31/2021, 08/29/2021 Influenza Vaccine Completed 02/09/2025, , 02/29/2024, Additional history exists RSV Patients and Patients Aged 60 years or older Completed 02/09/2025 HIB Vaccines Aged Out No longer eligi [...] patient's age to complete this topic Meningococcal Vaccine Aged Out No alonzo maged eligible based on patient's age to complete this topic RSV under 20 months Aged Out No longe r eligible based on patient's age to complete this topic Rotavirus Vaccines Aged Out No longer eligible based on patient's age to complete this topic Procedures Procedure Name Priority Date/Time Associated Diagnosis Comments DENTURE IMPRESSION Routine 03/17/2025 2: 00 PM EDT DENTURE IMPRESSION Routine 03/07/2025 8: 30 AM EDT Full PROPHYLAXIS - ADULT Routine 025 11:00 AM EDT PERIODIC ORAL EVALUATION - ESTABLISHED PATIENT Routine 10/11/2024 11:00 AM EDT PANORAMIC RADIOGRAPHIC IMAGE Routine 01/19/2018 12:00 AM EDT from Last 3 Months or Most Recently Relevant to Health Maintenance Insurance DENTAL - [facility] PARTIAL (MEDICAID)
--- OUTSIDE RECORDS SUMMARY | 2025-04-12 17:44 | XMS_ITS | Encounter Summary ---
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
--- OUTSIDE RECORDS SUMMARY | 2025-04-12 17:44 | XMS_ITS | Data Portability ---
Author Organization [place] [facility] [place] [facility] [place] Address [address] [place] [address] Care Team Providers Care Financial Planning Consultant Name Role Phone VON MIRANDA Referring Provider [phone] VON MIRANDA Primary Care Provider Assessment Encounter Date Assessment Date Assessment LastModified [...] chills, she will go to the ER. [email or web address] Not available 06/13/2023 09:27:55 06/12/2023 06/12/2023 HPI : T cheryl you for the pleasure of requesting a [...] degrees. The knee is stable within that [id number] to AP and ML stress. The alignment [...] y, evaluate for joint infection 2022 023 [email or web address] Not available 4 11:53:03 C-reactive protein, quantitativ e, serum or plasma - Joint pain status post arthroplast y, evaluate for joint infection 2022 023 [email or web address] Not available 3 05:22:50 Referral None recorded. Procedures None recorded. Surgeries None recorded. Imaging XR, knee, 3 view 2022 023 [email or web address] [facility], [address], [place], [address], 3 10:42:17 Medication Orders None recorded. Patient TargetsNo targets recorded. Patient Instructions Encounter Date Encounter Id Patient Instructions Last Modified By Organization Details Last Modified Time 06/03/2023 [id number] Radiographs: AP, lateral, patellar views of the Left knee were obtained in the [place] which demonstrate a left distal femoral replacement with long-stem cemented components. No patella visible. No signs of hardware related complications. X-ray interpretation by: LETY [email or web address] Not available 06/13/2023 09:27:45 Reason for Referral None Reported. Results Created Date Observation Date Name Description Value Unit Range Abnormal Flag Note LastModifiedBy Organization Detail LastModifiedTime Result Notes None recorded. Problems Name Problem SNOMED Code Status Onset Date Resolution Date Notes Provider Name and Address Organization Details Recorded Time Essential hypertens ion 54441745 Active 2015 Essential hypertens ion - Overview: Formattin g of this note might be different from the original. Last Assessmen t & Plan: Formattin g of this note might be different from the original. Blood pressure a little on the low side but asymptoma tic. This should improve with cessation of her diuretic Not Available [facility] 5 00:05:18 Obstructi ve sleep apnea syndrome 53653013 Active 2016 Obstructi ve sleep apnea syndrome - Overview: Formattin g of this note might be different from the original. Overview: Formattin g of this note might be different from the original. 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 60929173497 854152 Active 2016 Asthma-CO PD overlap syndrome Not Available [facility] 5 00:05:18 Osteoarth ritis of left knee joint 02723981372 9109 Active 2017 Primary osteoarth ritis of left knee Not Available [facility] 5 00:05:16 Osteoarth ritis of right knee joint 69838023350 9100 Active 2017 Primary osteoarth ritis of right knee Not Available [facility] 5 00:05:17 Pain of knee region 9717642720 Active 2017 Chronic pain of right knee Not Available [facility] 5 00:05:18 Adjustmen t disorder with mixed anxiety and depressed mood 061675811 Active 2018 Acute adjustmen t disorder with mixed anxiety and depressed mood Not Available [facility] 5 00:05:17 Paroxysma l atrial fibrillat ion 726771715 Active 2020 Paroxysma l A-fib - Overview: Formattin g of this note might be different from the original. Overview: Formattin g of this note might be different from the original. Anticoagu lated with apixaban Last Assessmen t & Plan: Formattin g of this note might be different from the original. In NSR on BB alone. Follow burden through device. Not Available [facility] 5 00:05:17 Cardiomyo buck 23059074 Active 2020 Non-ische katherine cardiomyo buck - Overview: Formattin g of this note might be different from the original. Overview: Formattin g of this note might be different from the original. LBBB Cath 03/2019 revealing 30% LM which was not hemodynam ically significa nt and therefore managed medically Further drop in LVEF to 25-30% Biotronik BiV AICD 12/2019 Echo 03/2020 low normal LVEF 50-55% with resolutio n of her MR VT/VF in Jul and August 2020 in the setting of marked hypokalem ia and hypomagne semia from diuretics and Diarrhea from abx Last Assessmen t & Plan: Formattin g of this note might be different from the original. The patient currently has no congestiv e symptoms on her current medicatio n regimen. She was started on a diuretic by a rehab facility since her last office visit and that likely has contribut ed to her hypokalem ia and hypomagne semia as well. Given the fact that she is euvolemic and her thoracic impedance is stable on her device interroga tion in office today but she continues with below goal potassium and magnesium levels, suggest that her Lasix is changed back to as needed for weight gain and or symptoms of shortness of breath. I have written a this to her rehab facility. She should continue with potassium replaceme nt until her potassium is greater than 4.5, and continue with magnesium replaceme nt until her magnesium is greater than 2. She needs close following of her electroly aj especiall y as she goes into surgery. She will otherwise continue her current treatment plan with max dose Entresto, and beta-bloc ker. Not Available [facility] 5 00:05:17 Left bundle branch block 17437584 Active 2020 LBBB (left bundle branch block) Not Available [facility] 5 00:05:18 Prostheti c joint infection 035240349 Active 2020 Prostheti c joint infection , subsequen t encounter Not Available [facility] 5 00:05:17 Hypercoag ulability state 41061909 Active 2020 Secondary hypercoag ulable state Not Available [facility] 5 00:05:16 Morbid obesity 674439670 Active 2020 Morbid obesity with alveolar hypoventi lation Not Available [facility] 5 00:05:17 History of artificia l joint 228191401 Active 2020 S/P joint replaceme nt Not Available [facility] 5 00:05:16 Anemia 378349021 Active 07/23/ 2021 Anemia Not Available [facility] 5 00:05:16 Thrombocy topenic disorder 271436466 Active 2020 Thrombocy topenia Not Available [facility] 5 00:05:18 Anemia co-occurr ent and due to chronic kidney disease stage 3 29396648895 9108 Active 2020 Anemia due to stage 3 chronic kidney disease Not Available [facility] 5 00:05:19 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 18575611720 859222 Active 2023 Wilber White MD [address] [facility],[address], [place], [address] , [place] [facility] 4 10:02:08 Celluliti s of left lower limb 06695259326 270271 Active 2023 NAIN CANCINO PA-C [address], [place], [address] , [place] [facility] 4 09:28:37 Fracture of bone adjacent to left knee joint prosthesi s Active 2023 Periprost hetic fracture around internal prostheti c left knee joint, initial encounter Not Available [facility] 5 00:05:18 Problem Notes None recorded. Procedures Surgical History Date Name Laterality Status Provider Name and Address Organization Details Recorded Time 3 TONI Knee Inj/Asp completed NAIN CANCINO PA-C [address], [place], [address], [place] [facility] 06/13/2023 09:24:46 tonsilectomy/ad enoids completed [facility] [place] [facility] 06/03/2023 10:09:43 breast procedure completed [facility] 06/03/2023 10:09:56 total knee replacement completed [facility] 06/03/2023 10:10:40 Imaging Results None recorded. Procedure Notes None recorded. Medical Equipment None Reported. Allergies Allergen ID Allergen Name Allergen Category Reaction Reaction Severity Criticality Documentation Date Start Date Code Code System Note Provider Name and Address Organization Details Recorded Time 987717 codeine medicatio n Not available Not available Not available 02/28/20252016 2670 RxNorm React ion: Short ness Of chaparro You ity: Unkno wn;19 73, Palpa tatio nsOth er react ion(s ): PALPI TATIO NS Not Available [facility] 5 01:31:55 Medications Name Sig Start Date Stop Date Status Note LastModified by Organization Details LastModified Time cap-2 k-10 pain formulation versatile Apply 1-3 grams to the affected area 3-4 times daily (FEET) active Not Available Not Available No t Available medbox status USE DIRECTED active Not Available Not Available No t Available celecoxib 200 mg capsule Take 1 capsule (200 mg total) by mouth daily. 07/04 completed Not Available Not Available Not Available Santyl 250 unit/gram topical ointment 07/04 completed Not Available Not Available Not Available atorvastati n 40 mg tablet Take 1 tablet (40 mg total) by mouth every night at bedtime. active Not Available Not Available No t Available sennosides 8.6 mg tablet Take 2 tablets by mouth every night at bedtime. 07/14 completed Not Available Not Available Not Available doxycycline hyclate 100 mg capsule TAKE ONE CAPSULE BY MOUTH TWICE DAILY UNTIL FINISHED active Not Available Not Available No t Available trazodone 50 mg tablet TAKE TWO TABLETS EVERY DAY AT BEDTIME active Not Available Not Available No t Available amiodarone 200 mg tablet Take 1 tablet (200 mg total) by mouth daily. 2023 active Not Available Not Available Not Avai lable benzonatate 200 mg capsule TK ONE C PO TID FOR 10 DAYS 07/04 completed Not Available Not Available Not Available riboflavin (vitamin B2) 100 mg tablet Take by mouth. 07/04 completed Not Available Not Available Not Available sucralfate 1 gram tablet TAKE ONE TABLET EVERY NIGHT AT BEDTIME active Not Available Not Available No t Available gabapentin 400 mg capsule Take 2 capsules (800 mg total) by mouth daily. Take with 100mg for a total of 900mg daily 2023 active Not Available Not Available Not Avai lable thiamine HCl (vitamin B1) 100 mg tablet TAKE ONE TABLET EVERY MORNING active Not Available Not Available No t Available amlodipine 5 mg tablet 07/04 completed Not Available Not Available Not Available sulfamethox azole 800 mg-trimetho prim 160 mg tablet Take 1 tablet (160 mg of trimethop rim total) by mouth 2 (two) times a day for 10 days. 05/26 completed Not Available Not Available Not Available omeprazole 40 mg capsule,del ayed release Take 40 mg by mouth every morning after breakfast . 09/20 completed Not Available Not Available Not Available aspirin 81 mg tablet,renae yed release Take 1 tablet (81 mg total) by mouth every morning. 2022 active Not Available Not Available Not Avai lable tramadol 50 mg tablet TAKE ONE TABLET BY MOUTH EVERY 4 HOURS NEEDED FOR PAIN 07/14 completed Not Available Not Available Not Available acetaminoph en 500 mg tablet Three Times A Day 2017 active Not Available Not Available Not Avai lable spironolact one 25 mg tablet Take 0.5 tablets (12.5 mg total) by mouth daily. 2023 active Not Available Not Available Not Avai lable amoxicillin 500 mg tablet Take 4 tabs 1 hour prior to dental appointme nt 05/29 completed Not Available Not Available Not Available calcium 600 mg (as calcium carbonate 1,500 mg) tablet TAKE ONE TABLET EVERY MORNING active Not Available Not Available No t Available alprazolam 0.25 mg tablet TAKE ONE TABLET THREE TIMES DAILY NEEDED active Not Available Not Available No t Available famotidine 20 mg tablet TAKE ONE TABLET IN THE MORNING AND EVENING NEEDED active Not Available Not Available No t Available pravastatin 80 mg tablet 07/04 completed Not Available Not Available Not Available magnesium oxide 400 mg (241.3 mg magnesium) tablet TAKE TWO TABLETS TWICE DAILY IN THE MORNING AND AT BEDTIME active Not Available Not Available No t Available lorazepam 0.5 mg tablet 1 po qd prn anxiety or insomnia 07/04 completed Not Available Not Available Not Available ascorbic acid (vitamin C) 250 mg tablet Take 1 tablet (250 mg total) by mouth every morning. active Not Available Not Available No t Available cephalexin 500 mg capsule TAKE ONE CAPSULE TWICE DAILY IN THE MORNING AND AT BEDTIME 2023 active Not Available Not Available Not Avai lable pantoprazol e 40 mg tablet,renae yed release TAKE ONE TABLET TWICE DAILY IN THE MORNING AND AT BEDTIME NEEDED active Not Available Not Available No t Available methylpredn isolone acetate 40 mg/mL suspension for injection 07/13 completed Not Available Not Available Not Available ferrous sulfate 325 mg (65 mg iron) tablet Take 1 tablet (325 mg total) by mouth every morning with breakfast . active Not Available Not Available No t Available metoprolol tartrate 50 mg tablet Take 75 mg by mouth 2 (two) times a day. 09/20 completed Not Available Not Available Not Available gabapentin 300 mg capsule TAKE ONE CAPSULE BY MOUTH AT BEDTIME 07/04 completed Not Available Not Available Not Available folic acid 1 mg tablet Take 1 tablet (1,000 mcg total) by mouth every morning. active Not Available Not Available No t Available montelukast 10 mg tablet Take 1 tablet (10 mg total) by mouth every night at bedtime. active Not Available Not Available No t Available aspirin 81 mg tablet Take 81 mg by mouth every morning after breakfast . 08/17 completed Not Available Not Available Not Available gabapentin 100 mg capsule TAKE 1 TO 2 CAPSULES BY MOUTH AT BEDTIME active Not Available Not Available No t Available metoprolol succinate ER 25 mg tablet,exte nded release 24 hr Take 1 tablet (25 mg total) by mouth every morning. 2022 active Not Available Not Available Not Avai lable loteprednol etabonate 0.5 % eye drops,suspe nsion PLACE ONE DROP IN EACH EYE TWICE DAILY active Not Available Not Available No t Available levofloxaci n 500 mg tablet Take 1 tab daily for 14 days 07/04 completed Not Available Not Available Not Available estradiol 0.01% (0.1 mg/gram) vaginal cream APPLY ONE GRAM VAGINALLY EVERY NIGHTLY FOR 2 WEEKS AND THEN USE 1-2 NIGHTS PER WEEK THEREAFTE R active Not Available Not Available No t Available fluticasone propionate 50 mcg/actuati on nasal spray,suspe nsion PLACE TWO SPRAYS IN EACH NOSTRIL AT BEDTIME. 08/17 completed Not Available Not Available Not Available oxycodone 5 mg tablet TAKE ONE TABLET BY MOUTH EVERY TWELVE HOURS NEEDED active Not Available Not Available No t Available neomycin 3.5 mg/g-polymy justin B 10,000 unit/g-dexa meth 0.1 % eye oint APPLY IN THE AFFECTED EYE(S) AT BEDTIME DIRECTED active Not Available Not Available No t Available escitalopra m 10 mg tablet TAKE ONE TABLET BY MOUTH EVERY MORNING active Not Available Not Available No t Available escitalopra m 20 mg tablet TAKE ONE TABLET EVERY MORNING active Not Available Not Available No t Available escitalopra m 5 mg tablet TAKE ONE TABLET EVERY MORNING active Not Available Not Available No t Available vitamin B complex-fol ic acid 0.4 mg tablet TAKE ONE TABLET EVERY MORNING active Not Available Not Available No t Available lidocaine (PF) 10 mg/mL (1 %) injection solution 07/13 completed Not Available Not Available Not Available ProAir HFA 90 mcg/actuati on aerosol inhaler INL 2 PFS ITL Q 4 H PRF COUGH OR WHZ 08/17 completed Not Available Not Available Not Available Xopenex HFA 45 mcg/actuati on aerosol inhaler INHALE TWO PUFFS EVERY 6 HOURS NEEDED SHORTNESS OF BREATH OR FOR WHEEZING active Not Available Not Available No t Available zinc sulfate 50 mg zinc (220 mg) capsule Take 1 capsule (220 mg total) by mouth daily. 2020 active Not Available Not Available Not Avai lable cholecalcif tremayne (vitamin D3) 25 mcg (1,000 unit) tablet Take 1 tablet (1,000 Units total) by mouth daily. active Not Available Not Available No t Available diclofenac 1 % topical gel Apply small amount (size of fingertip ) to painful area twice daily as needed for pain 07/04 completed Not Available Not Available Not Available melatonin 5 mg tablet Take 5 mg by mouth every night at bedtime as needed. 2019 active Not Available Not Available Not Avai lable Minerin Creme topical APPLY TO THE AFFECTED AREA(S) NEEDED DRY SKIN active Not Available Not Available No t Available Vitamin D3 50 mcg (2,000 unit) tablet TAKE ONE TABLET EVERY MORNING active Not Available Not Available No t Available estradiol [address] 1 tablet vaginally . 07/04 completed Not Available Not Available Not Available Cerovite Senior 0.4 mg-300 mcg-250 mcg tablet TAKE ONE TABLET EVERY MORNING active Not Available Not Available No t Available apixaban 2.5 mg tablet Take 2 tablets (5 mg total) by mouth every 12 (twelve) hours. 2023 active Not Available Not Available Not Avai lable Eliquis 5 mg tablet TAKE ONE TABLET BY MOUTH TWICE DAILY 08/17 completed Not Available Not Available Not Available Stimulant Laxative Plus 8.6 mg-50 mg tablet TAKE 2 TABLETS BY MOUTH DAILY AT BEDTIME FOR 14 DAYS NEEDED FOR CONSTIPAT ION active Not Available Not Available No t Available Entresto 49 mg-51 mg tablet Take 1 tablet by mouth 2 (two) times a day. 10/25 completed Not Available Not Available Not Available Entresto 24 mg-26 mg tablet TAKE ONE TABLET TWICE DAILY IN THE MORNING AND AT BEDTIME 2023 active Not Available Not Available Not Avai lable cariprazine 1.5 mg capsule Take 1 capsule (1.5 mg total) by mouth daily. active Not Available Not Available No t Available Xiidra 5 % eye drops in a dropperette PLACE ONE DROP IN EACH EYE TWICE DAILY active Not Available Not Available No t Available Trelegy Ellipta 100 mcg-62.5 mcg-25 mcg powder for inhalation INHALE 1 PUFF ONCE DAILY active Not Available Not Available No t Available Breztri Aerosphere 160 mcg-9mcg-4. 8mcg/actuat ion HFA aerosol inhaler INHALE TWO PUFFS BY MOUTH TWICE DAILY active Not Available Not Available No t Available Vitals Date Recorded Body height Provider Name an d Address Organization Details Last Updated DateTime 08/24/2023 172.7 cm Not Available [facility] 5 23:31:07 Date Recorded Respiratory rate Provider Name a nd Address Organization Details Last Updated DateTime 08/27/2023 19 /min Not Available [facility] 5 23:31:07 Date Recorded Body weight Heart rate Body mass index (BMI) Oxygen saturation Oxygen saturation in Arterial blood by Pulse oximetry Body temperature Systolic And Diastolic Provider Name and Address Organization Details Last Updated DateTime 4 05395 g 97 /min 31.02 kg/m2 98 % 98 % 98.6 [degF] 123/71 mm[Hg] Not Available [facility] 23:31:08 Date Recorded Body height Body mass index (BMI) Body weight Provider Name and Address Organization Details Last Updated DateTime 06/03/2023 173.99 cm 30 kg/m2 30651.[address] [facility], 06/03/2023 10:08:08 Social History None recorded. Functional Status Question Answer Note LastModified by Organizat ion Details LastModified Time Do you use any illicit or recreational drugs? No Information not available 06/03/2023 Do you or [...] available 2022 10:09:34 Medical History Condition Response Heart Disease Y Osteopenia Y Hypertension Y COPD Y Asthma Y Blood Transfusion Y Gynecological HistoryNo gynecological history recorded. Obstetrics History GPAL:G 0 P 0 0 0 0 Immunizations Vaccine Type Date Status Note Provider Nam e and Address Organization Details Recorded Time pneumococcal polysaccharide PPV23 0 completed Not Available [facility] 02/28/2025 06:16:58 COVID-19, mRNA, LNP-S, PF, 30 mcg/0.3 mL dose 1 completed Not Available [facility] 02/28/2025 06:16:58 Tdap 4 completed Not Available [facility] 02/28/2025 06:16:58 COVID-19, mRNA, LNP-S, PF, 30 mcg/0.3 mL dose 1 completed Not Available [facility] 02/28/2025 06:16:58 Past Encounters Encounter ID Performer Location Encounter Start Date Encounter Closed Date Diagnosis/Indication Diagnosis SNOMED-CT Code Diagnosis ICD10 Code Diagnosis IMO Codes Diagnosis Note [id number] NAIN CANCINO PA-C [facility] [address] [place] [address] 06/03/2023 09:00:39 06/03/2023 10:25:25 History of left total knee replacement 7567666220 511926 Z96.652 Cellulitis of left lower limb 4086654482 0075545 L03.116 [id number] [facility] [address] [place] [address] 06/12/2023 08:59:03 06/12/2023 09:27:36 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 6956733556 2620302 T84.54XS Health Concerns Section Related Observation LastModified by Organization Detai ls LastModified Time None Recorded Concern Status LastModified by Organization Details LastModified Time None Recorded Advance Directives Directive None Recorded Payers Insurance Date Sequence Insurance Name Policy Number Policy Galdamez Covered Member ID Galdamez Member ID Guarantor Name 06/15/2023 2 [place] [id number] [facility] [id number] [facility] 06/03/2023 1 [place] [facility] [id number] [facility] Notes Date Note Type Note Provider Name and Address Organization Details Recorded Time 06/03/2023 text/html ROS as noted in the HPI Patient is a 73-year-old female who presents [...] NAIN CANCINO PA-C [address], [place], [address], [place] [facility] 06/13/2023 09:29:23 OBGyn Episode No OBEpisode recorded.
--- OUTSIDE RECORDS SUMMARY | 2025-04-12 17:45 | XMS_ITS | Data Portability ---
Author Organization [facility], [facility] Address [address] [place] [address] Care Team Providers Care Ob Gyn Name Role Phone VON MIRANDA Referring Provider Assessment Encounter Date Assessment Date Assessment LastModified by Organization Details LastModified Time 03/02/2024 03/02/2024 A: improved independence and strength with sit to stand unassisted. improved endurance with all ther ex today. P: Cont POC (decrease to 1x/wk per MD orders x8 weeks) [email or web address] Not available 03/02/2024 13:55:18 03/09/2024 03/09/2024 A: Pt cont with inability to actively complete SAQ, SLR without assist due to weakness. Challenged by end of session by fatigue. Ambulated with st cane and slight antalgic gait P: Cont to progress strength and mobility per POC [email or web address] Not available 03/09/2024 14:43:43 03/16/2024 03/16/2024 A: Pt with decreased energy levels this visit, two instances of LOB due to poor clearance of LLE during ambulation. Challenged with proprioception/ NMR activities. unable to complete AROM SLR or SAQ due to weakness preventing independent terminal ext P: Cont to progress strength and mobility per POC [email or web address] Not available 03/16/2024 13:35:28 03/30/2024 03/30/2024 A: pt able to complete all ther ex with improved tolerance and endurance. Pt would benefit from transition to gym program. P: Cont to progress strength and mobility per POC [email or web address] Not available 03/30/2024 13:21:24 06/30/2024 06/30/2024 STG 4 weeks: 1. independence with HEP 2. increase L LE strength to >=4/5 t/o 3. increase L knee ROM to >=0-120 LTG 8 weeks: 1. increase L LE strength to >=4+/5 t/o 2. pt to have improved endurance with amb with straight cane in the community. 3. pt will have improved balance, and steadiness with amb in the community. P: cont 2x/wk x 8wks [email or web address] Not available 07/06/2024 13:39:37 Plan of Treatment Reminders Order Date Submit Date Provider Last Modified By Organization Details Last Modified Time Details Appointments None record ed. Lab None record ed. Referral None record ed. Procedures None record ed. Surgeries None record ed. Imaging None record ed. Medication Orders None record ed. Patient TargetsNo targets recorded. Patient InstructionsNo instructions recorded. Reason for Referral None Reported. Procedures Surgical History Date Name Laterality Status Provider Name and Address Organization Details Recorded Time 5 86310 Therapeutic Exercise (1:1) completed Samira Farr, PT [address], [place], [address], [facility] 07/06/2024 12:51:32 5 91917: Low complexity PT Eval completed Samira Farr, PT [address], [place], [address], [facility] 07/06/2024 12:51:32 5 G8417 BMI Above Upper Parameters, F/U Documented completed Samira Farr, PT [address], [place], [address], [facility] 07/06/2024 12:51:32 5 G8427 Current Medication Documented completed Samira Farr, PT [address], [place], [address], [facility] 07/06/2024 12:51:32 4 59905 Therapeutic Exercise (1:1) completed Samira Farr, PT [address], [place], [address], [facility] 03/30/2024 11:14:20 [id number] Therapeutic Exercise (1:1) completed Phuong Galdino, MACH[employer]ED [employer]S QUALITY INSPECTOR [address], [place], [address], [facility] 03/16/2024 12:26:15 [id number] Therapeutic Exercise (1:1) completed Phuong Galdino, MACHINED [employer]S QUALITY INSPECTOR [address], [place], [address], [facility] 03/09/2024 14:40:19 [id number] Therapeutic Exercise (1:1) completed Samira Farr, PT [address], [place], [address], [facility] 03/02/2024 12:57:49 [id number] Therapeutic Exercise (1:1) completed Phuong Galdino, MACHINED PARTS QUALITY INSPECTOR [address], [place], [address], [facility] 02/24/2024 14:41:09 [id number] Therapeutic Exercise (1:1) completed Phuong Galdino, MACH[employer]ED [employer]S QUALITY INSPECTOR [address], [place], [address], [facility] 02/17/2024 10:47:57 41082 Therapeutic Exercise (1:1) completed Phuong Galdino, MACHINED [employer]S QUALITY INSPECTOR [address], [place], [address], [facility] 02/10/2024 14:31:34 53414 Therapeutic Exercise (1:1) completed Samira Farr, PT [address], [place], [address], [facility] 02/03/2024 12:02:44 [id number] Therapeutic Exercise (1:1) completed Phuong Galdino, MACHINED [employer]S QUALITY INSPECTOR [address], [place], [address], [facility] 01/20/2024 14:31:11 4 73549 Therapeutic Exercise (1:1) completed Samira Farr, PT [address], [place], [address], [facility] 01/12/2024 11:29:29 4 07069 Therapeutic Exercise (1:1) completed Phuong Ahmadi, MACH[employer]ED [employer]S QUALITY INSPECTOR [address], [place], [address], [facility] 01/06/2024 14:29:14 4 55903 Therapeutic Exercise (1:1) completed Phuong Ahmadi, MACHINED [employer]S QUALITY INSPECTOR [address], [place], [address], [facility] 12/30/2023 14:41:13 4 78728 Therapeutic Exercise (1:1) completed Samira Farr, PT [address], [place], [address], [facility] 12/22/2023 11:01:38 4 91512 Therapeutic Exercise (1:1) completed Phuong Ahmadi, MACH[employer]ED [employer]S QUALITY INSPECTOR [address], [place], [address], [facility] 12/18/2023 13:29:28 23557 Therapeutic Exercise (1:1) completed Samira Farr, PT [address], [place], [address], [facility] 12/15/2023 10:26:35 56610 Therapeutic Exercise (1:1) completed Samira Farr, PT [address], [place], [address], [facility] 12/08/2023 11:56:37 [id number] Therapeutic Exercise (1:1) completed Phuong Ahmadi, MACH[employer]ED [employer]S QUALITY INSPECTOR [address], [place], [address], [facility] 12/03/2023 12:21:42 4 27913 Therapeutic Exercise (1:1) completed Phuong Ahmadi, MACH[employer]ED [employer]S QUALITY INSPECTOR [address], [place], [address], [facility] 12/01/2023 13:04:49 4 99736 Therapeutic Exercise (1:1) completed Samira Farr, PT [address], [place], [address], [facility] 11/24/2023 12:11:36 4 86568 Therapeutic Exercise (1:1) completed Phuong Ahmadi, MACHINED PARTS QUALITY INSPECTOR [address], [place], [address], [facility] 11/19/2023 10:32:26 4 68538 Therapeutic Exercise (1:1) completed Samira Farr, PT [address], [place], [address], [facility] 11/17/2023 12:25:21 4 09109 Therapeutic Exercise (1:1) completed Samira Farr, PT [address], [place], [address], [facility] 11/12/2023 12:01:25 4 77553 Therapeutic Exercise (1:1) completed Samira Farr, PT [address], [place], [address], [facility] 11/10/2023 13:33:37 4 79725 Therapeutic Exercise (1:1) completed Phuong Ahmadi, MACH[employer]ED [employer]S QUALITY INSPECTOR [address], [place], [address], [facility] 11/06/2023 14:19:50 4 65225 Therapeutic Exercise (1:1) completed Samira Farr, PT [address], [place], [address], [facility] 11/03/2023 12:04:44 4 45105 Therapeutic Exercise (1:1) completed Samira Farr, PT [address], [place], [address], [facility] 10/29/2023 10:34:09 4 79723 Therapeutic Exercise (1:1) completed Phuong Amaralius, MACH[employer]ED [employer]S QUALITY INSPECTOR [address], [place], [address], [facility] 10/26/2023 15:49:32 4 57285 Therapeutic Exercise (1:1) completed Phuong Ahmadi, MACH[employer]ED [employer]S QUALITY INSPECTOR [address], [place], [address], [facility] 10/21/2023 08:40:49 4 30917 Therapeutic Exercise (1:1) completed Samira Farr, PT [address], [place], [address], [facility] 10/16/2023 13:35:28 4 75979 Therapeutic Exercise (1:1) completed Samira Farr, PT [address], [place], [address], [facility] 10/14/2023 11:59:19 4 63541 Therapeutic Exercise (1:1) completed Samira Farr, PT [address], [place], [address], [facility] 10/09/2023 15:39:05 4 51754 Therapeutic Exercise (1:1) completed Samira Farr, PT [address], [place], [address], [facility] 10/08/2023 14:28:49 4 24768: Low complexity PT Eval completed Samira Farr, PT [address], [place], [address], [facility] 10/08/2023 14:28:53 4 G8417 BMI Above Upper Parameters, F/U Documented completed Samira Westfallzurdo, PT [address], [place], [address], [facility] 10/08/2023 14:33:15 4 G8427 Current Medication Documented completed Samira Westfallzurdo, PT [address], [place], [address], [facility] 10/08/2023 14:33:13 Imaging Results None recorded. Procedure Notes None recorded. Medical Equipment None Reported. Allergies Allergen ID Allergen Name Allergen Category Reaction Reaction Severity Criticality Documentation Date Start Date Code Code System Note Provider Name and Address Organization Details Recorded Time 390920 codeine medicatio n Not available Not available Not available 08/10/20232022 2670 RxNorm Not Available [facility] 4 15:37:49 Medications Name Sig Start Date Stop Date Status Note LastModified by Organization Details LastModified Time medbox status USE DIRECTED active Not Available Not Available No t Available compound drug active Not Available Not Available Not Available atorvastatin 40 mg tablet TAKE 1 TABLET EVERY NIGHT AT BEDTIME active Not Available Not Available N ot Available doxycycline hyclate 100 mg capsule TAKE [...] 12.5 mg tablet TAKE ONE TABLET DAILY active Not Available Not Available No t Available melatonin 3 mg tablet TAKE ONE TABLET EVERY NIGHT AT BEDTIME active Not Available Not Available N ot Available aspirin 81 mg tablet,delay ed release [...] Not Available Not Available N ot Available furosemide 20 mg tablet TAKE 1 TABLET BY MOUTH EVERY DAY active Not Available Not Available No t Available gabapentin 100 mg capsule TAKE 1 TO 2 CAPSULES BY MOUTH AT BEDTIME active Not Available Not Available No t Available metoprolol succinate ER 25 mg tablet,exten ded release 24 hr TAKE ONE TABLET EVERY MORNING active Not Available Not Available No t Available loteprednol etabonate 0.5 % eye drops,suspen mervin PLACE ONE DROP IN EACH EYE FOUR TIMES DAILY active Not Available Not Available No t Available estradiol 0.01% (0.1 mg/gram) vaginal cream APPLY ONE GRAM VAGINALLY EVERY NIGHTLY FOR 2 WEEKS AND THEN USE 1-2 NIGHTS PER WEEK THEREAFTER active Not Available Not Available N ot Available fluticasone propionate 50 mcg/actuatio n nasal spray,suspen mervin USE TWO SPRAYS IN EACH NOSTRIL ONCE DAILY active Not Available Not Available N ot Available loratadine 10 mg tablet TAKE ONE TABLET EVERY MORNING active Not Available Not Available No t Available ceftriaxone 2 gram solution for injection active Not Available Not Available No t Available tobramycin 0.3 %-dexamethas one 0.1 % eye drops,suspen mervin active Not Available Not Available Not Available oxycodone 5 mg tablet TAKE ONE TABLET BY MOUTH EVERY TWELVE HOURS NEEDED active Not Available Not Available No t Available neomycin 3.5 mg/g-polymyx in B 10,000 unit/g-dexam eth 0.1 % eye oint APPLY TO bouth eyelids AT BEDTIME active Not Available Not [...] active Not Available Not Available Not Available melatonin 5 mg tablet TAKE ONE TABLET EVERY NIGHT AT BEDTIME NEEDED active Not Available Not Available No t Available Minerin Creme topical APPLY TO THE AFFECTED AREA(S) NEEDED DRY SKIN active Not Available Not Available No t Available cholecalcife rol (vitamin D3) 50 mcg (2,000 unit) tablet TAKE ONE TABLET EVERY MORNING active Not Available Not Available No t Available Cerovite Senior 0.4 mg-300 mcg-250 mcg tablet TAKE ONE TABLET EVERY MORNING active Not Available Not Available No t Available Eliquis 5 mg tablet TAKE ONE TABLET TWICE DAILY IN THE MORNING AND AT BEDTIME active Not Available Not Available N ot Available Eliquis 2.5 mg tablet TAKE ONE TABLET TWICE DAILY IN THE MORNING AND AT BEDTIME active Not Available Not Available N ot Available Stimulant Laxative Plus 8.6 mg-50 mg tablet TAKE 2 TABLETS BY MOUTH DAILY AT BEDTIME FOR 14 DAYS NEEDED FOR CONSTIPATIO N active Not Available Not Available No t Available Hydrophor 42 % topical ointment APPLY TO THE AFFECTED AREA(S) ONCE DAILY NEEDED active Not Available Not Available No t Available Entresto 24 mg-26 mg tablet TAKE ONE TABLET TWICE DAILY IN THE MORNING AND AT BEDTIME active Not Available Not Available N ot Available Entresto Entresto 24-26MG Tablet 2023 active Statu s: 'Curr ent'; Not Available Not Available Not Available Vraylar 1.5 mg capsule TAKE ONE CAPSULE EVERY MORNING active Not Available Not Available No t Available Xiidra 5 % eye drops in a dropperette instill one drop onto both eyes twice a day active Not Available Not Available Not Available Trelegy Ellipta 100 mcg-62.5 mcg-25 mcg powder for inhalation INHALE 1 PUFF ONCE DAILY active Not Available Not Available No t Available B Complex 1 (with folic acid) 0.4 mg tablet TAKE ONE TABLET EVERY MORNING active Not Available Not Available No t Available Mando Aerosphere 160 mcg-9mcg-4.8 mcg/actuatio n HFA aerosol inhaler INHALE TWO PUFFS TWICE DAILY, RINSE MOUTH AFTER USE active Not Available Not Available No t Available Vitals None Recorded Social History None recorded. Functional Status None recorded. Mental Status None recorded. Family History Nothing Reported. Medical History No medical history recorded. Gynecological HistoryNo gynecological history recorded. Obstetrics History GPAL:G 0 P 0 0 0 0 Past Encounters Encounter ID Performer Location Encounter Start Date Encounter Closed Date Diagnosis/Indication Diagnosis SNOMED-CT Code Diagnosis ICD10 Code Diagnosis IMO Codes Diagnosis Note [id number] Samira Farr, PT [facility] [place] [address] 10/07/2023 10:17:09 10/07/2023 11:27:55 Follow-up orthopedic assessment 770541919 Z47.1 History of left total knee replacement 0684293398 444170 Z96.370 [id number] Samira Farr, PT [facility] [address] [place] [address] 10/09/2023 13:25:01 10/09/2023 14:56:39 Follow-up orthopedic assessment [id number] Z47.1 History of left total knee replacement [id number] 621755 Z96.388 [id number] Samira Farr PT [facility] [address] [place] [address] 10/14/2023 11:54:55 10/14/2023 12:48:11 Follow-up orthopedic assessment 073395822 Z47.1 History of left total knee replacement 3371283260 263017 Z96.499 [id number] Samira Farr, PT [facility] [address] [place] [address] 10/16/2023 13:01:14 10/16/2023 13:54:19 Follow-up orthopedic assessment 336516629 Z47.1 History of left total knee replacement 9083641784 839345 Z96.901 [id number] Phuong Galdino, MACH[employer]ED [employer]S QUALITY INSPECTOR [facility] [address] [place], [place] [address] 10/21/2023 12:47:23 10/21/2023 14:10:18 Follow-up orthopedic assessment 478571392 Z47.1 History of left total knee replacement 1279245151 966595 Z96.352 [id number] Phuong Hsuetrius, MACH[employer]S QUALITY INSPECTOR [facility] [address] [place], [place] [address] 10/27/2023 11:41:38 10/27/2023 13:29:07 Follow-up orthopedic assessment 234282887 Z47.1 History of left total knee replacement 3610015557 978148 Z96.731 [id number] Samira Farr, PT [facility] [address] [place], [place] [address] 10/29/2023 10:16:37 10/29/2023 11:32:26 Follow-up orthopedic assessment 965750635 Z47.1 History of left total knee replacement 7119813117 209852 Z96.448 [id number] Samira Farr, PT [facility] [address] [place] [address] 11/03/2023 11:50:17 11/03/2023 13:38:15 Follow-up orthopedic assessment 152586234 Z47.1 History of left total knee replacement 4260169801 911043 Z96.139 [id number] Phuong Hsuetrius, MACH[employer]ED [employer]S QUALITY INSPECTOR [facility] [address] [place], [place] [address] 11/06/2023 15:04:45 11/06/2023 21:35:38 Follow-up orthopedic assessment 720730082 Z47.1 History of left total knee replacement 1016790261 001453 Z96.721 [id number] Samira Farr, PT [facility] [address] [place], [place] [address] 11/10/2023 13:22:07 11/10/2023 15:02:47 Follow-up orthopedic assessment 026984761 Z47.1 History of left total knee replacement 4488699688 541805 Z96.114 [id number] Samira Farr, PT [facility] [address] [place] [address] 11/12/2023 11:54:38 11/12/2023 13:25:22 Follow-up orthopedic assessment 575051421 Z47.1 History of left total knee replacement 0471645168 988210 Z96.189 [id number] Samira Farr PT [facility] [address] [place] [address] 11/17/2023 11:56:57 11/17/2023 13:30:25 Follow-up orthopedic assessment 238711830 Z47.1 History of left total knee replacement 9513792525 584413 Z96.587 [id number] Phuong Galdino, MACHINED [employer]S QUALITY INSPECTOR [facility] [address] [place] [address] 11/19/2023 10:21:23 11/19/2023 12:01:32 Follow-up orthopedic assessment 268091094 Z47.1 History of left total knee replacement 6662463524 921227 Z96.775 [id number] Samira Farr PT [facility] [address] [place] [address] 11/24/2023 11:48:48 11/24/2023 12:51:33 Follow-up orthopedic assessment 403799506 Z47.1 History of left total knee replacement 4079273844 075371 Z96.480 [id number] Phuong Galdino, MACH[employer]ED [employer]S QUALITY INSPECTOR [facility] [address] [place] [address] 12/01/2023 12:51:06 12/01/2023 15:37:54 Follow-up orthopedic assessment 490911435 Z47.1 History of left total knee replacement 2184786406 720696 Z96.570 [id number] Phuong Galdino, MACHINED [employer]S QUALITY INSPECTOR [facility] [address] [place] [address] 12/03/2023 12:13:48 12/03/2023 13:28:37 Follow-up orthopedic assessment 975000728 Z47.1 History of left total knee replacement 8989264696 482505 Z96.769 [id number] Samira Farr, PT [facility] [address] [place] [address] 12/08/2023 11:55:17 12/08/2023 12:55:49 Follow-up orthopedic assessment 886376775 Z47.1 History of left total knee replacement 3133250233 964435 Z96.819 [id number] Samira Farr, PT [facility] [address] [place] [address] 12/15/2023 10:23:41 12/15/2023 11:29:51 Follow-up orthopedic assessment 773551745 Z47.1 History of left total knee replacement 7576905202 468323 Z96.789 [id number] Phuong Galdino, MACH[employer]ED [employer]S QUALITY INSPECTOR [facility] [address] [place] [address] 12/18/2023 13:26:24 12/18/2023 14:37:19 Follow-up orthopedic assessment 473393148 Z47.1 History of left total knee replacement 3138046485 359623 Z96.264 [id number] Samira Farr, PT [facility] [address] [place], [place] [address] 12/22/2023 10:50:11 12/22/2023 12:50:03 Follow-up orthopedic assessment 602697697 Z47.1 History of left total knee replacement 9616105411 173761 Z96.797 [id number] Phuong Galdino, MACH[employer]ED [employer]S QUALITY INSPECTOR [facility] [address] [place], [place] [address] 12/30/2023 14:27:06 12/30/2023 15:30:51 Follow-up orthopedic assessment 602482188 Z47.1 History of left total knee replacement 2374565241 950796 Z96.159 [id number] Phuong Galdino, MACHINED [employer]S QUALITY INSPECTOR [facility] [address] [place], [place] [address] 01/06/2024 14:20:53 01/06/2024 15:14:37 Follow-up orthopedic assessment 352872585 Z47.1 History of left total knee replacement 1026002122 639361 Z96.509 [id number] Samira Farr, PT [facility] [address] [place], [place] [address] 01/12/2024 11:21:09 01/12/2024 12:37:58 Follow-up orthopedic assessment 663952504 Z47.1 History of left total knee replacement 3925587008 806784 Z96.727 [id number] Phuong Galdino, MACH[employer]ED [employer]S QUALITY INSPECTOR [facility] [address] [place], [place] [address] 01/20/2024 14:28:32 01/20/2024 20:18:21 Follow-up orthopedic assessment 929392302 Z47.1 History of left total knee replacement 3242721631 241777 Z96.982 [id number] Samira Farr, PT [facility] [address] [place] [address] 02/03/2024 11:55:58 02/03/2024 12:46:00 Follow-up orthopedic assessment 789768031 Z47.1 History of left total knee replacement 0215007232 373903 Z96.060 [id number] Phuong Galdino, MACH[employer]ED [employer]S QUALITY INSPECTOR [facility] [address] [place], [place] [address] 02/10/2024 14:16:42 02/10/2024 15:34:53 Follow-up orthopedic assessment 110400011 Z47.1 History of left total knee replacement 1709028140 667688 Z96.442 [id number] Phuong Galdino, MACH[employer]ED [employer]S QUALITY INSPECTOR [facility] [address] [place] [address] 02/17/2024 10:20:08 02/17/2024 11:24:22 Follow-up orthopedic assessment 597753144 Z47.1 History of left total knee replacement 5338508425 106255 Z96.710 [id number] Phuong Galdino, MACHINED [employer]S QUALITY INSPECTOR [facility] [address] [place], [place] [address] 02/24/2024 14:19:44 02/24/2024 15:17:55 Follow-up orthopedic assessment 306274319 Z47.1 History of left total knee replacement 6601198589 525077 Z96.022 [id number] Samira Farr, PT [facility] [address] [place], [place] [address] 03/02/2024 12:38:56 03/02/2024 14:19:21 Follow-up orthopedic assessment 351355604 Z47.1 History of left total knee replacement 1763620089 723571 Z96.196 [id number] Phuong Galdino, MACH[employer]ED [employer]S QUALITY INSPECTOR [facility] [address] [place], [place] [address] 03/09/2024 14:22:52 03/09/2024 15:26:36 Follow-up orthopedic assessment 825525127 Z47.1 History of left total knee replacement 8995930938 572199 Z96.882 [id number] Phuong Galdino, MACH[employer]ED [employer]S QUALITY INSPECTOR [facility] [address] [place] [address] 03/16/2024 12:22:49 03/16/2024 14:15:09 Follow-up orthopedic assessment 531200196 Z47.1 History of left total knee replacement 4829055681 519562 Z96.529 [id number] Samira Farr, PT [facility] [address] [place] [address] 03/30/2024 11:01:52 03/30/2024 13:27:58 Follow-up orthopedic assessment [id number] Z47.1 History of left total knee replacement 1879237624 176590 Z96.182 [id number] Samira Farr, PT [facility] [address] [place] [address] 06/30/2024 12:26:46 06/30/2024 13:30:01 Follow-up orthopedic assessment 114300493 Z47.1 History of left total knee replacement 1086618484 689853 Z96.652 Health Concerns Section Related Observation LastModified by Organization Detai ls LastModified Time None Recorded Concern Status LastModified by Organization Details LastModified Time None Recorded Advance Directives Directive None Recorded Payers Insurance Date Sequence Insurance Name Policy Number Policy Galdamez Covered Member ID Galdamez Member ID Guarantor Name 07/10/2024 1 [place] [employer] [facility] [id number] [facility] 01/05/2024 2 [id number] [facility] [id number] [facility] 07/17/2024 2 [place] [id number] [facility] [id number] [facility] Notes Date Note Type Note Provider Name and Address Organization Details Recorded Time 03/02/2024 text/html Pt reports calling MD for concerns about crunching/clicking noises in the knee, He said as long as there's no px I shouldn't be concerned no px c/o's at this time Samira Farr, PT [address], [place], [address], [facility] 03/02/2024 13:55:36 03/09/2024 text/html Pt reports feeling a little bit stronger but still bothered by clicking of the knee when flexing/extending. no px c/o's Phuong Ahmadi, MACHINED PARTS QUALITY INSPECTOR [address], [place], [address], [facility] 03/09/2024 15:31:09 03/16/2024 text/html Pt reports having poor balance; I fell this morning trying to bend over to put my hair up in a ponytail, but I didn't hurt anything Phuong Ahmadi, MACHINED PARTS QUALITY INSPECTOR [address], [place], [address], [facility] 03/16/2024 13:36:31 03/30/2024 text/html looking for comprehensive HEP. also considering going to the gym for stationary bike, machines, and pool, or even fitness at the senior center. Samira Farr, PT [address], [place], [address], [facility] 03/30/2024 13:21:55 06/30/2024 text/html 73 y/o female s/p L TKA revision on 08/24/2023 - outside referral CT. Pt is now 10 months post op, and presents with cont'd c/o's of weakness, and notes several falls at home. Pt cont's with moderate L quad weakness, and unsteadiness on feet.PMH: defibrillator Samira Farr, PT [address], [place], [address], [facility] 07/06/2024 13:40:55 OBGyn Episode No OBEpisode recorded.
--- OUTSIDE RECORDS SUMMARY | 2025-04-12 17:45 | XMS_ITS | Encounter Summary ---
Author Organization [facility] Address [address] [place] [address] Care Team Providers Care Keller Machine Operator Name Role Phone Unavailable Primary Care Provider Unavailabl e Encounter Details Date Type Department Care Team (Late st Contact Info) Description 07/28/2023 Lab Requisition [facility] [address] [place] [address] Tremayne Adams MD [address] [place] [address] Social History Tobacco Use Types Packs/Day Years [...] STOOLS ORDERABLES Final Result Performing Organization Address City/[facility]/ZIP Co de Phone Number LABORATORY SERVICES [id number] [place] [address], [place] * Body Fluid Culture, With Gram [...] GENERAL ORDERABLES Final Result Performing Organization Address City/[facility] Co de Phone Number LABORATORY SERVICES [id number] [place] [address], [place] * Body fluid cell count w/reflex [...] STOOLS ORDERABLES Final Result Performing Organization Address [facility] Co de Phone Number LABORATORY SERVICES [id number] [address] [place] [address], * Synovial fluid, Analysis (07/28/2023 1:40 PM [...] STOOLS ORDERABLES Final Result Performing Organization Address City/[facility] Co de Phone Number LABORATORY SERVICES [id number] [address] [place] [address], documented in this encounter Visit Diagnoses Not on filedocumented in this encounter
--- OUTSIDE RECORDS SUMMARY | 2025-04-12 17:45 | XMS_ITS | Clinical Summary ---
Author Organization [facility] Address [address] [place] [address] Care Team Providers Care Cycle Specialist Name Role Phone Radha Henson MD Primary Care Provider [phone] Allergies Active Allergy Reactions Criticality Noted Date [...] Name Status Comments Brother Father (Age 50) [place] Mother (Age 86) Kidney Ron lure Sister [...] Assessment 2014 Osteoporosis Screening (DEXA Scan) 2014 RSV Adult > 60+ Yrs or (1 - 1-dose 75+ series) 2024 COVID-19 Vaccine (3 - 2024-2 6 season) 2025 11/16/2020, 10/26/2020 Influenza Vaccine (#1) 2025 , 03/08/2020 DTap [...] this topic Medical Devices Implanted Type Area [employer] Driver Device Identifier Shelf Expiration Date Model / Serial / Lot Oss Diaphyseal Segment With Screws 17cm Implanted:Qty: 1 on 08/24/2023 by Tremayne Adams MD at [facility] Total Joint Left: Knee [id number] 07/07/2024 / / [id number] Oss Segmental Femoral Component Left 8.5cm Rs Implanted:Qty: 1 on 08/24/2023 by Tremayne Adams MD at [facility] Total Joint Left: Knee [id number] 12/15/2032 / / [id number] Rs Axle Implanted:Qty: 1 on 08/24/2023 by Tremayne Adams MD at [facility] Total Joint Left: Knee [id number] 12/30/2032 / / [id number] Rs Femoral [place] Set Implanted:Qty: 1 on 08/24/2023 by Tremayne Adams MD at [facility] Total Joint Left: Knee [id number] 01/13/2028 / / [id number] Ls Tibial Bearing 12mm Implanted:Qty: 1 on 08/24/2023 by Tremayne Adams MD at [facility] Total Joint Left: Knee [id number] 01/22/2028 / / [id number] Device Angio-Seal Vip .035in 70cm 6fr Valuelink Guidewire - 832400 - [id number] Implanted:2020 at [facility] (Quantity not on file) [facility] [employer],[employer] [id number] / / Cement Simplex P Radiopaque Full Dose Bone 10 Pack - 455692 - [id number] Implanted:Qty: 1 on 10/18/2020 by Tremayne Adams MD at [facility] Left: Knee [facility] 03/07/2022 6191-06-08 0 / / [id number] Cement Simplex P Radiopaque Full Dose Bone 10 Pack - 319599 - [id number] Implanted:Qty: 1 on 10/18/2020 by Tremayne Adams MD at [facility] Left: Knee [facility] 03/07/2022 6191 0 / / [id number] Plug Artisan Medium 25mm Plug Bone Cement - 076875 - [id number] Implanted:Qty: 1 on 10/18/2020 by Tremayne Adams MD at [facility] Left: Knee [facility] [id number] 08/17/2025 6215-5-01 1 / / [id number] Augment Triathlon B Cone Symmetric Tritanium Tibial Latex - 635405 - [id number] Implanted:Qty: 1 on 10/18/2020 by Tremayne Adams MD at [facility] Left: Knee [facility] [id number] 03/29/2025 5549-A-12 0 / / [id number] Block Oss 63\[id number] Augmentation Tibia Left Medial Right - 061513 - [id number] Implanted:Qty: 1 on 10/18/2020 by Tremayne Adams MD at [facility] Left: Knee [employer] 04/07/2030 740802 / / [id number] Block 20mm Augmentation Tibial Knee - 198682 - [id number] Implanted:Qty: 1 on 10/18/2020 by Tremayne Adams MD at [facility] Left: Knee [employer] 04/12/2030 420769 / / [id number] Component Oss Long 63mm Nonmodular Tibial Plate Knee - 050183 - [id number] Implanted:Qty: 1 on 10/18/2020 by Tremayne Adams MD at [facility] Left: Knee [employer] 07/20/2030 911024 / / [id number] Cement Bone Surg Simplex Radiopq Stry-How 6457-9-322-55009 2 - [id number] Implanted:Qty: 1 on 08/24/2023 by Tremayne Adams MD at [facility] Left: Knee [facility] [id number] 10/05/2025 6190-06-08 0 / / [id number] Cement Bone Surg Simplex Radiopq Stry-How 3816-3-923-42422 2 - [id number] Implanted:Qty: 1 on 08/24/2023 by Tremayne Adams MD at [facility] Left: Knee [facility] [id number] 10/05/2025 6190-06-08 0 / / [id number] Plug Bone Med Stry-How 4374-1-761-70295 2 - [id number] Implanted:Qty: 1 on 08/24/2023 by Tremayne Adams MD at [facility] Left: Knee [facility] [id number] 04/27/2028 6215 1 / / [id number] Knee Stem Oss [place] 12.0x150 Zimm-Biom 215909-083043 - [id number] Implanted:Qty: 1 on 08/24/2023 by Tremayne Adams MD at [facility] Left: Knee JENNIFER BIOMET [id number] 08/14/2032 749151 / / [id number] Knee Oss Reinf Yoke [employer]om 844243-425477 - [id number] Implanted:Qty: 1 on 08/24/2023 by Tremayne Adams MD at [facility] Left: Knee JENNIFER [employer] [id number] 02/04/2033 703255 / / [id number] Knee Tib Pin Lock Oss Poly [employer] 837484-414174 - [id number] Implanted:Qty: 1 on 08/24/2023 by Tremayne Adams MD at [facility] Left: Knee JENNIFER [employer] [id number] 09/26/2027 223496 / / [id number] Knee Tib Bushing Comp Oss [employer] 098997-686723 - [id number] Implanted:Qty: 1 on 08/24/2023 by Tremayne Adams MD at [facility] Left: Knee JENNIFER [employer] [id number] 04/10/2027 613431 / / [id number] Explanted Type Area [employer] Driver Device Identifier Shelf Expiration Date Model / Serial / Lot Femoral And Tibial Component, Articular Insert, And Patella Explanted:Qty: 1 on 07/10/2020 at [facility] Left: Knee Cecilio Rods Implanted:Qty: 1 on 07/10/2020 by Tremayne Adams MD at [facility] Explanted:Qty: 1 on 09/05/2020 at [facility] Left: Knee Description:2 cecilio rods rem kareem Cement Simplex P Full Dose Radiopaque Tobramycin Bone - 001778 - [id number] Implanted:Qty: 1 on 07/10/2020 by Tremayne Adams MD at [facility] Explanted:Qty: 1 on 09/05/2020 at [facility] Left: Knee [facility] 10/05/2021 6197-9-01 0 / / [id number] Cement Simplex P Full Dose Radiopaque Tobramycin Bone - 430016 - [id number] Implanted:Qty: 1 on 07/10/2020 by Tremayne dAams MD at [facility] Explanted:Qty: 1 on 09/05/2020 at [facility] Left: Knee [facility] 10/05/2021 6197-9-01 0 / / [id number] Cement Simplex P Full Dose Radiopaque Tobramycin Bone - 257850 - [id number] Implanted:Qty: 1 on 07/10/2020 by Tremayne Adams MD at [facility] Explanted:Qty: 1 on 09/05/2020 at [facility] Left: Knee [facility] 10/05/2021 6197-9- 0 / / [id number] Cement Simplex P Full Dose Radiopaque Tobramycin Bone - 115805 - [id number] Implanted:Qty: 1 on 07/10/2020 by Tremayne Adams MD at [facility] Explanted:Qty: 1 on 09/05/2020 at [facility] Left: Knee [facility] 10/05/2021 6197-9- 0 / / [id number] Cement Simplex P Radiopaque Full Dose Bone 10 Pack - 260900 - [id number] Implanted:Qty: 1 on 09/05/2020 by Tremayne Adams MD at [facility] Explanted:Qty: 1 on 10/18/2020 by Tremayne Adams MD at [facility] Left: Knee [facility] [id number] 11/05/2021 6191- 0 / / [id number] Cement Simplex P Radiopaque Full Dose Bone 10 Pack - 515619 - [id number] Implanted:Qty: 1 on 09/05/2020 by Tremayne Adams MD at [facility] Explanted:Qty: 1 on 10/18/2020 by Tremayne Adams MD at [facility] Left: Knee [facility] [id number] 11/05/2021 6191- 0 / / [id number] Cement Simplex P Radiopaque Full Dose Bone 10 Pack - 126383 - [id number] Implanted:Qty: 1 on 09/05/2020 by Tremayne Adams MD at [facility] Explanted:Qty: 1 on 10/18/2020 by Tremayne Adams MD at [facility] Left: Knee [facility] [id number] 11/05/2021 6191-06-08 0 / / [id number] Cecilio Talib Implanted:Qty: 1 on 09/05/2020 by Tremayne Adams MD at [facility] Explanted:Qty: 1 on 10/18/2020 at [facility] Left: Knee Description:1 CECILIO TALIB IN P ATIENT(CUT IN HALF, 1 HALF IN TIBIA, 1 HALF IN FEMUR) Cement Simplex P Radiopaque Full Dose Bone 10 Pack - 385947 - [id number] Implanted:Qty: 1 on 09/05/2020 by Tremayne Adams MD at [facility] Explanted:Qty: 1 on 10/18/2020 by Tremayne Adams MD at [facility] Left: Knee [facility] [id number] 11/05/2021 6190-06-08 0 / / [id number] Cement Simplex P Radiopaque Full Dose Bone 10 Pack - 438776 - [id number] Implanted:Qty: 1 on 09/05/2020 by Tremayne Adams MD at [facility] Explanted:Qty: 1 on 10/18/2020 by Tremayne Adams MD at [facility] Left: Knee [facility] [id number] 11/05/2021 6191 0 / / [id number] Cement Simplex P Radiopaque Full Dose Bone 10 Pack - 859202 - [id number] Implanted:Qty: 1 on 10/18/2020 by Tremayne Adams MD at [facility] Explanted:Qty: 1 on 08/24/2023 by Tremayne Adams MD at [facility] Left: Knee [facility] 03/07/2022 6191 0 / / [id number] Cement Simplex P Radiopaque Full Dose Bone 10 Pack - 367957 - [id number] Implanted:Qty: 1 on 10/18/2020 by Tremayne Adams MD at [facility] Explanted:Qty: 1 on 08/24/2023 by Tremayne Adams MD at [facility] Left: Knee [facility] 03/07/2022 6191-1-01 0 / / [id number] Plug Artisan Medium 25mm Plug Bone Cement - 379226 - [id number] Implanted:Qty: 1 on 10/18/2020 by Tremayne Adams MD at [facility] Explanted:Qty: 1 on 08/24/2023 by Tremayne Adams MD at [facility] Left: Knee [facility] [id number] 08/17/2025 6215-5-01 1 / / [id number] Stem Oss [place] 150mm 13mm Cemented Femoral Knee Intramedullary - 259236 - [id number] Implanted:Qty: 1 on 10/18/2020 by Tremayne Adams MD at [facility] Explanted:Qty: 1 on 08/24/2023 by Tremayne Adams MD at [facility] Left: Knee [employer] [id number] 04/12/2030 620926 / / [id number] Pin Lock Oss Poly - 916160 - [id number] Implanted:Qty: 1 on 10/18/2020 by Tremayne Adams MD at [facility] Explanted:Qty: 1 on 08/24/2023 by Tremayne Adams MD at [facility] Left: Knee [employer] [id number] 07/04/2025 767830 / / [id number] Bushing Tibial Oss Poly - 776747 - [id number] Implanted:Qty: 1 on 10/18/2020 by Tremayne Adams MD at [facility] Explanted:Qty: 1 on 08/24/2023 by Tremayne Adams MD at [facility] Left: Knee [employer] [id number] 09/24/2025 017850 / / [id number] Axle Oss Femoral Knee - 633219 - [id number] Implanted:Qty: 1 on 10/18/2020 by Tremayne Adams MD at [facility] Explanted:Qty: 1 on 08/24/2023 by Tremayne Adams MD at [facility] Left: Knee [employer] [id number] 05/25/2030 658128 / / [id number] Bushing Oss Reduced Poly Femoral Hip - 534569 - [id number] Implanted:Qty: 1 on 10/18/2020 by Tremayne Adams MD at [facility] Explanted:Qty: 1 on 08/24/2023 by Tremayne Adams MD at [facility] Left: Knee [employer] [id number] 07/11/2025 869377 / / [id number] Yoke Oss Reinforced - 278348 - [id number] Implanted:Qty: 1 on 10/18/2020 by Tremayne Adams MD at [facility] Explanted:Qty: 1 on 08/24/2023 by Tremayne Adams MD at [facility] Left: Knee [employer] [id number] 09/04/2030 787587 / / [id number] Bushing Oss Reduced Poly Femoral Hip - 243510 - [id number] Implanted:Qty: 1 on 10/18/2020 by Tremayne Adams MD at [facility] Explanted:Qty: 1 on 08/24/2023 by Tremayne Adams MD at [facility] Left: Knee [employer] [id number] 06/20/2025 524898 / / [id number] Bearing Oss 16mm Reduced Lateral Stabilized Tibial - 836415 - [id number] Implanted:Qty: 1 on 10/18/2020 by Tremayne Adams MD at [facility] Explanted:Qty: 1 on 08/24/2023 by Tremayne Adams MD at [facility] Left: Knee [employer] 09/14/2023 420016 / / [id number] Component Oss Ellipse 7cm Segmental Reduce Femoral Knee - 076061 - [id number] Implanted:Qty: 1 on 10/18/2020 by Tremayne Adams MD at [facility] Explanted:Qty: 1 on 08/24/2023 by Tremayne Adams MD at [facility] Left: Knee [employer] 07/24/2030 753275 / / [id number] Advance Directives For more information, please contact: [phone] Documents on File Type Date Recorded 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 Care Teams Cycle Specialist Relationship Specialty Start Date End Date Radha Henson MD [address] [address] PCP - General Internal Medicine 07/05/21
--- OUTSIDE RECORDS SUMMARY | 2025-04-12 17:45 | XMS_ITS | Encounter Summary ---
Author Organization [employer] Address [address] [facility] 7 [place] [address] Care Team Providers Care Machine Sorter Name Role Phone Unavailable Primary Care Provider Unavailabl e Reason for Visit * Reason Onset Date Comments rs same day cx appt 12/20/2024 Encounter Details Date Type Department Care Team (Late Contact Info) Description 12/20/2024 Telephone [facility] [address] [place] [address] Sofiya Hunt same day cx appt Social History Tobacco Use Types Packs/Day Years Used Date Smoking Tobacco: Never Passive Smoke Exposure: Never Smokeless Tobacco: Never Comments Unknown Sex and Gender Information Value Date Recorded Sex Assigned at Female 04/07/2022 10:34 AM EDT Legal Sex Female 10:34 AM EDT Gender Identity Female 04/07/2022 10:34 AM EDT Sexual Orientation Straight 04/07/2022 10 :34 AM EDT documented as of this encounter Miscellaneous Notes * Telephone Encounter - Latoya Trinidad - 12/20/2024 3:54 PM EDT Patient seeking to same day cx appt. Patient informed there is waiting period prior to rs same day cx appt. Patieent informed office will reach out to rs DR documented in this encounter Plan of Treatment Upcoming Encounters Date Type Department Care Team ([facility] Contact Info) Description 04/18/2025 10:15 AM EST Office Visit [facility] [address] [place] [address] Farhat Stoner documented as of this encounter Visit Diagnoses Not on filedocumented in this encounter
--- OUTSIDE RECORDS SUMMARY | 2025-04-12 17:45 | XMS_ITS ---
Author Name [facility] Organization Unknown Results Test Name/Text Value Interpretation Date Range Source POTASSIUM SERPL SCNC 3.9 mmol/L Normal 08/27/2023 3.5 - 5.1 [facility] Glomerular filtration rate/1.73 sq M. predicted 59.0 Below low normal 08/27/2023 60 - [facility] CALCIUM SERPL MCNC 9.1 mg/dL Normal 08/27/2023 8.4 - 10.2 [facility] HCO3 SER SCNC 23.0 mmol/L Below low normal 08/27/2023 24 - 3 2 [facility] BUN SERPL MCNC 18.0 mg/dL Above high normal 08/27/2023 7 - 1 7 [facility] SODIUM SERPL SCNC 137.0 mmol/L Normal 08/27/2023 135 - 14 5 [facility] CREAT SERPL MCNC 1.0 mg/dL Normal 08/27/2023 0.5 - 1 [facility] GLUCOSE SERPL MCNC 82.0 mg/dL Normal 08/27/2023 70 - 199 [facility] ANION GAP SERPL SCNC 10.0 mmol/L Normal 08/27/2023 5 - 14 [facility] CHLORIDE SERPL SCNC 104.0 mmol/L Normal 08/27/2023 98 - 1 07 [facility] HGB BLD MCNC 11.3 g/dL Below low normal 08/27/2023 12.5 - 16 [facility] HCT VFR BLD AUTO 32.3 % Below low normal 08/27/2023 37 - 47 [facility] MCV RBC AUTO 94.2 fL Normal 08/27/2023 78 - 100 [facility] MCH RBC QN AUTO 33.0 pg Normal 08/27/2023 25 - 33 [facility] RDW RBC AUTO RTO 15.4 % Normal 08/27/2023 12.1 - 16.2 [facility] MCHC RBC AUTO MCNC 35.0 g/dL Normal 08/27/2023 32 - 36 [facility] RBC NO. BLD AUTO 3.43 M/uL Below low normal 08/27/2023 4.2 - 5.4 [facility] WBC NO. BLD AUTO 7.6 K/uL Normal 08/27/2023 4 - 10.5 [facility] PLATELET NO. BLD AUTO 153.0 K/uL Normal 08/27/2023 150 - 450 [facility] PMV BLD AUTO 9.5 fL Normal 08/27/2023 7.4 - 11.4 [facility] WBC NO. BLD AUTO 7.3 K/uL Normal 08/26/2023 4 - 10.5 [facility] MCH RBC QN AUTO 31.7 pg Normal 08/26/2023 25 - 33 [facility] RDW RBC AUTO RTO 15.4 % Normal 08/26/2023 12.1 - 16.2 [facility] PLATELET NO. BLD AUTO 115.0 K/uL Below low normal 08/26/2023 150 - 450 [facility] HCT VFR BLD AUTO 31.2 % Below low normal 08/26/2023 37 - 47 [facility] MCHC RBC AUTO MCNC 33.9 g/dL Normal 08/26/2023 32 - 36 [facility] PMV BLD AUTO 8.8 fL Normal 08/26/2023 7.4 - 11.4 [facility] HGB BLD MCNC 10.6 g/dL Below low normal 08/26/2023 12.5 - 16 [facility] RBC NO. BLD AUTO 3.33 M/uL Below low normal 08/26/2023 4.2 - 5.4 [facility] MCV RBC AUTO 93.7 fL Normal 08/26/2023 78 - 100 [facility] CHLORIDE SERPL SCNC 105.0 mmol/L Normal 08/26/2023 98 - 1 07 [facility] POTASSIUM SERPL SCNC 4.1 mmol/L Normal 08/26/2023 3.5 - 5.1 [facility] SODIUM SERPL SCNC 137.0 mmol/L Normal 08/26/2023 135 - 14 5 [facility] HCO3 SER SCNC 24.0 mmol/L Normal 08/26/2023 24 - 32 [facility] CALCIUM SERPL MCNC 8.4 mg/dL Normal 08/26/2023 8.4 - 10.2 [facility] CREAT SERPL MCNC 1.3 mg/dL Above high normal 08/26/2023 0.5 - 1 [facility] GLUCOSE SERPL MCNC 95.0 mg/dL Normal 08/26/2023 70 - 199 [facility] ANION GAP SERPL SCNC 8.0 mmol/L Normal 08/26/2023 5 - 14 [facility] BUN SERPL MCNC 28.0 mg/dL Above high normal 08/26/2023 7 - 1 7 [facility] Glomerular filtration rate/1.73 sq M. predicted 43.0 Below low normal 08/26/2023 60 - [facility] POTASSIUM SERPL SCNC 4.4 mmol/L Normal 08/25/2023 3.5 - 5.1 [facility] BUN SERPL MCNC 25.0 mg/dL Above high normal 08/25/2023 7 - 1 7 [facility] SODIUM SERPL SCNC 138.0 mmol/L Normal 08/25/2023 135 - 14 5 [facility] CREAT SERPL MCNC 1.1 mg/dL Above high normal 08/25/2023 0.5 - 1 [facility] ANION GAP SERPL SCNC 6.0 mmol/L Normal 08/25/2023 5 - 14 [facility] CHLORIDE SERPL SCNC 107.0 mmol/L Normal 08/25/2023 98 - 1 07 [facility] Glomerular filtration rate/1.73 sq M. predicted 53.0 Below low normal 08/25/2023 60 - [facility] HCO3 SER SCNC 25.0 mmol/L Normal 08/25/2023 24 - 32 [facility] CALCIUM SERPL MCNC 8.7 mg/dL Normal 08/25/2023 8.4 - 10.2 [facility] GLUCOSE SERPL MCNC 124.0 mg/dL Normal 08/25/2023 70 - 199 [facility] WBC NO. BLD AUTO 9.8 K/uL Normal 08/25/2023 4 - 10.5 [facility] MCHC RBC AUTO MCNC 34.0 g/dL Normal 08/25/2023 32 - 36 [facility] MCV RBC AUTO 93.5 fL Normal 08/25/2023 78 - 100 [facility] RDW RBC AUTO RTO 15.5 % Normal 08/25/2023 12.1 - 16.2 [facility] RBC NO. BLD AUTO 3.45 M/uL Below low normal 08/25/2023 4.2 - 5.4 [facility] PLATELET NO. BLD AUTO 118.0 K/uL Below low normal 08/25/2023 150 - 450 [facility] HGB BLD MCNC 11.0 g/dL Below low normal 08/25/2023 12.5 - 16 [facility] HCT VFR BLD AUTO 32.3 % Below low normal 08/25/2023 37 - 47 [facility] MCH RBC QN AUTO 31.8 pg Normal 08/25/2023 25 - 33 [facility] PMV BLD AUTO 8.9 fL Normal 08/25/2023 7.4 - 11.4 [facility] CORRECTED TEMP 96.8 F Normal 08/24/2023 [facility] HGB BLDC MCNC 8.2 g/dL Below low normal 08/24/2023 12.5 - 1 6 [facility] CA I BLDC SCNC 1.21 mmol/L Normal 08/24/2023 1.19 - 1.35 [facility] BLOOD GAS SITE Capillary Normal 08/24/2023 [facility] POTASSIUM BLDC SCNC 3.6 mmol/L Normal 08/24/2023 3.5 - 5. 1 [facility] Service Cmmt XXX-Imp ISTAT Normal 08/24/2023 [facility] pCO2 temp adj Bld 30.8 mmHg Below low normal 08/24/2023 35 - 45 [facility] GLUCOSE BLDC GLUCOMTR MCNC 100.0 mg/dL Normal 08/24/2023 70 - 199 [facility] SODIUM BLDC SCNC 138.0 mmol/L Normal 08/24/2023 135 - 145 [facility] SAO2% BLDA 100.0 % Above high normal 08/24/2023 95 - 98 [facility] HCO3 BLDA SCNC 22.3 mmol/L Normal 08/24/2023 22 - 26 [facility] BASE DEFICIT BLDA SCNC 2.0 mmol/L Normal 08/24/2023 0 - 2 [facility] pO2 temp adj Bld 274.0 mmHg Above high normal 08/24/2023 80 - 105 [facility] PH TEMP ADJ BLDA 7.463 Above high normal 08/24/2023 7.35 - 7.45 [facility] O2/INSPIRED GAS SETTING VFR VENT 60.0 % Normal 08/24/2023 [facility] HCT VFR BLDC 24.0 % Below low normal 08/24/2023 37 - 47 [facility] BUN SERPL MCNC 25.0 mg/dL Above high normal 08/24/2023 7 - 1 7 [facility] CREAT SERPL MCNC 1.3 mg/dL Above high normal 08/24/2023 0.5 - 1 [facility] Glomerular filtration rate/1.73 sq M. predicted 43.0 Below low normal 08/24/2023 60 - [facility] CALCIUM SERPL MCNC 9.1 mg/dL Normal 08/24/2023 8.4 - 10.2 [facility] HCO3 SER SCNC 25.0 mmol/L Normal 08/24/2023 24 - 32 [facility] SODIUM SERPL SCNC 138.0 mmol/L Normal 08/24/2023 135 - 14 5 [facility] CHLORIDE SERPL SCNC 106.0 mmol/L Normal 08/24/2023 98 - 1 07 [facility] ANION GAP SERPL SCNC 7.0 mmol/L Normal 08/24/2023 5 - 14 [facility] POTASSIUM SERPL SCNC 4.0 mmol/L Normal 08/24/2023 3.5 - 5.1 [facility] GLUCOSE SERPL MCNC 97.0 mg/dL Normal 08/24/2023 70 - 199 [facility] PHOSPHATE SERPL MCNC 3.1 mg/dL Normal 08/24/2023 2.5 - 4.5 [facility] MCH RBC QN AUTO 32.6 pg Normal 08/24/2023 25 - 33 [facility] RBC NO. BLD AUTO 3.17 M/uL Below low normal 08/24/2023 4.2 - 5.4 [facility] HGB BLD MCNC 10.3 g/dL Below low normal 08/24/2023 12.5 - 16 [facility] MCHC RBC AUTO MCNC 34.3 g/dL Normal 08/24/2023 32 - 36 [facility] RDW RBC AUTO RTO 14.9 % Normal 08/24/2023 12.1 - 16.2 [facility] WBC NO. BLD AUTO 5.2 K/uL Normal 08/24/2023 4 - 10.5 [facility] PLATELET NO. BLD AUTO 119.0 K/uL Below low normal 08/24/2023 150 - 450 [facility] MCV RBC AUTO 95.1 fL Normal 08/24/2023 78 - 100 [facility] PMV BLD AUTO 8.8 fL Normal 08/24/2023 7.4 - 11.4 [facility] HCT VFR BLD AUTO 30.1 % Below low normal 08/24/2023 37 - 47 [facility] MAGNESIUM SERPL MCNC 2.1 mg/dL Normal 08/24/2023 1.7 - 2.8 [facility] HCO3 SER SCNC 25.0 mmol/L Normal 08/23/2023 24 - 32 [facility] BUN SERPL MCNC 20.0 mg/dL Above high normal 08/23/2023 7 - 1 7 [facility] ANION GAP SERPL SCNC 8.0 mmol/L Normal 08/23/2023 5 - 14 [facility] SODIUM SERPL SCNC 139.0 mmol/L Normal 08/23/2023 135 - 14 5 [facility] CHLORIDE SERPL SCNC 106.0 mmol/L Normal 08/23/2023 98 - 1 07 [facility] CALCIUM SERPL MCNC 9.5 mg/dL Normal 08/23/2023 8.4 - 10.2 [facility] Glomerular filtration rate/1.73 sq M. predicted 48.0 Below low normal 08/23/2023 60 - [facility] CREAT SERPL MCNC 1.2 mg/dL Above high normal 08/23/2023 0.5 - 1 [facility] POTASSIUM SERPL SCNC 3.6 mmol/L Normal 08/23/2023 3.5 - 5.1 [facility] GLUCOSE SERPL MCNC 102.0 mg/dL Normal 08/23/2023 70 - 199 [facility] MCHC RBC AUTO MCNC 33.3 g/dL Normal 08/23/2023 32 - 36 [facility] MCV RBC AUTO 97.0 fL Normal 08/23/2023 78 - 100 [facility] WBC NO. BLD AUTO 5.5 K/uL Normal 08/23/2023 4 - 10.5 [facility] RBC NO. BLD AUTO 3.27 M/uL Below low normal 08/23/2023 4.2 - 5.4 [facility] HCT VFR BLD AUTO 31.7 % Below low normal 08/23/2023 37 - 47 [facility] RDW RBC AUTO RTO 14.8 % Normal 08/23/2023 12.1 - 16.2 [facility] PLATELET NO. BLD AUTO 125.0 K/uL Below low normal 08/23/2023 150 - 450 [facility] HGB BLD MCNC 10.6 g/dL Below low normal 08/23/2023 12.5 - 16 [facility] PMV BLD AUTO 9.3 fL Normal 08/23/2023 7.4 - 11.4 [facility] MCH RBC QN AUTO 32.3 pg Normal 08/23/2023 25 - 33 [facility] ABO+RH GP BLD O POSITIVE Normal 08/23/2023 [facility] BLD GP AB SCN SERPL QL NEGATIVE Normal 08/23/2023 [facility] BLOOD BANK CMNT PATIENT-IMP Testing performed at [facility], [address] [place] [address] [id number], Angie Burt MD Manager Decision Support, [facility] [id number] Normal 08/23/2023 [facility] PT TIME PPP 14.2 sec Above high normal 08/23/2023 10.5 - 13 .3 [facility] INR PPP 1.2 Above high normal 08/23/2023 0.8 - 1.1 C [facility] TRANS NUM UNITS PACKED RBC Refer to TYPE AND SCREEN Order, for Red Cell Product Data / Detail Normal 08/23/2023 [facility] MCHC RBC AUTO MCNC 34.1 g/dL Normal 08/23/2023 32 - 36 [facility] HCT VFR BLD AUTO 28.7 % Below low normal 08/23/2023 37 - 47 [facility] WBC NO. BLD AUTO 7.4 K/uL Normal 08/23/2023 4 - 10.5 [facility] RBC NO. BLD AUTO 3.0 M/uL Below low normal 08/23/2023 4.2 - 5.4 [facility] RDW RBC AUTO RTO 14.7 % Normal 08/23/2023 12.1 - 16.2 [facility] MCV RBC AUTO 95.5 fL Normal 08/23/2023 78 - 100 [facility] HGB BLD MCNC 9.8 g/dL Below low normal 08/23/2023 12.5 - 16 [facility] PLATELET NO. BLD AUTO 114.0 K/uL Below low normal 08/23/2023 150 - 450 [facility] MCH RBC QN AUTO 32.5 pg Normal 08/23/2023 25 - 33 [facility] PMV BLD AUTO 9.1 fL Normal 08/23/2023 7.4 - 11.4 [facility] MAGNESIUM SERPL MCNC 1.8 mg/dL Normal 08/22/2023 1.7 - 2.8 [facility] PHOSPHATE SERPL MCNC 2.9 mg/dL Normal 08/22/2023 2.5 - 4.5 [facility] SODIUM SERPL SCNC 139.0 mmol/L Normal 08/22/2023 135 - 14 5 [facility] CHLORIDE SERPL SCNC 107.0 mmol/L Normal 08/22/2023 98 - 1 07 [facility] CREAT SERPL MCNC 1.0 mg/dL Normal 08/22/2023 0.5 - 1 [facility] GLUCOSE SERPL MCNC 112.0 mg/dL Normal 08/22/2023 70 - 199 [facility] ANION GAP SERPL SCNC 8.0 mmol/L Normal 08/22/2023 5 - 14 [facility] HCO3 SER SCNC 24.0 mmol/L Normal 08/22/2023 24 - 32 [facility] BUN SERPL MCNC 15.0 mg/dL Normal 08/22/2023 7 - 17 [facility] CALCIUM SERPL MCNC 9.3 mg/dL Normal 08/22/2023 8.4 - 10.2 [facility] POTASSIUM SERPL SCNC 3.9 mmol/L Normal 08/22/2023 3.5 - 5.1 [facility] Glomerular filtration rate/1.73 sq M. predicted 59.0 Below low normal 08/22/2023 60 - [facility] MCH RBC QN AUTO 32.6 pg Normal 08/22/2023 25 - 33 [facility] MONOCYTES NFR BLD AUTO 16.9 % Above high normal 08/22/2023 2 - 12 [facility] NEUTROPHILS NO. BLD AUTO 3.9 K/uL Normal 08/22/2023 1.8 - 7.8 [facility] RBC NO. BLD AUTO 3.05 M/uL Below low normal 08/22/2023 4.2 - 5.4 [facility] PLATELET NO. BLD AUTO 107.0 K/uL Below low normal 08/22/2023 150 - 450 [facility] BASOPHILS NFR BLD AUTO 0.5 % Normal 08/22/2023 0 - 2 [facility] MCV RBC AUTO 95.6 fL Normal 08/22/2023 78 - 100 [facility] HGB BLD MCNC 10.0 g/dL Below low normal 08/22/2023 12.5 - 16 [facility] EOSINOPHIL NFR BLD AUTO 0.5 % Normal 08/22/2023 0 - 6 [facility] LYMPHOCYTES NFR BLD AUTO 10.6 % Below low normal 08/22/2023 20 - 48 [facility] PMV BLD AUTO 8.8 fL Normal 08/22/2023 7.4 - 11.4 [facility] MCHC RBC AUTO MCNC 34.1 g/dL Normal 08/22/2023 32 - 36 [facility] RDW RBC AUTO RTO 14.5 % Normal 08/22/2023 12.1 - 16.2 [facility] DIFFERENTIAL TYPE AUTOMATED Normal 08/22/2023 C [facility] NEUTROPHILS NFR BLD AUTO 71.5 % Normal 08/22/2023 44 - 74 [facility] EOSINOPHIL NO. BLD AUTO 0.0 K/uL Normal 08/22/2023 0 - 0.5 [facility] WBC NO. BLD AUTO 5.5 K/uL Normal 08/22/2023 4 - 10.5 [facility] BASOPHILS IN BLOOD BY AUTOMATED COUNT 0.0 K/uL Normal 08/22/2023 0 - 0.2 [facility] LYMPHOCYTES NO. BLD AUTO 0.6 K/uL Below low normal 08/22/2023 1 - 3.2 [facility] MONOCYTES NO. BLD AUTO 0.9 K/uL Above high normal 08/22/2023 0 - 0.8 [facility] HCT VFR BLD AUTO 29.2 % Below low normal 08/22/2023 37 - 47 [facility] Troponin I SerPl HS-mCnc 8.0 ng/L Normal 08/21/2023 0 - 14 [facility] PCO2 BLDA 42.5 mmHg Normal 08/21/2023 35 - 45 [facility] BASE EXCESS BLDA SCNC 2.0 mmol/L Normal 08/21/2023 0 - 2 [facility] HCO3 BLDA SCNC 26.8 mmol/L Above high normal 08/21/2023 22 - 26 [facility] SAO2% BLDA 31.0 % Below low normal 08/21/2023 95 - 98 C [facility] BLOOD GAS SITE VENOUS Normal 08/21/2023 [facility] PH BLDA 7.407 Normal 08/21/2023 7.35 - 7.45 [facility] PO2 BLDA 20.0 mmHg Below low normal 08/21/2023 80 - 105 [facility] PT TIME PPP 13.2 sec Normal 08/21/2023 10.5 - 13.3 [facility] INR PPP 1.1 Normal 08/21/2023 0.8 - 1.1 [facility] MCH RBC QN AUTO 32.7 pg Normal 08/21/2023 25 - 33 [facility] WBC NO. BLD AUTO 4.3 K/uL Normal 08/21/2023 4 - 10.5 [facility] MCHC RBC AUTO MCNC 33.6 g/dL Normal 08/21/2023 32 - 36 [facility] PMV BLD AUTO 9.3 fL Normal 08/21/2023 7.4 - 11.4 [facility] RBC NO. BLD AUTO 3.38 M/uL Below low normal 08/21/2023 4.2 - 5.4 [facility] HCT VFR BLD AUTO 33.0 % Below low normal 08/21/2023 37 - 47 [facility] PLATELET NO. BLD AUTO 126.0 K/uL Below low normal 08/21/2023 150 - 450 [facility] HGB BLD MCNC 11.1 g/dL Below low normal 08/21/2023 12.5 - 16 [facility] RDW RBC AUTO RTO 14.5 % Normal 08/21/2023 12.1 - 16.2 [facility] MCV RBC AUTO 97.4 fL Normal 08/21/2023 78 - 100 [facility] BUN SERPL MCNC 20.0 mg/dL Above high normal 08/21/2023 7 - 1 7 [facility] CREAT SERPL MCNC 1.0 mg/dL Normal 08/21/2023 0.5 - 1 [facility] POTASSIUM SERPL SCNC 4.2 mmol/L Normal 08/21/2023 3.5 - 5.1 [facility] HCO3 SER SCNC 27.0 mmol/L Normal 08/21/2023 24 - 32 [facility] Glomerular filtration rate/1.73 sq M. predicted 59.0 Below low normal 08/21/2023 60 - [facility] GLUCOSE SERPL MCNC 95.0 mg/dL Normal 08/21/2023 70 - 199 [facility] SODIUM SERPL SCNC 141.0 mmol/L Normal 08/21/2023 135 - 14 5 [facility] ANION GAP SERPL SCNC 7.0 mmol/L Normal 08/21/2023 5 - 14 [facility] CALCIUM SERPL MCNC 9.6 mg/dL Normal 08/21/2023 8.4 - 10.2 [facility] CHLORIDE SERPL SCNC 107.0 mmol/L Normal 08/21/2023 98 - 1 [facility]IMP Testing performed at [facility], [address] [place] [id number], Angie Burt MD Manager Decision Support, [facility] [id number] Normal 08/21/2023 [facility] BLD GP AB SCN SERPL QL NEGATIVE Normal 08/21/2023 [facility] ABO+RH GP BLD O POSITIVE Normal 08/21/2023 [facility] APTT TIME PPP 33.0 sec Normal 08/21/2023 25 - 37 [facility] GLUCOSE BLDC GLUCOMTR MCNC 95.0 mg/dL Normal 08/21/2023 70 - 199 [facility] ABO+RH GP BLD O POSITIVE Normal 08/19/2023 [facility] BLOOD BANK CMNT PATIENT-IMP Testing performed at [facility], [address] [place] [id number], Angie Burt MD Manager Decision Support, [facility] [id number] Normal 08/19/2023 [facility] BLD GP AB SCN SERPL QL NEGATIVE Normal 08/19/2023 [facility] PREALB SERPL NEPH MCNC 26.4 mg/dL Normal 08/19/2023 17 - 34 [facility] PT TIME PPP 13.7 sec Above high normal 08/19/2023 10.5 - 13 .3 [facility] INR PPP 1.1 Normal 08/19/2023 0.8 - 1.1 [facility] APTT TIME PPP 41.0 sec Above high normal 08/19/2023 25 - 37 [facility] GLUCOSE P FAST SERPL MCNC 78.0 mg/dL Normal 08/19/2023 70 - 99 [facility] PROT SERPL MCNC 7.2 g/dL Normal 08/19/2023 6.4 - 8.5 [facility] CHLORIDE SERPL SCNC 106.0 mmol/L Normal 08/19/2023 98 - 1 07 [facility] AST SERPL CCNC 29.0 U/L Normal 08/19/2023 5 - 40 [facility] HCO3 SER SCNC 28.0 mmol/L Normal 08/19/2023 24 - 32 [facility] BILIRUB SERPL MCNC 0.5 mg/dL Normal 08/19/2023 0.3 - 1 [facility] POTASSIUM SERPL SCNC 4.2 mmol/L Normal 08/19/2023 3.5 - 5.1 [facility] BUN SERPL MCNC 22.0 mg/dL Above high normal 08/19/2023 7 - 1 7 [facility] CALCIUM SERPL MCNC 9.8 mg/dL Normal 08/19/2023 8.4 - 10.2 [facility] ANION GAP SERPL SCNC 7.0 mmol/L Normal 08/19/2023 5 - 14 [facility] CREAT SERPL MCNC 1.2 mg/dL Above high normal 08/19/2023 0.5 - 1 [facility] ALBUMIN SERPL BCG MCNC 4.1 g/dL Normal 08/19/2023 3.5 - 5 [facility] SODIUM SERPL SCNC 141.0 mmol/L Normal 08/19/2023 135 - 14 5 [facility] ALT SERPL CCNC 20.0 U/L Normal 08/19/2023 7 - 52 [facility] Glomerular filtration rate/1.73 sq M. predicted 48.0 Below low normal 08/19/2023 60 - [facility] ALP SERPL-CCNC 76.0 U/L Normal 08/19/2023 34 - 104 [facility] DIFFERENTIAL TYPE AUTOMATED Normal 08/19/2023 [facility] MONOCYTES NFR BLD AUTO 17.8 % Above high normal 08/19/2023 2 - 12 [facility] PLATELET NO. BLD AUTO 114.0 K/uL Below low normal 08/19/2023 150 - 450 [facility] MCH RBC QN AUTO 32.4 pg Normal 08/19/2023 25 - 33 [facility] HGB BLD MCNC 10.9 g/dL Below low normal 08/19/2023 12.5 - 16 [facility] LYMPHOCYTES NO. BLD AUTO 0.9 K/uL Below low normal 08/19/2023 1 - 3.2 [facility] BASOPHILS IN BLOOD BY AUTOMATED COUNT 0.0 K/uL Normal 08/19/2023 0 - 0.2 [facility] BASOPHILS NFR BLD AUTO 0.8 % Normal 08/19/2023 0 - 2 [facility] NEUTROPHILS NFR BLD AUTO 44.6 % Normal 08/19/2023 44 - 74 [facility] MCV RBC AUTO 96.8 fL Normal 08/19/2023 78 - 100 [facility] MG EOSINOPHIL NO. BLD AUTO 0.0 K/uL Normal 08/19/2023 0 - 0.5 [facility] LYMPHOCYTES NFR BLD AUTO 34.8 % Normal 08/19/2023 20 - 48 [facility] EOSINOPHIL NFR BLD AUTO 2.0 % Normal 08/19/2023 0 - 6 [facility] PMV BLD AUTO 8.9 fL Normal 08/19/2023 7.4 - 11.4 [facility] EMG NEUTROPHILS NO. BLD AUTO 1.1 K/uL Below low normal 08/19/2023 1.8 - 7.8 [facility] HCT VFR BLD AUTO 32.5 % Below low normal 08/19/2023 37 - 47 [facility] MCHC RBC AUTO MCNC 33.4 g/dL Normal 08/19/2023 32 - 36 [facility] MONOCYTES NO. BLD AUTO 0.4 K/uL Normal 08/19/2023 0 - 0.8 [facility] WBC NO. BLD AUTO 2.5 K/uL Below low normal 08/19/2023 4 - 1 0.5 [facility] RDW RBC AUTO RTO 14.8 % Normal 08/19/2023 12.1 - 16.2 [facility] RBC NO. BLD AUTO 3.35 M/uL Below low normal 08/19/2023 4.2 - 5.4 [facility] History of Medication Use Medication Directions Dispensed Refills Start Date End Date Status Eliquis 5 mg tablet TAKE ONE TABLET TWICE DAILY IN THE MORNING AND AT BEDTIME 5 active white petrolatum 42 % ointment Apply topically. 5 active LORazepam (ATIVAN) 0.5 mg tablet TAKE ONE-HALF TABLET BY MOUTH ONE HOUR prior TO PROCEDURE NEEDED 5 active melatonin 3 mg tablet Take 1 tablet (3 mg total) by mouth at bedtime. 5 active spironolactone (ALDACTONE) 25 mg tablet TAKE ONE-HALF TABLET EVERY MORNING 5 active metoprolol succinate (TOPROL-XL) 25 mg 24 hr tablet Take 0.5 tablets (12.5 mg total) by mouth 1 (one) time each day. Do not crush or chew. 5 active furosemide (LASIX) 20 mg tablet Take 1 tablet (20 mg total) by mouth 1 (one) time each day if needed (if you notice leg edema or gain 2-3lb in 2 days). 5 active estradioL (ESTRACE) 0.01 % (0.1 mg/gram) vaginal cream Insert 2 g into the vagina at bedtime. 5 active sacubitriL-valsartan (Entresto) 24-26 mg per tablet Take 1 tablet by mouth 2 (two) times a day. 5 active tobramycin-dexAMETHa sone (TOBRADEX) ophthalmic suspension instill one drop in each eye four times daily 5 active cephalexin (KEFLEX) 500 MG capsule Take 1 capsule (500 mg total) by mouth 2 (two) times a day. 4 active sodium chloride 0.9 % SOLN 250 mL with vancomycin 1 g SOLR 1,250 mg Inject 1,250 mg into the vein daily for 11 days. 4 09/08/19 24 active amiodarone (PACERONE) 200 mg tablet Take 1 tablet (200 mg total) by mouth daily. 4 active apixaban (ELIQUIS) 2.5 mg tablet Take 2 tablets (5 mg total) by mouth 2 (two) times a day. 4 active apixaban (Eliquis) 2.5 MG TABS tablet Take 2 tablets (5 mg total) by mouth every 12 (twelve) hours. 4 active apixaban (Eliquis) 2.5 MG TABS tablet Take 2 tablets (5 mg total) by mouth every 12 (twelve) hours. 4 active apixaban (ELIQUIS) tablet 5 mg 5 mg, Oral, Every 12 hours scheduled (2 times per day), First dose (after last modification) on Thu08/26/23 at 2100 4 active Fluticasone-Umeclidi n-Vilant (Trelegy Ellipta) 100-62.5-25 MCG/ACT AEPB Inhale 1 puff into the lungs daily. 4 active Fluticasone-Umeclidi n-Vilant (Trelegy Ellipta) 100-62.5-25 MCG/ACT AEPB Inhale 1 puff into the lungs daily. 4 active fluticasone-umeclidi nium-vilanterol (Trelegy Ellipta) 100-62.5-25 mcg inhaler Inhale 1 puff into the lungs daily. 4 active spironolactone (ALDACTONE) tablet 25 mg Take 0.5 tablets (12.5 mg total) by mouth daily. 4 active lidocaine HCl (PF) (XYLOCAINE-MPF) 1 % injection floor stock 5 mL 5 mL, Infiltration, Once as needed, For PICC Line insertion, Starting on Thu08/25/23 at 2123, For 1 dose 4 08/27/19 completed apixaban (ELIQUIS) tablet 2.5 mg 2.5 mg, Oral, Every 12 hours scheduled (2 times per day), First dose on Thu08/26/23 at 0900 4 08/26/19 aborted lactated ringers bolus 250 mL 250 mL, Intravenous, Administer over 1 Hours, Once, On Thu08/25/23 at 2345, For 1 dose 4 08/26/19 completed cefTRIAXone (ROCEPHIN) 2 g injection Inject 2 g (2,000 mg total) into the vein daily for 11 days. 4 09/08/19 active lactated ringers infusion 100 mL/hr, Intravenous, Continuous, Starting on Thu08/24/23 at 0000 4 08/25/19 aborted tranexamic Acid 1,000 mg in sodium chloride 0.9% (NS) 100 mL IVPB-MBP 1,000 mg, Intravenous, Administer over 20 Minutes, Once, On Thu08/24/23 at 1615, For 1 dose, PACU/Phase 1Administer within 30 minutes arrival to PACU for OR 4 08/24/19 completed ceFAZolin (ANCEF) injection 2,000 mg 2,000 mg, Intravenous, 30 min pre-op, Starting on Thu08/24/23 at 0726Do not administer on nursing floor or pre-op area. Have ready for use in OR. For Adults, if ordered IV then reconstitute each 1GM vial with 10mL sterile water or normal saline and administer IV Push over 3-5 minutes. 4 active vancomycin (VANCOCIN) 1,250 mg in sodium chloride (NS) 0.9 % 250 mL IVPB 1,250 mg, Intravenous, at 166.7 mL/hr, Every 24 hours, First dose on 08/24/23 at 1900 4 active furosemide (LASIX) injection 20 mg 20 mg, Intravenous, Once, On Thu08/23/23 at 0000, For 1 dose 4 08/23/19 completed enoxaparin (LOVENOX) syringe 30 mg 30 mg, Subcutaneous, Every 12 hours scheduled (2 times per day), First dose on 08/22/23 at 2100, For 3 dosesAdminister in abdomen (at least 2 inches from navel) 4 08/24/19 completed magnesium sulfate 2 g/50ml IVPB Premix 2 g, Intravenous, at 50 mL/hr, Once, On 08/22/23 at 0845, For 1 dose 4 08/22/19 completed perflutren lipid microsphere (DEFINITY) IV contrast 0.5-10 mL, Intravenous, Once, On 08/22/23 at 1500, For 1 dose 4 08/22/19 completed simethicone (MYLICON) chewable tablet 80 mg 80 mg, Oral, Once, On 08/22/23 at 1200, For 1 dose 4 08/22/19 completed budesonide (PULMICORT) nebulizer solution 0.5 mg 0.5 mg, Nebulization, Every 12 hours scheduled (2 times per day), First dose on Thu08/21/23 at 2100 4 active cariprazine HCl (VRAYLAR) capsule 1.5 mg 1.5 mg, Oral, Daily, First dose on 08/22/23 at 0900Drug Name: Cariprazine HCLForm: CapLength of Therapy: IndefiniteHow soon needed? (normally 72 hrs needed to procure): 0-24 hrsReason for Non-Formulary: Medication is in stock per pharmacy 4 active famotidine (PEPCID) tablet 20 mg 20 mg, Oral, Daily, First dose on 08/22/23 at 0900Please select an indication: GERDIs this a home medication or a new start? Home Medication 4 active ferrous sulfate tablet 325 mg 325 mg, Oral, Every Morning with breakfast, First dose on Thu08/22/23 at [id number] mg elemental FE 4 active folic acid (FOLVITE) tablet 1,000 mcg 1,000 mcg, Oral, Daily, First dose on Thu08/22/23 at 0900 4 active formoterol (PERFOROMIST) nebulizer solution 20 mcg 20 mcg, Nebulization, Every 12 hours scheduled (2 times per day), First dose on Thu08/21/23 at 2100 4 active revefenacin (YUPELRI) nebulization solution 175 mcg 175 mcg, Nebulization, Daily, First dose on Thu08/22/23 at 0900Administer via mebulizer. Do not mix with other medications in nebulizer. 4 active sacubitril-valsartan (ENTRESTO) 24-26 MG per tablet 1 tablet 1 tablet, Oral, Every 12 hours scheduled (2 times per day), First dose on Thu08/21/23 at 2100 4 active spironolactone (ALDACTONE) tablet 25 mg Take 0.5 tablets (12.5 mg total) by mouth daily. 4 active HYDROmorphone (DILAUDID) injection 0.5 mg 0.5 mg, Intravenous, Every 15 min PRN, severe pain (7-10), Starting on Thu08/24/23 at 1528, PACU/Phase 1FOR PACU USE ONLY. If unable to take by mouth. Do not exceed 2 mg. Administer IV push over 2-3 minutes. 4 08/24/19 aborted lactated ringers infusion 75 mL/hr, Intravenous, Continuous, Starting on Thu08/21/23 at 1330 4 08/23/19 aborted metoprolol tartrate (LOPRESSOR) injection 2.5 mg 2.5 mg, Intravenous, Every 6 hours scheduled (4 times per day), First dose on Thu08/21/23 at 1800 4 08/23/19 aborted iopamidol (ISOVUE-370) 76 % injection 85 mL 85 mL, Intravenous, IMG once as needed, contrast, Starting on Thu08/21/23 at 1346, For 1 dose, Radiology ContrastLot #: [id number] Date: 03/22/2026 4 08/21/19 completed iopamidol (ISOVUE-370) 76 % injection 95 mL 95 mL, Intravenous, IMG once as needed, contrast, Starting on Thu08/21/23 at 1747, For 1 dose, Radiology ContrastLot #: [id number] Date: 03/22/2026 4 08/21/19 24 completed acetaminophen (TYLENOL) tablet 650 mg 650 mg, Oral, Every 6 hours PRN, mild pain (1-3), Starting on Thu08/21/23 at 1556 4 08/18/19 active albuterol inhaler 2 puff 2 puff, Inhalation, Every 6 hours PRN, shortness of breath, Starting on Thu08/21/23 at 1603Is this patient positive for the Covid-19 virus or a Person Under Investigation (PUI)? Other (explain in comments) 4 active ondansetron (ZOFRAN) injection 4 mg 4 mg, Intravenous, Every 6 hours PRN, nausea, vomiting, Starting on Thu08/21/23 at 1558IV push over 2 to 5 minutes. 4 active traZODone (DESYREL) tablet 50 mg 50 mg, Oral, Every Night at Bedtime PRN, sleep, Starting on Thu08/21/23 at 1606 4 active meclizine (ANTIVERT) 12.5 MG tablet daily. 4 08/27/19 24 aborted meclizine (ANTIVERT) 12.5 MG tablet daily. 4 suspended gabapentin (NEURONTIN) 100 MG capsule Take 1 capsule (100 mg total) by mouth daily. Take with 800mg for a total of 900mg tablet daily 4 08/27/19 suspended gabapentin (NEURONTIN) capsule 800 mg 800 mg, Oral, Every Night at Bedtime, First dose (after last modification) on Thu08/25/23 at 2200 4 08/25/19 active Eliquis 2.5 MG TABS tablet TAKE ONE TABLET TWICE DAILY IN THE MORNING AND AT BEDTIME 4 08/18/19 24 aborted Entresto 24-26 MG per tablet TAKE ONE TABLET TWICE DAILY IN THE MORNING AND AT BEDTIME 4 active gabapentin (NEURONTIN) 100 MG capsule Take 1 capsule (100 mg total) by mouth daily. Take with 800mg for a total of 900mg tablet daily 4 suspended gabapentin (NEURONTIN) 400 mg capsule Take 2 capsules (800 mg total) by mouth 1 (one) time each day. 4 active gabapentin (NEURONTIN) 400 MG capsule Take 2 capsules (800 mg total) by mouth daily. Take with 100mg for a total of 900mg daily 4 active gabapentin (NEURONTIN) 400 MG capsule 900 mg total q hs 4 active sacubitriL-valsartan (Entresto) 24-26 mg per tablet Take 1 tablet by mouth 2 (two) times a day. 4 active xtmqsieu-goiktmmzf-x examethamethasone (POLYDEX) 3.5-27286-2.[address] into both eyes 2 (two) times a week on Thursday and at 8PM. 4 08/19/19 24 aborted hazdxjsy-aoqdycqhk-c examethamethasone (POLYDEX) 3.5-02052-3.[address] into both eyes 2 (two) times a week on Thursday and at 8PM. 4 08/19/19 24 aborted Vraylar 1.5 MG capsule Take 1 capsule (1.5 mg total) by mouth daily. in the morning 4 08/18/19 24 aborted Skin Protectants, Misc. (Minerin Creme) CREA APPLY TO THE AFFECTED AREA(S) NEEDED DRY SKIN 4 08/18/19 24 aborted Calcium Carbonate 1500 (600 Ca) MG TABS Take 1 tablet by mouth every morning. 3 08/18/19 24 aborted sucralfate (CARAFATE) 1 g tablet Take 1 tablet (1 g total) by mouth every night at bedtime. 3 08/18/19 24 aborted aspirin 81 mg EC tablet Take 1 tablet (81 mg total) by mouth 1 (one) time each day. 3 active aspirin EC 81 MG tablet Take 1 tablet (81 mg total) by mouth every morning. 3 active metoprolol succinate (TOPROL-XL) 24 hr tablet 25 mg Take 1 tablet (25 mg total) by mouth every morning. 3 active metoprolol succinate (TOPROL-XL) 25 mg 24 hr tablet Take 1 tablet (25 mg total) by mouth every morning. 3 active Entresto 24-26 MG per tablet TAKE ONE TABLET TWICE DAILY IN THE MORNING AND AT BEDTIME 3 08/18/19 24 suspended cephalexin (KEFLEX) 500 MG capsule TAKE ONE CAPSULE TWICE DAILY IN THE MORNING AND AT BEDTIME 3 08/27/19 24 suspended cephalexin (KEFLEX) 500 MG capsule TAKE ONE CAPSULE TWICE DAILY IN THE MORNING AND AT BEDTIME 3 active ferrous sulfate 325 mg (65 mg elemental iron) tablet Take 1 tablet (325 mg total) by mouth 1 (one) time each day. 3 active apixaban (Eliquis) 2.5 MG TABS tablet TAKE ONE TABLET TWICE DAILY IN THE MORNING AND AT BEDTIME 3 08/27/19 24 suspended apixaban (Eliquis) 2.5 MG TABS tablet TAKE ONE TABLET TWICE DAILY IN THE MORNING AND AT BEDTIME 3 suspended traZODone (DESYREL) 50 mg tablet Take 1-2 tablets (50-100 mg total) by mouth at bedtime as needed for sleep. 3 active traZODone (DESYREL) 50 MG tablet Take 1-2 tablets (50-100 mg total) by mouth every night at bedtime as needed. 3 active traZODone (DESYREL) 50 MG tablet every night at bedtime as needed. 3 active traZODone (DESYREL) 50 MG tablet Take 1-2 tablets (50-100 mg total) by mouth every night at bedtime as needed. 3 suspended estradiol (ESTRACE) 0.1 MG/GM vaginal cream APPLY ONE GRAM VAGINALLY EVERY NIGHTLY FOR 2 WEEKS AND THEN USE 1-2 NIGHTS PER WEEK THEREAFTER 3 08/18/19 24 aborted levalbuterol (Xopenex HFA) 45 MCG/ACT inhaler INHALE TWO PUFFS EVERY 6 HOURS NEEDED SHORTNESS OF BREATH OR FOR WHEEZING 2 active levalbuterol (Xopenex HFA) 45 MCG/ACT inhaler INHALE TWO PUFFS EVERY 6 HOURS NEEDED SHORTNESS OF BREATH OR FOR WHEEZING 2 suspended levalbuterol (Xopenex HFA) 45 mcg/actuation inhaler INHALE TWO PUFFS EVERY 6 HOURS NEEDED SHORTNESS OF BREATH OR FOR WHEEZING 2 active levalbuterol (XOPENEX HFA) 45 mcg/actuation inhaler Inhale 2 puffs by mouth every 6 (six) hours if needed for wheezing or shortness of breath. 2 active furosemide (LASIX) 20 mg tablet Take 1 tablet as needed for swelling 2 active B Complex 1, with folic acid, 0.4 mg tablet Take 1 tablet by mouth 1 (one) time each day in the morning. 2 active B-Complex, Folic Acid, TABS TAKE ONE TABLET BY MOUTH EVERY DAY 2 active amLODIPine (NORVASC) tablet 5 mg Take 5 mg by mouth. 1 08/18/19 24 aborted losartan (COZAAR) tablet 25 mg Take 25 mg by mouth daily. 1 08/18/19 24 aborted POTASSIUM CHLORIDE PO Take 10 mEq by mouth. 1 08/18/19 24 aborted zinc sulfate (ZINCATE) 220 (50 Zn) MG capsule Take 1 capsule (220 mg total) by mouth daily. 1 active zinc sulfate (ZINCATE) 220 (50 Zn) MG capsule Take 1 capsule (220 mg total) by mouth daily. 1 suspended zinc sulfate (ZINCATE) 220 mg (50 mg elemental zinc) capsule Take 1 capsule (220 mg total) by mouth 1 (one) time each day. 1 active magnesium oxide 400 (240 Mg) MG TABS tablet TAKE TWO TABLETS TWICE DAILY IN THE MORNING AND AT BEDTIME 1 08/18/19 24 aborted magnesium oxide (MAG-OX) 400 mg (241.3 elemental magnesium) tablet Take 1 tablet by mouth 4 times daily. active ascorbic acid (VITAMIN C) 250 MG tablet Take 250 mg by mouth. 08/18/19 24 aborted Docusate Sodium (DSS) 100 MG CAPS Take 1 capsule by mouth daily. 08/18/19 24 aborted ascorbic acid (VITAMIN C) 250 mg tablet Take 1 tablet (250 mg total) by mouth 1 (one) time each day. active thiamine (VITAMIN B-1) 100 MG tablet Take 1 tablet (100 mg total) by mouth. suspended thiamine (VITAMIN B-1) 100 MG tablet Take 1 tablet (100 mg total) by mouth. suspended thiamine 100 mg tablet Take 1 tablet (100 mg total) by mouth. active collagenase (Santyl) ointment 08/18/19 24 aborted cephalexin (KEFLEX) 500 mg capsule Take 1 capsule (500 mg total) by mouth 2 (two) times a day. 08/18/19 25 active metoprolol succinate (TOPROL-XL) 24 hr tablet 25 mg 25 mg, Oral, Daily, First dose on Thu08/23/23 at 0900Do not crush tablet. 08/18/19 24 active Vitamin D3 50 MCG (2000 UT) TABS Take 1 tablet by mouth every morning. 08/18/19 24 aborted cholecalciferol (VITAMIN D-3) 50 mcg (2,000 unit) tablet Take 1 tablet (2,000 Units total) by mouth 1 (one) time each day. 1 active Fluticasone-Umeclidi n-Vilant (Trelegy Ellipta) 100-62.5-25 MCG/INH AEPB 08/18/19 24 aborted aspirin EC tablet 81 mg 81 mg, Oral, Daily, First dose (after last reorder) on Thu08/26/23 at 0900Is this a new medication order or a home medication: Home Medication 08/25/19 24 active melatonin 3 MG tablet 3 mg 3 mg, Oral, Every Night at Bedtime, First dose on Thu08/21/23 at 2200 08/18/19 active folic acid (FOLVITE) tablet 1 mg Take 1 mg by mouth. 08/18/19 aborted folic acid (FOLVITE) 1 mg tablet Take 1 tablet (1,000 mcg total) by mouth 1 (one) time each day. active mirtazapine (REMERON) 7.5 MG tablet Take 7.5 mg by mouth. 08/18/19 aborted potassium chloride ER (K-DUR,KLOR-CON) tablet 20 mEq Take 1 tablet by mouth daily. 08/18/19 aborted iron polysaccharides (NIFEREX) 150 MG capsule Take 1 capsule (150 mg total) by mouth. 08/18/19 aborted polysaccharide iron complex (FERREX 150) 150 mg iron capsule Take 1 capsule by mouth 2 (two) times a day. active doxycycline (ADOXA) 100 MG tablet Take 1 tablet (100 mg total) by mouth 2 (two) times a day. 08/18/19 aborted fluconazole (DIFLUCAN) 200 MG tablet Take 1 tablet (200 mg total) by mouth daily. 08/18/19 aborted docusate sodium 100 MG CAPS Take 100 mg by mouth 2 (two) times a day as needed for constipation. 08/18/19 aborted Entresto 49-51 MG per tablet Take 1 tablet by mouth 2 (two) times a day. Hold sbp<95 08/18/19 aborted ipratropium-albutero l (DUO-NEB) 0.5-2.5 mg/mL nebulizer Inhale 3 mL into the lungs every 6 (six) hours as needed. 08/18/19 aborted methocarbamol (ROBAXIN) 750 MG tablet Take 1 tablet (750 mg total) by mouth every 6 (six) hours as needed. 08/18/19 aborted metoprolol succinate (TOPROL-XL) 24 hr tablet 50 mg Take 1 tablet (50 mg total) by mouth daily. 08/18/19 aborted polyethylene glycol (MIRALAX) 17 g packet Take 17 g by mouth daily as needed (constipation). 08/18/19 aborted ipratropium-albutero L (DUONEB) 0.5-2.5 mg/3 mL nebulizer solution Inhale 3 mL by mouth every 6 hours as needed. active metoprolol succinate (TOPROL-XL) 50 mg 24 hr tablet Take 1 tablet (50 mg total) by mouth 1 (one) time each day. active spironolactone (ALDACTONE) tablet 25 mg Take 1 tablet (25 mg total) by mouth daily. 08/27/19 24 suspended spironolactone (ALDACTONE) 25 mg tablet Take 0.5 tablets (12.5 mg total) by mouth 1 (one) time each day. active spironolactone (ALDACTONE) tablet 25 mg Take 1 tablet (25 mg total) by mouth daily. suspended amiodarone (PACERONE) 200 MG tablet Take 1 tablet (200 mg total) by mouth daily. 08/27/19 active magnesium oxide 400 (241.3 Mg) MG TABS tablet Take 1 tablet (400 mg total) by mouth 3 (three) times a day. 08/27/19 aborted oxyCODONE (ROXICODONE) 5 MG immediate release tablet 5 mg 5 mg, Oral, Every 4 hours PRN, severe pain (7-10), Starting on 08/22/23 at 0014 08/26/19 24 aborted bisacodyl (DULCOLAX) suppository 10 mg 10 mg, Rectal, Daily as needed, constipation, Starting on Thu08/26/23 at 0934 1 08/23/19 active magnesium hydroxide (MILK OF MAGNESIA) 400 MG/5ML suspension 30 mL 30 mL, Oral, Daily, First dose on Thu08/25/23 at 1215 1 08/18/19 24 active amiodarone (PACERONE) 200 MG tablet Take 1 tablet (200 mg total) by mouth daily. 1 active magnesium oxide (MAG-OX) 400 mg (241.3 elemental magnesium) tablet Take 1 tablet (400 mg total) by mouth 3 (three) times a day. 1 active magnesium oxide 400 (241.3 Mg) MG TABS tablet Take 1 tablet (400 mg total) by mouth 3 (three) times a day. 1 active pantoprazole (PROTONIX) 40 mg EC tablet Take 1 tablet (40 mg total) by mouth 1 (one) time each day before breakfast. 1 active pantoprazole (PROTONIX) 40 MG EC tablet 40 mg 40 mg, Oral, 2 times daily, First dose on Thu08/21/23 at 1800Please select an indication: GERDIs this a home medication or a new start? Home Medication 1 active pantoprazole (PROTONIX) 40 MG tablet Take 1 tablet (40 mg total) by mouth 2 (two) times a day. 1 suspended potassium chloride (KAYCIEL) 20 MEQ/15ML (10%) solution TAKE 23ML BY MOUTH WITH DINNER 1 08/18/19 24 aborted Incruse Ellipta 62.5 MCG/INH AEPB INHALE ONE PUFF DAILY AT THE SAME TIME each DAY 1 08/18/19 24 aborted senna-docusate (PERICOLACE) 8.6-50 MG 1 tablet 1 tablet, Oral, 2 times daily, First dose on Thu08/26/23 at 0945 1 08/18/19 24 active Cholecalciferol (VITAMIN D) 25 MCG (1000 UT) TABS TAKE ONE TABLET BY MOUTH EVERY DAY 0 08/18/19 24 aborted fluticasone (FLONASE) 50 MCG/ACT nasal spray PLACE TWO SPRAYS IN EACH NOSTRIL AT BEDTIME. 0 08/18/19 24 aborted fluticasone propionate (FLONASE) 50 mcg/actuation nasal spray Administer 2 sprays into each nostril 1 (one) time each day. 0 active melatonin 5 mg tablet Take 1 tablet (5 mg total) by mouth at bedtime as needed for sleep. 0 active Melatonin 5 MG TABS Take 5 mg by mouth every night at bedtime as needed. 0 active Melatonin 5 MG TABS Take 5 mg by mouth every night at bedtime as needed. 0 suspended BREO ELLIPTA 100-25 MCG/INH inhaler USE ONE INHALATION EVERY DAY 0 08/18/19 aborted ELIQUIS 5 MG TABS tablet TAKE ONE TABLET BY MOUTH TWICE DAILY 0 08/18/19 aborted apixaban (Eliquis) 5 mg tablet Take 1 tablet (5 mg total) by mouth 2 (two) times a day. 0 active atorvastatin (LIPITOR) tablet 40 mg 40 mg, Oral, Every Night at Bedtime, First dose on Thu08/21/23 at 2200Pregnancy Risk Factor Category: X 0 08/18/19 active atorvastatin (LIPITOR) 40 mg tablet Take 1 tablet (40 mg total) by mouth at bedtime. 0 active escitalopram (LEXAPRO) tablet 20 mg 20 mg, Oral, Every Morning after breakfast, First dose on 08/22/23 at 0900 0 08/18/19 active escitalopram (LEXAPRO) 20 mg tablet Take 1 tablet (20 mg total) by mouth 1 (one) time each day. 0 active escitalopram (LEXAPRO) 20 MG tablet Take 1 tablet (20 mg total) by mouth every morning after breakfast. 0 active metoprolol tartrate (LOPRESSOR) 50 MG tablet Take 0.5 tablets (25 mg total) by mouth. 9 08/18/19 24 aborted montelukast (SINGULAIR) 10 MG tablet Take 10 mg by mouth every night at bedtime. 9 08/18/19 aborted montelukast (SINGULAIR) 10 mg tablet Take 1 tablet (10 mg total) by mouth at bedtime. 9 active albuterol HFA (PROAIR HFA ; PROVENTIL HFA ; VENTOLIN HFA) 90 mcg/actuation inhaler Inhale 2 Puffs into the lungs every 4 hours as needed for Cough or Wheezing for up to 30 days. 9 active levoFLOXacin (LEVAQUIN) 500 MG tablet Daily 8 08/18/19 24 aborted celecoxib (CeleBREX) 200 MG capsule Daily 8 08/18/19 24 aborted gabapentin (NEURONTIN) 300 MG capsule Bedtime 8 08/18/19 24 aborted HYDROmorphone (DILAUDID) 2 MG tablet Every 4-6 Hours as needed for Severe Pain 8 08/18/19 24 aborted senna (SENOKOT) 8.6 MG tablet Bedtime 8 08/18/19 24 aborted warfarin (COUMADIN) 1 MG tablet Daily 8 08/18/19 24 aborted acetaminophen (TYLENOL EXTRA STRENGTH) 500 MG tablet Three Times A Day 8 active acetaminophen (TYLENOL EXTRA STRENGTH) 500 MG tablet Three Times A Day 8 active acetaminophen (TYLENOL) 500 mg tablet Take 1 tablet (500 mg total) by mouth. 8 active PROAIR HFA 108 (90 BASE) MCG/ACT inhaler INL 2 PFS ITL Q 4 H PRF COUGH OR WHZ 7 08/18/19 24 aborted B-Complex, Folic Acid, TABS TAKE ONE TABLET BY MOUTH EVERY DAY 2 08/18/19 24 active vitamin B complex (B-COMPLEX ORAL) TAKE ONE TABLET BY MOUTH EVERY DAY 7 active Lifitegrast (Xiidra) 5 % SOLN PLACE ONE DROP IN EACH EYE TWICE DAILY 08/27/19 24 suspended gabapentin (NEURONTIN) 400 MG capsule 900 mg total q hs 08/21/19 24 aborted alendronate (FOSAMAX) tablet 70 mg Every 7 Days 08/18/19 24 aborted ALPRAZolam (XANAX) 0.25 MG tablet Take 1 tablet (0.25 mg total) by mouth 3 (three) times a day as needed. 08/18/19 24 aborted Amino Acids-Protein Hydrolys (Proteinex) LIQD Take 30 mL by mouth 3 (three) times a day. 08/18/19 aborted aspirin 81 MG EC tablet Daily 08/18/19 aborted aspirin 81 MG tablet Take 81 mg by mouth every morning after breakfast. 08/18/19 aborted budesonide-formotero l (SYMBICORT) 160-4.5 MCG/ACT inhaler Twice A Day 08/18/19 aborted Calcium Carb-Cholecalciferol (CALCIUM CARBONATE-VITAMIN D3 PO) Take 1 tablet by mouth every morning. 08/18/19 suspended Calcium Carb-Cholecalciferol 600-10 MG-MCG CAPS Twice A Day 08/18/19 aborted calcium carbonate (Calcium 600) 600 MG tablet Take 600 mg by mouth every morning after breakfast. 08/18/19 aborted Cholecalciferol 50 MCG (2000 UT) CAPS 08/18/19 aborted clonazePAM (KlonoPIN) 0.5 MG tablet Take 0.5 mg by mouth 2 (two) times a day as needed for anxiety. 08/18/19 aborted doxycycline (VIBRAMYCIN) 100 MG capsule TAKE ONE CAPSULE BY MOUTH TWICE DAILY UNTIL FINISHED 08/18/19 aborted escitalopram (LEXAPRO) 5 MG tablet Take 1 tablet (5 mg total) by mouth every morning. 08/18/19 aborted escitalopram (LEXAPRO) tablet 10 mg Take 1 tablet (10 mg total) by mouth daily. 08/18/19 aborted fluticasone-vilanter ol (BREO ELLIPTA) 100-25 MCG/ACT inhaler Inhale into the lungs. 08/18/19 aborted furosemide (LASIX) 20 MG tablet Take 20 mg by mouth daily. 08/18/19 aborted gabapentin (NEURONTIN) 100 MG capsule Take 1-2 capsules (100-200 mg total) by mouth every night at bedtime. 08/18/19 aborted guaiFENesin (MUCINEX) 600 MG 12 hr tablet Take 600 mg by mouth 2 (two) times a day. 08/18/19 aborted montelukast (SINGULAIR) 10 MG tablet Take 2 tablets (20 mg total) by mouth daily as needed. 08/18/19 aborted pravastatin (PRAVACHOL) tablet 80 mg Bedtime 08/18/19 aborted Riboflavin (Vitamin B-2) 100 MG TABS Twice A Day 08/18/19 24 aborted traMADol (ULTRAM) 50 MG tablet Every 8 Hours as needed for Moderate Pain 08/18/19 24 aborted alprazolam 0.25 mg tablet TAKE ONE TABLET THREE TIMES DAILY NEEDED active alprazolam 0.25 mg tablet TAKE ONE TABLET THREE TIMES DAILY NEEDED active amiodarone 200 mg tablet TAKE ONE TABLET EVERY MORNING active amiodarone 200 mg tablet TAKE ONE TABLET EVERY MORNING active ascorbic acid (vitamin C) 250 mg tablet TAKE ONE TABLET EVERY MORNING active ascorbic acid (vitamin C) 250 mg tablet TAKE ONE TABLET EVERY MORNING active aspirin 81 mg tablet,delayed release TAKE ONE TABLET EVERY MORNING active aspirin 81 mg tablet,delayed release TAKE ONE TABLET EVERY MORNING active atorvastatin 40 mg tablet TAKE ONE TABLET BY MOUTH AT BEDTIME active atorvastatin 40 mg tablet TAKE ONE TABLET BY MOUTH AT BEDTIME active Breztri Aerosphere 160 mcg-9mcg-4.8mcg/actu ation HFA aerosol inhaler INHALE TWO PUFFS BY MOUTH TWICE DAILY active Breztri Aerosphere 160 mcg-9mcg-4.8mcg/actu ation HFA aerosol inhaler INHALE TWO PUFFS BY MOUTH TWICE DAILY active calcium carbonate 600 mg calcium (1,500 mg) tablet TAKE ONE TABLET EVERY MORNING active calcium carbonate 600 mg calcium (1,500 mg) tablet TAKE ONE TABLET EVERY MORNING active cephalexin 500 mg capsule TAKE ONE CAPSULE TWICE DAILY IN THE MORNING AND AT BEDTIME active cephalexin 500 mg capsule TAKE ONE CAPSULE TWICE DAILY IN THE MORNING AND AT BEDTIME active cholecalciferol (vitamin D3) 25 mcg (1,000 unit) tablet TAKE 1 TABLET BY MOUTH DAILY active cholecalciferol (vitamin D3) 25 mcg (1,000 unit) tablet TAKE 1 TABLET BY MOUTH DAILY active doxycycline hyclate 100 mg capsule TAKE ONE CAPSULE BY MOUTH TWICE DAILY UNTIL FINISHED active doxycycline hyclate 100 mg capsule TAKE ONE CAPSULE BY MOUTH TWICE DAILY UNTIL FINISHED active Eliquis 2.5 mg tablet TAKE ONE TABLET TWICE DAILY IN THE MORNING AND AT BEDTIME active Eliquis 2.5 mg tablet TAKE ONE TABLET TWICE DAILY IN THE MORNING AND AT BEDTIME active Entresto 24 mg-26 mg tablet TAKE ONE TABLET TWICE DAILY IN THE MORNING AND AT BEDTIME active Entresto 24 mg-26 mg tablet TAKE ONE TABLET TWICE DAILY IN THE MORNING AND AT BEDTIME active escitalopram 10 mg tablet TAKE ONE TABLET BY MOUTH EVERY MORNING active escitalopram 10 mg tablet TAKE ONE TABLET BY MOUTH EVERY MORNING active escitalopram 20 mg tablet TAKE ONE TABLET EVERY MORNING active escitalopram 20 mg tablet TAKE ONE TABLET EVERY MORNING active escitalopram 5 mg tablet TAKE ONE TABLET EVERY MORNING active escitalopram 5 mg tablet TAKE ONE TABLET EVERY MORNING active estradiol 0.01% (0.1 mg/gram) vaginal cream APPLY ONE GRAM VAGINALLY EVERY NIGHTLY FOR 2 WEEKS AND THEN USE 1-2 NIGHTS PER WEEK THEREAFTER active estradiol 0.01% (0.1 mg/gram) vaginal cream APPLY ONE GRAM VAGINALLY EVERY NIGHTLY FOR 2 WEEKS AND THEN USE 1-2 NIGHTS PER WEEK THEREAFTER active famotidine 20 mg tablet TAKE ONE TABLET IN THE MORNING AND EVENING NEEDED active famotidine 20 mg tablet TAKE ONE TABLET IN THE MORNING AND EVENING NEEDED active ferrous sulfate 325 mg (65 mg iron) tablet TAKE ONE TABLET TWICE DAILY IN THE MORNING AND AT BEDTIME active ferrous sulfate 325 mg (65 mg iron) tablet TAKE ONE TABLET TWICE DAILY IN THE MORNING AND AT BEDTIME active fluticasone propionate 50 mcg/actuation nasal spray,suspension USE TWO SPRAYS IN EACH NOSTRIL ONCE DAILY active fluticasone propionate 50 mcg/actuation nasal spray,suspension USE TWO SPRAYS IN EACH NOSTRIL ONCE DAILY active folic acid 1 mg tablet TAKE ONE TABLET EVERY MORNING active folic acid 1 mg tablet TAKE ONE TABLET EVERY MORNING active gabapentin 100 mg capsule TAKE 1 TO 2 CAPSULES BY MOUTH AT BEDTIME active gabapentin 100 mg capsule TAKE 1 TO 2 CAPSULES BY MOUTH AT BEDTIME active gabapentin 400 mg capsule TAKE TWO CAPSULES EVERY DAY AT BEDTIME active gabapentin 400 mg capsule TAKE TWO CAPSULES EVERY DAY AT BEDTIME active loteprednol etabonate 0.5 % eye drops,suspension PLACE ONE DROP IN EACH EYE TWICE DAILY active loteprednol etabonate 0.5 % eye drops,suspension PLACE ONE DROP IN EACH EYE TWICE DAILY active magnesium oxide 400 mg (241.3 mg magnesium) tablet TAKE TWO TABLETS TWICE DAILY IN THE MORNING AND AT BEDTIME active magnesium oxide 400 mg (241.3 mg magnesium) tablet TAKE TWO TABLETS TWICE DAILY IN THE MORNING AND AT BEDTIME active medbox status USE DIRECTED ac tive metoprolol succinate ER 25 mg tablet,extended release 24 hr TAKE ONE TABLET EVERY MORNING active metoprolol succinate ER 25 mg tablet,extended release 24 hr TAKE ONE TABLET EVERY MORNING active montelukast 10 mg tablet TAKE ONE TABLET EVERY NIGHT AT BEDTIME active montelukast 10 mg tablet TAKE ONE TABLET EVERY NIGHT AT BEDTIME active neomycin 3.5 mg/g-polymyxin B 10,000 unit/g-dexameth 0.1 % eye oint APPLY IN THE AFFECTED EYE(S) AT BEDTIME DIRECTED active neomycin 3.5 mg/g-polymyxin B 10,000 unit/g-dexameth 0.1 % eye oint APPLY IN THE AFFECTED EYE(S) AT BEDTIME DIRECTED active oxycodone 5 mg tablet TAKE ONE TABLET BY MOUTH EVERY TWELVE HOURS NEEDED active oxycodone 5 mg tablet TAKE ONE TABLET BY MOUTH EVERY TWELVE HOURS NEEDED active pantoprazole 40 mg tablet,delayed release TAKE ONE TABLET TWICE DAILY IN THE MORNING AND AT BEDTIME NEEDED active pantoprazole 40 mg tablet,delayed release TAKE ONE TABLET TWICE DAILY IN THE MORNING AND AT BEDTIME NEEDED active spironolactone 25 mg tablet TAKE ONE-HALF TABLET EVERY MORNING active spironolactone 25 mg tablet TAKE ONE-HALF TABLET EVERY MORNING active Stimulant Laxative Plus 8.6 mg-50 mg tablet TAKE 2 TABLETS BY MOUTH DAILY AT BEDTIME FOR 14 DAYS NEEDED FOR CONSTIPATION active Stimulant Laxative Plus 8.6 mg-50 mg tablet TAKE 2 TABLETS BY MOUTH DAILY AT BEDTIME FOR 14 DAYS NEEDED FOR CONSTIPATION active sucralfate 1 gram tablet TAKE ONE TABLET EVERY NIGHT AT BEDTIME active sucralfate 1 gram tablet TAKE ONE TABLET EVERY NIGHT AT BEDTIME active thiamine HCl (vitamin B1) 100 mg tablet TAKE ONE TABLET EVERY MORNING active thiamine HCl (vitamin B1) 100 mg tablet TAKE ONE TABLET EVERY MORNING active trazodone 50 mg tablet TAKE TWO TABLETS EVERY DAY AT BEDTIME active trazodone 50 mg tablet TAKE TWO TABLETS EVERY DAY AT BEDTIME active Trelegy Ellipta 100 mcg-62.5 mcg-25 mcg powder for inhalation INHALE 1 PUFF ONCE DAILY active Trelegy Ellipta 100 mcg-62.5 mcg-25 mcg powder for inhalation INHALE 1 PUFF ONCE DAILY active vitamin B complex-folic acid 0.4 mg tablet TAKE ONE TABLET EVERY MORNING active Vitamin D3 50 mcg (2,000 unit) tablet TAKE ONE TABLET EVERY MORNING active Vitamin D3 50 mcg (2,000 unit) tablet TAKE ONE TABLET EVERY MORNING active Xiidra 5 % eye drops in a dropperette PLACE ONE DROP IN EACH EYE TWICE DAILY active Xiidra 5 % eye drops in a dropperette PLACE ONE DROP IN EACH EYE TWICE DAILY active Xopenex HFA 45 mcg/actuation aerosol inhaler INHALE TWO PUFFS EVERY 6 HOURS NEEDED SHORTNESS OF BREATH OR FOR WHEEZING active Xopenex HFA 45 mcg/actuation aerosol inhaler INHALE TWO PUFFS EVERY 6 HOURS NEEDED SHORTNESS OF BREATH OR FOR WHEEZING active ascorbic acid (VITAMIN C) 250 MG tablet Take 1 tablet (250 mg total) by mouth every morning. active atorvastatin (LIPITOR) tablet 40 mg Take 1 tablet (40 mg total) by mouth every night at bedtime. suspended calcium carbonate 1,500 mg (600 mg elemental calcium) tablet Take 600 mg by mouth 1 (one) time each day. active cariprazine (VRAYLAR) 1.5 mg capsule Take 1 capsule (1.5 mg total) by mouth daily. active cariprazine HCl (Vraylar) 1.5 MG capsule Take 1 capsule (1.5 mg total) by mouth daily. suspended cholecalciferol (VITAMIN D-3) 25 mcg (1,000 unit) tablet Take 1 tablet (1,000 Units total) by mouth daily. active Cholecalciferol 25 MCG (1000 UT) tablet Take 1 tablet (1,000 Units total) by mouth daily. active Cholecalciferol 25 MCG (1000 UT) tablet Take 1 tablet (1,000 Units total) by mouth daily. suspended Cyanocobalamin (VITAMIN B 12 PO) Take 1 tablet by mouth daily. active famotidine (PEPCID) 20 mg tablet Take 1 tablet (20 mg total) by mouth 2 (two) times a day. active famotidine (PEPCID) 20 MG tablet TAKE ONE TABLET IN THE MORNING AND EVENING NEEDED active famotidine (PEPCID) 20 MG tablet TAKE ONE TABLET IN THE MORNING AND EVENING NEEDED suspended ferrous sulfate 325 (65 FE) MG tablet Take 1 tablet (325 mg total) by mouth every morning with breakfast. active flurbiprofen (ANSAID) 100 mg tablet Take 1 tablet (100 mg total) by mouth 2 (two) times a day. active folic acid (FOLVITE) tablet 1 mg Take 1 tablet (1,000 mcg total) by mouth every morning. active guaiFENesin (MUCINEX) 600 mg 12 hr tablet Take 1 tablet (600 mg total) by mouth 2 (two) times a day. active Lifitegrast (Xiidra) 5 % SOLN PLACE ONE DROP IN EACH EYE TWICE DAILY suspend ed montelukast (SINGULAIR) 10 MG tablet Take 1 tablet (10 mg total) by mouth every night at bedtime. active neomycin (MYCIFRADIN) 500 mg tablet Take 2 tablets (1,000 mg total) by mouth every 6 (six) hours. active thiamine 100 mg tablet Take 1 tablet (100 mg total) by mouth 1 (one) time each day. active Allergies Allergen Reaction Severity Comment Documented Date Source Status OTHER 10/19/2024 CT_THSFRA N active CORTICOSTEROIDS (GLUCOCORTICOIDS) 09/14/2024 CT_THSFRA N active CODEINE SHORTNESS OF BREATHSHORTNESS OF BREATH Other reaction(s): PALPITATIONS,1 974, Palpatations 05/22/2017 CTTHNEMG active Problems Problem Status Onset Date Problem Type Date of Resolution Source Other mechanical complication of internal left knee prosthesis, initial encounter ([facility]) active EncounterDiagnosisAct CTTHSFRAN HFrEF (heart failure with reduced ejection fraction) ([facility]) active EncounterDiagnosisAct CTT HSFRAN Other mechanical complication of internal left hip prosthesis, initial encounter ([facility]) active EncounterDiagnosisAct CTTHSFRAN Closed fracture of left distal femur ([facility]) active EncounterDiagnosisAct CTTHSFRAN Periprosthetic fracture of knee active EncounterDiagnosisAct CTTHSF RAN Fracture of patella, left, closed active EncounterDiagnosisAct CTTHSF RAN VF (ventricular fibrillation) ([facility] V24, [facility] V28) active ProblemAct CT_THSFRAN Acute on chronic diastolic CHF (congestive heart failure) ([facility] V24, [facility] V28) active ProblemAct CT_THSFRAN Essential hypertension active ProblemAct CT_THSFRAN Primary osteoarthritis of left knee active ProblemAct CT_THSFRAN Thrombocytopenia ([facility] V24) active ProblemAct CT_THSFRAN Coronary artery disease involving pe[place] coronary artery of pe[place] heart without angina pectoris active ProblemAct CT_THSFRAN Non-ischemic cardiomyopathy ([facility] V24, [facility] V28) active ProblemAct CT_THSFRAN Paroxysmal A-fib ([facility] V24, [facility] V28) active ProblemAct CT_THSFRAN Obstructive sleep apnea syndrome active ProblemAct CT_THSFRAN Chronic pain of right knee active ProblemAct CT_THSFRAN Morbid obesity with alveolar hypoventilation ([facility] V24, [facility] V28) active ProblemAct CT_THSFRAN VT (ventricular tachycardia) ([facility] V24, [facility] V28) active ProblemAct CT_THSFRAN Acute adjustment disorder with mixed anxiety and depressed mood active ProblemAct CT_THSFRAN Anemia active ProblemAct CT_THSFRAN LBBB (left bundle branch block) active ProblemAct CT_THSFRAN Hypercholesterolemia active ProblemAct CT_THSFRAN Prosthetic joint infection, subsequent encounter active ProblemAct CT_THSFRAN Asthma-COPD overlap syndrome ([facility] V24, [facility] V28) active ProblemAct CT_THSFRAN Anemia due to stage 3 chronic kidney disease ([facility] V24, [facility] V28) active ProblemAct CT_THSFRAN Angina, class II ([facility] V24) active ProblemAct CT_THSFRAN Secondary hypercoagulable state ([facility] V24) active ProblemAct CT_THSFRAN Periprosthetic fracture around internal prosthetic left knee joint active ProblemAct CT_THSFRAN Encounter for adjustment or management of cardiac device active EncounterDiagnosisAct CT_THS YI S/P joint replacement active ProblemAct CT_THSFRAN Primary osteoarthritis of right knee active ProblemAct CT_THSFRAN Cellulitis of left lower limb active ProblemAct ENS_AONECT 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 active ProblemAct ENS_AONECT Immunizations Vaccine Date Source Lot Number Status Tdap Tetanus diptheria acell ular pertussis (Boostrix; Adacel) 7yo and older 08/21/2023 SELAM [id number] completed Pfizer SARS-CoV-2 COVID-19, mRNA, LNP-S, preservative free 11/16/2020 CTVIET [id number] completed Pfizer SARS-CoV-2 COVID-19, mRNA, LNP-S, preservative free 10/26/2020 CTVIET [id number] completed Pneumococcal polysaccharide 23 valent (Pneumovax 23) 2yo and older 11/28/2009 CT_ALEXANDRA [id number] com pleted Encounters Encounter Type Encounter Reason Primary Diagnosis Location Date [facility] 02/22/2025 [facility] 08/17/2024 Ambulatory [facility] 12/02/2023 Ambulatory [facility] 09/20/2023 Inpatient Periprosthetic fracture around unspecified internal prosthetic joint, initial encounter Periprosthetic fracture around unspecified internal prosthetic joint, initial encounter [facility] 08/21/2023 Ambulatory [facility] 08/18/2023 Ambulatory [facility] 08/16/2023 Ambulatory [facility] 07/12/2023 Ambulatory [facility] 06/15/2023 Ambulatory [facility] 06/12/2023 Ambulatory [facility] 06/11/2023 Ambulatory [facility] 06/03/2023 Ambulatory [facility] 06/03/2023 Ambulatory [facility] 06/03/2023 Ambulatory [facility] 06/03/2023 Care Team Organization Name Specialty Phone Email Start Date End Da te [facility] 08/25/2024 [facility] 08/17/2024 [facility] 08/20/2023 [facility] 12/20/2024 [facility] 07/28/2023 [facility] 07/28/2023
--- OUTSIDE RECORDS SUMMARY | 2025-04-12 17:45 | XMS_ITS | Clinical Summary ---
Author Organization [facility] Address [address] [place] [address] Care Team Providers Care Group Captain Name Role Phone Unavailable Primary Care Provider Unavailabl e Social History Tobacco Use Types Packs/Day Years Used Date Smoking Tobacco: Never Assessed Comments Unknown Sex and Gender Information Value Date Recorded Sex Assigned at Not on file Legal Sex Female 1:33 PM EST Gender Identity Not on file Sexual Orientation Not on file Plan of Treatment Health Maintenance Due Date Last Done Comments CT Colonography 1949 Colonoscopy 1949 Colorectal Cancer Screening 1950 FIT-DNA 1949 FIT 1949 FOBT 1950 Mammogram 1950 Sigmoidoscopy 1949 Annual Physical Exam 1967 Zoster Vaccines (1 of 2) 1999 Pneumococcal Vaccine: 50+ Years (2 of 2 - PCV) 11/28/2010 11/28/2009 Fall Risk Screening 2014 RSV 60+ (1 - 1-dose 75+ series) 2024 COVID-19 Vaccine (3 - 2024-2 6 season) 2025 11/16/2020, 10/26/2020 Influenza Vaccine (#1) 2025 Tdap and Td Vaccines Adult 08/20/2033 08/21/2023 HIB Vaccines Aged Out No longer eligi ble based on patient's age to complete this topic HPV Vaccines (No Doses Required) Completed Hepatitis A Vaccines Aged Out No long er eligible based on patient's age to complete this topic IPV Vaccines Aged Out No longer eligi ble based on patient's age to complete this topic Meningococcal Vaccine Aged Out No alonzo maged eligible based on patient's age to complete this topic RSV <20 Months Aged Out No longer katarzyna gible based on patient's age to complete this topic Insurance [facility]
== END 2025-04-12 15:10 | disposition home or self-care (01) ==
LOC: HO.HSM 14:35
PROVIDERS: PCP Internal Medicine; Visit Provider Psychiatry & Neurology Neurology
DX: G62.9 Polyneuropathy, unspecified (principal); D32.9 Benign neoplasm of meninges, unspecified
CPT/HCPCS: 99214

== ENCOUNTER → 2025-04-12 14:35 | Outpatient (BNVA) | payer MEDICARE, SELFPAY | PROVIDERS: PCP Internal Medicine; Visit Provider Psychiatry & Neurology Neurology | DX: G62.9 Polyneuropathy, unspecified (principal); R20.0 Anesthesia of skin; R20.2 Paresthesia of skin; D32.9 Benign neoplasm of meninges, unspecified; Z79.01 Long term (current) use of anticoagulants; G47.33 Obstructive sleep apnea (adult) (pediatric); Z99.89 Dependence on other enabling machines and devices; Z79.82 Long term (current) use of aspirin; Z87.891 Personal history of nicotine dependence; Z95.2 Presence of prosthetic heart valve | CPT/HCPCS: 99212 ==

== ENCOUNTER 2025-04-14 08:17 | Outpatient (AMB) | payer MEDICARE, SELFPAY ==
--- OUTSIDE RECORDS SUMMARY | 2024-06-28 05:15 | XMS_ITS ---
Author Organization [facility] Address [address] [place] [address] Care Team Providers Care Machinery Engineer Name Role Phone Radah Henson Primary Care Provider Elsie Barnes [phone] Encounters Encounter Location Date Provider Diagnosis [address] [address] 06/28/2024 Elsie Galvez Plan Of Treatment Next Appt Details Provider Name:Elsie Galvez , 04/19/2025 09:00:00 AM, [address] [place] [address], [phone], Progress Notes * Miya WOODRUFF MDOB:[birth year] (74 yo F)Acc No.[id number]:06/28/2024 Progress Note Patient: Miya SIDDIQUI Provider: Florinda Galvez DPM :1950 A ge:74 Y S ex:Female Date:06/28/2024 Address:[address] [place], [place] [id number] Pcp:Radha Henson Subjective: * Chief Complaints: * [...] 0 06/28/2024 Generated for Iggy juan/Chema/May on: 06/14/2024 08:34 AM EST
--- OUTSIDE RECORDS SUMMARY | 2024-07-26 06:00 | XMS_ITS ---
Author [facility] Address [address] [place] [address] Care Team Providers Care Histology Aide Name Role Phone Radha Henson Primary Care Provider Elsie Barnes [phone] Encounters Encounter Location Date Provider Diagnosis [address] [address] 07/26/2024 Elsie Galvez Plan Of Treatment Next Appt Details Provider Name:Elsie Galvez , 04/19/2025 09:00:00 AM, [address] [place] [address], [phone], Progress Notes * Miya WOODRUFF MDOB:[birth year] (74 yo F)Acc No.[id number]:07/26/2024 Progress Note Patient: Miya SIDDIQUI Provider: Florinda Galvez DPM :1950 A ge:74 Y S ex:Female Date:07/26/2024 Address:[address] [place], [place] [id number] Pcp:Radha Henson Subjective: * Chief Complaints: * [...] 07/26/2024 Generated for Iggy juan/Chema/May on: 1 06/14/2024 08:36 AM EST
--- OUTSIDE RECORDS SUMMARY | 2025-04-12 05:15 | XMS_ITS ---
Author Organization [facility] Address [address] [place] [address] Care Team Providers Care Supervising Law Enforcement Analyst Name Role Phone Radha Henson Primary Care Provider Unavailabl e Black, Elsie Unavailable [phone] Allergies Allergen (clinical drug ingredient) Drug/Non Drug Allergy documented on EMR Reaction Allergy Type Onset Date Status general spinal (uncoded) Unknown Allergy Active codeine Codeine heart palpitations Drug Allergy Active corticosteroid and/or corticosteroid derivative (FN) Corticosteroids Unknown Drug Allergy Active REASON FOR VISIT Lats pcp visit-04/11/2025, Painful Toe Medications Medication SIG (Take, Route, Frequency, Duration) Notes Start Date End Date Status Ferrous Sulfate Acti ve Gabapentin Active Folic Acid Active Protonix 40 MG 1 tablet 1/2 to 1 ho ur before morning meal Orally Once a day Active Magnesium Oxide Acti ve Lexapro 20 MG 1 tablet Orally Once a day Active Pepcid 20 MG 1 tablet at bedtime as needed Orally Once a day Active Montelukast Sodium 10 MG 1 tablet Orally Once a day Active Atorvastatin Calcium 40 MG 1 tablet Oral ly Once a day Active Melatonin 5 MG 1 tablet in the evening Orally Once a day Active Keflex Active Loteprednol Etabonate Not-Taking traZODone HCl 50 MG 1 tablet at bedtime as needed Orally Once a day Not-Taking Metoprolol Succinate 25 MG 1 capsule Orally Once a day 12.5 Active Inhaler Decongestant Active Tramadol & Dietary Manage Prod Not-Taking Leucovorin Calcium 5 MG 1 tablet Orally Active ProAir HFA Not-Takin g Pulmicort Not-Taking Ydtxhpexqyebd-AATK-Dqaphed al Not-Taking Methotrexate Sodium 2.5 MG Oral; Duratio n: 42 Days Active Vraylar 1.5 MG 1 capsule Orally Onc e a day Not-Taking Pravastatin Sodium 80 MG Orally Not-Taking Fosamax 70 MG Orally Not-Ta nona Fish Oil Not-Taking Aspirin Active Vitamin D3 Active Cephalexin 500 MG 1 capsule Orally twi ce a day; Duration: 10 days Not-Taking Ammonium Lactate 12 % 1 application Externally to affected areas of dry skin to feet except for between the toes Twice a day; Duration: 30 days Active Calcium + D3 Active Spironolactone - 1 tablet Orally daily 12.5 Active Entresto 24-26 MG 1 tablet Orally Twic e a day Active eliquis Active Amlodipine & Diet Manage Prod Active [...] Problem Status W/U Status Risk Notes Problem Acquired hammer toe of right foot (4613207050530 105) Hammer toe of right foot (M20.41) Active confirmed Vital Signs Height 5ft 8in in 04/12/2025 Weight 190 lbs 04/12/2025 BMI 28.89 kg/m2 04/12/2025 Blood pressure systolic 120 mm Hg 04/12/20 25 Blood pressure diastolic 75 mm Hg 025 Procedures Procedure Date Ordered Date Performed Result Body Sit e - Tenotomy, open flexor 04/12/2025 N/A Encounters Encounter Location Date Provider Diagnosis [facility] [address] [address] 04/12/2025 Elsie Black Hammer toe of right foot M20.41 Assessments Encounter Date Diagnosis (ICD Code) Assessment Notes Treatment Notes Treatment Clinical Notes Section Notes 04/12/2025 Hammer toe of right foot (ICD-10 - M20.41) Plan Of Treatment Pending Test Test Name Order Date - Tenotomy, open flexor 04/12/2025 Next Appt Details Follow Up: 1 Week, Reason: Provider Name:Elsie Vences Lenny , 04/19/2025 09:00:00 AM, [address] [facility], [place], [address], Procedure Notes * Category Sub-Category Detail Notes Podiatry Procedure Tenotomy - Flexor (97235) LOC ATION : T6 INDICATIONS : a painful non-rigid toe contrature at the PIPJ/DIPJ, Resistant to previous conservative treatment, ANESTHESIA : 3cc of 2 percent Lidocaine/Epi 1:200,000 local anesthesic utilizing aseptic technique administered to each involved toe, PREP : The incision site was made surgically clean by applying betadine to the involved area, PROCEDURE : Once anesthesia was achieved, an incision was made at the flexor crease of the interphalangeal joint. The tendon was then transected in a medial to lateral sweeping motion. Any contracted plantar joint capsule was released as well.Skin sutured with Nylon in interrupted suture technique., Steri-strips and a sterile bandage were applied while splinting the toe in a rectus/corrected position, DISPOSITION : The patient tolerated the procedure and anesthesia well, and left the exam room awake, alert, and stable. The patient was instructed to take Tylenol or Motrin for discomfort, rest, ice for 10-15 minutes per hour, elevate the foot, and walk minimally until the next office visit. A surgical shoe was dispensed for ambulation. The patient is to maintain a clean surgical site, keeping it dry until the next visit Progress Notes * Miya WOODRUFF MDOB:[birth year] (74 yo F)Acc No.[id number]:04/12/2025 Patient: Miya SIDDIQUI Provider: Florinda Galvez DPM :1950 A ge:74 Y S ex:Female Date:04/12/2025 Address:[address] [place], [place] [id number] Pcp:Radha Henson Subjective: * Chief Complaints: * L ats pcp visit-04/11/2025Painful Toe * ROS: G eneral/Constitutional: Nausea d enies. V omiting d enies. H zoraida Thirst d enies. L oss appetite d enies. C hills d enies. F atigue a dmits.?Fever d enies. N ight Sweats d enies. U nexplained weight loss d enies. U nexplained weight gain d enies. H EENTM: Dentures a dmits. D izziness d enies. G lasses/contacts a dmits. R etinopathy d enies. B lurred/double vision d enies. T MJ?denies. D ischarge/drainage d enies. I mplants d enies. S ore throat d enies. D ental implants d enies. H edward of hearing a dmits. D ifficulty chewing/swallowing/speaking d enies. N ose bleeds a dmits. S ore mouth d enies. ? R espiratory: On Oxygen d enies. P neumonia/pleurisy d enies.?Bronchitis d enies. E mphysema d enies. C oughing d enies. C ough blood?denies. S hortness of breath d enies. W heezing a dmits. C ardiovascular: Pacemaker d enies. M DOCUMENT MANAGER d enies. W PW d enies. C HF d enies. H eart attack d enies. S eptal defect d enies. R apid beat d enies. C hest pain d enies. A trial Fib. d enies. M urmur/Palpitations d enies. G astrointestinal: Hemorrhoids d enies. S tomach/Abdominal pain d enies. D ark blood stool d enies. I rritable bowel d enies. C onstipation d enies. D iarrhea d enies. H ematology: Swelling d enies. C lots d enies. V aricose Veins d enies. B ruising d enies. B leeding problem d enies. G enitourinary: Blood urine d enies. F requent/Painfu/urination/bladder control d enies. K idney stones d enies. I nfection (UTI) d enies. N ephropathy a dmits. s ex trans dis (STD) d enies. P rostate d enies. M usculoskeletal: Hammertoes a dmits. B unions d enies. B ack Pain a dmits. M uscle Cramps/ Resting a dmits. M uscle cramps / walking a dmits.?Generalized aches and pains d enies. W eakness a dmits. I nteg.: Benedict d enies. S cars a dmits. C orns/calluses?admits. I ngrown nails , admits. P ainful nails , admits. O pen Sores d enies. R ashes d enies. N eurologic: Difficulty sleeping d enies. B rain disorder d enies. N umbness a dmits. B alance trouble d enies. C onfusion d enies. F ainting/blackouts d enies. T ingling a dmits. T remors d enies. * Medical History: * Surgical History: a ppendectomy breast biopsy * Hospitalization/Major Diagno stic Procedure: e ye disease trouble hearing, fluid in lungs 08/02iron infusion 11/07/24 * Family History: M other: , diagnosed with Unspecified essential hypertension. F ather: , foot problems, diagnosed with Unspecified essential hypertension. * Social History: T obacco Use: T obacco use other than smoking A re you an other tobacco user? N o Tobacco Control (Standard) T obacco use: N onsmoker A dditional Findings: Tobacco non-user C urrent nonsmoker D rugs/Alcohol: D rugs H ave you used drugs other than those for medical reasons in the past 12 months? N o M iscellaneous: C affeine: yes, frequency:, 1-2 cups per day. Children: yes, 4. Exercise: yes, therapy, walking. Marital status: . Occupation: Retired. D rug/Alcohol: A BROOKE-C (Standard) D id you have a drink containing alcohol in the past year? N o P oints 0 I nterpretation N egative * Medications: T akingLeucovorin Calcium 5 MG Tablet 1 tablet Orally Metoprolol Succinate 25 MG Capsule ER 24 Hour Sprinkle 1 capsule Orally Once a day 12.5Inhaler Decongestant Keflex Montelukast Sodium 10 MG Tablet 1 tablet Orally Once a day Lexapro 20 MG Tablet 1 tablet Orally Once a day Pepcid 20 MG Tablet 1 tablet at bedtime as needed Orally Once a day Melatonin 5 MG Tablet 1 tablet in the evening Orally Once a day Atorvastatin Calcium 40 MG Tablet 1 tablet Orally Once a day Folic Acid Protonix 40 MG Tablet Delayed Release 1 tablet 1/2 to 1 hour before morning meal Orally Once a day Magnesium Oxide Ferrous Sulfate Gabapentin Entresto 24-26 MG Tablet 1 tablet Orally Twice a day eliquis Spironolactone - Powder 1 tablet Orally daily 12.5Amlodipine & Diet Manage Prod Calcium + D3 Aspirin Vitamin D3 Ammonium Lactate 12 % Cream 1 application Externally to affected areas of dry skin to feet except for between the toes Twice a day Methotrexate Sodium 2.5 MG Tablet Oral Taking Leucovorin Calcium 5 MG Tablet 1 tablet Orally Taking Metoprolol Succinate 25 MG Capsule ER 24 Hour Sprinkle 1 capsule Orally Once a day 12.5Taking Inhaler Decongestant Taking Keflex Taking Montelukast Sodium 10 MG Tablet 1 tablet Orally Once a day Taking Lexapro 20 MG Tablet 1 tablet Orally Once a day Taking Pepcid 20 MG Tablet 1 tablet at bedtime as needed Orally Once a day Taking Melatonin 5 MG Tablet 1 tablet in the evening Orally Once a day Taking Atorvastatin Calcium 40 MG Tablet 1 tablet Orally Once a day Taking Folic Acid Taking Protonix 40 MG Tablet Delayed Release 1 tablet 1/2 to 1 hour before morning meal Orally Once a day Taking Magnesium Oxide Taking Ferrous Sulfate Taking Gabapentin Taking Entresto 24-26 MG Tablet 1 tablet Orally Twice a day Taking eliquis Taking Spironolactone - Powder 1 tablet Orally daily 12.5Taking Amlodipine & Diet Manage Prod Taking Calcium + D3 Taking Aspirin Taking Vitamin D3 Taking Ammonium Lactate 12 % Cream 1 application Externally to affected areas of dry skin to feet except for between the toes Twice a day Taking Methotrexate Sodium 2.5 MG Tablet Oral Not-Taking/PRNLoteprednol Etabonate traZODone HCl 50 MG Tablet 1 tablet at bedtime as needed Orally Once a day Cephalexin 500 MG Capsule 1 capsule Orally twice a day Vraylar 1.5 MG Capsule 1 capsule Orally Once a day Pravastatin Sodium 80 MG Tablet Orally Fosamax 70 MG Tablet Orally Fish Oil Pulmicort Haqaxiudwjvlk-CXZO-Olialhlct Tramadol & Dietary Manage Prod ProAir HFA Medication List reviewed and reconciled with the patientNot-Taking/PRN Loteprednol Etabonate Not-Taking/PRN traZODone HCl 50 MG Tablet 1 tablet at bedtime as needed Orally Once a day Not-Taking/PRN Cephalexin 500 MG Capsule 1 capsule Orally twice a day Not-Taking/PRN Vraylar 1.5 MG Capsule 1 capsule Orally Once a day Not-Taking/PRN Pravastatin Sodium 80 MG Tablet Orally Not-Taking/PRN Fosamax 70 MG Tablet Orally Not-Taking/PRN Fish Oil Not-Taking/PRN Pulmicort Not-Taking/PRN Alejrvhbnrgbd-JGAV-Prubynyvs Not-Taking/PRN Tramadol & Dietary Manage Prod Not-Taking/PRN ProAir HFA Medication List reviewed and reconciled with the patient * Allergies: C odeine: heart palpitationsCorticosteroidsgeneral spinalyes[Allergies Verified] Objective: * Vitals: H t: 5ft 8in, Wt:190, BMI:28.89, Shoe size: 10.5W, BP:120/75mm Hg, Ht-cm: 172.72 cm, Wt-k.18 kg. * Examination: O rthopedic: DIGITAL DEFORMITIES: , Digital contracture, PIPJ,2nd right, incompl-reducible with WB, or to push-up test, no over, nor underlapping. Assessment: * Assessment: 1. H ammer toe of right foot - M20.41 (Primary) Plan: * Treatment: * Procedures: P odiatry Procedure: Tenotomy - Flexor (50893) L OCATION : T6 INDICATIONS : a painful non-rigid toe contrature at the PIPJ/DIPJ, Resistant to previous conservative treatment, ANESTHESIA : 3cc of 2 percent Lidocaine/Epi 1:200,000 local anesthesic utilizing aseptic technique administered to each involved toe, PREP : The incision site was made surgically clean by applying betadine to the involved area, PROCEDURE : Once anesthesia was achieved, an incision was made at the flexor crease of the interphalangeal joint. The tendon was then transected in a medial to lateral sweeping motion. Any contracted plantar joint capsule was released as well.Skin sutured with Nylon in interrupted suture technique., Steri-strips and a sterile bandage were applied while splinting the toe in a rectus/corrected position, DISPOSITION : The patient tolerated the procedure and anesthesia well, and left the exam room awake, alert, and stable. The patient was instructed to take Tylenol or Motrin for discomfort, rest, ice for 10-15 minutes per hour, elevate the foot, and walk minimally until the next office visit. A surgical shoe was dispensed for ambulation. The patient is to maintain a clean surgical site, keeping it dry until the next visit. * Procedure Codes: 2 8230 INCISION OF FOOT TENDON(S), Modifiers: T6 * Follow Up: 1 Week * Images: * Sign off status: Completed true * Provider: Florinda Galvez DPM Date: 06/12/2024 Generated for Iggy juan/Chema/May on: 06/14/2024 08:35 AM EST History and Physical Notes * Examination Category Sub-Category Detail Notes Category Not es Orthopedic DIGITAL DEFORMITIES: , Digital c ontracture, PIPJ,2nd right, incompl-reducible with WB, or to push-up test, no over, nor underlapping
--- OUTSIDE RECORDS SUMMARY | 2025-04-14 08:34 | XMS_ITS | Patient Health Record ---
Author Organization [facility] Address [address] [place] [address] Care Team Providers Care Insulation Technician Name Role Phone Radha Henson Primary Care Provider Unavailabl e Black, Elsie Unavailable [phone] Allergies Allergen (clinical drug ingredient) Drug/Non Drug Allergy documented on EMR Reaction Allergy Type Onset Date Status general spinal (uncoded) Unknown Allergy Active codeine Codeine heart palpitations Drug Allergy Active corticosteroid and/or corticosteroid derivative (FN) Corticosteroids Unknown Drug Allergy Active Results Component Value Reference Range Notes X ray : Foot, right 3V Reviewed [...] the evening Orally Once a day Active Ychfpvinlfjgh-CGTQ-Jizydmh al Not-Taking Immunizations Vaccine Route Administration Date [...] Problem Acquired hammer toe of right foot ([id number] 105) Hammer toe of right foot (M20.41) Active confirmed Vital Signs Heart Rate 63 /min 08/30/2024 Blood pressure diastolic 75 mm Hg 04/12/2025 Height 5ft 8in in 04/12/2025 Blood pressure systolic 120 mm Hg 04/12/2025 Weight 190 lbs 04/12/2025 BMI 28.89 kg/m2 04/12/2025 Procedures Procedure Date Ordered Date Performed Result Body Sit e 80233- Debride <25 sq cm 04/19/2024 N/A 24355-Uzzpfmll Plate 05/03/2024 N/A 13379-FCCOQFE NAIL, 6 OR MORE 08/30/2024 N/A 39389-AECS SKIN LESIONS, OVER 4 08/30/2024 N/A 59256-EJQSUPP NAIL, 6 OR MORE 11/09/2024 N/A 30600-HLXE SKIN LESIONS, OVER 4 11/09/2024 N/A 57851-KZAURCE NAIL, 6 OR MORE 01/24/2025 N/A 13985-VBNM SKIN LESIONS, OVER 4 01/24/2025 N/A 78003-Uyvnnide Plate 03/10/2025 N/A 98190 - Tenotomy, open flexor 04/12/2025 N/A Encounters Encounter Location Date Provider Diagnosis [address] [address] 04/19/2024 Elsie Black Cellulitis of toe of left foot L03.032 ; Skin ulcer of toe of left foot, limited to breakdown of skin L97.521 ; Hammertoe of left foot M20.42 and Toe pain, left M79.[address] [address] 05/03/2024 Elsie Black Cellulitis of toe of left foot L03.032 ; Contusion of right foot, initial encounter S90.31XA ; Skin ulcer of toe of left foot, limited to breakdown of skin L97.521 ; Ingrown nail L60.0 and Pain in right foot M79.[address] [address] 05/25/2024 Elsie Black Pain in right toe(s) M79.674 ; Other hammer toe(s) (acquired), right foot M20.41 ; Flat foot [pes planus] (acquired), left foot M21.42 ; Flat foot [pes planus] (acquired), right foot M21.41 ; Pes planus of left foot M21.42 ; Other acquired deformities of right foot M21.6X1 and Other acquired deformities of left foot M21.6X2 [address] [address] 08/30/2024 Elsie Black Pain in right toe(s) M79.674 ; Other hammer toe(s) (acquired), left foot M20.42 ; Pain in left toe(s) M79.675 ; Onychomycosis B35.1 ; Atherosclerosis of red devil artery of both lower extremities, with unspecified presence of clinical manifestation I70.203 ; Tinea unguium B35.1 and Xerosis of skin L85.[address] [place] [address] 11/09/2024 Elsie Black Pain in right toe(s) M79.674 ; Atherosclerosis of red devil artery of both lower extremities, with unspecified presence of clinical manifestation I70.203 ; Pain in left toe(s) M79.675 and Tinea unguium B35.[address] [address] 01/24/2025 Elsie Black Atherosclerosis of red devil artery of both lower extremities, with unspecified presence of clinical manifestation I70.203 ; Contusion of right foot, initial encounter S90.31XA ; Pain in right toe(s) M79.674 ; Pain in left toe(s) M79.675 ; Tinea unguium B35.1 and Pain in right foot M79.[address] [address] 02/08/2025 Elsie Black Closed nondisplaced fracture of fourth metatarsal bone of right foot, initial encounter S92.344A ; Contusion of right foot, subsequent encounter S90.31XD ; Pain in right foot M79.671 ; Pain in joint involving right ankle and foot M25.571 and Localized edema R60.[address] [address] 02/17/2025 Elsie Black Contusion of right foot, subsequent encounter S90.31XD ; Closed nondisplaced fracture of fourth metatarsal bone of right foot, sequela S92.344S ; Pain in right foot M79.671 ; Pain in joint involving right ankle and foot M25.571 and Localized edema R60.0 [facility] [place] [address] [facility] [place] [address] 03/10/2025 Elsie Black Closed nondisplaced fracture of fourth metatarsal bone of right foot, sequela S92.344S ; Pain in right foot M79.671 ; Pain in joint involving right ankle and foot M25.571 ; Localized edema R60.0 and Ingrown nail L60.0 [facility] [place] [address] [facility] [place] [address] 04/12/2025 Elsie Black Hammer toe of right foot M20.41 [facility] [place] [address] [facility] [place] [address] 04/19/2024 Elsie Black [facility] [place] [address] [facility] [place] [address] 05/25/2024 Elsie Black [facility] [place] [address] [place] [address] 06/28/2024 Elsie Black [facility] [address] [address] 06/28/2024 Elsie Black [facility] [address] [address] 07/26/2024 Elsie Black [facility] [address] [address] 08/24/2024 Elsie Black [facility] [place] [address] [place] [address] 01/17/2025 Elsie Black [facility] [place] [address] [facility] [place] [address] 02/02/2025 Elsie Black [facility] [place] [address] [facility] [place] [address] 02/08/2025 Elsie Black [facility] [place] [address] [facility] [address] 02/08/2025 Elsie Black [facility] [address] [address] 02/15/2025 Elsie Galvez [facility] [address] [address] 04/11/2025 Elise Galvez Assessments Encounter Date Diagnosis (ICD Code) Assessment Notes Treatment Notes Treatment Clinical Notes Section Notes 04/19/2024 Cellulitis of toe of left foot [...] toe(s) (ICD-10 - M79.674) 11/09/2024 Atherosclerosis of red devil artery of both lower extremities, with unspecified presence of clinical manifestation (ICD-10 - I70.203) Q7(A), Q8(2B), Q9(1B,2C) 01/24/2025 Contusion of right foot, initial encounter (ICD-10 - S90.31XA) 01/24/2025 Atherosclerosis of red devil artery of both lower extremities, with unspecified [...] (ICD-10 - M20.41) 03/10/2025 Pain in joint involving right ankle and foot (ICD-10 - M25.571) 02/17/2025 Pain in right foot (ICD-10 - M79.671) 02/08/2025 Pain in right foot (ICD-10 - M79.671) 11/09/2024 Pain in left toe(s) (ICD-10 - M79.675) 01/24/2025 Pain in right toe(s) (ICD-10 - M79.674) 08/30/2024 Pain in left toe(s) (ICD-10 - M79.675) 05/25/2024 Flat foot [pes planus] (acquired), left foot (ICD-10 - M21.42) 05/03/2024 Skin ulcer of toe of left foot, limited to breakdown of skin (ICD-10 - L97.521) 04/19/2024 Hammertoe of left foot (ICD-10 - M20.42) 04/19/2024 Toe pain, left (ICD-10 - M79.675) 05/25/2024 Flat foot [pes planus] (acquired), right foot (ICD-10 - M21.41) 05/03/2024 Ingrown nail (ICD-10 - L60.0) 11/09/2024 Tinea unguium (ICD-10 - B35.1) 08/30/2024 Onychomycosis (ICD-10 - B35.1) 01/24/2025 Pain in left toe(s) (ICD-10 - M79.675) 02/08/2025 Pain in joint involving right ankle and foot (ICD-10 - M25.571) 02/17/2025 Pain in joint involving right ankle and foot (ICD-10 - M25.571) 03/10/2025 Localized edema (ICD-10 - R60.0) 03/10/2025 Ingrown nail (ICD-10 - L60.0) 02/17/2025 Localized edema (ICD-10 - R60.0) 02/08/2025 Localized edema (ICD-10 - R60.0) 08/30/2024 Atherosclerosis of red devil artery of both lower extremities, with unspecified presence of clinical manifestation (ICD-10 - I70.203) Q7(A), Q8(2B), Q9(1B,2C) 01/24/2025 Tinea unguium (ICD-10 - B35.1) 05/25/2024 Pes planus of left foot (ICD-10 - M21.42) 05/03/2024 Pain in right foot (ICD-10 - M79.671) 05/25/2024 Other acquired deformities of right foot (ICD-10 - M21.6X1) 08/30/2024 Tinea unguium (ICD-10 - B35.1) 01/24/2025 Pain in right foot (ICD-10 - M79.671) 08/30/2024 Xerosis of skin (ICD-10 - L85.3) 05/25/2024 Other acquired deformities of left foot (ICD-10 - M21.6X2) Plan Of Treatment Pending Test Test Name Order Date 96563-YKPFMRH NAIL, 6 OR MORE 04/12/2024 50593-HXOVOAG NAIL, 6 OR MORE 08/30/2024 21639-EBLYMIU NAIL, 6 OR MORE 11/09/2024 01830-TMFLQNS NAIL, 6 OR MORE 01/24/2025 10650-Qaaf Destruction, 1-14 05/16/2014 30803-Qhwn Destruction, 1-14 06/27/2014 99995-Dzud Destruction, 1-14 07/18/2014 67064-Ztiijkkk Plate 07/18/2014 99910-Shyxibyk Plate 05/03/2024 62442-Txqvydga Plate 03/10/2025 78663- Debride <25 sq cm 04/19/2024 52351-VXTE SKIN LESIONS, OVER 4 08/31/19 56483-PGKL SKIN LESIONS, OVER 4 01/25/20 11666-ZBOF SKIN LESIONS, OVER 4 11/10/19 16847 - Tenotomy, open flexor 04/12/2025 Next Appt Details Provider Name:Elsie Galvez , 04/19/2025 09:00:00 AM, [address] [facility], [place], [address], Insurance Providers Payer Name Payer Address Payer Phone Subscriber Number Group Number Insured Name Patient Relationship to Insured Coverage Start Date Coverage End Date Medicare [facility] [employer] [address] [place] [address] [phone] [id number] KacyChelseyMiya Self - patient is the insured [employer] [address] [place] [address] [phone] [id number] Miya Woodruff Self - patient is [...] G62.9 Idiopathic peripheral neuropathy G60.9 Atherosclerosis of red devil ar jennifer of both lower extremities, with unspecified presence of clinical manifestation I70.203 Hammer toe of left foot M20.42 Surgical History Surgery Date(Month/Year) appendectomy breast biopsy Hospitalization History Reason Date(Month/Year) iron infusion 11/07/24 eye disease trouble hearing, fluid in kristi ngs 08/02
--- OUTSIDE RECORDS SUMMARY | 2025-04-14 08:34 | XMS_ITS | Clinical Summary ---
Author Organization [employer] Address [address] [facility] [address] [place] [address] Care Team Providers Care Physiologist Name Role Phone Unavailable Primary Care Provider [...] by mouth at bedtime. 0 Active B Bmqtysk-I-Xnbfg Acid (B-Complex-C, w/Folic Acid,) tablet Take 1 [...] Noted Date Diagnosed Date Unspecified atherosclerosis of [place] arteries of extremities, bilateral legs 09/14/2024 Class [...] class II Coronary artery disease invo lving [place] coronary artery of [place] heart without angina pectoris 05/08/2021 VF (ventricular [...] Type Department Care Team Description 03/27/2025 Telephone [facility] [address] [place] [address] Charlie Echevarria DDS 03/17/2025 2:00 PM EDT Office Visit [facility] [address] [place] [address] Charlie Echevarria DDS 03/07/2025 8:30 AM EDT Office Visit [facility] [address] [place] [address] Charlie Echevarria, DDS 03/02/2025 Orders Only [facility] [address] [place] [address] Tano Teague, DMD 02/28/2025 Travel from Last [...] Description 04/18/2025 10:15 AM EST Office Visit [facility] [address] [place] [address] Farhat Stoner Health Maintenance Due Date Last [...]
--- OUTSIDE RECORDS SUMMARY | 2025-04-14 08:34 | XMS_ITS | Encounter Summary ---
Author Organization [employer] Address [address] [facility] [address] [place] [address] Care Team Providers Care Bean Sprout Laborer Name Role Phone Unavailable Primary Care Provider Unavailabl e Encounter Details Date Type Department Care Team (Latest Contact Info) Description 12/16/2021 Abstract [facility] Dental, Provider, DDS Social History Tobacco [...] 10:15 AM EST Office Visit [facility] [address] [place] [address] Farhat Stoner documented as of this encounter Visit Diagnoses Not on filedocumented in this encounter
--- OUTSIDE RECORDS SUMMARY | 2025-04-14 08:34 | XMS_ITS | Data Portability ---
Author Organization [place] - [facility], Allergy Address [address] [place] [address] Care Team Providers Care Preservationist Name Role Phone VON MIRANDA Primary Care Provider Assessment Encounter Date Assessment Date Assessment LastModified by Organization Details LastModified Time 11/10/2024 11/10/2024 Hearing better but not alaways clear. Increased to #3 adaptation for best clarity. Added retention wires. F/U 2 weeks. [email or web address] Not available 11/10/2024 13:32:56 11/24/2024 11/24/2024 Not hearing - wax guards plugged - reviewed changing at least once month. Doing better notices a big difference. 6mo appt made prior to my custodial Not available 11/24/2024 15:04:37 02/02/2025 02/02/2025 still having issues with migrating out - discussed custom molds - impressions made - $200 due appt mar 02 - call sooner if ealier appt possible. [email or web address] Not available 02/02/2025 15:49:17 03/02/2025 03/02/2025 PU earmolds, reveiwed proper insertion, F/U PRN [email or web address] Not available 03/06/2025 10:07:25 03/02/2025 03/02/2025 PU new molds - reviewed insertion/castillo ging wax guards. F/u appt in May before my custodial. [email or web address] Not available 03/02/2025 12:07:03 Plan of Treatment [...] Organization Details Recorded Time Dizziness and giddiness 295659996 Active 2015 Dizziness and giddiness ; Note: Date Diagnosed : 07/09/2015 11:57 AM (R42) Vertigo NOS; Note: Date Diagnosed : 07/09/2015 12:22 PM (R42) Not Available [facility] 4 02:51:42 Bleeding from nose 074321424 Active 2019 Epistaxis ; Note: Date Diagnosed : 05/14/2020 3:01 PM (R04.0) Not Available [facility] 4 02:51:44 Dysphagia 59627270 Active 2020 Dysphagia , unspecifi ed; Note: Date Diagnosed : 01/10/2021 2:06 PM (R13.10) Not Available [facility] 4 02:51:43 Disorder of nasal sinus 3559554 Active 2020 Perforati on of nasal septum NOS; Note: Date Diagnosed : 02/07/2021 3:08 PM (J34.89) Not Available [facility] 4 02:51:45 Disorder of the nose 92862279 Active 2020 Perforati on of nasal septum NOS; Note: Date Diagnosed : 02/07/2021 3:08 PM (J34.89) Not Available [facility] 4 02:51:45 Impacted cerumen of bilateral ears 18958809280 51837 Active 2024 CELINE MCDONALD MD [address] [facility] [place] [address], [place], [address] , [facility] - [facility] [place] 5 15:32:13 Sensorine ural hearing loss of bilateral ears 690904717 Active 2024 ERMIAS ROBLES, AUD [address] [facility],[place] [address], [place], [address] , [facility] - [facility] [place] 5 16:02:24 Sudden idiopathi c hearing loss 793500945 Active 2024 CELINE MCDONALD MD [address] [facility],[place] [address], [place], [address] , [facility] - [facility] [place] 5 16:41:31 Intracran ial meningiom a 526938631 Active 2024 CELINE MCDONALD MD [address] [facility],[place] [address], [place], [address] , [facility] - [facility] [place] 5 09:17:51 Sensorine ural hearing loss of bilateral ears 099277259 Active 2024 DREA REHMAN, AUD [address] [facility] [place] [address], [place], [address] , [facility] - [facility] [place] 5 15:26:24 Problem Notes None recorded. Procedures Surgical History Date Name Laterality Status Provider Name and Address Organization Details Recorded Time 09/30/19 25 Air & SRT/SAT Audio with Tymps - 56260, 57714 & 98374 completed DAVID BRAGA MA, CCC-A [address] [facility],[place] [address], [place], [address], [facility] - [facility] [place] 09/29/2024 08:47:22 08/26/19 25 Intratympanic injection subsequent completed CELINE MCDNOALD MD [address] [facility],[place] [address], [place], [address], [facility] - [facility] [place] 08/24/2024 20:05:07 08/20/19 25 Intratympanic injection subsequent completed LUIS ALBERTO POOL MD 100 [facility],[address], [address], [facility] - [facility] 08/19/2024 14:48:41 08/12/19 25 Cerumen removal with microscope bilateral completed CELINE MCDONALD MD 100 [facility],[address], [address], [place] - [facility] 08/11/2024 15:33:17 08/12/19 25 Intratympanic injection initial completed CELINE MCDONALD MD 100 [facility],[address], [address], [place] - [facility] [place] 08/11/2024 16:51:22 08/12/19 25 Comp Audio with Tymps - 72048 & 70092 completed MAEGAN LEOEN [address] [facility],[address], [address], [facility] - [facility] 08/11/2024 16:02:20 Appendectomy completed Radha Otoole [place] - [facility] 08/11/2024 15:01:50 Tonsillectomy completed Radha Otoole [facility] 08/11/2024 15:02:51 Imaging Results None recorded. Procedure Notes None recorded. Medical Equipment None Reported. Allergies Allergen ID Allergen Name Allergen Category Reaction Reaction Severity Criticality Documentation Date Start Date Code Code System Note Provider Name and Address Organization Details Recorded Time 67708 codeine sulfate medicatio n other Not available Not available 10/20/2023 43338 RxNorm React ion: unkno wn, unspe cifie [...] sustained -release 05/14 completed Medicati on ID: [id number] D uration Value: 30 Brand Name: bupropio [...] mg tablet 08/11 completed Medicati on ID: [id number] B rand Name: tizanidi ne Send Method: [...] gram tablet 08/11 completed Medicati on ID: 484474 B rand Name: sucralfa te Send Method: E-Prescr ibed Sub s Allowed: subs OK Speci al Instruct ion: TAKE ONE TABLET BY MOUTH THREE TIMES DAILY. M edicatio nGeneric Name: sucralfa te Not Available Not Available Not Available clonazepa m 0.5 mg tablet 08/11 completed Medicati on ID: 733284 B rand Name: clonazep am Send Method: [...] mg tablet 05/14 completed Medicati on ID: [id number] D uration Value: 90 Brand Name: amlodipi ne Send Method: E-Prescr ibed Sub s Allowed: subs OK Medic ationGen ericName : amlodipi ne Not Available Not Available Not Available omeprazol e 40 mg capsule,d elayed release 08/11 completed Medicati on ID: [id number] B rand Name: omeprazo le Send Method: [...] mg tablet 08/11 completed Medicati on ID: 727486 B rand Name: tramadol Send Method: E-Prescr [...] mg tablet 05/14 completed Medicati on ID: 408945 D uration Value: 90 Brand Name: pravasta [...] mg tablet 05/14 completed Medicati on ID: [id number] D uration Value: 30 Brand Name: bupropio [...] mg) tablet 05/14 completed Medicati on ID: [id number] B rand Name: Calcium 500 Send Method: E-Prescr ibed Sub s Allowed: subs OK Medic ationGen ericName : Calcium 500 Not Available Not Available Not Available escitalop radha 20 mg tablet TAKE ONE TABLET EVERY MORNING active Not Available Not Available No t Available Vitamin D3 25 mcg (1,000 unit) capsule 05/14 completed Medicati on ID: 792225 B rand Name: Vitamin D3 Send Method: E-Prescr ibed Sub s Allowed: subs OK Medic ationGen ericName : Vitamin D3 Not Available Not Available Not Available Fish Oil 120 mg-180 mg capsule 05/14 completed Medicati on ID: 378045 B rand Name: Fish Oil Send Method: E-Prescr ibed Sub s Allowed: subs OK Medic ationGen ericName : Fish Oil Not Available Not Available Not Available Lexapro 5 mg tablet 05/14 completed Medicati on ID: 206370 B rand Name: Lexapro Send Method: E-Prescr [...] aerosol inhaler 08/11 completed Medicati on ID: 323586 B rand Name: ProAir HFA Send Method: [...] inhalatio n 09/29 completed Medicati on ID: 714248 B rand Name: Breo Ellipta Send Method: [...] inhalatio n 08/11 completed Medicati on ID: 868300 B rand Name: Incruse Ellipta Send Method: E-Prescr ibed Sub s Allowed: subs OK Speci al Instruct ion: USE ONE INHALATI ON EVERY DAY Medi cationGe nericNam e: Incruse Ellipta Not Available Not Available Not Available Entresto 97 mg-103 mg tablet 08/11 completed Medicati on ID: 534293 B rand Name: Entresto Send Method: E-Prescr [...] mg capsule 05/14 completed Medicati on ID: 639623 B shiprock Name: Aspir-81 Send Method: E-Prescr ibed Sub s Allowed: subs OK Medic ationGen ericName : Not Available Not Available Not Available Vitals None Recorded Social History None recorded. Functional Status None recorded. Mental Status None recorded. Family History Relationship Description Onset Age of this Age Resolved Age Notes LastModified by Organization Details LastModified Time Sister Allergy 61 61 [email or web address] Not availa ble 09/29/2024 09:00:29 Medical History Condition Response Allergies/Hayfever Y Heart Problems Y Anxiety Y Tonsil Infections N Emphysema N Migraines Y Thyroid Problems N Glaucoma N Depression Y COPD Y Developmental Delay N Nasal or Sinus Problems N Anemia Y Immune System Disorder N Anesthesia Complications N Heart Attack (ID) N Other Skin Condition Y Diabetes N [...] ICD10 Code Diagnosis IMO Codes Diagnosis Note [id number] CELINE MCDONALD MD [facility] [address] [address] 08/11/2024 14:15:16 08/11/2024 17:20:44 Impacted cerumen of bilateral ears [id number] 952881 H61.23 Excess cerumen disimpacte d bilaterall y. The external auditory canals, tympanic membranes and middle ear spaces otherwise appear normal. Sudden idi opathic hearing loss 116452708 H91.22 Sensorineu ral hearing loss of bilateral ears 772974274 H90.3 Patient does have baseline sensorineu ral hearing loss in the right ear as well. Patient would be a good candidate to consider amplificat ion which we can revisit following treatment for the sudden hearing loss. [id number] MAEGAN LEONE [facility] [address] [address] 08/11/2024 14:15:16 08/11/2024 17:20:44 Sensorineural hearing loss of bilateral ears 232284835 H90.3 Audiologic al evaluation results: Right ear: Borderline normal sloping to severe sensorineu ral hearing loss with very good word recognitio n. Left ear: Severe sloping to profound sensorineu ral hearing loss with no measurable word recognitio n. Tympanomet ry: Right Ear:Type A Left Ear:Type A [id number] LUIS ALBERTO POOL MD [facility] [address] [address] 08/19/2024 14:26:15 08/19/2024 15:12:50 Sudden idiopathic hearing loss 002361868 H91.22 Patient has tolerated second of 3 planned left intratympa oh injections today. Patient will maintain dry ear precaution s. Patient will follow-up in 1 week for third and final planned injection. We will review MRI results as they come available. 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 Patient reports that she already knew about this, and it does not appear to be causing her any problems. [id number] MAEGAN CAMPBELL [facility] [place] [address] [place] [address] 09/29/2024 08:14:23 09/30/2024 09:02:54 Sensorineural hearing loss of bilateral ears 718547928 H90.3 [id number] DAVID BRAGA MA, CCC-A [facility] [address] [address] 09/29/2024 08:45:44 09/30/2024 08:24:38 Sensorineural hearing loss of bilateral ears 462635770 H90.3 Audiologic al evaluation results: Left ear: Profound SNHL Tympanomet ry: Left Ear:Type A [id number] MAEGAN CAMPBELL [place] [place] [address] [place] [address],[address] [address] 10/20/2024 15:32:42 10/21/2024 09:53:37 Sensorineural hearing loss of bilateral ears 422795496 H90.3 [id number] MAEGAN CAMPBELL [place] [place] [address] [place] [address] 11/10/2024 12:46:25 11/10/2024 14:39:02 Sensorineural hearing loss of bilateral ears 500458961 H90.3 [id number] DREA REHMAN, AUD [place] [address] [facility],[place] [address] [place] [address] 11/24/2024 14:22:22 11/25/2024 08:58:13 Sensorineural hearing loss of bilateral ears 070671414 H90.3 [id number] DREA REHMAN, AUD [place] [address] [facility],[place] [place] [address] 02/02/2025 15:05:14 02/03/2025 14:50:54 Sensorineural hearing loss of bilateral ears 201188071 H90.3 [id number] DREA REHMAN, AUD [place] [address] [facility],[place] [address] [place] [address] 03/02/2025 11:07:51 03/06/2025 10:07:41 Sensorineural hearing loss of bilateral ears 143607579 H90.3 [id number] DREA REHMAN, AUD [place] [address] [facility],[place] [address] [place] [address] 03/02/2025 11:34:50 03/03/2025 14:36:06 Sensorineural hearing loss of bilateral ears 558707470 H90.3 [id number] Health Concerns Section Related Observation LastModified by Organization Detai ls LastModified Time None Recorded Concern Status LastModified by Organization Details LastModified Time None Recorded Advance Directives Directive None Recorded Payers Insurance Date Sequence Insurance Name Policy Number Policy Galdamez Covered Member ID Galdamez Member ID Guarantor Name 09/29/2024 3 [place] Miya Carrasquillo [facility] [id number] Miya Carrasquillo [facility] 09/29/2024 1 [facility] Miya M [facility] [id number] Miya Neida [facility] 04/14/2025 2 [place] [id number] Miya Carrasquillo [facility] [id number] Miya Woodruff 04/14/2025 1 [place] B[place] [facility] Miya Woodruff [id number] Miya Woodruff Notes Date Note Type Note [...] F/u 2 weeks. DREA REHMAN, AUD [address], [address], [facility] 11/10/2024 13:33:14 11/24/2024 text/html Patient has [...] clarity. Added retention wires. F/U 2 weeks. DREA REHMAN, AUD [address] [facility],[address], [address], [place] - [facility] [place] 11/24/2024 15:05:06 02/02/2025 text/html Patient has a [...] difference. 6mo appt made prior to my custodial DREA REHMAN, [facility] [address], [address], [place] - [facility] 02/02/2025 16:45:04 03/02/2025 text/html Patient has [...] difference. 6mo appt made prior to my custodial still having issues with migrating out - discussed custom molds - impressions made - $200 due appt mar 02 - call sooner if earlier appt possible. DREA REHMAN, AUD [address] [facility],[place] [address], [place], [address], [place] [facility] 03/06/2025 10:07:41 03/02/2025 text/html Patient has [...] difference. 6mo appt made prior to my custodial still having issues with migrating out - discussed custom molds - impressions made - $200 due appt mar 02 - call sooner if earlier appt possible. DREA REHMAN, AUD [address] [facility],[place] [address], [place], [address], [facility] - [facility] 03/02/2025 12:08:35 OBGyn Episode No OBEpisode recorded.
--- OUTSIDE RECORDS SUMMARY | 2025-04-14 08:34 | XMS_ITS | Continuity of Care Document ---
Author Organization [place] - [facility] Address [address] [place] [address] Care Team Providers Care Political Cartoonist Name Role Phone VON MIRANDA Primary Care Provider Assessment Encounter Date Assessment Date Assessment LastModified by Organization Details LastModified Time 03/02/2025 03/02/2025 PU earmolds, reveiwed proper insertion, F/U PRN [email or web address] Not available 03/06/2025 10:07:25 Plan of Treatment Reminders Order Date Submit [...] Organization Details Recorded Time Dizziness and giddiness 182996084 Active 2015 Dizziness and giddiness ; Note: Date Diagnosed : 07/09/2015 11:57 AM (R42) Vertigo NOS; Note: Date Diagnosed : 07/09/2015 12:22 PM (R42) Not Available [facility] 4 02:51:42 Bleeding from nose 113345606 Active 2019 Epistaxis ; Note: Date Diagnosed : 05/14/2020 3:01 PM (R04.0) Not Available [facility] 4 02:51:44 Dysphagia 87922887 Active 2020 Dysphagia , unspecifi ed; Note: Date Diagnosed : 01/10/2021 2:06 PM (R13.10) Not Available [facility] 4 02:51:43 Disorder of nasal sinus 9819199 Active 2020 Perforati on of nasal septum NOS; Note: Date Diagnosed : 02/07/2021 3:08 PM (J34.89) Not Available [facility] 4 02:51:45 Disorder of the nose 73774800 Active 2020 Perforati on of nasal septum NOS; Note: Date Diagnosed : 02/07/2021 3:08 PM (J34.89) Not Available [facility] 4 02:51:45 Impacted cerumen of bilateral ears 84236318949 53901 Active 2024 CELINE MCDONALD MD [address] [facility],[place] [address], [place], [address] , [place]JI - [facility] 5 15:32:13 Sensorine ural hearing loss of bilateral ears 164984959 Active 2024 MAEGAN LEONE [address] [facility] 100, [place], [address] , [place] ALHAJI - [facility] 5 16:02:24 Sudden idiopathi c hearing loss 101671007 Active 2024 CELINE MCDONALD MD [address] [facility],[place] [address], [place], [address] , [place]JI - [facility] 5 16:41:31 Intracran ial meningiom a 088815029 Active 2024 CELINE MCDONALD MD [address] [facility],[place] [address], [place], [address] , [place] - [facility] 09:17:51 Sensorine ural hearing loss of bilateral ears 771005756 Active 2024 DREA REHMAN, AUD [address] [facility],[place] [address], [place], [address] , [place] - [facility] 15:26:24 Problem Notes None recorded. Procedures Surgical History Date Name Laterality Status Provider Name and Address Organization Details Recorded Time 09/30/19 25 Air & SRT/SAT Audio with Tymps - 38318, 05631 & 61400 completed DAVID BRAGA MA, CCC-A [address] [facility],[address], [address], [place] - [facility] 09/29/2024 08:47:22 08/26/19 25 Intratympanic injection subsequent completed CELINE MCDONALD MD 100 [facility],[address], [address], [place] - [facility] 08/24/2024 20:05:07 08/20/19 25 Intratympanic injection subsequent completed LUIS ALBERTO POOL MD 100 [facility],[address], [address], [place] - [facility] 08/19/2024 14:48:41 08/12/19 25 Cerumen removal with microscope bilateral completed CELINE MCDONALD MD [address] [facility],[address], [address], [place] [facility] 08/11/2024 15:33:17 08/12/19 25 Intratympanic injection initial completed CELINE MCDONALD MD [address] [facility],[address], [address], [place] [facility] 08/11/2024 16:51:22 08/12/19 25 Comp Audio with Tymps - 15551 & 33968 completed MAEGAN LEONE [address] [facility],[address], [address], [place] [facility] 08/11/2024 16:02:20 Appendectomy completed Radha Otoole [place] [facility] 08/11/2024 15:01:50 Tonsillectomy completed Radha Otoole [facility] 08/11/2024 15:02:51 Imaging Results None recorded. Procedure Notes None recorded. Medical Equipment None Reported. Allergies Allergen ID Allergen Name Allergen Category Reaction Reaction Severity Criticality Documentation Date Start Date Code Code System Note Provider Name and Address Organization Details Recorded Time 39156 codeine sulfate medicatio n other Not available Not available 10/20/2023 98039 RxNorm React ion: unkno wn, unspe cifie d;; Not Available [facility] 01:00:02 Medications Name Sig Start Date Stop [...] sustained -release 05/14 completed Medicati on ID: [id number] D uration Value: 30 Brand Name: bupropio [...] mg tablet 08/11 completed Medicati on ID: [id number] B rand Name: tizanidi ne Send Method: [...] gram tablet 08/11 completed Medicati on ID: [id number] B rand Name: sucralfa te Send Method: E-Prescr ibed Sub s Allowed: subs OK Speci al Instruct ion: TAKE ONE TABLET BY MOUTH THREE TIMES DAILY. M edicatio nGeneric Name: sucralfa te Not Available Not Available Not Available clonazepa m 0.5 mg tablet 08/11 completed Medicati on ID: [id number] B rand Name: clonazep am Send Method: [...] mg tablet 05/14 completed Medicati on ID: [id number] D uration Value: 90 Brand Name: amlodipi ne Send Method: E-Prescr ibed Sub s Allowed: subs OK Medic ationGen ericName : amlodipi ne Not Available Not Available Not Available omeprazol e 40 mg capsule,d elayed release 08/11 completed Medicati on ID: [id number] B rand Name: omeprazo le Send Method: [...] mg tablet 08/11 completed Medicati on ID: [id number] B rand Name: tramadol Send Method: E-Prescr [...] mg tablet 05/14 completed Medicati on ID: [id number] D uration Value: 90 Brand Name: prarick tin Send Method: E-Prescr ibed Sub s [...] mg tablet 05/14 completed Medicati on ID: [id number] D uration Value: 30 Brand Name: bupropio [...] mg) tablet 05/14 completed Medicati on ID: [id number] B rand Name: Calcium 500 Send Method: E-Prescr ibed Sub s Allowed: subs OK Medic ationGen ericName : Calcium 500 Not Available Not Available Not Available escitalop radha 20 mg tablet TAKE ONE TABLET EVERY MORNING active Not Available Not Available No t Available Vitamin D3 25 mcg (1,000 unit) capsule 05/14 completed Medicati on ID: 116629 B rand Name: Vitamin D3 Send Method: E-Prescr ibed Sub s Allowed: subs OK Medic ationGen ericName : Vitamin D3 Not Available Not Available Not Available Fish Oil 120 mg-180 mg capsule 05/14 completed Medicati on ID: [id number] B rand Name: Fish Oil Send Method: E-Prescr ibed Sub s Allowed: subs OK Medic ationGen ericName : Fish Oil Not Available Not Available Not Available Lexapro 5 mg tablet 05/14 completed Medicati on ID: [id number] B rand Name: Lexapro Send Method: E-Prescr [...] aerosol inhaler 08/11 completed Medicati on ID: 104377 B rand Name: ProAir HFA Send Method: [...] inhalatio n 09/29 completed Medicati on ID: [id number] B rand Name: Breo Ellipta Send Method: [...] inhalatio n 08/11 completed Medicati on ID: [id number] B rand Name: Incruse Ellipta Send Method: E-Prescr ibed Sub s Allowed: subs OK Speci al Instruct ion: USE ONE INHALATI ON EVERY DAY Medi cationGe nericNam e: Incruse Ellipta Not Available Not Available Not Available Entresto 97 mg-103 mg tablet 08/11 completed Medicati on ID: [id number] B rand Name: Entresto Send Method: E-Prescr [...] mg capsule 05/14 completed Medicati on ID: 559191 B rand Name: Louisa Send Method: E-Prescr ibed Sub s Allowed: subs OK Medic ationGen ericName : Louisa Not Available Not Available Not Available Vitals None Recorded Social History None recorded. Functional Status None recorded. Mental Status None recorded. Family History Relationship Description Onset Age of this Age Resolved Age Notes LastModified by Organization Details LastModified Time Sister Allergy 61 61 [email or web address] Not availa ble 09/29/2024 09:00:29 Medical History Condition Response Allergies/Hayfever Y Heart Problems Y Anxiety Y Tonsil Infections N Emphysema N Migraines Y Thyroid Problems N Glaucoma N Depression Y COPD Y Developmental Delay N Nasal or Sinus Problems N Anemia Y Immune System Disorder N Anesthesia Complications N Heart Attack ([place]) N Other Skin Condition Y Diabetes N [...] ICD10 Code Diagnosis IMO Codes Diagnosis Note [id number] MAEGAN CAMPBELL [place] [address] [address] 02/02/2025 15:05:14 02/03/2025 14:50:54 Sensorineural hearing loss of bilateral ears [id number] H90.3 [id number] MAEGAN CAMPBELL [place] 100 [facility] 100 [place] [address] 03/02/2025 11:07:51 03/06/2025 10:07:41 Sensorineural hearing loss of bilateral ears 959783791 H90.3 03373598 [id number] MAEGAN CAMPBELL [place] 100 [facility],[address] [place] [address] 03/02/2025 11:34:50 03/03/2025 14:36:06 Sensorineural hearing loss of bilateral ears 267416363 H90.3 [id number] Health Concerns Section Related Observation LastModified by Organization Detai ls LastModified Time None Recorded Concern Status LastModified by Organization Details LastModified Time None Recorded Payers Encounter Date Sequence Insurance Name Policy Number Policy Galadmez Covered Member ID Galdamez Member ID Guarantor Name 03/02/2025 2 [place] [id number] Miya Carrasquillo [facility] [id number] Miya Carrasquillo [facility] 03/02/2025 1 [place] [employer] Miya Carrasquillo [facility] [id number] Miya Carrasquillo [facility] Notes Date Note Type Note Provider Name and Address Organization Details Recorded Time 03/02/2025 text/html Patient has a history of [...] difference. 6mo appt made prior to my group home still having issues with migrating out - discussed custom molds - impressions made - $200 due appt mar 02 - call sooner if earlier appt possible. MAEGAN CAMPBELL 100 [facility] 100, [place], [address], [facility] - [facility] 03/06/2025 10:07:41 03/02/2025 text/html Patient has a [...] difference. 6mo appt made prior to my group home still having issues with migrating out - discussed custom molds - impressions made - $200 due appt mar 02 - call sooner if earlier appt possible. DREA REHMAN, AUD 100 [facility],[place] [address], [place], [address], [place] - [facility] 03/02/2025 12:08:35 OBGyn Episode No OBEpisode recorded.
--- OUTSIDE RECORDS SUMMARY | 2025-04-14 08:34 | XMS_ITS | Encounter Summary ---
Author Organization [employer] Address [address] [facility] 7 [place] [address] Care Team Providers Care Mainframe Developer Name Role Phone Unavailable Primary Care Provider Unavailabl e Encounter Details Date Type Department Care Team (Latest Contact Info) Description 04/12/2021 Abstract [facility] CONVERSIONS Dental, Provider, DDS Social History [...] Description 04/18/2025 10:15 AM EST Office Visit [facility] [address] [place] [address] Farhat Stoner documented as of this encounter Visit Diagnoses Not on filedocumented in this encounter
--- OUTSIDE RECORDS SUMMARY | 2025-04-14 08:35 | XMS_ITS | Continuity of Care Document ---
Author Organization [place] - [facility] Address [address] [place] [address] Care Team Providers Care Head Of Data Name Role Phone VON MIRANDA Primary Care Provider Assessment Encounter Date Assessment Date Assessment LastModified by Organization Details LastModified Time 03/02/2025 03/02/2025 PU new molds - reviewed insertion/kristina nging wax guards. F/u appt in May before my custodial. [email or web address] Not available 03/02/2025 12:07:03 Plan of Treatment Reminders Order Date Submit Date Provider Last Modified By Organization Details Last Modified Time Details Appointments Dizzy Follow Up 10 2024 10:40A M CELINE MCDONALD MD Not available Not available Not available Hearing Test 2024 11:00A M Hearing Test Not available Not available Not available [facility] Fitting Follow Up (60) 2024 02:00P MAEGAN ALEX Not available Not available Not available TH[facility]AR [...] Organization Details Recorded Time Dizziness and giddiness 593603523 Active 2015 Dizziness and giddiness ; Note: Date Diagnosed : 07/09/2015 11:57 AM (R42) Vertigo NOS; Note: Date Diagnosed : 07/09/2015 12:22 PM (R42) Not Available [facility] 4 02:51:42 Bleeding from nose 646638898 Active 2019 Epistaxis ; Note: Date Diagnosed : 05/14/2020 3:01 PM (R04.0) Not Available [facility] 4 02:51:44 Dysphagia 82034765 Active 2020 Dysphagia , unspecifi ed; Note: Date Diagnosed : 01/10/2021 2:06 PM (R13.10) Not Available [facility] 4 02:51:43 Disorder of nasal sinus 3901128 Active 2020 Perforati on of nasal septum NOS; Note: Date Diagnosed : 02/07/2021 3:08 PM (J34.89) Not Available [facility] 4 02:51:45 Disorder of the nose 67028216 Active 2020 Perforati on of nasal septum NOS; Note: Date Diagnosed : 02/07/2021 3:08 PM (J34.89) Not Available [facility] 4 02:51:45 Impacted cerumen of bilateral ears 16071525407 64693 Active 2024 CELINE MCDONALD MD 100 [facility], [place], [address] , [place] - [facility] 5 15:32:13 Sensorine ural hearing loss of bilateral ears 786528633 Active 2024 MAEGAN LEONE 100 [facility] [address], [place], [address] , [place] - [facility] 5 16:02:24 Sudden idiopathi c hearing loss 891020174 Active 2024 CELINE MCDONALD MD 100 [facility] [address], [place], [address] , [place] - [facility] 5 16:41:31 Intracran ial meningiom a 060454159 Active 2024 CELINE MCDONALD MD 100 [facility],[place] [address], [place], [address] , [place] - [facility] 09:17:51 Sensorine ural hearing loss of bilateral ears 766880026 Active 2024 DREA REHMAN, AUD 100 [facility],[place] [address], [place], [address] , [place] - [facility] 15:26:24 Problem Notes None recorded. Procedures Surgical History Date Name Laterality Status Provider Name and Address Organization Details Recorded Time 09/30/19 25 Air & SRT/SAT Audio with Tymps - 99035, 43550 & 38187 completed DAVID BRAGA MA, CCC-A 100 [facility],[address], [address], [place] - [facility] 09/29/2024 08:47:22 08/26/19 25 Intratympanic injection subsequent completed CELINE MCDONALD MD 100 [facility],[address], [address], [place] - [facility] 08/24/2024 20:05:07 08/20/19 25 Intratympanic injection subsequent completed LUIS ALBERTO POOL MD 100 [facility],[address], [address], [facility] - [facility] 08/19/2024 14:48:41 08/12/19 25 Cerumen removal with microscope bilateral completed CELINE MCDONALD MD 100 [facility],[address], [address], [place] [facility] 08/11/2024 15:33:17 08/12/19 25 Intratympanic injection initial completed CELINE MCDONALD MD 100 [facility],[address], [address], [place] [facility] 08/11/2024 16:51:22 08/12/19 25 Comp Audio with Tymps - 37881 & 77435 completed MAEGAN LEONE 100 [facility],[address], [address], [place] - [facility] 08/11/2024 16:02:20 Appendectomy completed Radha Otoole [place] [facility] 08/11/2024 15:01:50 Tonsillectomy completed Radha Otoole [place] [facility] 08/11/2024 15:02:51 Imaging Results None recorded. Procedure Notes None recorded. Medical Equipment None Reported. Allergies Allergen ID Allergen Name Allergen Category Reaction Reaction Severity Criticality Documentation Date Start Date Code Code System Note Provider Name and Address Organization Details Recorded Time 78139 codeine sulfate medicatio n other Not available Not available 10/20/2023 62218 RxNorm React ion: unkno wn, unspe cifie d;; Not Available [facility] 01:00:02 Medications Name Sig Start Date Stop [...] sustained -release 05/14 completed Medicati on ID: [id number] D uration Value: 30 Brand Name: bupropio [...] mg tablet 08/11 completed Medicati on ID: 165954 B rand Name: tizanidi ne Send Method: [...] gram tablet 08/11 completed Medicati on ID: [id number] B rand Name: sucralfa te Send Method: E-Prescr ibed Sub s Allowed: subs OK Speci al Instruct ion: TAKE ONE TABLET BY MOUTH THREE TIMES DAILY. M edicatio nGeneric Name: sucralfa te Not Available Not Available Not Available clonazepa m 0.5 mg tablet 08/11 completed Medicati on ID: [id number] B rand Name: clonazep am Send Method: E-Prescr ibed Sub s Allowed: subs JAMAR Rueda al Instruct ion: TAKE ONE-HALF TO ONE [...] mg tablet 05/14 completed Medicati on ID: 595371 D uration Value: 90 Brand Name: amlodipi ne Send Method: E-Prescr ibed Sub s Allowed: subs OK Medic ationGen ericName : amlodipi ne Not Available Not Available Not Available omeprazol e 40 mg capsule,d elayed release 08/11 completed Medicati on ID: [id number] B rand Name: omeprazo le Send Method: E-Prescr ibed Sub s Allowed: subs JAMAR Speci al Instruct ion: TAKE ONE CAPSULE BY MOUTH EVERY DAY Medi cationGe nericNam e: omeprazo le Not Available Not Available Not Available aspirin 81 mg tablet,de layed release TAKE ONE TABLET EVERY MORNING active Not Available Not Available No t Available tramadol 50 mg tablet 08/11 completed Medicati on ID: [id number] B rand Name: tramadol Send Method: E-Prescr [...] mg tablet 05/14 completed Medicati on ID: [id number] D uration Value: 90 Brand Name: pravasta [...] mg tablet 05/14 completed Medicati on ID: [id number] D uration Value: 30 Brand Name: bupropio [...] mg) tablet 05/14 completed Medicati on ID: 398124 B rand Name: Calcium 500 Send Method: E-Prescr ibed Sub s Allowed: subs OK Medic ationGen ericName : Calcium 500 Not Available Not Available Not Available escitalop radha 20 mg tablet TAKE ONE TABLET EVERY MORNING active Not Available Not Available No t Available Vitamin D3 25 mcg (1,000 unit) capsule 05/14 completed Medicati on ID: 620455 B rand Name: Vitamin D3 Send Method: E-Prescr ibed Sub s Allowed: subs OK Medic ationGen ericName : Vitamin D3 Not Available Not Available Not Available Fish Oil 120 mg-180 mg capsule 05/14 completed Medicati on ID: [id number] B rand Name: Fish Oil Send Method: E-Prescr ibed Sub s Allowed: subs OK Medic ationGen ericName : Fish Oil Not Available Not Available Not Available Lexapro 5 mg tablet 05/14 completed Medicati on ID: 886877 B rand Name: Lexapro Send Method: E-Prescr [...] aerosol inhaler 08/11 completed Medicati on ID: [id number] B rand Name: ProAir HFA Send Method: [...] inhalatio n 09/29 completed Medicati on ID: [id number] B rand Name: Breo Ellipta Send Method: E-Prescr ibed Sub s Allowed: subs JAMAR Josuei al Instruct ion: USE ONE INHALATI ON EVERY DAY Medi cationGe nericNam e: Breo Ellipta Not Available Not Available Not Available white petrolatu m 42 % topical ointment APPLY TO THE AFFECTED AREA(S) ONCE DAILY active Not Available Not Available No t Available Incruse Ellipta 62.5 mcg/actua tion powder for inhalatio n 08/11 completed Medicati on ID: [id number] B rand Name: Incruse Ellipta Send Method: E-Prescr ibed Sub s Allowed: subs JAMAR Josuei al Instruct ion: USE ONE INHALATI ON EVERY DAY Medi cationGe nericNam e: Incruse Ellipta Not Available Not Available Not Available Entresto 97 mg-103 mg tablet 08/11 completed Medicati on ID: [id number] B rand Name: Entresto Send Method: E-Prescr ibed Sub s Allowed: subs JAMAR Rueda al Instruct ion: TAKE ONE TABLET BY [...] mg capsule 05/14 completed Medicati on ID: [id number] B rand Name: Louisa Send Method: E-Prescr ibed Sub s Allowed: subs OK Medic ationGen ericName : Louisa Not Available Not Available Not Available Vitals None Recorded Social History None recorded. Functional Status None recorded. Mental Status None recorded. Family History Relationship Description Onset Age of this Age Resolved Age Notes LastModified by Organization Details LastModified Time Sister Allergy 61 61 [email or web address] Not availa ble 09/29/2024 09:00:29 Medical History Condition Response Allergies/Hayfever Y Heart Problems Y Anxiety Y Tonsil Infections N Emphysema N Migraines Y Thyroid Problems N Glaucoma N Depression Y COPD Y Developmental Delay N Nasal or Sinus Problems N Anemia Y Immune System Disorder N Anesthesia Complications N Heart Attack ([place]) N Other Skin Condition Y Diabetes N [...] ICD10 Code Diagnosis IMO Codes Diagnosis Note [id number] MAEGAN CAMPBELL [place] [address] [address] 02/02/2025 15:05:14 02/03/2025 14:50:54 Sensorineural hearing loss of bilateral ears 066762975 H90.3 [id number] MAEGAN CAMPBELL [place] 100 [facility] 100 [place] [address] 03/02/2025 11:07:51 03/06/2025 10:07:41 Sensorineural hearing loss of bilateral ears 800695841 H90.3 [id number] MAEGAN CAMPBELL [place] [place] 100 [facility],[address] [place] [address] 03/02/2025 11:34:50 03/03/2025 14:36:06 Sensorineural hearing loss of bilateral ears 481427351 H90.3 [id number] Health Concerns Section Related Observation LastModified by Organization Detai ls LastModified Time None Recorded Concern Status LastModified by Organization Details LastModified Time None Recorded Payers Encounter Date Sequence Insurance Name Policy Number Policy Galdamez Covered Member ID Galdamez Member ID Guarantor Name 03/02/2025 2 [place] [id number] Miya Carrasquillo [facility] [id number] Miya Carrasquillo [facility] 03/02/2025 1 [place] [employer] Miya Carrasquillo [facility] [id number] Miya Carrasquillo [facility] Notes Date Note Type Note [...] if earlier appt possible. MAEGAN CAMPBELL 100 [facility] 100, [place], [address], [place] - [facility] 03/06/2025 10:07:41 03/02/2025 text/html Patient has a [...] earlier appt possible. DREA REHMAN, AUD 100 [facility],[place] [address], [place], [address], [place] - [facility] 03/02/2025 12:08:35 OBGyn Episode No OBEpisode recorded.
--- OUTSIDE RECORDS SUMMARY | 2025-04-14 08:36 | XMS_ITS | Clinical Summary ---
Author Organization [address] [place] [address] Address [address] [place] [address] Phone Care Team Providers Care Hunter Name Role Phone Radha Henson MD Primary Care Provider [phone] Allergies Active Allergy Reactions Criticality Noted Date Comments Codeine Shortness of breath High 10/14/2016 1974, Palpatations Other reaction(s): PALPITATIONS Corticosteroids (Glucocorticoids) Unknown 09/14/2024 Other Unknown 10/19/2024 Medications acetaminophen (TYLENOL) 500 mg tablet Take 1 tablet (500 mg total) by mouth. 018 Active ascorbic acid (VITAMIN C) 250 mg tablet Take 1 tablet (250 mg total) by mouth 1 (one) time each day. 021 Active aspirin 81 mg EC tablet Take 1 tablet (81 mg total) by mouth 1 (one) time each day. 023 Active atorvastatin (LIPITOR) 40 mg tablet Take 1 tablet (40 mg total) by mouth at bedtime. 020 Active calcium carbonate 1,500 mg (600 mg elemental calcium) tablet Take 600 mg by mouth 1 (one) time each day. Active cholecalciferol (VITAMIN D-3) 50 mcg (2,000 unit) tablet Take 1 tablet (2,000 Units total) by mouth 1 (one) time each day. 021 Active escitalopram (LEXAPRO) 20 mg tablet Take 1 tablet (20 mg total) by mouth 1 (one) time each day. Active ferrous sulfate 325 mg (65 mg elemental iron) tablet Take 1 tablet (325 mg total) by mouth 1 (one) time each day. Active fluticasone propionate (FLONASE) 50 mcg/actuation nasal spray Administer 2 sprays into each nostril 1 (one) time each day. Active folic acid (FOLVITE) 1 mg tablet Take 1 tablet (1,000 mcg total) by mouth 1 (one) time each day. Active gabapentin (NEURONTIN) 400 mg capsule Take 2 capsules (800 mg total) by mouth 1 (one) time each day. Active levalbuterol (XOPENEX HFA) 45 mcg/actuation inhaler Inhale 2 puffs by mouth every 6 (six) hours if needed for wheezing or shortness of breath. Active montelukast (SINGULAIR) 10 mg tablet Take 1 tablet (10 mg total) by mouth at bedtime. Active pantoprazole (PROTONIX) 40 mg EC tablet Take 1 tablet (40 mg total) by mouth 1 (one) time each day before breakfast. Active traZODone (DESYREL) 50 mg tablet Take 1-2 tablets (50-100 mg total) by mouth at bedtime as needed for sleep. Active zinc sulfate (ZINCATE) 220 mg (50 mg elemental zinc) capsule Take 1 capsule (220 mg total) by mouth 1 (one) time each day. Active vitamin B complex (B-COMPLEX ORAL) TAKE ONE TABLET BY MOUTH EVERY DAY Active budesonide/glycopyr /formoterol (BREZTRI AEROSPHERE INHL) INHALE TWO PUFFS BY MOUTH TWICE DAILY Active CYANOCOBALAMIN, VITAMIN B-12, ORAL Take 1 tablet by mouth daily. Active multivitamin (MULTIPLE VITAMINS ORAL) Take by mouth every morning. Active thiamine 100 mg tablet Take 1 tablet (100 mg total) by mouth. Active amiodarone (PACERONE) 200 mg tablet 024 Active calcium carbonate/vitamin D3 (CALCIUM + D ORAL) Sig: None Entered Class: Historic 007 Active magnesium oxide (MAG-OX) 400 mg (241.3 elemental magnesium) tablet Take 1 tablet by mouth 4 times daily. 021 Active tobramycin-dexAMETH asone (TOBRADEX) ophthalmic suspension instill one drop in each eye four times daily Active estradioL (ESTRACE) 0.01 % (0.1 mg/gram) vaginal cream Insert 2 g into the vagina at bedtime. 34 g 3 2025 Active neomycin (MYCIFRADIN) 500 mg tablet Take 2 tablets (1,000 mg total) by mouth every 6 (six) hours. Active furosemide (LASIX) 20 mg tablet Take 1 tablet (20 mg total) by mouth 1 (one) time each day if needed (if you notice leg edema or gain 2-3lb in 2 days). 30 each Active cephalexin (KEFLEX) 500 mg capsule Take 1 capsule (500 mg total) by mouth 2 (two) times a day. 60 capsule 11 Active metoprolol succinate (TOPROL-XL) 25 mg 24 hr tablet Take 0.5 tablets (12.5 mg total) by mouth 1 (one) time each day. Do not crush or chew. 45 tablet 3 Active spironolactone (ALDACTONE) 25 mg tabletIndications:O ther cardiomyopathies (CMS/HCC V24, CMS/HCC V28) TAKE ONE-HALF TABLET EVERY MORNING 45 tablet 3 Active Eliquis 5 mg tablet TAKE ONE TABLET TWICE DAILY IN THE MORNING AND AT BEDTIME 180 tablet 3 Active B Complex 1, with folic acid, 0.4 mg tablet Take 1 tablet by mouth 1 (one) time each day in the morning. Active white petrolatum 42 % ointment Apply topically. Active melatonin 3 mg tablet Take 1 tablet (3 mg total) by mouth at bedtime. Active LORazepam (ATIVAN) 0.5 mg tablet TAKE ONE-HALF TABLET BY MOUTH ONE HOUR prior TO PROCEDURE NEEDED Active flurbiprofen (ANSAID) 100 mg tablet Take 1 tablet (100 mg total) by mouth 2 (two) times a day. Active Entresto 24-26 mg per tablet TAKE ONE TABLET TWICE DAILY IN THE MORNING AND AT BEDTIME 180 tablet 2 025 Active sacubitriL-valsarta n (Entresto) 24-26 mg per tablet Take 1 tablet by mouth 2 (two) times a day. 180 tablet 2 025 2024 Discontinued Active Problems Problem Noted Date Diagnosed Date Acute on chronic diastolic C HF (congestive heart failure) ([facility] V24, [facility] V28) 07/28/2024 Assessment & Plan (08/22/2024 2:35 [...] left knee joint 08/21/2023 VT (ventricular tachycardia) ([facility] V24, [facility] V28) 01/15/2022 Assessment & Plan [...] with remote device monitoring. Angina, class II ([facility] V24) 07/04/2021 Overview (01/21/2024): Angina, class II Coronary artery disease invo lving [place] coronary artery of [place] heart without angina pectoris 05/08/2021 Assessment & [...] complete nuclear stress test. VF (ventricular fibrillation) ([facility] V24, [facility] V28) 04/07/2021 Overview (01/21/2024): Last Assessment & Plan: She has not had any recurrent VT or VF through device interrogation. There is imperative to keep her potassium greater than 4 and magnesium greater than 2. Being off of her diuretic on a regular basis should also help this. Anemia due to stage 3 chroni c kidney disease ([facility] V24, [facility] V28) 02/07/2021 Anemia 12/28/2020 Thrombocytopenia ([facility] V24) 12/28/2020 S/P joint replacement 10/21/2020 Morbid obesity with alveolar hypoventilation ([facility] V24, [facility] V28) 09/13/2020 Secondary hypercoagulable state ([facility] V24) Prosthetic joint infection, subsequent encounter 09/05/2020 LBBB (left bundle branch block) 08/27/2020 Non-ischemic cardiomyopathy (CMS/HCC V24, CMS/ C V28) 06/27/2020 Overview (01/21/2024): LBBB Cath [...] due to hypokalemia and hypomagnesemia Paroxysmal A-fib (CMS/HCC V24, CMS/HCC V28) 06/09 Overview (01/21/2024): Paroxysmal atrial fibrillation [...] Encounters Date Type Department Care Team Description 04/14/2025 Results Follow-Up [facility] [address] [place] [address] Fatou Aquino NP 03/30/2025 3:20 PM EDT Ancillary Procedure [facility] [address] [place] [address] 03/07/2025 11:25 PM EDT Ancillary Procedure [facility] - [address] [place] [address] 02/22/2025 9:30 AM EDT Telemedicine Infectious Disease - [place] [address] [place] [address] Johana Freire MD Infection of prosthetic joint, subsequent encounter (Primary Dx) 01/27/2025 9:15 AM EDT Ancillary Procedure [facility] - [address] [place] [address] from Last 3 Months Immunizations Immunization Administration Dates Next Due Pfizer SARS-CoV-2 COVID-19, [...] ANTIBIOTIC SPACERS; Surgeon: Tremayne Adams MD; Location: [facility]); Service: Orthopedic Trauma; Laterality: Left; KNEE ARTHROPLASTY 09/05/2020 Left PROCEDURE:REVISION TOTAL KNEE ARTHROPLASTY;COMMENT:Procedur e: REVISION TOTAL KNEE - REIMPLANTATION; Surgeon: Tremayne Adams MD; Location: [facility]); Service: Orthopedics; Laterality: Left; HARDWARE REMOVAL 09/05/2020 Left PROCEDURE:HARDWARE REMOVAL;COMMENT:Procedure: REMOVE HARDWARE LOWER EXTREMITY - ANTIBIOTIC SPACERS; Surgeon: Tremayne Adams MD; Location: [facility]; Service: Orthopedics; Laterality: Left; CARDIAC CATHETERIZATION 09/14/2020 Right PROCEDURE:CARDIAC CATHETERIZATION;COMMENT:Proce dure: LEFT HEART CATHETERIZATION; Surgeon: David Salgado MD; Location: [facility]; Service: Cardiology; Laterality: Right; KNEE ARTHROPLASTY 10/18/2020 Left PROCEDURE:REVISION TOTAL KNEE ARTHROPLASTY;COMMENT:Procedur e: REVISION TOTAL KNEE; Surgeon: Tremayne Adams MD; Location: [facility]); Service: Orthopedics; Laterality: Left; MUSCLE FLAP 10/18/2020 Left PROCEDURE:MUSCLE FLAP;COMMENT:Procedure: MUSCLE FLAP LOWER EXTREMITY; Surgeon: Tremayne Adams MD; Location: [facility]); Service: Orthopedics; Laterality: Left; TOTAL KNEE ARTHROPLASTY 2017 Right PROCEDURE:TOTAL KNEE ARTHROPLASTY KNEE ARTHROPLASTY 08/24/2023 Left PROCEDURE:REVISION TOTAL KNEE ARTHROPLASTY;COMMENT:Procedur e: REVISION TOTAL KNEE; Surgeon: Tremayne Adams MD; Location: [facility]); Service: Orthopedics; Laterality: Left; PATELLA FRACTURE SURGERY 08/24/2023 Left PROCEDURE:PATELLA FRACTURE SURGERY;COMMENT:Procedure: ORIF PATELLA FRACTURE; Surgeon: Tremayne Adams MD; Location: [facility]); Service: Orthopedics; Laterality: Left; APPENDECTOMY 2009 PROCEDURE: HISTORICAL APPENDECTOMY TONSILLECTOMY PROCEDURE: HISTORICAL TONSILLECTOMY BREAST LUMPECTOMY 1984 Left PROCEDURE: ---- BREAST LUMP BIOPSY ----; COMMENT: benign BREAST SURGERY PROCEDURE: OR UNLISTED PROCEDURE BREAST; COMMENT: 1986 removed a lump left breast benign TOTAL KNEE ARTHROPLASTY Bilateral PROCEDURE: OR ARTHRP KNE CONDYLE&PLATU MEDIAL&LAT COMPARTMENTS; COMMENT: Right [...] Migraines DX:Migraines;COM MENT:Migraine Hx/ Stress H/ A-fib ([facility] V24, [facility] V28) DX:A-fib ([facility]) Heart murmur DX:Heart murmur Shortness of breath DX:Shortness of breath;COMMENT:Laying Flat Chest pressure DX:Chest pressur e Asthma DX:Asthma COPD (chronic obstructive pu lmonary disease) ([facility] V24, [facility] V28) DX:COPD (chronic o bstructive pulmonary disease) ([facility]) At high risk for falls DX:At hig h risk for falls;COMMENT:FallApril 2020 Fistula of wrist, right DX:Fistu la of wrist, right;COMMENT:No Arterial Lines Diverticulitis of colon DX:Diver ticulitis of colon Cardiomyopathy ([facility] V24, [facility] V28) DX:Cardiomyopathy ([facility]);COMMENT:PER Cardi note - EF 50-55% by Echo 03/2020 CHF (congestive heart failur e) ([facility] V24, [facility] V28) DX:CHF (congestive heart ra lure) ([facility]);COMMENT:TAKES ENTRESTO Leukopenia DX:Leukopenia;CO MMENT:PER PCP NOTE Thrombocytopenia ([facility] V24) D X:Thrombocytopenia ([facility]);COMMENT:PER PCP NOTE Osteoporosis DX:Osteoporosis; COMMENT:NO MEDS Coronary artery disease DX:Coron bonny artery disease Renal cysts and diabetes syn drome ([facility] V24, [facility] V28) DX:Renal cysts and diabetes syndrome ([facility]) History of transfusion DX:Histor y of transfusion;COMMENT:Hx Arrhythmia DX:Arrhythmia;CO MMENT:LBBB - Hx PAF - Hx VT/VF-08/2019-hypokalemia GI (gastrointestinal bleed) DX:G I (gastrointestinal bleed);COMMENT:Ulcer x 2 [id number] Peripheral neuropathy DX:Periphe ral neuropathy Vertigo DX:Vertigo Leg wound, left 2019 DX:Leg wound, le ft;COMMENT:s/p surgery Anemia DX:Anemia Anxiety and depression DX:Anxiet y and depression Hypercholesterolemia 01/15/2016 DX:Hypercho lesterolemia Obstructive sleep apnea syndrome 01/02/2017 DX:Obstructive sleep apnea syndrome Asthma-COPD overlap syndrome ([facility] V24, [facility] V28) 01/02/2017 DX:Asthma-COPD overlap syndr ome ([facility]) Hx of cardiac cath DX:Hx of card iac cath; COMMENT: showed 30% lesion but no other coronary disease Osteoarthritis DX:Osteoarthriti s; COMMENT: status post left total knee replacement with infection Non-ischemic cardiomyopathy ([facility] V24, [facility] V28) 06/27/2020 DX:Non-ischemic cardiomyopat hy ([facility]); COMMENT: LBBB Cath 03/2019 revealing 30% LM [...] ial hypertension Coronary artery disease invo lving [place] coronary artery of [place] heart without angina pectoris 05/08/2021 DX:Coronary artery disease involving [place] coronary artery of [place] heart without angina pectoris Anemia due to stage 3 chroni c kidney disease ([facility] V24, [facility] V28) DX:Anemia due to st age 2 [...] Safety Answer Date Record ed Physical Abuse Unrecognized value 07/29/2024 Verbal Abuse Unrecognized value 07/29/2024 Comments No Sex and Gender Information [...] Care Team (Late st Contact Info) Description 04/17/2025 1:30 PM EST Ancillary Procedure [facility] - [address] [place] [address] 06/15/2025 8:30 AM EST Ancillary Procedure [facility] - [address] [place] [address] 07/18/2025 10:35 AM EST Office Visit [facility] [address] [place] [address] Jimi Montenegro MD [address] [place] [address] [address] [place] [address] 08/23/2025 9:00 AM EDT Telemedicine Infectious Disease - [place] [address] [place] [address] Johana Freire MD [address] [place], [place] [id number] Health Maintenance Due Date Last Done Comments Colorectal Cancer Screening: Colonoscopy 1950 Hepatitis C Screening 05/14/2022 Osteoporosis Screening (Bone Density Screening) 05/14/2022 Social Influencers of Health Screening 05/14/2022 Medicare Annual Wellness Visit 10/15/2023 10/14/2022 Depression Screening 06/08/2024 COVID-19 Vaccine ( season) 2025 06/11/2023, 03/19/2022, 05/24/2021, Additional history exists Falls Risk Assessment 07/29/2025 07/29/2024 Hypertension/CHF/CAD Annual BMP Blood Test 07/29/2025 07/29/2024, 07/28/2024, 06/02/2024, Additional history exists Cholesterol Screening (Lipid Panel) 01/23/2030 01/23/2025 DTaP,Tdap,and Td Vaccines (3 - Td or Tdap) 08/20/2033 08/21/2023, 03/19/2016 Pneumococcal Vaccine: 50+ Years Completed 10/31/2021, 11/28/2009 Zoster Vaccines Completed 10/31/2021, 08/29/2021 Breast Cancer Screening Discontinued 05/19/20, 10/30/2021, 01/30/2020, Additional history exists Influenza Vaccine Completed 02/09/2025, , 02/29/2024, Additional history exists RSV Immunization Adult Patients Completed 02/09/2025 HIB Vaccines Aged Out No [...] this topic Medical Devices Implanted Type Area Refrigerating Engineer Device Identifier Shelf Expiration Date Model / Serial / Lot Cardiac Filling Separator-D Icd-12/23/2019 Implanted:12/22 by Sidney Colin MD (Quantity not on file) Cardiac SUPERVISOR SCOURING PADS-D ICD Left: Chest [employer] ACTICOR 7 HF-T QP / [id number] / Oss Diaphyseal Segment With Screws 17cm Implanted:Qty: 1 on 08/24/2023 by Tremayne Adams MD Joints Left: Knee [id number] 07/07/2024 / / [id number] Oss Segmental Femoral Component Left 8.5cm Rs Implanted:Qty: 1 on 08/24/2023 by Tremayne Adams MD Joints Left: Knee [id number] 12/15/2032 / / [id number] Rs Axle Implanted:Qty: 1 on 08/24/2023 by Tremayne Adams MD Joints Left: Knee [id number] 12/30/2032 / / [id number] Rs Femoral [place] Set Implanted:Qty: 1 on 08/24/2023 by Tremayne Adams MD Joints Left: Knee [id number] 01/13/2028 / / [id number] Ls Tibial Bearing 12mm Implanted:Qty: 1 on 08/24/2023 by Tremayne Adams MD Joints Left: Knee [id number] 01/22/2028 / / [id number] Device Angio-Seal Vip .035in 70cm 6fr [employer] Guidewire - [id number] Implanted:09/14 (Quantity not on file) [facility] [id number] / / Cement Simplex P Radiopaque Full Dose Bone 10 Pack - [id number] Implanted:Qty: 1 on 10/18/2020 by Tremayne Adams MD Left: Knee [employer] 03/07/2022 6191- 0 / / [id number] Cement Simplex P Radiopaque Full Dose Bone 10 Pack - [id number] Implanted:Qty: 1 on 10/18/2020 by Tremayne Adams MD Left: Knee [employer] 03/07/2022 6191- 0 / / [id number] Plug Artisan Medium 25mm Plug Bone Cement - [id number] Implanted:Qty: 1 on 10/18/2020 by Tremayne Adams MD Left: Knee [employer] [id number] 08/17/2025 6215-5-01 1 / / [id number] Augment Triathlon B Cone Symmetric Tritanium Tibial Latex - [id number] Implanted:Qty: 1 on 10/18/2020 by Tremayne Adams MD Left: Knee [employer] [id number] 03/29/2025 5549-A-12 0 / / [id number] Block Oss [id number] Augmentation Tibia Left Medial Right - [id number] Implanted:Qty: 1 on 10/18/2020 by Tremayne Adams MD Left: Knee BIOMET++DNU+CHO [employer]SE [employer]ISION 04/07/2030 [id number] / / [id number] Block 20mm Augmentation Tibial Knee - [id number] Implanted:Qty: 1 on 10/18/2020 by Tremayne Adams MD Left: Knee BIOMET++DNU+CHO OSE DIVISION 04/12/2030 [id number] / / [id number] Component Oss Long 63mm Nonmodular Tibial Plate Knee - [id number] Implanted:Qty: 1 on 10/18/2020 by Tremayne Adams MD Left: Knee BIOMET++DNU+CHO OSE DIVISION 07/20/2030 306775 / / [id number] Cement Bone Surg Simplex Radiopq [facility]-How [id number] Implanted:Qty: 1 on 08/24/2023 by Tremayne Adams MD Left: Knee [employer] [id number] 10/05/2025 6191-1-01 0 / / [id number] Plug Bone Med [facility]-How [id number] Implanted:Qty: 1 on 08/24/2023 by Tremayne Adams MD Left: Knee [employer] [id number] 04/27/2028 6215--01 1 / / [id number] H Knee Stem Oss Nathan [place] 12.0x150 [employer] [id number] Implanted:Qty: 1 on 08/24/2023 by Tremayne Adams MD Left: Knee JENNIFER BIOMET [id number] 08/14/2032 692351 / / [id number] Knee Oss Reinf Yoke [employer] [id number] Implanted:Qty: 1 on 08/24/2023 by Tremayne Adams MD Left: Knee JENNIFER BIOMET [id number] 02/04/2033 414747 / / [id number] Knee Tib Pin Lock Oss Poly [employer] [id number] Implanted:Qty: 1 on 08/24/2023 by Tremayne Adams MD Left: Knee JENNIFER [employer] [id number] 09/26/2027 536833 / / [id number] Knee Tib Bushing Comp Oss [employer] [id number] Implanted:Qty: 1 on 08/24/2023 by Tremayne Adams MD Left: Knee JENNIFER BI[employer] [id number] 04/10/2027 734119 / / [id number] Cement Bone Surg Simplex Radiopq St[employer]-How [id number] Implanted:Qty: 1 on 08/24/2023 by Tremayne Adams MD Left: Knee [employer] [id number] 10/05/2025 6191-1-01 0 / / [id number] Procedures Procedure Name Priority Date/Time Associated Diagnosis Comments B-TYPE NATRIURETIC PEPTIDE Routine 04/12/2025 11:34 AM EST VT (ventricular tachycardia) (CMS/HCC V24, CMS/HCC V28) CARDIAC DEVICE CHECK- REMOTE- MURJ Routine 03/30/2025 3:18 PM EDT CARDIAC DEVICE CHECK- REMOTE- MURJ Routine 03/07/2025 11:21 PM EDT CARDIAC DEVICE CHECK- REMOTE- MURJ Routine 01/27/2025 9:12 AM EDT LIPID PANEL Routine 01/23/2025 12:12 PM EDT Hypercholesterolemi a BASIC METABOLIC PANEL Routine 07/29/2024 4:50 AM EST MG MAMMO DIGITAL SCREENING W RICKEY BILAT Routine 05/19/2024 11:26 AM EST Encounter for screening mammogram for breast cancer from Last 3 Months or Most Recently Relevant to Health Maintenance Results * (ABNORMAL) B-type natriuretic peptide (04/12/2025 11:34 AM EST) B-Type Natriuretic Peptide 146.7(H) 0.0 - 100.0 pg/mL [facility] 1 Comment:[employer] AD[facility]IA [facility] XP methodology Blood Venous blood specimen / Unknown 04/12/2025 11:34 AM EST 04/12/2025 Narrative [facility] 1 - 04/13/2025 9:07 AM EST Performed at: 01 - [facility] [address] [id number] Vehicle Fuel Systems Converter: Laurence Lezama MD, Phone: [phone] us Fatou Aquino NP LAB BLOOD ORDERABLES Final Res ult [facility] 1 * Cardiac device check - Remote- MURJ (03/30/2025 3:18 PM EDT) Only the most recent of3 resultswithin the time period is included. Date Time Interrogation Session [id number] CV DEVICE CHECK Type Interrogation Session RemoteScheduled CV DEVICE CHECK Implantable Pulse Generator Refrigerating Engineer BIO CV DEVICE CHECK Implantable Pulse Generator Type SUPERVISOR SCOURING PADS-D CV DEVICE CHECK Implantable Pulse Generator Model Acticor 7 HF-T QP CV DEVICE CHECK Implantable Pulse Generator Serial Number [id number] CV DEVICE CHECK Implantable Pulse Generator Implant Date 20191223 CV DEVICE CHECK Battery Remaining Percentage 54.00 CV DEVICE CHECK Battery Voltage 3.090 CV D EVICE CHECK Battery RECEIVING CHECKER Trigger 2.850 CV DEVICE CHECK Battery Status Middle of Service CV DEVICE CHECK Capacitor Charge Time 9.400 CV DEVICE CHECK Gaurav Statistic RA Percent Paced 1.00 CV DEVICE CHECK Gaurav Statistic RV Percent Paced 100.00 CV DEVICE CHECK SUPERVISOR SCOURING PADS Statistic LV Percent Paced 0.00 CV DEVICE CHECK SUPERVISOR SCOURING PADS Statistic SUPERVISOR SCOURING PADS Percent Paced 100.00 CV DEVICE CHECK Atrial Tachy Statistic AT/AF [place] Percent 0.00 CV DEVICE CHECK Lead Channel Sensing Intrinsic Amplitude 0.800 CV DEVICE CHECK Lead Channel Setting Sensing Sensitivity 0.20 CV DEVICE CHECK Lead Channel Impedance Value 423 CV DEVICE CHECK Lead Channel RA Pacing Threshold Date 2025-03-24 CV DEVICE CHECK Lead Channel Setting Pacing Amplitude 2.500 CV DEVICE CHECK Lead Channel Setting Pacing Pulse Width 0.4 CV DEVICE CHECK Lead Channel Sensing Intrinsic Amplitude 5.400 CV DEVICE CHECK Lead Channel Setting Sensing Sensitivity 0.60 CV DEVICE CHECK Lead Channel Impedance Value 384 CV DEVICE CHECK Lead Channel Pacing Threshold Amplitude 0.800 CV DEVICE CHECK Lead Channel Pacing Threshold Pulse Width 0.4 CV DEVICE CHECK Lead Channel RV Pacing Threshold Date 2025-03-24 CV DEVICE CHECK Lead Channel Setting Pacing Amplitude 1.800 CV DEVICE CHECK Lead Channel Setting Pacing Pulse Width 0.4 CV DEVICE CHECK Lead Channel Sensing Intrinsic Amplitude 5.700 CV DEVICE CHECK Lead Channel Impedance Value 462 CV DEVICE CHECK Lead Channel Pacing Threshold Amplitude 1.300 CV DEVICE CHECK Lead Channel Pacing Threshold Pulse Width 0.4 CV DEVICE CHECK Lead Channel Pacing Threshold Date 2025-03-24 CV DEVICE CHECK Lead Channel Setting Pacing Amplitude 2.300 CV DEVICE CHECK Lead Channel Setting Pacing Pulse Width 0.4 CV DEVICE CHECK Gaurav Setting Mode (NBG Code) DDD CV DEVICE CHECK Ventricular chambers paced during SUPERVISOR SCOURING PADS pacing. BiV CV DEVICE CHECK Gaurav Setting Lower Rate Limit 50 CV DEVICE CHECK Gaurav Setting AT Mode Switch Rate 160 CV DEVICE CHECK Gaurav Setting Maximum Tracking Rate 130 CV DEVICE CHECK Gaurav Setting Maximum Sensor Rate 110 CV DEVICE CHECK Gaurav Setting PAV Delay 110 CV DEVICE CHECK Gaurav Setting JASMEET Delay 110 CV DEVICE CHECK SUPERVISOR SCOURING PADS LV-RV Delay 20 CV D EVICE CHECK [...] 12 CV DEVICE CHECK Date of Service 2025-05-25 CV DEVICE CHECK Anatomical Region Laterality Modality Device Interroga tion 03/24/2025 1:57 AM EDT Impressions 03/30/2025 7:47 AM EDT Normal Remote: No Events * Normal Device Function * Alerts or events: None * Battery: Battery is at 54%, * Sensing, impedance and thresholds reviewed * Programmed parameters reviewed * Presenting rhythm reviewed * Heart Rate Histograms reviewed * No significant changes noted Heart Failure Diagnostic: Stable * Heart failure diagnostics assessed through the device * Status: Stable * No overt HF present Narrative Procedure Note Sidney Colin MD - 03/30/2025 IMPRESSION: Normal Remote: No Events * Normal Device Function * Alerts or events: None * Battery: Battery is at 54%, * Sensing, impedance and thresholds reviewed * Programmed parameters reviewed * Presenting rhythm reviewed * Heart Rate Histograms reviewed * No significant changes noted Heart Failure Diagnostic: Stable * Heart failure diagnostics assessed through the device * Status: Stable * No overt HF present us Sidney Colin MD CV IMPLANTABLE CARDIAC DEVICE PROCEDURES Final Result * Lipid panel (01/23/2025 12:12 PM EDT) Pathologist [facility] Cholesterol Total 159 100 - 199 mg/dL [facility] Triglycerides 41 0 - 149 mg/dL [facility] 1 HDL Cholesterol 71 >39 mg/dL [facility] VLDL Cholesterol Calculated 9 5 - 40 mg/dL [facility] 1 LDL Chol Calc (NIH) 79 0 - 99 mg/dL [facility] 1 Blood Venous blood specimen / Unknown 01/23/2025 12:12 PM EDT 01/23/2025 Narrative [facility] 1 - 01/24/2025 2:06 AM EDT Performed at: 01 - [facility] [address] [id number] Vehicle Fuel Systems Converter: Laurence Lezama MD, Phone: [phone] us Fatou Aquino SOCIAL SCIENCE PROFESSOR LAB BLOOD ORDERABLES Final Res ult [facility] * (ABNORMAL) Basic metabolic panel (07/29/2024 4:50 AM EST) Pathologist [facility] Sodium 140 133 - 145 mmol/L LAB CHEMISTRY METHOD 07/29/2024 5:58 AM EST [facility] Potassium 4.0 3.5 - 5.5 mmol/L LAB CHEMISTRY METHOD 07/29/2024 5:58 AM EST [facility] Chloride 105 96 - 110 mmol/L LAB CHEMISTRY METHOD 07/29/2024 5:58 AM EST [facility] CO2 24 21 - 32 mmol/L LAB CHEMISTRY METHOD 07/29/2024 5:58 AM EST [facility] Anion Gap 11 3 - 11 LAB CHEMISTRY METHOD 07/29/2024 5:58 AM [facility] Glucose 121(H) 70 - 100 mg/dL LAB CHEMISTRY METHOD 07/29/2024 5:58 AM [facility] BUN 22 5 - 25 mg/dL LAB CHEMISTRY METHOD 07/29/2024 5:58 AM [facility] Creatinine 1.43(H) 0.50 - 1.10 mg/dL LAB CHEMISTRY METHOD 07/29/2024 5:58 AM EST [facility] eGFR 38(L) >=60 mL/min/1. 73m2 LAB CHEMISTRY METHOD 07/29/2024 5:58 AM [facility] Comment:Calculation based on the Chronic Kidney Disease Epidemiology Collaboration (CKD-EPI) equation refit without adjustment for race. BUN/Creatinine Ratio 15.4 LAB CHEMISTRY METHOD 07/29/2024 5:58 AM [facility] Calcium 9.4 8.5 - 10.5 mg/dL LAB CHEMISTRY METHOD 07/29/2024 5:58 AM [facility] Blood Venous blood specimen / Unknown Venipuncture / Unknown 07/29/2024 4:50 AM EST 07/29/2024 5:12 AM EST us Inder Mishra MD LAB BLOOD ORDERABLES Final Re sult [facility] [address] [place] [address], * MG Mammo Digital Screening w Rickey [...] Signed Date: 05/19/2024 16:13 ET Workstation ID: [id number] Transcribed By: Self Edit Transcribed Date: 05/19/2024 [...] None Computer-aided detection was employed with the [employer] AI 3-D. TISSUE DENSITY: There are scattered [...] None Computer-aided detection was employed with the [employer] AI 3-D. TISSUE DENSITY: There are scattered [...] Signed Date: 05/19/2024 16:13 ET Workstation ID: [id number] Transcribed By: Self Edit Transcribed Date: 05/19/2024 16:08 ET us Self Referral Sppl IMG BI PROCEDURES Final Resul t from Last 3 Months or Most Recently Relevant to Health Maintenance Insurance MEDICARE [facility] Advance Directives Documents on File Type Date Recorded Patient Fusing Line Inspector Expl anation Health Care Decision (hx) 08/30/2023 AD BLANCHARD DIRECTIVE Health Care Decision (hx) 08/19/2023 PO WER OF LEGAL ADMINISTRATOR Health Care Decision (hx) 08/16/2020 AD BLANCHARD [...] DIRECTIVE Health Care Decision (hx) 03/23/2018 AD BALNCHARD DIRECTIVE Health Care Decision (hx) 03/23/2018 AD [...] currently active code status orders. Care Teams Hunter Relationship Specialty Start Date End Date Radha Henson MD [address] [place] [address] PCP - General Internal Medicine 07/01/21
--- OUTSIDE RECORDS SUMMARY | 2025-04-14 08:36 | XMS_ITS | Clinical Summary ---
Author Organization [employer] Address [address] [place] [address] Care Team Providers Care Sustainment Logistics Analyst Name Role Phone Unavailable Primary Care Provider [...] patient's age to complete this topic Insurance [facility]
--- OUTSIDE RECORDS SUMMARY | 2025-04-14 08:36 | XMS_ITS | Encounter Summary ---
Author Organization [facility] Address [address] [place] [address] Care Team Providers Care Weatherization Operations Manager Name Role Phone Unavailable Primary Care Provider Unavailabl e Encounter Details Date Type Department Care Team (Late st Contact Info) Description 07/28/2023 Lab Requisition [facility] [address] [place] [address] Tremayne Adams MD [address] [place] [address] Social History Tobacco Use Types Packs/Day Years [...] STOOLS ORDERABLES Final Result Performing Organization Address City/[facility]/ZIP Co de Phone Number LABORATORY SERVICES [id number] [place] [address], [place] * Body Fluid Culture, With Gram [...] GENERAL ORDERABLES Final Result Performing Organization Address [facility] Co de Phone Number LABORATORY SERVICES [id number] [place] [address], [place] * Body fluid cell count w/reflex [...] STOOLS ORDERABLES Final Result Performing Organization Address [facility] Co de Phone Number LABORATORY SERVICES [id number] [address] [place] [address], * Synovial fluid, Analysis (07/28/2023 1:40 PM [...] STOOLS ORDERABLES Final Result Performing Organization Address City/[facility] Co de Phone Number LABORATORY SERVICES [id number] [address] [place] [address], documented in this encounter Visit Diagnoses Not on filedocumented in this encounter
--- OUTSIDE RECORDS SUMMARY | 2025-04-14 08:36 | XMS_ITS | Continuity of Care Document ---
Author Organization [place] [facility] Address [address] [place] [phone] Care Team Providers Care Recreation Activities Coordinator Name Role Phone VON MIRANDA Primary Care Provider Assessment Encounter Date Assessment Date Assessment LastModified by Organization Details LastModified Time 02/02/2025 02/02/2025 still having issues with migrating out - discussed custom molds - impressions made - $200 due appt mar 02 - call sooner if ealier appt possible. [email or web address] Not available 02/02/2025 15:49:17 Plan of Treatment Reminders Order Date Submit [...] THAKKAR Fitting Follow Up (30) 2024 11:30A MAEGAN ALEX Not available Not available Not available Establish ed 10 2025 09:50A Neida MCDONALD MD Not available Not available Not available Lab None recorded. Referral None recorded. Procedures None recorded. Surgeries None recorded. Imaging None recorded. Medication Orders None recorded. Patient TargetsNo targets recorded. Patient InstructionsNo instructions recorded. Reason for Referral None Reported. Problems Name Problem SNOMED Code Status Onset Date Resolution Date Notes Provider Name and Address Organization Details Recorded Time Dizziness and giddiness 471213031 Active 2015 Dizziness and giddiness ; Note: Date Diagnosed : 07/09/2015 11:57 AM (R42) Vertigo NOS; Note: Date Diagnosed : 07/09/2015 12:22 PM (R42) Not Available [facility] 4 02:51:42 Bleeding from nose 876240573 Active 2019 Epistaxis ; Note: Date Diagnosed : 05/14/2020 3:01 PM (R04.0) Not Available [facility] 4 02:51:44 Dysphagia 44104195 Active 2020 Dysphagia , unspecifi ed; Note: Date Diagnosed : 01/10/2021 2:06 PM (R13.10) Not Available [facility] 4 02:51:43 Disorder of nasal sinus 0660646 Active 2020 Perforati on of nasal septum NOS; Note: Date Diagnosed : 02/07/2021 3:08 PM (J34.89) Not Available [facility] 4 02:51:45 Disorder of the nose 58438291 Active 2020 Perforati on of nasal septum NOS; Note: Date Diagnosed : 02/07/2021 3:08 PM (J34.89) Not Available [facility] 4 02:51:45 Impacted cerumen of bilateral ears 06051726776 22005 Active 2024 CELINE MCDONALD MD [address] [facility],[place] [address], [place], [address] , [place] - [facility] 5 15:32:13 Sensorine ural hearing loss of bilateral ears 755035853 Active 2024 MAEGAN LEONE [address] [facility] [[email or web address] [address], [place], [address] , [place]HAJI - [facility] 5 16:02:24 Sudden idiopathi c hearing loss 955648329 Active 2024 CELINE MCDONALD MD [address] [facility],[place] [address], [place], [address] , [place] - [facility] 5 16:41:31 Intracran ial meningiom a 361810761 Active 2024 CELINE MCDONALD MD [address] [facility],[place] [address], [place], [address] , [place] - [facility] 5 09:17:51 Sensorine ural hearing loss of bilateral ears 616265170 Active 2024 DREA REHMAN, AUD [address] [facility],[place] [address], [facility] [place], [address] , [place] - [facility] 15:26:24 Problem Notes None recorded. Procedures Surgical History Date Name Laterality Status Provider Name and Address Organization Details Recorded Time 09/30/19 25 Air & SRT/SAT Audio with Tymps - 43909, 84734 & 63486 completed DAVID BRAGA MA, CCC-A [address] [facility],[address], [address], [place] - [facility] 09/29/2024 08:47:22 08/26/19 25 Intratympanic injection subsequent completed CELINE MCDONALD MD [address] [facility],[address], [address], [place] - [facility] 08/24/2024 20:05:07 08/20/19 25 Intratympanic injection subsequent completed LUIS ALBERTO POOL MD [address] [facility],[address], [address], [place] - [facility] 08/19/2024 14:48:41 08/12/19 25 Cerumen removal with microscope bilateral completed CELINE MCDONALD MD [address] [facility],[address], [address], [place] [facility] 08/11/2024 15:33:17 08/12/19 25 Intratympanic injection initial completed CELINE MCDONALD MD [address] [facility],[address], [address], [place] [facility] 08/11/2024 16:51:22 08/12/19 25 Comp Audio with Tymps - 24537 & 73898 completed MAEGAN LEONE [address], [address], [place] [facility] 08/11/2024 16:02:20 Appendectomy completed Radha Otoole [facility] 08/11/2024 15:01:50 Tonsillectomy completed Radha Otoole [facility] 08/11/2024 15:02:51 Imaging Results None recorded. Procedure Notes None recorded. Medical Equipment None Reported. Allergies Allergen ID Allergen Name Allergen Category Reaction Reaction Severity Criticality Documentation Date Start Date Code Code System Note Provider Name and Address Organization Details Recorded Time 10087 codeine sulfate medicatio n other Not available Not available 10/20/2023 51885 RxNorm React ion: unkno wn, unspe cifie d;; Not Available [facility] 01:00:02 Medications Name Sig Start Date Stop [...] sustained -release 05/14 completed Medicati on ID: [id number] D uration Value: 30 Brand Name: bupropio [...] mg tablet 08/11 completed Medicati on ID: [id number] B rand Name: tizanidi ne Send Method: [...] gram tablet 08/11 completed Medicati on ID: [id number] B rand Name: sucralfa te Send Method: E-Prescr ibed Sub s Allowed: subs OK Speci al Instruct ion: TAKE ONE TABLET BY MOUTH THREE TIMES DAILY. M edicatio nGeneric Name: sucralfa te Not Available Not Available Not Available clonazepa m 0.5 mg tablet 08/11 completed Medicati on ID: [id number] B rand Name: clonazep am Send Method: [...] mg tablet 05/14 completed Medicati on ID: [id number] D uration Value: 90 Brand Name: amlodipi ne Send Method: E-Prescr ibed Sub s Allowed: subs OK Medic ationGen ericName : amlodipi ne Not Available Not Available Not Available omeprazol e 40 mg capsule,d elayed release 08/11 completed Medicati on ID: [id number] B rand Name: omeprazo le Send Method: E-Prescr ibed Sub s Allowed: subs JAMAR Rueda al Instruct ion: TAKE ONE CAPSULE BY MOUTH EVERY DAY Medi cationGe nericNam e: omeprazo le Not Available Not Available Not Available aspirin 81 mg tablet,de layed release TAKE ONE TABLET EVERY MORNING active Not Available Not Available No t Available tramadol 50 mg tablet 03/06 /2025 completed Medicati on ID: [id number] B rand Name: tramadol Send Method: E-Prescr [...] mg tablet 05/14 completed Medicati on ID: [id number] D uration Value: 90 Brand Name: pravasta [...] mg tablet 05/14 completed Medicati on ID: [id number] D uration Value: 30 Brand Name: bupropio [...] lable lotepredn ol etabonate 0.5 % eye drops,amrani pension PLACE ONE DROP IN EACH EYE [...] mg) tablet 05/14 completed Medicati on ID: [id number] B rand Name: Calcium 500 Send Method: E-Prescr ibed Sub s Allowed: subs OK Medic ationGen ericName : Calcium 500 Not Available Not Available Not Available escitalop radha 20 mg tablet TAKE ONE TABLET EVERY MORNING active Not Available Not Available No t Available Vitamin D3 25 mcg (1,000 unit) capsule 05/14 completed Medicati on ID: [id number] B rand Name: Vitamin D3 Send Method: E-Prescr ibed Sub s Allowed: subs OK Medic ationGen ericName : Vitamin D3 Not Available Not Available Not Available Fish Oil 120 mg-180 mg capsule 05/14 completed Medicati on ID: [id number] B rand Name: Fish Oil Send Method: E-Prescr ibed Sub s Allowed: subs OK Medic ationGen ericName : Fish Oil Not Available Not Available Not Available Lexapro 5 mg tablet 05/14 completed Medicati on ID: [id number] B rand Name: Lexapro Send Method: E-Prescr [...] aerosol inhaler 08/11 completed Medicati on ID: [id number] B rand Name: ProAir HFA Send Method: [...] inhalatio n 09/29 completed Medicati on ID: [id number] B rand Name: Breo Ellipta Send Method: E-Prescr ibed Sub s Allowed: syed Rueda al Instruct ion: USE ONE INHALATI ON EVERY DAY Medi cationGe nericNam e: Breo Ellipta Not Available Not Available Not Available white petrolatu m 42 % topical ointment APPLY TO THE AFFECTED AREA(S) ONCE DAILY active Not Available Not Available No t Available Incruse Ellipta 62.5 mcg/actua tion powder for inhalatio n 08/11 completed Medicati on ID: [id number] B rand Name: Incruse Ellipta Send Method: E-Prescr ibed Sub s Allowed: syed Rueda al Instruct ion: USE ONE INHALATI ON EVERY DAY Medi cationGe nericNam e: Incruse Ellipta Not Available Not Available Not Available Entresto 97 mg-103 mg tablet 08/11 completed Medicati on ID: [id number] B rand Name: Entresto Send Method: E-Prescr [...] mg capsule 05/14 completed Medicati on ID: [id number] B rand Name: [place] [id number] Send Method: E-Prescr ibed Sub s Allowed: subs OK Medic ationGen ericName : [place] [id number] Not Available Not Available Not Available Vitals None Recorded Social History None recorded. Functional Status None recorded. Mental Status None recorded. Family History Relationship Description Onset Age of this Age Resolved Age Notes LastModified by Organization Details LastModified Time Sister Allergy 61 61 [email or web address] Not availa ble 09/29/2024 09:00:29 Medical History Condition Response Allergies/Hayfever Y Heart Problems Y Anxiety Y Tonsil Infections N Emphysema N Migraines Y Thyroid Problems N Glaucoma N Depression Y COPD Y Developmental Delay N Nasal or Sinus Problems N Anemia Y Immune System Disorder N Anesthesia Complications N Heart Attack (NE) N Other Skin Condition Y Diabetes N Rhinitis N Bleeding Disorder N Food Allergy N Arthritis Y Hearing Loss Y Hyperlipidemia N Cancer N Stroke N Dementia N Nasal polyps N Asthma Y Sleep Disorder N GERD/Reflux Y High Cholesterol Y Liver Disease N Headaches N Fibromyalgia N Hypertension Y Speech Delay N Kidney Disease N Gynecological HistoryNo gynecological history recorded. Obstetrics History GPAL:G 0 P 0 0 0 0 Past Encounters Encounter ID Performer Location Encounter Start Date Encounter Closed Date Diagnosis/Indication Diagnosis SNOMED-CT Code Diagnosis ICD10 Code Diagnosis IMO Codes Diagnosis Note [id number] DREA REHMAN, MAEGAN THAKKAR [place] [address] [facility] [address] [place] [address] 02/02/2025 15:05:14 02/03/2025 14:50:54 Sensorineural hearing loss of bilateral ears [id number] H90.3 [id number] Health Concerns Section Related Observation LastModified by Organization Detai ls LastModified Time None Recorded Concern Status LastModified by Organization Details LastModified Time None Recorded Payers Encounter Date Sequence Insurance Name Policy Number Policy Galdamez Covered Member ID Galdamez Member ID Guarantor Name 02/02/2025 2 [place] [id number] Miya Woodruff [id number] Miya Woodruff 02/02/2025 1 [place] [facility] Miya Woodruff [id number] Miya Woodruff Notes Date Note Type Note Provider Name and Address Organization Details Recorded Time 02/02/2025 text/html Patient has a history of [...] difference. 6mo appt made prior to my fdc DREA REHMAN, AUD [address] [facility],[place] [address], [place], [address], [place] - [facility] 02/02/2025 16:45:04 OBGyn Episode No OBEpisode recorded.
--- OUTSIDE RECORDS SUMMARY | 2025-04-14 08:36 | XMS_ITS | Encounter Summary ---
Author Organization [employer] Address [address] [facility] 7 [place] [address] Care Team Providers Care Silk Trimmer Name Role Phone Unavailable Primary Care Provider Unavailabl e Reason for Visit * Reason Onset Date Comments rs same day cx appt 12/20/2024 Encounter Details Date Type Department Care Team (Late Contact Info) Description 12/20/2024 Telephone [facility] [address] [place] [address] Sofiya Hunt same day cx appt Social [...] Upcoming Encounters Date Type Department Care Team ([facility] Contact Info) Description 04/18/2025 10:15 AM EST Office Visit [facility] [address] [place] [address] Farhat Stoner documented as of this encounter Visit Diagnoses Not on filedocumented in this encounter
--- OUTSIDE RECORDS SUMMARY | 2025-04-14 08:36 | XMS_ITS | Encounter Summary ---
Author Organization [facility] Address [address] [place] [address] Care Team Providers Care Darklight Inspector Name Role Phone Radha Henson MD Primary Care Provider [phone] Encounter Details Date Type Department Care Team (Late st Contact Info) Description 04/14/2025 Results Follow-Up [facility] - [address] [place] [phone] Fatou Aquino NP [address] [place] [address] [address] [place] [address] Social History Tobacco Use Types Packs/Day Years [...] Orientation Straight 04/25/2024 3: 17 PM EST documented as of this encounter Progress Notes * Fatou Aquino NP - 04/14/2025 8:05 AM EST Stable lab letter please documented in this encounter Plan of Treatment Upcoming Encounters Date Type Department Care Team (Late st Contact Info) Description 04/17/2025 1:30 PM EST Ancillary Procedure [facility] - [address] [place] [address] 06/15/2025 8:30 AM EST Ancillary Procedure [facility] - [address] [place] [address] 07/18/2025 10:35 AM EST Office Visit [facility] [address] [place] [address] [address] [place] [address] Jimi Montenegro MD [address] [place] [address] [address] [place] [address] 08/23/2025 9:00 AM EDT Telemedicine Infectious Disease - [facility] [address] [place] [address] Johana Freire MD [address] [place] [address] documented as of this encounter Visit Diagnoses Not on filedocumented in this encounter Care Teams Darklight Inspector Relationship Specialty Start Date End Date Radha Henson MD [address] [place] [address] PCP - General Internal Medicine 07/01/21 documented as of this encounter
--- OUTSIDE RECORDS SUMMARY | 2025-04-14 08:36 | XMS_ITS | Clinical Summary ---
Author Organization [facility] Address [address] [place] [address] Care Team Providers Care Replenisher Name Role Phone Radha Henson MD Primary Care Provider [phone] Allergies Active Allergy Reactions Criticality Noted Date [...] Name Status Comments Brother Father (Age 50) [place] Mother (Age 86) Kidney Ron lure Sister [...] this topic Medical Devices Implanted Type Area Buttonhole Maker Device Identifier Shelf Expiration Date Model / Serial / Lot Oss Diaphyseal Segment With Screws 17cm Implanted:Qty: 1 on 08/24/2023 by Tremayne Adams MD at [facility] and [facility] Total Joint Left: Knee [id number] 07/07/2024 / / [id number] Oss Segmental Femoral Component Left 8.5cm Rs Implanted:Qty: 1 on 08/24/2023 by Tremayne Adams MD at [facility] and [facility] Total Joint Left: Knee [id number] 12/15/2032 / / [id number] Rs Axle Implanted:Qty: 1 on 08/24/2023 by Tremayne Adams MD at [facility] and [facility] Total Joint Left: Knee [id number] 12/30/2032 / / [id number] Rs Femoral Bushings Set Implanted:Qty: 1 on 08/24/2023 by Tremayne Adams MD at [facility] and [facility] Total Joint Left: Knee [id number] 01/13/2028 / / [id number] Ls Tibial Bearing 12mm Implanted:Qty: 1 on 08/24/2023 by Tremayne Adams MD at [facility] and [facility] Total Joint Left: Knee [id number] 01/22/2028 / / [id number] Device Angio-Seal Vip .035in 70cm 6fr Valuelink Guidewire - 288449 - [id number] Implanted:2020 at [facility] and [facility] (Quantity not on file) [employer] [id number] / / Cement Simplex P Radiopaque Full Dose Bone 10 Pack - 118850 - [id number] Implanted:Qty: 1 on 10/18/2020 by Tremayne Adams MD at [facility] and Med Left: Knee [employer] 03/07/2022 6191-06-08 0 / / [id number] Cement Simplex P Radiopaque Full Dose Bone 10 Pack - 334497 - [id number] Implanted:Qty: 1 on 10/18/2020 by Tremayne Adams MD at [facility] and [facility] Left: Knee [employer] 03/07/2022 6191 0 / / [id number] Plug Artisan Medium 25mm Plug Bone Cement - 868489 - [id number] Implanted:Qty: 1 on 10/18/2020 by Tremayne Adams MD at [facility] and Med Left: Knee [employer] [id number] 08/17/2025 6215-5-01 1 / / [id number] Augment Triathlon B Cone Symmetric Tritanium Tibial Latex - 782293 - [id number] Implanted:Qty: 1 on 10/18/2020 by Tremayne Adams MD at [facility] and Med Left: Knee [employer] [id number] 03/29/2025 5549-A-12 0 / / [id number] Block Oss 63\[id number] Augmentation Tibia Left Medial Right - 298720 - [id number] Implanted:Qty: 1 on 10/18/2020 by Tremayne Adams MD at [facility] and Med Left: Knee [employer] 04/07/2030 780117 / / [id number] Block 20mm Augmentation Tibial Knee - 992392 - [id number] Implanted:Qty: 1 on 10/18/2020 by Tremayne Adams MD at [facility] and Med Left: Knee [employer] 04/12/2030 271718 / / [id number] Component Oss Long 63mm Nonmodular Tibial Plate Knee - 333249 - [id number] Implanted:Qty: 1 on 10/18/2020 by Tremayne Adams MD at [facility] and Med Left: Knee [employer] 07/20/2030 798260 / / [id number] Cement Bone Surg Simplex Radiopq Stry-How 5555-6-816-64075 2 - [id number] Implanted:Qty: 1 on 08/24/2023 by Tremayne Adams MD at [facility] and Med Left: Knee [employer] [facility] [id number] 10/05/2025 6190-06-08 0 / / [id number] Cement Bone Surg Simplex Radiopq Stry-How 5043-8-310-36823 2 - [id number] Implanted:Qty: 1 on 08/24/2023 by Tremayne Adams MD at [facility] and Med Left: Knee [employer] [facility] [id number] 10/05/2025 6190-06-08 0 / / [id number] Plug Bone Med Stry-How 9968-4-328-10559 2 - [id number] Implanted:Qty: 1 on 08/24/2023 by Tremayne Adams MD at [facility] and Med Left: Knee [employer] [id number] 04/27/2028 6215 1 / / [id number] H Knee Stem Oss Nathan Crowder 12.0x150 [employer] 910077-618960 - [id number] Implanted:Qty: 1 on 08/24/2023 by Tremayne Adams MD at [facility] and Med Left: Knee [employer]ENN[employer]ER [employer] [id number] 08/14/2032 768819 / / [id number] Knee Oss Reinf Yoke [employer] 648772-407075 - [id number] Implanted:Qty: 1 on 08/24/2023 by Tremayne Adams MD at [facility] and Med Left: Knee [employer] [id number] 02/04/2033 935215 / / [id number] Knee Tib Pin Lock Oss Poly [employer] 312021-413079 - [id number] Implanted:Qty: 1 on 08/24/2023 by Tremayne Adams MD at [facility] and Med Left: Knee [employer] [id number] 09/26/2027 531179 / / [id number] Knee Tib Bushing Comp Oss [employer] 429643-404382 - [id number] Implanted:Qty: 1 on 08/24/2023 by Tremayne Adams MD at [facility] and Med Left: Knee [employer] [id number] 04/10/2027 909794 / / [id number] Explanted Type Area Buttonhole Maker Device Identifier Shelf Expiration Date Model / Serial / Lot Femoral And Tibial Component, Articular Insert, And Patella Explanted:Qty: 1 on 07/10/2020 at [facility] and Med Left: Knee Cecilio Rods Implanted:Qty: 1 on 07/10/2020 by Tremayne Adams MD at [facility] and Med Explanted:Qty: 1 on 09/05/2020 at [facility] and Med Left: Knee Description:2 cecilio rods rem kareem Cement Simplex P Full Dose Radiopaque Tobramycin Bone - 033750 - [id number] Implanted:Qty: 1 on 07/10/2020 by Tremayne Adams MD at [facility] and Med Explanted:Qty: 1 on 09/05/2020 at [facility] and Med Left: Knee [employer] 10/05/2021 6197-9-01 0 / / [id number] Cement Simplex P Full Dose Radiopaque Tobramycin Bone - 536464 - [id number] Implanted:Qty: 1 on 07/10/2020 by Tremayne Adams MD at [facility] and Med Explanted:Qty: 1 on 09/05/2020 at [facility] and Med Left: Knee [employer] 10/05/2021 6197-9-01 0 / / [id number] Cement Simplex P Full Dose Radiopaque Tobramycin Bone - 071300 - [id number] Implanted:Qty: 1 on 07/10/2020 by Tremayne Adams MD at [facility] and Med Explanted:Qty: 1 on 09/05/2020 at [facility] and Med Left: Knee [employer] 10/05/2021 6197-9- 0 / / [id number] Cement Simplex P Full Dose Radiopaque Tobramycin Bone - 300902 - [id number] Implanted:Qty: 1 on 07/10/2020 by Tremayne Adams MD at [facility] and Med Explanted:Qty: 1 on 09/05/2020 at [facility] and Med Left: Knee [employer] 10/05/2021 6197-9- 0 / / [id number] Cement Simplex P Radiopaque Full Dose Bone 10 Pack - 887965 - [id number] Implanted:Qty: 1 on 09/05/2020 by Tremayne Adams MD at [facility] and Med Explanted:Qty: 1 on 10/18/2020 by Tremayne Adams MD at [facility] and Med Left: Knee [employer] [id number] 11/05/2021 6191- 0 / / [id number] Cement Simplex P Radiopaque Full Dose Bone 10 Pack - 517672 - [id number] Implanted:Qty: 1 on 09/05/2020 by Tremayne Adams MD at [facility] and Med Explanted:Qty: 1 on 10/18/2020 by Tremayne Adams MD at [facility] and Med Left: Knee [employer] [id number] 11/05/2021 6191- 0 / / [id number] Cement Simplex P Radiopaque Full Dose Bone 10 Pack - 654534 - [id number] Implanted:Qty: 1 on 09/05/2020 by Tremayne Adams MD at [facility] and Med Explanted:Qty: 1 on 10/18/2020 by Tremayne Adams MD at [facility] and Med Left: Knee [employer] [facility] [id number] 11/05/2021 6191-06-08 0 / / [id number] Cecilio Talib Implanted:Qty: 1 on 09/05/2020 by Tremayne Adams MD at [facility] and Med Explanted:Qty: 1 on 10/18/2020 at [facility] and Med Left: Knee Description:1 CECILIO TALIB IN P ATIENT(CUT IN HALF, 1 HALF IN TIBIA, 1 HALF IN FEMUR) Cement Simplex P Radiopaque Full Dose Bone 10 Pack - 506162 - [id number] Implanted:Qty: 1 on 09/05/2020 by Tremayne Adams MD at [facility] and Med Explanted:Qty: 1 on 10/18/2020 by Tremayne Adams MD at [facility] and Med Left: Knee [employer] [facility] [id number] 11/05/2021 6190-06-08 0 / / [id number] Cement Simplex P Radiopaque Full Dose Bone 10 Pack - 634419 - [id number] Implanted:Qty: 1 on 09/05/2020 by Tremayne Adams MD at [facility] and Med Explanted:Qty: 1 on 10/18/2020 by Tremayne Adams MD at [facility] and Med Left: Knee [employer] [facility] [id number] 11/05/2021 6191 0 / / [id number] Cement Simplex P Radiopaque Full Dose Bone 10 Pack - 021911 - [id number] Implanted:Qty: 1 on 10/18/2020 by Tremayne Adams MD at [facility] and Med Explanted:Qty: 1 on 08/24/2023 by Tremayne Adams MD at [facility] and Med Left: Knee [employer] 03/07/2022 6191 0 / / [id number] Cement Simplex P Radiopaque Full Dose Bone 10 Pack - 763448 - [id number] Implanted:Qty: 1 on 10/18/2020 by Tremayne Adams MD at [facility] and Med Explanted:Qty: 1 on 08/24/2023 by Tremayne Adams MD at [facility] and Med Left: Knee [employer] 03/07/2022 6191-1-01 0 / / [id number] Plug Artisan Medium 25mm Plug Bone Cement - 217335 - [id number] Implanted:Qty: 1 on 10/18/2020 by Tremayne Adams MD at [facility] and Med Explanted:Qty: 1 on 08/24/2023 by Tremayne Adams MD at [facility] and Med Left: Knee [employer] [id number] 08/17/2025 6215-5-01 1 / / [id number] Stem Oss Crowder 150mm 13mm Cemented Femoral Knee Intramedullary - 512777 - [id number] Implanted:Qty: 1 on 10/18/2020 by Tremayne Adams MD at [facility] and Med Explanted:Qty: 1 on 08/24/2023 by Tremayne Adams MD at [facility] and Med Left: Knee [employer] [id number] 04/12/2030 917062 / / [id number] Pin Lock Oss Poly - 296882 - [id number] Implanted:Qty: 1 on 10/18/2020 by Tremayne Adams MD at [facility] and Med Explanted:Qty: 1 on 08/24/2023 by Tremayne Adams MD at [facility] and Med Left: Knee [employer] [id number] 07/04/2025 570299 / / [id number] Bushing Tibial Oss Poly - 837015 - [id number] Implanted:Qty: 1 on 10/18/2020 by Tremayne Adams MD at [facility] and Med Explanted:Qty: 1 on 08/24/2023 by Tremayne Adams MD at [facility] and Med Left: Knee [employer] [id number] 09/24/2025 963335 / / [id number] Axle Oss Femoral Knee - 813898 - [id number] Implanted:Qty: 1 on 10/18/2020 by Tremayne Adams MD at [facility] and Med Explanted:Qty: 1 on 08/24/2023 by Tremayne Adams MD at [facility] and Med Left: Knee [employer] [id number] 05/25/2030 501829 / / [id number] Bushing Oss Reduced Poly Femoral Hip - 132795 - [id number] Implanted:Qty: 1 on 10/18/2020 by Tremayne Adams MD at [facility] and Med Explanted:Qty: 1 on 08/24/2023 by Tremanye Adams MD at [facility] and Med Left: Knee [employer] [id number] 07/11/2025 735444 / / [id number] Yoke Oss Reinforced - 156847 - [id number] Implanted:Qty: 1 on 10/18/2020 by Tremayne Adams MD at [facility] and Med Explanted:Qty: 1 on 08/24/2023 by Tremayne Adams MD at [facility] and Med Left: Knee [employer] [id number] 09/04/2030 957690 / / [id number] Bushing Oss Reduced Poly Femoral Hip - 982452 - [id number] Implanted:Qty: 1 on 10/18/2020 by Tremayne Adams MD at [facility] and Med Explanted:Qty: 1 on 08/24/2023 by Tremayne Adams MD at [facility] and Med Left: Knee [employer] [id number] 06/20/2025 310940 / / [id number] Bearing Oss 16mm Reduced Lateral Stabilized Tibial - 456507 - [id number] Implanted:Qty: 1 on 10/18/2020 by Tremayne Adams MD at [facility] and Med Explanted:Qty: 1 on 08/24/2023 by Tremayne Adams MD at [facility] and Med Left: Knee [employer] 09/14/2023 320247 / / [id number] Component Oss Ellipse 7cm Segmental Reduce Femoral Knee - 377929 - [id number] Implanted:Qty: 1 on 10/18/2020 by Tremayne Adams MD at [facility] and Med Explanted:Qty: 1 on 08/24/2023 by Tremayne Adams MD at [facility] and Med Left: Knee [employer] 07/24/2030 177390 / / [id number] Advance Directives For more information, please contact: [phone] Documents on File Type Date Recorded Patient Experience Designer Expl anation Advance Directive and Living Will 08/30/2023 11:56 AM Power of Buttonhole Maker 08/19/2023 HEALTH CAR E PROXY Latest Code [...] way: discussion with patient . Care Teams Replenisher Relationship Specialty Start Date End Date Radha Henson MD [address] [address] PCP - General Internal Medicine 07/05/21
[2025-04-14 08:49] VITALS: BP 100/50; PULSE 58; O2SAT 98; BMI 29.2
--- NOTE | 2025-04-14 08:49 | A.OFFVIS_ITS ---
Vital Signs 04/14/25 08:49 Height 5 ft 8 in Weight 191 lb 12.835 oz BMI 29.2 BP 100/50 L Blood Pressure Location Lt brachial Position Sitting Pulse 58 Pulse Source Pulse Oximeter Pulse Oximetry (%) 98 Oxygen Delivery Method Room Air Intake Visit Reasons: Sleep apnea Inflatable Buildings Laminator Required: No Accompanied by: Spouse Allergies Codeine Allergy (Severe, Uncoded 08/10/24 13:07) Rash and Hives HPI Comments Details: The patient is a 74-year-old woman known COPD in addition to obstructive sleep apnea on CPAP. Apparently she was scheduled to undergo a total knee replacement at [facility] back in February 2019 which was found to have being age from fibrillation this was a new diagnosis for her. She was admitted to the hospital with AFib with rapid ventricular response with EKG changes. Her echo was done demonstrating an EF of 35-40%. She also underwent a diagnostic catheterization demonstrated some coronary artery disease. She was subsequently sent to [facility] for a intervention however, her her blockers was not significant enough for too small for stent so therefore they opted on medical therapy. At this point she does not require surgical intervention. She is recovering well she is on Eliquis now for blood thinners. She currently has a Holter monitor to further assess her arrhythmias. Her breathing still an issue. She is to having dyspnea on exertion. Moderate severity. She has been using Symbicort at times. The patient also has a history of sleep apnea. She has not been able to get back to using her machine after her recent hospitalization. She understands that we need to get her back on CPAP nor to treat her cardiac risk including her cardiac arrhythmia and coronary artery disease. Holter monitor was okay. There is still not sure how much of the cardiac issues contributing to her respiratory symptoms. She did have pulmonary function studies that with we personally reviewed no evidence of any obstruction although she has small airway disease more consistent with a diagnosis like asthma. She responds very well to the inhaler. However she also has a restrictive component. We have to further investigate this with imaging studies. Her CPAP she still getting used to her new mask. She has tried going to try her old mask. She understands she needs to do that because is going to treat her cardiovascular risk. She did undergo a CT scan of the chest that we personally reviewed. The patient did have some evidence of atelectasis at the bases. Partly due to enlarged heart question on the lungs. Does have significant cardiomegaly. She also has evidence of atherosclerosis and distended vessels. The patient also was taken for brief walking oximetry and she maintain a pulse ox of 96%. However the heart rate did increase above 100 and the patient quickly became very short of breath with that. She will be following up with the softball winder soon. In the meantime she continues use her CPAP. The CPAP therapy continues to be effective beneficial. She uses the CPAP for more than 4 hours a night. 11/12/2022 the patient is here for a pulmonary follow-up visit. Since we last spoke the patient unfortunately had a bad fall fracturing her left like. She did have to be admitted to [facility] which she did undergo surgery. Now she is recovering at home. She still has a soft splint and she is going to be evaluated soon since the just happen. Since they have been she has been noticing increasing shortness of breath hard time taking a deep breath in. Denies any mucus production denies any fevers or chills and she denies any pleuritic discomfort which is reassuring for she has been using the Trelegy inhaler although is bothering her throat most likely the powder. Therefore will switch over to an HFA form with spacer to better provide the medication without irritating her vocal cords. In addition to that the patient does have some crackles on examination at the right base. Likely atelectasis postoperatively and she needs to start using the hand forearm her more. In the meantime if the patient worsens with increasing shortness of breath cough discomfort I did give her a course of doxycycline she can start but also to call me to let me know. We did talk about the importance of the incentive spirometer and she can use it 3 to 4 times a day to avoid developing a infectious process. Will follow-up in 2-3 months. If she has any new or worsening respiratory symptoms she is to call for further evaluation. 08/11/2023 the patient is here for pulmonary follow-up visit. currently having issues with the knee. 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 Now she is going to undergo surgery. For respiratory status she continues to use her respiratory medications with good effect. She does complaint of shortness of breath with activity. The patient does have good response to her respiratory medications. She does complaint of headaches in the morning. The patient does have underlying COPD so therefore I will request an overnight oximetry to see if she requires nocturnal oxygen. During the last visit we did switch over from Trelegy to breztri and she is tolerating it well. Her last chest x-ray was back from May 2023 demonstrating no acute disease. Will hold off on any additional imaging at this time. Will try to have an overnight oximetry done prior to her surgery. The patient will follow-up in 4-6 months. 02/11/2024 The patient is here for a pulmonary follow up visit. Has been Complaining of worsened daytime drowsiness. Her [place] score is elevated 05/01. She also complains of headaches. We did perform an overnight oximetry and she did desaturate significantly. She was placed on oxygen to use while sleeping. However, she did not tolerate the loud concentrator. Therefore she returned it. Although she is still symptomatic. She does carry a diagnosis of sleep apnea. Will go ahead and request an in-lab sleep study specially with nocturnal hypoxia. In the meantime she continues respiratory therapy with good effect. The patient follow-up after her in-lab sleep study. 06/15/2024 the patient is here for a pulmonary follow-up visit. Overall she is doing well. Still has some dyspnea on exertion [id number] severity. Also gets wheezing time specially she forgets to take her inhaler. She does take her inhalers regularly. She has not had any recent exacerbations. She is sleeping better. She is not using oxygen at nighttime. She did have a in-lab sleep study which we did review. No evidence of any sleep apnea or hypoxia this time. Therefore is reassuring. She may have a component of periodic limb movement but does related to the fact that she has had some issues with her hips and knees. She is also having some issues with her eyes with her significantly red. She also has what appears to be some swelling around the eyes. They are we doing her kitchen therefore may have other allergens in the area. Will go ahead and send her an allergy medication to see if this provides some relief. Overall she is doing well. The patient will continue with current respiratory therapy plan to follow-up sometime in the fall. If any issues arise she can always call for an earlier assessment. 12/20/2024 the patient is here for pulmonary follow-up visit. Overall she is doing well from a respiratory status. She continues use her inhalers as prescribed. The patient did have an event back in July where she had issues with vertigo and thought she was having a stroke. She was taken initially to [facility] but was too busy and then she went to [facility] then went back to [facility]. Was briefly admitted. There she had a chest x-ray without any acute disease that I did appreciate. After that hospitalization she started losing her hearing. She did follow-up with ENT. 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 She does have a hearing aid. She will continue to follow- up with ENT. In addition to that she was diagnosed with uveitis. She was sent to [place]. She has been getting some direct steroid injections to the eye. In addition. The patient did have a CT scan of the chest at [facility]. Will try to get the report. She was told that she has a pleural effusion. She was placed on diuretics IV and her breathing did improve and she feels well. Her chest x-ray from [facility] did not demonstrate any effusions which is reassuring. Will go ahead and request a CAT scan to review. Question of sarcoidosis did come up in our discussion. Will have her get an Kuldeep level specially with the uveitis and hearing loss in case this was not a viral syndrome sarcoid could potentially explain the findings. Therefore she will have blood work including an Kuldeep level and we will review the CAT scan from [facility]. If additional imaging is warranted I will let her know. The patient be back in 3-4 months. 04/14/2025 the patient is here for pulmonary follow-up visit. Overall the ibis ent has been doing well. Has been using her inhalers with good response. Has been complaining of some difficulty swallowing feels a globus sensation in the throat area. We did talk about swallowing techniques and I did get better when she perform the chin tuck. Therefore she will think about performing a chin- tuck and also alternate liquids and solids to make sure she does not get any significant amount of residual food affecting her. Also we can start her on fluticasone nasal spray to help her with a postnasal drip in case that is causing inflammation to the nasopharynx and oropharynx. I did try to get the CAT scan from [facility] but all day sent as was a CT scan of the brain with demonstrating normal sinuses which is reassuring as well. For the next visit will have her get a chest x-ray. Otherwise patient is without any other complaints. [facility] Medical History (Updated 04/12/25 @ 15:01 by Shivam Castle MD) Atrial fibrillation Meningioma Peripheral neuropathy Pleural effusion Ventricular tachycardia Nocturnal hypoxia ERIKA (obstructive sleep apnea) Chronic restrictive lung disease Dyspnea Cardiomyopathy ERIKA on CPAP COPD (chronic obstructive pulmonary disease) Social History Patient Tobacco Use Status: Former Tobacco user Tobacco use type: Cigarette Years Smoked: 16 years Review of Systems Const Reports daytime sleepiness, Reports difficulty sleeping, Reports headache(s), Reports poor appetite and Reports weight gain Eyes Reports as per HPI and Reports change in vision ENT Denies change in voice, Reports headache(s), Reports hearing loss, Denies lip swelling, Denies mouth pain, Reports nasal congestion, Reports nasal discharge and Denies tongue swelling Card Denies chest pain and Reports dyspnea on exertion Resp Reports cough and Reports dyspnea on exertion GI Denies abdominal pain Musc Reports as per HPI, Reports abnormal gait, Reports arthralgias and Reports joint swelling Neuro Denies Neuro-related abnormal movements, Reports abnormal gait and Reports headache(s) Psych Denies no additional complaints Ifeanyi/Lymph Denies easy bleeding and Denies lymphadenopathy Aller/Immun Denies lip swelling and Denies tongue swelling Physical Exam Vital Signs: Last Vital Signs Pulse 58 04/14/25 08:49 BP 100/50 L 04/14/25 08:49 Pulse Ox 98 04/14/25 08:49 Oxygen Delivery Method Room Air 04/14/25 08:49 BMI result Body Mass Index 29.2 Const General: alert Eyes Periorbital: periorbital findings abnormal bilateral periorbital swelling Neck Neck: Yes normal visual inspection, Yes full ROM and Yes no lymphadenopathy Chest Chest palpation & inspection: normal inspection of the chest Resp Auscultation: no crackles and diminished lung sounds Cardio Rate: regular rate Rhythm: regular rhythm Heart sounds: S1 normal heart sound present, S2 normal heart sound present and Murmur heart sound present GI Palpation (GI): Soft to palpation and nontender Auscultation: normal bowel sounds Skin General skin exam: rashes and/or lesions noted Assessment & Plan Assessment & Plan (1) ERIKA (obstructive sleep apnea): Code(s): G47.33 - Obstructive sleep apnea (adult) (pediatric) Category: Medical (2) Nocturnal hypoxia: Code(s): G47.34 - Idiopathic sleep related nonobstructive alveolar hypoventilation Category: Medical (3) Chronic restrictive lung disease: Code(s): J98.4 - Other disorders of lung Category: Medical (4) Dyspnea: Code(s): R06.00 - Dyspnea, unspecified Category: Medical Qualifiers: Dyspnea type: dyspnea on exertion Qualified Code(s): R06.09 - Other forms of dyspnea (5) Pleural effusion: Code(s): J90 - Pleural effusion, not elsewhere classified Category: Medical Plan continue Breztri with spacer short-acting beta agonist as needed claritin start Fluticasone nasal spray F/U in 6-8 months Medications: New levalbuterol tartrate 45 mcg/actuation (Xopenex HFA) 2 puffs inhalation Q6H PRN 15 grams 11RF shortness of breath or wheezing 30 days J45.909 - Unspecified asthma, uncomplicated fluticasone propionate 50 mcg/actuation 2 sprays intranasal DAILY 15.8 mL 11RF 30 days J31.0 - Chronic rhinitis levalbuterol tartrate 45 mcg/actuation (Xopenex HFA) 2 puffs inhalation Q6H PRN 15 grams 11RF shortness of breath or wheezing 30 days J45.909 - Unspecified asthma, uncomplicated Coding Level of Care Code Est Pt Level 4 (15640) Complex EM visit Add On G2211 Diagnoses ERIKA (obstructive sleep apnea) G47.33 Nocturnal hypoxia G47.34 Chronic restrictive lung disease J98.4 Dyspnea on exertion R06.09 Dyspnea type: dyspnea on exertion Pleural effusion J90 Time Spent (min) 16
== END 2025-04-14 09:16 | disposition home or self-care (01) ==
LOC: HO.HPS 08:18
PROVIDERS: PCP Internal Medicine; Visit Provider Hospitalist
DX: G47.33 Obstructive sleep apnea (adult) (pediatric) (principal); G47.34 Idiopathic sleep related nonobstructive alveolar hypoventilation; J98.4 Other disorders of lung; R06.09 Other forms of dyspnea; J90 Pleural effusion, not elsewhere classified
CPT/HCPCS: 99214; G2211

== ENCOUNTER → 2025-04-14 08:17 | Outpatient (BNVA) | payer MEDICARE, SELFPAY | PROVIDERS: PCP Internal Medicine; Visit Provider Hospitalist | DX: G47.34 Idiopathic sleep related nonobstructive alveolar hypoventilation (principal); J98.4 Other disorders of lung; R06.09 Other forms of dyspnea; J90 Pleural effusion, not elsewhere classified; J31.0 Chronic rhinitis | CPT/HCPCS: 99212 ==